=== PATIENT | female | born 1945 | race Caucasian/White ===

== ENCOUNTER 2017-02-11 09:34 | Inpatient (IN) | payer MEDICARE, BC ==
[2017-02-11] VITALS (14 sets, daily range): BP systolic 100–131; BP diastolic 55–91; PULSE 86–104; RESP 10–20; TEMP 98.7; Ht 152.4 cm; Wt 99.3 kg
[~2017-02-11] VITALS: Ht 152.4 cm; Wt 99.3 kg
[~2017-02-11 09:34] MED LIST: AZIT250T6 PO; BUDE6HFA INHALATION; CIPR500T4 PO; IBUP800T25 PO; LEVO50TA74 PO; LORA-444 PO; METO25TA7 PO; MONT10TA24 PO; OSLT75C PO; PRED5 PO
[2017-02-11] MEDS ORDERED: KETOROLAC 15 MG INJ IV STA (10:15)
[2017-02-11] MEDS ORDERED: SOD CHLORIDE 0.9% 500 ML IV STA (10:15)
--- NOTE | 2017-02-11 10:23 | ERA ---
ER Documentation Chief Complaint Date/Time DATE: 02/11/17 TIME: 10:18 Chief Complaint BROUGHT IN VIA EMS DUE TO ABDOMINAL PAIN HPI 71-year-old female with history of hypertension, hypothyroidism, polymyalgia rheumatica, anxiety, peptic ulcer disease, hiatal hernia, arthritis with a recent admission at [facility] in January for urinary tract infection presents to the ED via rescue ambulance complaining of abdominal pain, polyuria and dysuria. Since yesterday afternoon she has had markedly increasing polyuria and through the night he experienced increasing, generalized, sharp and crampy, nonradiating abdominal pain. Denies nausea, vomiting or diarrhea. Mild improvement this morning after a bowel movement. No hematemesis, hematochezia or melanotic stools. Denies chest pain or palpitations. No shortness of breath or cough. No relieving or exacerbating factors. No fevers or chills. ROS All systems reviewed and are negative except as per history of present illness. Medications Home Meds Reported Medications Prednisone* (Prednisone*) 20 Mg Tab, 40 MG PO DAILY, TAB 02/11/17 Budesonide-Formoterol Fumarate* (Symbicort*) 160-4.5 Hfa.aer.ad, 2 PUFF INHALATION BID, EACH 08/13/15 Lorazepam* (Ativan*) 2 Mg Tablet, 2 MG PO BID 08/13/15 Ibuprofen* (Ibuprofen*) 800 Mg Tablet, 800 MG PO Q8 Y for PAIN, TAB 03/05/15 Levothyroxine Sodium* (Levothyroxine Sodium*) 50 Mcg Tablet, 50 MCG PO AC BREAKFAST, TAB 03/05/15 Discontinued Reported Medications Ciprofloxacin Hcl* (Ciprofloxacin Hcl*) 500 Mg Tablet, 500 MG PO BID 08/13/15 Montelukast Sodium* (Montelukast Sodium*) 10 Mg Tablet, 10 MG PO DAILY 08/13/15 Metoprolol Succinate* (Toprol XL*) 25 Mg Tab.sr.24h, 25 MG PO BID 08/13/15 Prednisone* (Prednisone*) 5 Mg Tab, 15 MG PO TID, TAB 03/05/15 Discontinued Scripts Oseltamivir Phosphate* (Tamiflu*) 75 Mg Capsule, 75 MG PO BID for 5 Days, CAP Prov:SAMEERA SCHOFIELD MD 08/13/15 Azithromycin* (Azithromycin*) 250 Mg Tablet, 500 MG PO ONCE, #1 TAB Prov:SCHOFIELD,SAMEERA M MD 08/13/15 Azithromycin* (Azithromycin*) 250 Mg Tablet, 250 MG PO DAILY, #4 TAB Prov:SAMEERA SCHOFIELD MD 08/13/15 Allergies Allergies: Coded Allergies: shellfish derived (Verified Allergy, Severe, 02/11/17) cortisone (Unverified Allergy, Unknown, 02/11/17) hydromorphone (Unverified Allergy, Unknown, SLEEPY, 02/11/17) T/O: Anel CHAPIN NP prochlorperazine (Unverified Allergy, Unknown, 02/11/17) PMhx/Soc Reviewed in chart. As per HPI. History of Surgery: Yes (Ventral hernia, and cataracts) Anesthesia Reaction: No Hx Neurological Disorder: No Hx Respiratory Disorders: Yes (ASTHMA) Hx Cardiac Disorders: Yes (HTN, CARDIOMEGALY) Hx Psychiatric Problems: No Hx Miscellaneous Medical Probl: Yes (ULCERS, FIBROMYALGIA, DIVERTICULITIS, RHEUMATICA) Hx Alcohol Use: No Hx Substance Use: No Hx Tobacco Use: No Smoking Status: Never smoker FmHx Reviewed in chart. Not relevant to presenting complaint. Physical Exam Vitals Vital Signs Date Time Temp Pulse Resp B/P Pulse Ox O2 Delivery O2 Flow Rate FiO2 02/11/17 17:25 94 12 109/70 96 Nasal Cannula 3.0 02/11/17 17:21 98.2 02/11/17 17:20 100 14 118/70 96 Nasal Cannula 3.0 02/11/17 17:15 102 16 106/74 98 Nasal Cannula 3.0 02/11/17 17:10 98.2 104 16 131/65 98 Nasal Cannula 3.0 02/11/17 13:53 98.7 102 22 139/91 97 Room Air 02/11/17 11:28 84 16 140/75 99 Room Air 02/11/17 09:37 98.1 117 20 129/73 96 Physical Exam Const: Alert, chronically ill-appearing, anxious in mild distress. Moderate distress. Head: Atraumatic Eyes: Normal Conjunctiva ENT: Normal External Ears, Nose and Mouth. Neck: Full range of motion.No meningismus. Nontender. No JVD. Resp: Clear to auscultation bilaterally Cardio: Regular rate and rhythm, no murmurs Abd: Soft, Obese, moderate generalized tenderness but no rebound or guarding. Skin: Multiple ecchymosis on upper and lower extremities. Back: No midline or flank tenderness Ext: No cyanosis, or edema Neur: Awake and alert. Cranial nerves II through XII grossly intact. No focal deficit observed. Psych: Anxious but not depressed. Normal judgment. Result Diagram: 02/11/17 1020 02/11/17 1020 Results 24 hrs Laboratory Tests Test 02/11/17 10:20 02/11/17 15:10 White Blood Count 14.010^3/ul Red Blood Count 4.4410^6/ul Hemoglobin 13.0g/dl Hematocrit 40.3% Mean Corpuscular Volume 90.8fl Mean Corpuscular Hemoglobin 29.3pg Mean Corpuscular Hemoglobin Concent 32.3g/dl Red Cell Distribution Width 17.2% Platelet Count 59970^3/UL Mean Platelet Volume 9.4fl Neutrophils % % Segmented Neutrophils % (Manual) 67% Band Neutrophils % (Manual) 4% Lymphocytes % % Lymphocytes % (Manual) 17% Reactive Lymphocytes % (Manual) 1% Monocytes % % Monocytes % (Manual) 3% Eosinophils % % Basophils % % Metamyelocytes % (manual) 3% Myelocytes % (Manual) 5% Nucleated Red Blood Cells % 0.0/100WBC Neutrophils # (Manual) 9.510^3/ul Band Neutrophils # 0.510^3/ul Absolute Lymphocytes (Manual) 2.310^3/ul Lymphocytes # 10^3/ul Reactive Lymphocytes # 0.110^3/ul Monocytes # 10^3/ul Absolute Monocytes (Manual) 0.410^3/ul Eosinophils # 10^3/ul Basophils # 10^3/ul Metamyelocytes # 0.410^3/ul Myelocytes # 0.710^3/ul Nucleated Red Blood Cells # 10^3/ul Prothrombin Time 12.8Sec Prothrombin Time Ratio 1.0 INR International Normalized Ratio 0.96 Activated Partial Thromboplast Time 20.0Sec Urine Color YELLOW Urine Clarity CLOUDY Urine pH 6.0 Urine Specific [place] 1.019 Urine Ketones NEGATIVEmg/dL Urine Nitrite POSITIVEmg/dL Urine Bilirubin NEGATIVEmg/dL Urine Urobilinogen NEGATIVEmg/dL Urine Leukocyte Esterase 3+Efren/ul Urine Microscopic RBC 1/HPF Urine Microscopic WBC 91/HPF Urine Squamous Epithelial Cells FEW/HPF Urine Bacteria FEW/HPF Urine Mucus FEW/HPF Urine Hemoglobin NEGATIVEmg/dL Urine Glucose NEGATIVEmg/dL Urine Total Protein 1+mg/dl Sodium Level 140mmol/L Potassium Level 4.1mmol/L Chloride Level 105mmol/L Carbon Dioxide Level 26mmol/L Anion Gap 13 Blood Urea Nitrogen 19mg/dl Creatinine 0.84mg/dl Glucose Level 137mg/dl Calcium Level 9.6mg/dl Total Bilirubin 0.1mg/dl Direct Bilirubin 0.00mg/dl Indirect Bilirubin 0.1mg/dl Aspartate Amino Transf (AST/SGOT) 33IU/L Alanine Aminotransferase (ALT/SGPT) 91IU/L Alkaline Phosphatase 107IU/L Total Protein 6.2g/dl Albumin 3.5g/dl Globulin 2.70g/dl Albumin/Globulin Ratio 1.29 Lipase 288U/L Thyroid Stimulating Hormone (TSH) 0.672MIU/L Free Thyroxine 0.85ng/dl Hemoglobin A1c 5.9% Current Medications Medications (Trade) Dose Ordered Sig/Citlali Route PRN Reason Start Time Stop Time Status Last Admin Dose Admin Sodium Chloride (NS) 500 ml @ 500 mls/hr Q1H STAT IV 02/11/17 10:15 02/11/17 11:14 DC 02/11/17 10:30 Ketorolac Tromethamine (Toradol) 15 mg ONCE STAT IV 02/11/17 10:15 02/11/17 10:18 DC 02/11/17 10:29 Famotidine 20 mg 20 mg ONCE ONCE IV 02/11/17 10:30 02/11/17 10:31 DC 02/11/17 10:29 Piperacillin Sod/ Tazobactam Sod 100 ml @ 200 mls/hr ONCE ONCE IVPB 02/11/17 13:00 02/11/17 13:29 DC 02/11/17 13:02 Sodium Chloride 1,000 ml @ 125 mls/hr Q8H ONCE IV 02/11/17 13:19 02/11/17 21:18 Sodium Chloride (NS) 1,000 ml @ 100 mls/hr Q10H IV 02/11/17 14:00 02/11/17 18:54 Hydrocortisone (Solu-Cortef) 125 mg ONCE STAT IV 02/11/17 14:01 02/11/17 14:07 DC Hydrocortisone (Solu-Cortef) 100 mg STK-MED ONCE .ROUTE 02/11/17 14:05 02/11/17 14:06 DC Hydrocortisone (Solu-Cortef) 100 mg STK-MED ONCE .ROUTE 02/11/17 14:06 02/11/17 14:07 DC Hydrocortisone (Solu-Cortef) 100 mg ONCE STAT IV 02/11/17 14:15 02/11/17 14:17 DC 02/11/17 14:15 IV Flush (NS 3 ml) 3 ml PER PROTOCOL IV 02/11/17 14:30 Ondansetron HCl (Zofran Inj) 4 mg Q6H PRN IV NAUSEA AND/OR VOMITING 02/11/17 14:30 Morphine Sulfate (morphine) 2 mg Q4H PRN IV SEVERE PAIN LEVEL 7-10 02/11/17 14:30 Albuterol/ Ipratropium (Duoneb) 3 ml Q4H RESP THERAPY PRN HHN SHORTNESS OF BREATH 02/11/17 15:00 02/11/17 17:43 Cefazolin Sodium (Ancef) 2 gm STK-MED ONCE IVPB 02/11/17 15:51 02/11/17 16:14 DC 02/11/17 15:51 Fentanyl (Sublimaze) 25 mcg PACU ORDER PRN IV MILD PAIN LEVEL 1-3 02/11/17 16:30 02/12/17 02:00 Fentanyl (Sublimaze) 50 mcg PACU ODER PRN IV MODERATE PAIN LEVEL 4-6 02/11/17 16:30 02/12/17 02:00 Fentanyl (Sublimaze) 75 mcg PACU ORDER PRN IV SEVERE PAIN LEVEL 7-10 02/11/17 16:30 02/12/17 02:00 Oxycodone/ Acetaminophen (Percocet (5/ 325)) 1 tab PACU ORDER PRN PO PAIN LEVEL 1-5 02/11/17 16:30 02/12/17 02:00 Oxycodone/ Acetaminophen (Percocet (5/ 325)) 2 tab PACU ORDER PRN PO PAIN LEVEL 6-10 02/11/17 16:30 02/12/17 02:00 Ondansetron HCl (Zofran Inj) 4 mg PACU ORDER PRN IV NAUSEA AND/OR VOMITING 02/11/17 16:30 02/12/17 02:00 Trimethobenzamide HCl (Tigan) 200 mg PACU ORDER PRN IM NAUSEA AND/OR VOMITING 02/11/17 16:30 02/12/17 02:00 Labetalol HCl (Labetalol) 5 mg PACU ORDER PRN IV HIGH BLOOD PRESSURE 02/11/17 16:30 02/12/17 02:00 Hydralazine HCl (Apresoline) 5 mg PACU ORDER PRN IV HIGH BLOOD PRESSURE 02/11/17 16:30 02/12/17 02:00 Ephedrine Sulfate 5 mg PACU ORDER PRN IV MAP LESS THAN 60 02/11/17 16:30 02/12/17 02:00 Albuterol (Proventil 0.083% (Neb)) 2.5 mg PACU ORDER PRN HHN WHEEZING 02/11/17 16:30 02/12/17 02:00 Ipratropium [place] (Atrovent 0.02% (Neb)) 0.5 mg PACU ORDER PRN HHN WHEEZING 02/11/17 16:30 02/12/17 02:00 Meperidine HCl (Demerol) 25 mg PACU ORDER PRN IV POST-OP RIGORS 02/11/17 16:30 02/12/17 02:00 Diphenhydramine HCl (Benadryl) 25 mg PACU ORDER PRN IV PRURITUS 02/11/17 16:30 02/12/17 02:00 Midazolam HCl (Versed) 0.5 mg PACU ORDER PRN IV ANXIETY 02/11/17 16:30 02/12/17 02:00 Morphine Sulfate (morphine) 2 mg Q2H PRN IV PAIN LEVEL 1-5 02/11/17 16:30 Morphine Sulfate (morphine) 4 mg Q2H PRN IV PAIN LEVEL 6-10 02/11/17 16:30 Ketorolac Tromethamine (Toradol) 15 mg Q6H PRN IV PAIN LEVEL 6-10 02/11/17 16:30 02/14/17 16:29 Diphenhydramine HCl (Benadryl) 25 mg Q4H PRN IV PRURITUS 02/11/17 16:30 Nalbuphine HCl (Nubain) 10 mg Q4H PRN IV PRURITUS 02/11/17 16:30 Ondansetron HCl (Zofran Inj) 4 mg Q6H PRN IV NAUSEA AND/OR VOMITING 02/11/17 16:30 Trimethobenzamide HCl (Tigan) 200 mg Q6H PRN IM NAUSEA AND/OR VOMITING 02/11/17 16:30 02/12/17 02:00 Zolpidem Tartrate (Ambien) 5 mg HS MAY REPEAT X 1 PRN PO INSOMNIA 02/11/17 16:30 02/12/17 02:00 Naloxone HCl (Narcan) 0.2 mg Q2M PRN IV FOR RESP RATE 8 OR LESS 02/11/17 16:30 02/12/17 02:00 Miscellaneous Information (* Miscellaneous Pharmacy Order) DURAMORPH: 0.2 MG SPI... GIVEN NEURAXIAL XX 02/11/17 16:30 IMAGING: PROCEDURE: CT Abdomen and Pelvis without intravenous contrast. CLINICAL INDICATION: Abdominal pain . History of peptic ulcer disease and hiatal hernia repair. TECHNIQUE: CT scan of the abdomen and pelvis without intravenous contrast was performed on a multi-slice CT scanner. Coronal and sagittal reformatted images were obtained from the axial source images. Images were reviewed on a high- resolution PACS workstation. Total DLP = 1330.9 mGy-cm. CTDIvol = 22.7 mGy. One or more of the following dose reduction techniques were used: Automated exposure control. Adjustment of the mA and/or kV according to patient size. Use of iterative reconstruction technique. COMPARISON: None. FINDINGS: CT abdomen and pelvis: The lung bases are clear. The heart size is normal in size with calcific atherosclerosis of the coronary arteries.. The liver is normal in size and fatty in density without focal mass or intrahepatic biliary dilatation. The spleen is normal in size and homogeneous in density. The pancreas as visualized is normal. The gallbladder shows no evidence of stones or distension . The adrenal glands are normal. The kidneys are symmetric in size. There are multiple bilateral nonobstructing renal calculi measuring up to 3 mm. No evidence of obstructive uropathy or ureteral calculi. There are multiple phleboliths in the pelvis which limits evaluation for distal ureteral stones.. The stomach is partially collapsed, but is grossly unremarkable. The small bowels are unremarkable. The colon and rectum demonstrate colonic diverticulosis. At the proximal transverse colon near the hepatic flexure, there is focal jv colonic inflammation with a 2 cm extraluminal gas and fluid collection suspicious for perforated diverticulitis.. Small bubbles of pneumoperitoneum are also seen in the right upper quadrant. The appendix is normal. There is no evidence of appendicitis.. The pelvic organs are normal. The bladder is normal. There is no abdominal or pelvic adenopathy, free fluid, free air, mass or mesenteric inflammation. The aorta is normal in caliber with calcific atherosclerosis . The osseous structures showing degenerative enthesopathy of the spine. No osteolytic or osteoblastic lesions are identified. The soft tissues are within normal limits. Lack of IV and oral contrast limits sensitivity of exam. IMPRESSION: 1. Colonic diverticulosis with focal inflammation and extraluminal 2 cm gas and fluid collection adjacent to the proximal transverse colon near the hepatic flexure. Small bubbles of pneumoperitoneum also seen in the right upper quadrant. Findings are consistent with a perforated diverticulitis in the proximal transverse colon. 2. Nonobstructing nephrolithiasis. 3. Hepatic steatosis. RPTAT: HJPL .Lemuel Hernandez MD, MD Date Time Electronically viewed and signed by .Lemuel Hernandez MD, MD on 02/11/2017 11:39 .L/ EKG: Sinus rhythm. Normal RI/QRS. No STTW changes. No axis deviation or ectopy. EP: Interpretation: Normal EKG. Procedures/MDM DOCUMENTS REVIEWED: ED nurse, Prior ED. MEDICAL DECISION MAKIN-year-old female with history of hypertension, hypothyroidism, polymyalgia rheumatica, anxiety, peptic ulcer disease, hiatal hernia, arthritis with a recent admission at [facility] in January for urinary tract infection presents to the ED via rescue ambulance complaining of abdominal pain, polyuria and dysuria. Broad differential diagnosis considered. CT scan reveals perforated diverticulitis with free air. Zosyn given. Surgery consulted and emergent laparotomy scheduled. Counseled patient regarding diagnosis, diagnostic results and plan for admission. CALLS/CONSULTS: Time 12:50, Dr. Haji, Recommends Emergent laparotomy. CALLS/CONSULTS: Time 12:50, Dr. Palacios. PATIENT CARE TRANSITIONED: Time: 13:30, Dr. Palacios. Departure Diagnosis: Primary Impression: Acute generalized abdominal pain Additional Impressions: Diverticulitis of colon with perforation Qualified Code: K57.20 - Diverticulitis of large intestine with perforation without bleeding Polymyalgia rheumatica Condition: Serious CHITO BRITO MD Feb 11, 2017 10:23
[2017-02-11] MEDS ORDERED: FAMOTIDINE 20 MG INJ IV ONE (10:30)
[2017-02-11 10:36] LABS: ABNORMAL IP MESSAGE 1; HEMATOCRIT 40.3 % (37.0-47.0); MEAN CORPUSCULAR HEMOGLOBIN 29.3 pg (29.0-33.0); MEAN CORPUSCULAR HGB CONC 32.3 g/dl (32.0-37.0); MEAN CORPUSCULAR VOLUME 90.8 fl (82.0-101.0); MEAN PLATELET VOLUME 9.4 fl (7.4-10.4); PLATELET COUNT 224 10^3/UL (140-415); RED BLOOD COUNT 4.44 10^6/ul (4.20-5.40); RED CELL DISTRIBUTION WIDTH 17.2 % (11.5-14.5)
[2017-02-11 10:56] LABS: ALBUMIN 3.5 g/dl (3.3-4.9); ALBUMIN/GLOBULIN RATIO 1.29; BILIRUBIN,INDIRECT 0.1 mg/dl (0-1.1); BILIRUBIN,TOTAL 0.1 mg/dl (0.2-1.3); CALCIUM 9.6 mg/dl (8.4-10.2); CREATININE 0.84 mg/dl (0.44-1.00); POTASSIUM 4.1 mmol/L (3.5-5.1); TOTAL PROTEIN 6.2 g/dl (6.1-8.1)
[2017-02-11 11:02] LABS: ADD UMIC YES; UR ASCORBIC ACID NEGATIVE (NEGATIVE); UR BACTERIA FEW /HPF (NONE SEEN); UR BILIRUBIN (Dip) NEGATIVE (NEGATIVE); UR BLOOD (Dip) NEGATIVE (NEGATIVE); UR CLARITY CLOUDY (CLEAR); UR COLOR YELLOW (YELLOW); UR GLUCOSE (Dip) NEGATIVE (NEGATIVE); UR KETONES (Dip) NEGATIVE (NEGATIVE); UR LEUKOCYTE ESTERASE (Dip) 3+ Leu/ul (NEGATIVE); UR MUCUS FEW /HPF (NONE SEEN); UR NITRITE (Dip) POSITIVE (NEGATIVE); UR RBC 1 /HPF (0-5); UR SPECIFIC GRAVITY (Dip) 1.019 (1.003-1.030); UR SQUAMOUS EPITHELIAL CELL FEW /HPF (FEW); UR TOTAL PROTEIN (Dip) 1+ mg/dl (NEGATIVE); UR UROBILINOGEN (Dip) NEGATIVE (NEGATIVE)
[2017-02-11 11:21] LABS: METAMYELOCYTES %M 3 % (0-0); MONOCYTES % (M) 3 % (0-11); MYELOCYTES % (M) 5 % (0-0); REACTIVE LYMPHOCYTES% (M) 1 % (0-0)
--- NOTE | 2017-02-11 11:39 | RADRPT ---
PROCEDURE: CT Abdomen and Pelvis without intravenous contrast. CLINICAL INDICATION: Abdominal pain . History of peptic ulcer disease and hiatal hernia repair. TECHNIQUE: CT scan of the abdomen and pelvis without intravenous contrast was performed on a multi -slice CT scanner. Coronal and sagittal reformatted images were obtained from the axial source image s. Images were reviewed on a high-resolution PACS workstation. Total DLP = 1330.9 mGy-cm. CTDIvol = 22.7 mGy. One or more of the following dose reduction techniques were used: Automated exposure control. Adjustment of the mA and/or kV according to patient size. Use of iterative reconstruction technique. COMPARISON: None. FINDINGS: CT abdomen and pelvis: The lung bases are clear. The heart size is normal in size with calcific atherosclerosis of the cor onary arteries.. The liver is normal in size and fatty in density without focal mass or intrahepati c biliary dilatation. The spleen is normal in size and homogeneous in density. The pancreas as vi sualized is normal. The gallbladder shows no evidence of stones or distension . The adrenal gland s are normal. The kidneys are symmetric in size. There are multiple bilateral nonobstructing renal calculi measuring up to 3 mm. No evidence of obstructive uropathy or ureteral calculi. There are mul tiple phleboliths in the pelvis which limits evaluation for distal ureteral stones.. The stomach is partially collapsed, but is grossly unremarkable. The small bowels are unremarkable. The colon and rectum demonstrate colonic diverticulosis. At the proximal transverse colon near the h epatic flexure, there is focal jv colonic inflammation with a 2 cm extraluminal gas and fluid genny ection suspicious for perforated diverticulitis.. Small bubbles of pneumoperitoneum are also seen in the right upper quadrant. The appendix is normal. There is no evidence of appendicitis.. The pelvic organs are normal. The bladder is normal. There is no abdominal or pelvic adenopathy, free fluid, f ree air, mass or mesenteric inflammation. The aorta is normal in caliber with calcific atherosclerosis . The osseous structures showing degen erative enthesopathy of the spine. No osteolytic or osteoblastic lesions are identified. The soft t issues are within normal limits. Lack of IV and oral contrast limits sensitivity of exam. IMPRESSION: 1. Colonic diverticulosis with focal inflammation and extraluminal 2 cm gas and fluid collection ad jacent to the proximal transverse colon near the hepatic flexure. Small bubbles of pneumoperitoneum also seen in the right upper quadrant. Findings are consistent with a perforated diverticulitis in t he proximal transverse colon. 2. Nonobstructing nephrolithiasis. 3. Hepatic steatosis. RPTAT: HJPL .Lemuel Hernandez MD, MD Date Time Electronically viewed and signed by .Lemuel Hernandez MD, MD on 02/11/2017 11:39 .L/
[2017-02-11] MEDS ORDERED: PRED20TA PO (12:03)
[2017-02-11] MEDS ORDERED: PIPER-TAZO 3.375 GM IV (PMX) 100 ML IVPB ONE (13:00)
[2017-02-11] MEDS ORDERED: SOD CHLORIDE 0.9% 1,000 ML IV ONE ×2 (13:19→22:30)
[2017-02-11 13:49] LABS: INR 0.96; PROTIME 12.8 Sec (12.2-14.2)
[2017-02-11] MEDS ORDERED: HYDROCORTISONE 250 MG INJ IV STA (14:01)
[2017-02-11] MEDS ORDERED: HYDROCORTISONE 100 MG INJ ONE ×2 (14:05→14:06)
[2017-02-11] MEDS: SOD CHLORIDE 0.9% 1,000 ML IV SCH ×2 (14:05→18:54)
[2017-02-11] MEDS ORDERED: HYDROCORTISONE 100 MG INJ IV STA (14:15)
--- NOTE | 2017-02-11 14:23 | RADRPT ---
PROCEDURE: XR Chest. CLINICAL INDICATION: Pain TECHNIQUE: Single frontal chest x-ray. COMPARISON: X-ray, 08/13/2015 FINDINGS: There is nonspecific mild elevation of the right hemidiaphragm, unchanged from the prior x-ray. No a cute infiltrate, pleural effusion or pneumothorax is identified. Cardiomediastinal silhouette is wi thin normal limits. Aortic atherosclerotic calcification is noted. The osseous structures are unrem arkable. IMPRESSION: 1. Nonspecific mild elevation of the right hemidiaphragm, stable over time. 2. Aortic atherosclerosis. 3. No evidence of acute cardiopulmonary process. RPTAT: PP .Raul Nath MD, MD Date Time Electronically viewed and signed by .Raul Nath MD, on 02/11/2017 14:22 .R/
[2017-02-11] MEDS ORDERED: NACL 0.9% 3 ML SYG IV SCH (14:30)
[2017-02-11] MEDS ORDERED: ONDANSETRON 4 MG INJ IV PRN ×4 (14:30→17:30)
[2017-02-11] MEDS ORDERED: morphine 2 MG INJ IV PRN ×2 (14:30→16:30)
--- NOTE | 2017-02-11 14:42 | HP ---
Date/Time of Note Date/Time of Note DATE: 02/11/17 TIME: 14:41 Assessment/Plan VTE Prophylaxis VTE Prophylaxis Intervention: SCD's Assessment/Plan Chief Complaint/Hosp Course 1. Perforated sigmoid diverticulitis with pneumoperitoneum. The patient will be continued on empiric antibiotics. Patient will be kept n.p.o. The patient will be adequately hydrated. General surgery consult has been called. The patient will be taken to urgent exploratory laparotomy. IV steroids in high- dose will be given prevent any adrenal insufficiency since the patient gets prednisone at home on a regular basis. 2. Positive urinalysis. Possible underlying urinary tract infection. She was recently treated for urinary tract infection at an outside hospital. The patient will be maintained on empiric antibiotics. Urine cultures will be obtained. 3. Essential hypertension. The patient's home oral antihypertensives will be held at this time. 4. Hypothyroidism. The patient's Synthroid will be resumed. 5. Polymyalgia rheumatica. On long-term steroids. Will treat the patient with IV steroids to avoid any adrenal insufficiency. 6. History of peptic ulcer disease. Patient will be maintained on proton pump inhibitors, specifically since the patient is getting high-dose IV steroids to prevent any gastric ulcers. Plan: The patient will be admitted to inpatient setting. The patient will be kept n.p.o. The patient will be started on DVT prophylaxis and gastrointestinal prophylaxis. The patient will remain a full code. Activities will be bedrest. The rest of the patient's management will be based on the clinical course, inputs from consultants, and the results of diagnostic studies. Based on the patient's clinical presentation, she most probably requires at least 2 midnights' stay for further management and evaluation of her clinical presentation. Perioperative risk stratification: The patient is a 71-year-old female with multiple comorbidities including essential hypertension, hypothyroidism, polymyalgia rheumatica on chronic steroid therapy, who lives a more or less sedentary life. The patient verbalized a history of carotid artery disease. Given these comorbidities the patient is at moderate to severe risk for any untoward medical complications related to any surgical interventions. She has a perforated diverticulitis. She needs emergent surgery to prevent further complications including peritonitis and sepsis. Therefore, the benefits of the surgical intervention outweighs the risks from the procedure. The case and management of this patient was fully discussed with Dr. Palacios. Problems: HPI/ROS Admit Date/Time Admit Date/Time Hx of Present Illness Reason for admission: Abdominal pain. Consultants 1 Jermaine Haji MD, General Surgery. This is a 71-year-old female with past medical history essential hypertension, hypothyroidism, polymyalgia rheumatica on chronic steroid therapy , peptic ulcer disease, hiatal hernia, and arthritis. Patient was recently discharged from [facility] after treatment of urinary tract infection. The patient came to [facility] emergency room because of complaints of abdominal pain, poor appetite, generalized malaise, polyuria, and dysuria. Patient denied any nausea, vomiting, diarrhea, hematemesis, hematochezia, or melena. The patient was complaining of generalized body aches. Patient denied any dyspnea or cough. The patient denied any fevers or chills. In the emergency room, the patient was noticed to have leukocytosis. The patient underwent a CT scan of the abdomen and pelvis that showed colonic diverticulosis with focal inflammation and extraluminal 2 cm gas and fluid collection adjacent to the proximal transverse colon near the hepatic flexure. Findings are consistent with a perforated diverticulitis in the proximal transverse colon. The urinalysis showed positive nitrate positive leukocyte esterase with a urine microscopic WBC of 91. The patient was treated with IV Zosyn, IV fluids, and analgesics in the emergency room. The on-call surgeon was called by the emergency room physician. ROS Constitutional: fatigue, nausea Eyes: no complaints ENT: no complaints Respiratory: no complaints Gastrointestinal: decreased appetite, nausea, pain Genitourinary: other (Urinary frequency) Musculoskeletal: bone/joint pain Skin: no complaints Neurologic: no complaints Endocrine: polyuria Lymphatic: no complaints Psychological: anxiety Immunologic: no complaints PMH/Family/Social Past Medical History Medical History: hypertension, hypothyroid, other (peptic ulcer disease, polymyalgia rheumatica, chronic steroid use) Past Surgical History Past Surgical Hx: other (, cataract surgery) Social History The patient lives by herself in an apartment. The patient is . Has a son in [place]. Has a sister in [place]. Alcohol Use: none Smoking Status: Never smoker Drug Use: none Exam/Review of Systems Vital Signs Vitals Vital Signs Date Time Temp Pulse Resp B/P Pulse Ox O2 Delivery O2 Flow Rate FiO2 02/11/17 13:53 98.7 102 22 139/91 97 Room Air Exam Exam General: Obese 71 year-old female lying in bed in no apparent distress. HEENT: Normocephalic, atraumatic. Osman facies. Eyes: Anicteric sclerae, conjunctivae clear. ENT: Nasal septum midline, oral mucosa moist. Neck: [place] hump. No JVD noticed. Respiratory: Bilaterally diminished breath sounds. No use of accessory muscles of respiration. No adventitious breath sounds. Cardiovascular: S1, S2 heard. No murmurs or gallops. Abdomen: Soft and nondistended. Bowel sounds positive in all 4 quadrants. Diffuse tenderness. Genitourinary: Deferred. Extremities: No cyanosis, no clubbing. Peripheral pulses palpable. Deformities of bilateral metacarpal joints. Neurologic: Cranial nerves II through XII grossly intact. The patient is awake, alert, and oriented. Labs Result Diagram: 02/11/17 1020 02/11/17 1020 Medications Medications Current Medications Sodium Chloride 1,000 ml @ 125 mls/hr Q8H ONCE IV ; Start 02/11/17 at 13:19; Stop 02/11/17 at 21:18 Piperacillin Sod/ Tazobactam Sod 100 ml @ 200 mls/hr Q8 IVPB ; Start 02/11/17 at 22:00 Sodium Chloride (NS) 1,000 ml @ 100 mls/hr Q10H IV Last administered on t 14:05; Admin Dose 100 MLS/HR; Start 02/11/17 at 14:00 Hydrocortisone (Solu-Cortef) 125 mg DAILY IV ; Start 02/12/17 at 09:00 Ondansetron HCl (Zofran Inj) 4 mg Q6H PRN IV NAUSEA AND/OR VOMITING; Start 03/20 at 14:30 Morphine Sulfate (morphine) 2 mg Q4H PRN IV SEVERE PAIN LEVEL 7-10; Start 02/11 at 14:30; Status UNV Pantoprazole (Protonix Iv) 40 mg DAILY@06 IV ; Start 02/12/17 at 06:00 Procedures Procedures CXR IMPRESSION: 1. Nonspecific mild elevation of the right hemidiaphragm, stable over time. 2. Aortic atherosclerosis. 3. No evidence of acute cardiopulmonary process. CT Scan of the Abdomen and Pelvis IMPRESSION: 1. Colonic diverticulosis with focal inflammation and extraluminal 2 cm gas and fluid collection adjacent to the proximal transverse colon near the hepatic flexure. Small bubbles of pneumoperitoneum also seen in the right upper quadrant. Findings are consistent with a perforated diverticulitis in the proximal transverse colon. 2. Nonobstructing nephrolithiasis. 3. Hepatic steatosis. 12-Lead EKG Normal sinus rhythm. ALEX CHAPIN NP Feb 11, 2017 14:42 ALEX CHAPIN NP Feb 11, 2017 14:42
--- NOTE | 2017-02-11 14:43 | CONS ---
Date/Time of Note Date/Time of Note DATE: 02/11/17 TIME: 14:37 Assessment/Plan Assessment/Plan Additional Assessment/Plan Perforated sigmoid diverticulitis with pneumoperitoneum Patient is hemodynamically stable Plan: Urgent exploratory laparotomy with partial colectomy and temporary colostomy. I have discussed the procedure, outcomes, expectations alternatives and risks in detail with the patient who has an excellent grasp of the nature of her situation and agrees to the proposed plan of therapy as outlined. Consultation Date/Type/Reason Admit Date/Time Date of Consultation: Feb 11, 2017 Reason for Consultation Perforated diverticulitis with pneumoperitoneum Hx of Present Illness The patient is a 71-year-old female who has a history of hypertension, cardiomyopathy and fibromyalgia who is on steroids. She was recently hospitalized at [facility] from January 11 - January 19 for what was diagnosed as a urinary tract infection. Now presents here with a four-day history of increasing left-sided abdominal pain now radiating to the right. In the emergency room she was noted to have a tender left lower quadrant, an elevated white blood cell count, and a CT scan which showed a right pneumoperitoneum as well as refractory sigmoid diverticulitis. She was admitted and surgical consultation was requested in that regard. She has had no fevers or chills she has had polyurea Constitutional: no complaints Eyes: other (We have cataracts) Respiratory: no complaints Cardiovascular: other (String of hypertension and cardiomyopathy) Gastrointestinal: other (As in the HPI) Musculoskeletal: no complaints, other (Fibromyalgia) Skin: no complaints Neurologic: no complaints Endocrine: no complaints Lymphatic: no complaints Psychological: no complaints Past Medical History Medical History: congestive heart failure, diverticulitis, urinary tract infection Past Surgical History Past Surgical Hx: other (Umbilical hernia repair) Family History Significant Family History: no pertinent family hx Social History Alcohol Use: none Smoking Status: Never smoker Drug Use: none Exam/Review of Systems Vital Signs Vitals Vital Signs Date Time Temp Pulse Resp B/P Pulse Ox O2 Delivery O2 Flow Rate FiO2 02/11/17 13:53 98.7 102 22 139/91 97 Room Air Exam Constitutional: alert Psych: no complaints Head: normocephalic Eyes: nl conjunctiva ENMT: nl external ears & nose Respiratory: clear to auscultation Cardiovascular: regular rate and rhythm Gastrointestinal: tender (Lower quadrant with guarding) Musculoskeletal: nl extremities to inspection Extremities: normal pulses Neurological: CONCRETE FLOAT MAKER II-XII intact Results Result Diagram: 02/11/17 1020 02/11/17 1020 Results 24 hrs Laboratory Tests Test 02/11/17 10:20 White Blood Count 14.0 H Red Blood Count 4.44 Hemoglobin 13.0 Hematocrit 40.3 Mean Corpuscular Volume 90.8 Mean Corpuscular Hemoglobin 29.3 Mean Corpuscular Hemoglobin Concent 32.3 Red Cell Distribution Width 17.2 H Platelet Count 224 Mean Platelet Volume 9.4 # Neutrophils % Segmented Neutrophils % (Manual) 67 Band Neutrophils % (Manual) 4 Lymphocytes % Lymphocytes % (Manual) 17 Reactive Lymphocytes % (Manual) 1 H Monocytes % Monocytes % (Manual) 3 Eosinophils % Basophils % Metamyelocytes % (manual) 3 H Myelocytes % (Manual) 5 H Nucleated Red Blood Cells % 0.0 Neutrophils # (Manual) 9.5 H Band Neutrophils # 0.5 Absolute Lymphocytes (Manual) 2.3 Lymphocytes # Reactive Lymphocytes # 0.1 H Monocytes # Absolute Monocytes (Manual) 0.4 Eosinophils # Basophils # Metamyelocytes # 0.4 H Myelocytes # 0.7 H Nucleated Red Blood Cells # Prothrombin Time 12.8 Prothrombin Time Ratio 1.0 INR International Normalized Ratio 0.96 Activated Partial Thromboplast Time Pending Urine Color YELLOW Urine Clarity CLOUDY A Urine pH 6.0 Urine Specific Angela 1.019 Urine Ketones NEGATIVE Urine Nitrite POSITIVE A Urine Bilirubin NEGATIVE Urine Urobilinogen NEGATIVE Urine Leukocyte Esterase 3+ H Urine Microscopic RBC 1 Urine Microscopic WBC 91 H Urine Squamous Epithelial Cells FEW Urine Bacteria FEW A Urine Mucus FEW A Urine Hemoglobin NEGATIVE Urine Glucose NEGATIVE Urine Total Protein 1+ H Sodium Level 140 Potassium Level 4.1 Chloride Level 105 Carbon Dioxide Level 26 Anion Gap 13 Blood Urea Nitrogen 19 Creatinine 0.84 Glucose Level 137 Calcium Level 9.6 Total Bilirubin 0.1 L Direct Bilirubin 0.00 Indirect Bilirubin 0.1 Aspartate Amino Transf (AST/SGOT) 33 Alanine Aminotransferase (ALT/SGPT) 91 H Alkaline Phosphatase 107 Total Protein 6.2 Albumin 3.5 Globulin 2.70 Albumin/Globulin Ratio 1.29 Lipase 288 Medications Medications Current Medications Sodium Chloride 1,000 ml @ 125 mls/hr Q8H ONCE IV ; Start 02/11/17 at 13:19; Stop 02/11/17 at 21:18 Piperacillin Sod/ Tazobactam Sod 100 ml @ 200 mls/hr Q8 IVPB ; Start 02/11/17 at 22:00 Sodium Chloride (NS) 1,000 ml @ 100 mls/hr Q10H IV Last administered on t 14:05; Admin Dose 100 MLS/HR; Start 02/11/17 at 14:00 Hydrocortisone (Solu-Cortef) 125 mg DAILY IV ; Start 02/12/17 at 09:00 Ondansetron HCl (Zofran Inj) 4 mg Q6H PRN IV NAUSEA AND/OR VOMITING; Start 03/20 at 14:30 Morphine Sulfate (morphine) 2 mg Q4H PRN IV SEVERE PAIN LEVEL 7-10; Start 02/11 at 14:30; Status UNV Pantoprazole (Protonix Iv) 40 mg DAILY@06 IV ; Start 02/12/17 at 06:00 CARL STEPHENS MD Feb 11, 2017 14:43
[2017-02-11] MEDS ORDERED: SUGAMMADEX SODIUM 200 MG/2 ML VIAL IV ONE (15:00)
[2017-02-11] MEDS ORDERED: MIDAZOLAM 1 MG/ML 2 ML INJ ONE (15:00)
[2017-02-11] MEDS ORDERED: morphine SULFATE/PF (10 MG/10 ML) INJ ONE (15:00)
[2017-02-11] MEDS ORDERED: ROCURONIUM 50 MG INJ ONE (15:00)
[2017-02-11] MEDS ORDERED: ONDANSETRON 4 MG INJ ONE (15:00)
[2017-02-11] MEDS ORDERED: metroNIDAZOLE 500 MG/100 ML NS IVPB ONE (15:00)
[2017-02-11] MEDS ORDERED: DEXAMETHASONE 4 MG/ML 1 ML INJ ONE (15:00)
[2017-02-11] MEDS ORDERED: PROPOFOL 200 MG INJ ONE (15:00)
[2017-02-11] MEDS ORDERED: SUCCINYLCHOLINE CHLORIDE 100 MG/5 ML SYG IV ONE (15:00)
[2017-02-11] MEDS ORDERED: CEFAZOLIN 1 GM INJ ONE (15:00)
[2017-02-11] MEDS ORDERED: FENTAnyl 50 MCG/ML VIAL ONE (15:00)
[2017-02-11] MEDS ORDERED: ALBUTEROL/IPRATROPIUM (NEB) 3 ML AMP HHN PRN (15:00)
[2017-02-11] MEDS ORDERED: CEFAZOLIN 1 GM INJ IVPB ONE (15:51)
[2017-02-11] MEDS ORDERED: morphine 4 MG/ML VIAL IV PRN (16:30)
[2017-02-11] MEDS ORDERED: hydrALAzine 20 MG INJ IV PRN (16:30)
[2017-02-11] MEDS ORDERED: DIPHENHYDRAMINE 50 MG INJ IV PRN ×2 (16:30)
[2017-02-11] MEDS ORDERED: LABETALOL HCL 20MG INJ IV PRN (16:30)
[2017-02-11] MEDS ORDERED: ZOLPIDEM 5 MG TAB PO PRN (16:30)
[2017-02-11] MEDS ORDERED: IPRATROPIUM (NEB) 0.5 MG/2.5 ML AMP HHN PRN (16:30)
[2017-02-11] MEDS ORDERED: FENTAnyl 50 MCG/ML VIAL IV PRN ×3 (16:30)
[2017-02-11] MEDS ORDERED: OXYCODONE/ACETAMINOPHEN (5/325) TAB PO PRN ×2 (16:30)
[2017-02-11] MEDS ORDERED: TRIMETHOBENZAMIDE 100 MG/ML VIAL IM PRN ×2 (16:30)
[2017-02-11] MEDS ORDERED: NALOXONE (0.4 MG/ML) INJ IV PRN (16:30)
[2017-02-11] MEDS ORDERED: KETOROLAC 15 MG INJ IV PRN (16:30)
[2017-02-11] MEDS ORDERED: NALBUPHINE HCL (10 MG/1 ML) INJ IV PRN (16:30)
[2017-02-11] MEDS ORDERED: MIDAZOLAM 1 MG/ML 2 ML INJ IV PRN (16:30)
[2017-02-11] MEDS ORDERED: ALBUTEROL 0.083% (NEB) 2.5 MG/3 ML AMP HHN PRN (16:30)
[2017-02-11] MEDS ORDERED: EPHEDrine SULFATE 50 MG/5 ML SYG IV PRN (16:30)
[2017-02-11] MEDS ORDERED: MEPERIDINE 25 MG INJ IV PRN (16:30)
--- NOTE | 2017-02-11 17:15 | OPR ---
Date/Time of Note Date/Time of Note DATE: 02/11/17 TIME: 17:08 Operative Report Procedure Date: Feb 11, 2017 Preoperative Diagnosis Pneumoperitoneum Postoperative Diagnosis Perforated right transverse colon. Neoplastic versus inflammatory. Pathology pending Operation Performed 1. Exploratory laparotomy 2. Right hemicolectomy Surgeon: CARL STEPHENS MD Anesthesia Type: general Anesthesiologist: Andrew Crooks M.D. Estimated Blood Loss: 50 - 100 ml's Transfusion Required: no Specimens Right colon Grafts/Implants: none Tubes/Drains None Complications: no Pt Condition Post Procedure: stable Disposition: PACU Indications Peritonitis Operative\Procedure Findings Contained perforation of right transverse colon. Etiology to be determined by pathology Procedure Description After satisfactory general endotracheal anesthesia was achieved, a Mojica catheter was placed and the abdomen prepped and draped. The abdomen was entered through a lower vertical midline incision extending just above the umbilicus. Abdominal exploration showed that the patient had mild sigmoid diverticulitis. The descending colon was normal the cecum and ascending colon were normal. There was a masslike effect of the right transverse colon which when mobilized perforated extruding formed pus. The segment of colon was indurated, and the perforation was either neoplastic or inflammatory, and could not be determined intraoperatively. The remainder of the colon was normal as was the small bowel and colon. The transverse colon to the right of the middle colic vessels was divided with a 55 mm stapler. The terminal ileum was divided with a 55 mm stapler. The mesentery to the right colon was divided with impact LigaSure. The right colon was excised and submitted intact. Mesenteric defect was closed with running 3-0 Vicryl suture. Next the antimesenteric border of each staple line was excised. A 75 mm NUNO stapler was inserted into each limb of bowel, closed and fired achieving a side to side ileocolic anastomosis. The secondary defect was closed with a TA 60 stapler. The resulting anastomosis was widely patent, well vascularized and free of tension. Operating personnel then changed gloves. Hemostasis was total. The abdomen was then closed en susanna interrupted #2 Vicryl sutures. Sponge, needle and instrument counts were reported as correct 2 prior to skin closure. Skin was closed with skin kay. CARL STEPHENS MD Feb 11, 2017 17:15
[2017-02-11] MEDS ORDERED: ALBUTEROL 0.5% (NEB) 2.5 MG/0.5 ML AMP ONE (17:32)
[2017-02-11] MEDS: METOCLOPRAMIDE 10 MG INJ IV SCH (18:55)
[2017-02-11] MEDS ORDERED: HYDROCORTISONE 100 MG INJ IV SCH (21:00)
[2017-02-11] MEDS: METHYLPREDNISOLONE 125 MG INJ IV SCH (21:16)
[2017-02-11] MEDS ORDERED: NITR0.3T6 SL (21:54)
[2017-02-11] MEDS ORDERED: LEVE250T66 PO (21:54)
[2017-02-11] MEDS ORDERED: AMLO-145 PO (21:54)
[2017-02-11] MEDS ORDERED: VALS160T26 PO (21:54)
[2017-02-11] MEDS: PIPER-TAZO 3.375 GM IV (PMX) 100 ML IVPB SCH (21:55)
[2017-02-11] MEDS ORDERED: CEFAZOLIN 1 GM/50 ML (PMX) 50 ML IVPB SCH (22:00)
[2017-02-11] MEDS: metroNIDAZOLE 500 MG/NS (PMX) 100 ML IVPB SCH (22:22)
[2017-02-11] MEDS: LEVETIRACETAM 250 MG TAB PO SCH (23:22)
[2017-02-12] VITALS (9 sets, daily range): BP systolic 112–141; BP diastolic 62–71; PULSE 97–100; RESP 16–20
[2017-02-12] MEDS: SOD CHLORIDE 0.9% 1,000 ML IV SCH ×3 (03:37→22:56)
[2017-02-12] MEDS: METOCLOPRAMIDE 10 MG INJ IV SCH ×4 (05:37→17:10)
[2017-02-12] MEDS: PIPER-TAZO 3.375 GM IV (PMX) 100 ML IVPB SCH ×3 (05:39→21:45)
[2017-02-12] MEDS: METHYLPREDNISOLONE 125 MG INJ IV SCH ×3 (05:39→21:46)
[2017-02-12 05:56] LABS: ABNORMAL IP MESSAGE 1; HEMATOCRIT 36.2 % (37.0-47.0); HEMOGLOBIN 11.1 g/dl (12.0-16.0); MEAN CORPUSCULAR HEMOGLOBIN 28.2 pg (29.0-33.0); MEAN CORPUSCULAR HGB CONC 30.7 g/dl (32.0-37.0); MEAN CORPUSCULAR VOLUME 91.9 fl (82.0-101.0); MEAN PLATELET VOLUME 9.5 fl (7.4-10.4); PLATELET COUNT 188 10^3/UL (140-415); RED BLOOD COUNT 3.94 10^6/ul (4.20-5.40); RED CELL DISTRIBUTION WIDTH 17.4 % (11.5-14.5); WHITE BLOOD COUNT 20.6 10^3/ul (4.8-10.8)
[2017-02-12] MEDS ORDERED: PANTOPRAZOLE 40 MG INJ IV SCH (06:00)
[2017-02-12 06:06] LABS: POSITIVE DIFF @See below
[2017-02-12 06:30] LABS: CHOL/HDL RATIO 2.6 RATIO; MAGNESIUM 1.9 mg/dl (1.7-2.5); PHOSPHORUS 3.8 mg/dl (2.5-4.9)
[2017-02-12 06:31] LABS: ALBUMIN 2.7 g/dl (3.3-4.9); ALBUMIN/GLOBULIN RATIO 1.08; BILIRUBIN,INDIRECT 0.1 mg/dl (0-1.1); BILIRUBIN,TOTAL 0.1 mg/dl (0.2-1.3); CALCIUM 8.4 mg/dl (8.4-10.2); CREATININE 0.67 mg/dl (0.44-1.00); POTASSIUM 4.4 mmol/L (3.5-5.1); TOTAL PROTEIN 5.2 g/dl (6.1-8.1)
[2017-02-12] MEDS: metroNIDAZOLE 500 MG/NS (PMX) 100 ML IVPB SCH ×2 (06:33→14:07)
[2017-02-12] MEDS ORDERED: HYDROCORTISONE 250 MG INJ IV SCH (09:00)
[2017-02-12] MEDS: LEVOTHYROXINE 50 MCG TAB PO SCH (09:22)
[2017-02-12] MEDS ORDERED: IBUPROFEN 800 MG TAB PO PRN (10:00)
[2017-02-12 10:15] LABS: ANISOCYTOSIS 2+ (0-0); METAMYELOCYTES %M 3 % (0-0); MICROCYTOSIS 1+ (0-0); MONOCYTES % (M) 4 % (0-11); MYELOCYTES % (M) 1 % (0-0); PLATELET ESTIMATE NORMAL; POIKILOCYTOSIS 1+ (0-0); POLYCHROMASIA 3+ (0-0); PROMYELOCYTES #M 0 10^3/ul (0-0); PROMYELOCYTES % (M) 1 % (0-0)
[2017-02-12] MEDS: VALSARTAN 160 MG TAB PO SCH ×2 (10:23→21:13)
[2017-02-12] MEDS: LORAZEPAM 1 MG TAB PO PRN ×2 (10:24→21:46)
[2017-02-12] MEDS: AMLODIPINE 5 MG TAB PO SCH (10:24)
--- NOTE | 2017-02-12 11:29 | PN ---
Date/Time of Note Date/Time of Note DATE: 02/12/17 TIME: 11:28 Assessment/Plan Lines/Catheters IV Catheter Type (from [facility]): Peripheral IV Mojica in Place (from [facility]): Yes Assessment/Plan Chief Complaint/Hosp Course The patient is a 71-year-old female who has a history of hypertension, cardiomyopathy and fibromyalgia who is on steroids. She was recently hospitalized at [facility] from January 11 - January 19 for what was diagnosed as a urinary tract infection. Now presents here with a four-day history of increasing left-sided abdominal pain now radiating to the right. In the emergency room she was noted to have a tender left lower quadrant, an elevated white blood cell count, and a CT scan which showed a right pneumoperitoneum as well as refractory sigmoid diverticulitis. She was admitted and surgical consultation was requested in that regard. She has had no fevers or chills she has had polyurea Problems: Assessment/Plan Abdominal examination is benign Tolerating clear liquids Awaiting pathology Subjective 24 Hr Interval Summary Postoperative day #1 Awake, alert, afebrile Exam/Review of Systems Vital Signs Vitals Vital Signs Date Time Temp Pulse Resp B/P Pulse Ox O2 Delivery O2 Flow Rate FiO2 02/12/17 08:06 98.2 102 16 131/66 98 02/12/17 08:00 Nasal Cannula 3.0 Intake and Output 02/11/17 02/11/17 02/12/17 15:00 23:00 07:00 Intake Total 3350 ml 1460 ml Output Total 300 ml 500 ml Balance 3050 ml 960 ml Results Result Diagram: 02/12/17 0517 02/12/17 0517 CARL STEPHENS MD Feb 12, 2017 11:29
[2017-02-12] MEDS: predniSONE 20 MG TAB PO SCH (12:39)
--- NOTE | 2017-02-12 15:05 | PN ---
Date/Time of Note Date/Time of Note DATE: 02/12/17 TIME: 14:58 Assessment/Plan VTE Prophylaxis VTE Prophylaxis Intervention: SCD's Lines/Catheters IV C[facility]ter Type (from [facility]): Peripheral IV Urinary Cath still in place: Yes Assessment/Plan Chief Complaint/Hosp Course Assessment and plan 1. Perforated sigmoid diverticulitis with pneumoperitoneum. Continue antibiotics. Patient is also status post exploratory laparotomy and right hemicolectomy. Advance diet per surgeon. 2. Suspect UTI with antibiotics for now. 3. Essential hypertension. On antihypertensives and adjust needed 4. Hypothyroidism. Continue incentive 5. History of polymyalgia rheumatica. Continue IV steroids. 6. PUD. Continue PPI medication Disposition plan: Continue with analgesics. Advance diet per surgeon. Discharged in medically stable and cleared by consultants Discussed plan of care with Dr. Aaron Problems: Subjective 24 Hr Interval Summary Free Text/Dictation less reported pain. no s/s of distress on abdomen. tolerating diet well. Exam/Review of Systems Vital Signs Vitals Vital Signs Date Time Temp Pulse Resp B/P Pulse Ox O2 Delivery O2 Flow Rate FiO2 02/12/17 08:06 98.2 102 16 131/66 98 02/12/17 08:00 Nasal Cannula 3.0 Intake and Output 02/11/17 02/11/17 02/12/17 15:00 23:00 07:00 Intake Total 3350 ml 1460 ml Output Total 300 ml 500 ml Balance 3050 ml 960 ml Exam Constitutional: alert, oriented Head: normocephalic Respiratory: clear to auscultation, normal air movement Cardiovascular: regular rate and rhythm Gastrointestinal: soft, tender Neurological: PAPER MILL MANAGER II-XII intact, nl mental status, nl speech Results Result Diagram: 02/12/1717 02/12/17 0517 Results 24 hrs Laboratory Tests Test 02/11/17 15:10 02/12/17 05:17 Hemoglobin A1c 5.9 White Blood Count 20.6 #H Red Blood Count 3.94 L Hemoglobin 11.1 L Hematocrit 36.2 L Mean Corpuscular Volume 91.9 Mean Corpuscular Hemoglobin 28.2 L Mean Corpuscular Hemoglobin Concent 30.7 L Red Cell Distribution Width 17.4 H Platelet Count 188 Mean Platelet Volume 9.5 Neutrophils % Segmented Neutrophils % (Manual) 73 Band Neutrophils % (Manual) 15 H Lymphocytes % Lymphocytes % (Manual) 3 L Monocytes % Monocytes % (Manual) 4 Eosinophils % Basophils % Metamyelocytes % (manual) 3 H Myelocytes % (Manual) 1 H Promyelocytes % (Manual) 1 H Nucleated Red Blood Cells % 0.0 Neutrophils # (Manual) 15.7 H Band Neutrophils # 3.0 H Absolute Lymphocytes (Manual) 0.6 L Lymphocytes # Monocytes # Absolute Monocytes (Manual) 0.8 Eosinophils # Basophils # Metamyelocytes # 0.6 H Myelocytes # 0.2 H Promyelocytes # 0 Nucleated Red Blood Cells # Platelet Estimate NORMAL Polychromasia 3+ Poikilocytosis 1+ Anisocytosis 2+ Microcytosis 1+ Macrocytosis 1+ Sodium Level 138 Potassium Level 4.4 Chloride Level 109 Carbon Dioxide Level 23 Anion Gap 10 Blood Urea Nitrogen 12 Creatinine 0.67 Glucose Level 162 Calcium Level 8.4 Phosphorus Level 3.8 Magnesium Level 1.9 Total Bilirubin 0.1 L Direct Bilirubin 0.00 Indirect Bilirubin 0.1 Aspartate Amino Transf (AST/SGOT) 29 Alanine Aminotransferase (ALT/SGPT) 82 H Alkaline Phosphatase 82 Total Protein 5.2 #L Albumin 2.7 L Globulin 2.50 Albumin/Globulin Ratio 1.08 Triglycerides Level 86 Cholesterol Level 178 LDL Cholesterol, Calculated 94 HDL Cholesterol 67 Cholesterol/HDL Ratio 2.6 Medications Medications Current Medications Piperacillin Sod/ Tazobactam Sod (Zosyn 3.375gm/ 100 ml (Pmx)) 100 ml @ 200 mls /hr Q8 IVPB Last administered on 02/12/17t 13:31; Admin Dose 200 MLS/HR; Start 02/11/17 at 22:00 Morphine Sulfate (morphine) 2 mg Q4H PRN IV SEVERE PAIN LEVEL 7-10; Start 02/11 at 14:30 Ketorolac Tromethamine (Toradol) 15 mg Q6H PRN IV PAIN LEVEL 6-10; Start at 16:30; Stop 02/12/17 at 16:30 Diphenhydramine HCl (Benadryl) 25 mg Q4H PRN IV PRURITUS; Start 02/11/17 at 16: 30; Stop 02/12/17 at 16:30 Nalbuphine HCl (Nubain) 10 mg Q4H PRN IV PRURITUS; Start 02/11/17 at 16:30; Stop 02/12/17 at 16:30 Ondansetron HCl 4 mg 4 mg Q6H PRN IV NAUSEA; Start 02/11/17 at 17:30 Metronidazole (Flagyl 500 Mg (Pmx)) 100 ml @ 100 mls/hr Q8 IVPB Last administered on 02/12/17 14:07; Admin Dose 100 MLS/HR; Start 02/11/17 at 22:00 ; Stop 02/12/17 at 14:59 Metoclopramide HCl (Reglan) 10 mg Q6 IV Last administered on 02/12/17 12:39; Admin Dose 10 MG; Start 02/11/17 at 18:00 Methylprednisolone Sodium Succinate (Solu-Medrol) 100 mg Q8 IV Last administered on 02/12/17 13:31; Admin Dose 100 MG; Start 02/11/17 at 22:00; Stop 02/13/17 at 06:01 Levetiracetam 250 mg 250 mg QHS PO Last administered on 02/11/17 23:22; Admin Dose 250 MG; Start 02/11/17 at 22:24 Sodium Chloride (NS) 1,000 ml @ 70 mls/hr [id number] IV Last administered on 02/12 03:37; Admin Dose 70 MLS/HR; Start 02/12/17 at 02:30 Miscellaneous Information Patients own medicat... BID@10,16 XX ; Start 02/12/17 at 10:00 Amlodipine Besylate (Norvasc) 5 mg DAILY PO Last administered on 02/12/17 10: 24; Admin Dose 5 MG; Start 02/12/17 at 10:00 Ibuprofen (Motrin) 800 mg Q8H PRN PO PAIN; Start 02/12/17 at 10:00; Status Future Hold Lorazepam (Ativan) 2 mg TID PRN PO ANXIETY Last administered on 02/12/17 10:24 ; Admin Dose 2 MG; Start 02/12/17 at 10:00 Prednisone (Prednisone) 40 mg DAILY PO Last administered on 02/12/17 12:39; Admin Dose 40 MG; Start 02/12/17 at 12:00 Valsartan (Diovan) 160 mg BID PO Last administered on 02/12/17 10:23; Admin Dose 160 MG; Start 9/11/17 at 10:00 Salmeterol Xinafoate/ Fluticasone (Advair 250/50 Diskus) 1 inh BID INH ; Start 02/12/17 at 21:00 Pantoprazole (Protonix Tab) 40 mg DAILY@06 PO ; Start 02/13/17 at 06:00 LAMONT MULLER Feb 12, 2017 15:05
[2017-02-12] MEDS: SALMETEROL/FLUTICASONE 250/50 INHA INH SCH (21:12)
[2017-02-12] MEDS: LEVETIRACETAM 250 MG TAB PO SCH (21:12)
[2017-02-12] MEDS: KETOROLAC 15 MG INJ IV PRN (22:53)
[2017-02-13 01:21] VITALS: BP 130/64; RESP 20
[2017-02-13] MEDS: METHYLPREDNISOLONE 125 MG INJ IV SCH (05:49)
[2017-02-13] MEDS: PIPER-TAZO 3.375 GM IV (PMX) 100 ML IVPB SCH ×3 (05:49→22:11)
[2017-02-13] MEDS: PANTOPRAZOLE (EC) 40 MG TAB PO SCH (05:49)
[2017-02-13] MEDS: METOCLOPRAMIDE 10 MG INJ IV SCH ×4 (05:49→18:25)
[2017-02-13 07:50] VITALS: BP 136/64; RESP 20
[2017-02-13] MEDS: LEVOTHYROXINE 50 MCG TAB PO SCH (08:33)
[2017-02-13] MEDS: AMLODIPINE 5 MG TAB PO SCH (08:35)
[2017-02-13] MEDS: VALSARTAN 160 MG TAB PO SCH ×2 (08:35→20:47)
[2017-02-13] MEDS: LORAZEPAM 1 MG TAB PO PRN ×3 (08:36→22:11)
[2017-02-13] MEDS: predniSONE 20 MG TAB PO SCH (08:36)
[2017-02-13] MEDS: SALMETEROL/FLUTICASONE 250/50 INHA INH SCH ×2 (08:37→20:46)
[2017-02-13 10:53] LABS: ABNORMAL IP MESSAGE 1; BASOPHILS % 0.1 % (0.0-2.0); HEMATOCRIT 33.4 % (37.0-47.0); HEMOGLOBIN 10.4 g/dl (12.0-16.0); LYMPHOCYTES # 0.5 10^3/ul (0.8-2.9); LYMPHOCYTES % 3.4 % (15.0-51.0); MEAN CORPUSCULAR HEMOGLOBIN 28.7 pg (29.0-33.0); MEAN CORPUSCULAR HGB CONC 31.1 g/dl (32.0-37.0); MEAN CORPUSCULAR VOLUME 92.3 fl (82.0-101.0); MEAN PLATELET VOLUME 9.6 fl (7.4-10.4); MONOCYTE # 0.6 10^3/ul (0.3-0.9); MONOCYTES % 3.4 % (0.0-11.0); NEUTROPHILS % 89.9 % (39.0-77.0); NUCLEATED RED BLOOD CELLS% 0.1 /100WBC (0.0-0.0); PLATELET COUNT 146 10^3/UL (140-415); RED BLOOD COUNT 3.62 10^6/ul (4.20-5.40); RED CELL DISTRIBUTION WIDTH 17.6 % (11.5-14.5); WHITE BLOOD COUNT 16.1 10^3/ul (4.8-10.8)
[2017-02-13 10:57] LABS: POSITIVE DIFF @See below
[2017-02-13] MEDS: KETOROLAC 15 MG INJ IV PRN ×2 (11:09→18:25)
[2017-02-13 11:16] LABS: CALCIUM 8.6 mg/dl (8.4-10.2); CREATININE 0.76 mg/dl (0.44-1.00); POTASSIUM 3.9 mmol/L (3.5-5.1)
[2017-02-13 14:54] VITALS: BP 141/71; RESP 18
--- NOTE | 2017-02-13 15:54 | PN ---
Date/Time of Note Date/Time of Note DATE: 02/13/17 TIME: 15:52 Assessment/Plan VTE Prophylaxis VTE Prophylaxis Intervention: SCD's Lines/Catheters IV Catheter Type (from [facility]): Peripheral IV Urinary Cath still in place: Yes Assessment/Plan Chief Complaint/Hosp Course Assessment and plan 1. Perforated sigmoid diverticulitis with pneumoperitoneum. Continue antibiotics. Patient is also status post exploratory laparotomy and right hemicolectomy. Advance diet per surgeon. Follow-up on pathology. 2. Suspect UTI with antibiotics for now. 3. Essential hypertension. On antihypertensives and adjust needed 4. Hypothyroidism. Continue i Synthroid 5. History of polymyalgia rheumatica. Continue IV steroids. 6. PUD. Continue PPI medication Disposition plan: Continue with analgesics. Advance diet per surgeon. Encourage regular physical therapy. We will see for correction facility placement versus acute rehab. Discussed plan of care with Dr. Aaron Problems: Subjective 24 Hr Interval Summary Free Text/Dictation Patient still reports having some abdominal pain. No other specific complaints. Exam/Review of Systems Vital Signs Vitals Vital Signs Date Time Temp Pulse Resp B/P Pulse Ox O2 Delivery O2 Flow Rate FiO2 02/13/17 14:54 97.9 112 18 141/71 98 02/12/17 08:00 Nasal Cannula 3.0 Intake and Output 02/12/17 02/12/17 02/13/17 15:00 23:00 07:00 Intake Total 200 ml 2910 ml 400 ml Output Total 1800 ml 850 ml Balance 200 ml 1110 ml -450 ml Exam Constitutional: alert, oriented, obese Head: normocephalic Respiratory: clear to auscultation, normal air movement Cardiovascular: regular rate and rhythm Gastrointestinal: soft, tender Neurological: NURSING CLERK II-XII intact, nl mental status, nl speech Skin: Surgical site clean dry and intact Results Result Diagram: 02/13/17 1040 02/13/17 1040 Results 24 hrs Laboratory Tests Test 02/13/17 10:40 White Blood Count 16.1 #H Red Blood Count 3.62 L Hemoglobin 10.4 L Hematocrit 33.4 L Mean Corpuscular Volume 92.3 Mean Corpuscular Hemoglobin 28.7 L Mean Corpuscular Hemoglobin Concent 31.1 L Red Cell Distribution Width 17.6 H Platelet Count 146 # Mean Platelet Volume 9.6 Neutrophils % 89.9 H Lymphocytes % 3.4 L Monocytes % 3.4 Eosinophils % 0.0 Basophils % 0.1 Nucleated Red Blood Cells % 0.1 H Neutrophils # (Manual) 14.5 H Lymphocytes # 0.5 L Monocytes # 0.6 Eosinophils # 0.0 Basophils # 0.0 Nucleated Red Blood Cells # 0.0 Sodium Level 140 Potassium Level 3.9 Chloride Level 112 H Carbon Dioxide Level 26 Anion Gap 6 L Blood Urea Nitrogen 11 Creatinine 0.76 Glucose Level 156 Calcium Level 8.6 Medications Medications Current Medications Piperacillin Sod/ Tazobactam Sod (Zosyn 3.375gm/ 100 ml (Pmx)) 100 ml @ 200 mls /hr Q8 IVPB Last administered on 02/13/17 13:35; Admin Dose 200 MLS/HR; Start 02/11/17 at 22:00 Ondansetron HCl (Zofran Inj) 4 mg Q6H PRN IV NAUSEA; Start 02/11/17 at 17:30 Metoclopramide HCl (Reglan) 10 mg Q6 IV Last administered on 02/13/17 11:09; Admin Dose 10 MG; Start 02/11/17 at 18:00 Levetiracetam 250 mg 250 mg QHS PO Last administered on 02/12/17 21:12; Admin Dose 250 MG; Start 02/11/17 at 22:24 Sodium Chloride (NS) 1,000 ml @ 70 mls/hr [id number] IV Last administered on 02/12 22:56; Admin Dose 70 MLS/HR; Start 02/12/17 at 02:30 Miscellaneous Information Patients own medicat... BID@10,16 XX ; Start 02/12/17 at 10:00 Amlodipine Besylate (Norvasc) 5 mg DAILY PO Last administered on 02/13/17 08: 35; Admin Dose 5 MG; Start 02/12/17 at 10:00 Ibuprofen (Motrin) 800 mg Q8H PRN PO PAIN; Start 02/12/17 at 10:00; Status Future Hold Lorazepam (Ativan) 2 mg TID PRN PO ANXIETY Last administered on 02/13/17 15:11 ; Admin Dose 2 MG; Start 02/12/17 at 10:00 Prednisone (Prednisone) 40 mg DAILY PO Last administered on 9/12/17at 08:36; Admin Dose 40 MG; Start 02/12/17 at 12:00 Valsartan (Diovan) 160 mg BID PO Last administered on 02/13/17 08:35; Admin Dose 160 MG; Start 02/12/17 at 10:00 Salmeterol Xinafoate/ Fluticasone (Advair 250/50 Diskus) 1 inh BID INH Last administered on 02/13/17 08:37; Admin Dose 1 INH; Start 02/12/17 at 21:00 Pantoprazole (Protonix Tab) 40 mg DAILY@06 PO Last administered on 02/13/17 05 :49; Admin Dose 40 MG; Start 02/13/17 at 06:00 Ketorolac Tromethamine (Toradol) 15 mg Q6H PRN IV PAIN Last administered on 11:09; Admin Dose 15 MG; Start 02/12/17 at 21:30; Stop 02/15/17 at 21:29 LAMONT MULLER Feb 13, 2017 15:54
--- NOTE | 2017-02-13 16:15 | PN ---
Date/Time of Note Date/Time of Note DATE: 02/13/17 TIME: 16:13 Assessment/Plan Lines/Catheters IV Catheter Type (from [facility]): Peripheral IV Mojica in Place (from [facility]): Yes Assessment/Plan Chief Complaint/Hosp Course The patient is a 71-year-old female who has a history of hypertension, cardiomyopathy and fibromyalgia who is on steroids. She was recently hospitalized at [facility] from January 11 - January 19 for what was diagnosed as a urinary tract infection. Now presents here with a four-day history of increasing left-sided abdominal pain now radiating to the right. In the emergency room she was noted to have a tender left lower quadrant, an elevated white blood cell count, and a CT scan which showed a right pneumoperitoneum as well as refractory sigmoid diverticulitis. She was admitted and surgical consultation was requested in that regard. She has had no fevers or chills she has had polyurea Problems: Assessment/Plan Abdominal examination is benign Leukocytosis is improving Plan: Soft diet Discontinue Mojica in a.m. Subjective 24 Hr Interval Summary Postoperative day #2 Afebrile Had several bowel movements Exam/Review of Systems Vital Signs Vitals Vital Signs Date Time Temp Pulse Resp B/P Pulse Ox O2 Delivery O2 Flow Rate FiO2 02/13/17 14:54 97.9 112 18 141/71 98 02/12/17 08:00 Nasal Cannula 3.0 Intake and Output 02/12/17 02/12/17 02/13/17 15:00 23:00 07:00 Intake Total 200 ml 2910 ml 400 ml Output Total 1800 ml 850 ml Balance 200 ml 1110 ml -450 ml Results Result Diagram: 02/13/17 1040 02/13/17 1040 CARL STEPHENS MD Feb 13, 2017 16:15
[2017-02-13] MEDS: SOD CHLORIDE 0.9% 1,000 ML IV SCH (18:41)
[2017-02-13 19:51] VITALS: BP 135/75; RESP 20
[2017-02-13] MEDS: LEVETIRACETAM 250 MG TAB PO SCH (20:47)
[2017-02-14 02:00] VITALS: BP 130/68; RESP 20
[2017-02-14 06:09] LABS: BASOPHILS % 0.1 % (0.0-2.0); HEMATOCRIT 30.5 % (37.0-47.0); HEMOGLOBIN 9.6 g/dl (12.0-16.0); LYMPHOCYTES # 0.8 10^3/ul (0.8-2.9); LYMPHOCYTES % 6.2 % (15.0-51.0); MEAN CORPUSCULAR HGB CONC 31.5 g/dl (32.0-37.0); MEAN CORPUSCULAR VOLUME 92.1 fl (82.0-101.0); MEAN PLATELET VOLUME 9.7 fl (7.4-10.4); MONOCYTE # 0.6 10^3/ul (0.3-0.9); MONOCYTES % 4.4 % (0.0-11.0); NEUTROPHILS % 85.7 % (39.0-77.0); NUCLEATED RED BLOOD CELLS% 0.2 /100WBC (0.0-0.0); PLATELET COUNT 141 10^3/UL (140-415); RED BLOOD COUNT 3.31 10^6/ul (4.20-5.40); RED CELL DISTRIBUTION WIDTH 17.8 % (11.5-14.5); WHITE BLOOD COUNT 12.6 10^3/ul (4.8-10.8)
[2017-02-14] MEDS: METOCLOPRAMIDE 10 MG INJ IV SCH ×4 (06:44→17:19)
[2017-02-14] MEDS: PANTOPRAZOLE (EC) 40 MG TAB PO SCH (06:44)
[2017-02-14] MEDS: PIPER-TAZO 3.375 GM IV (PMX) 100 ML IVPB SCH ×3 (06:44→21:43)
[2017-02-14 06:51] LABS: CALCIUM 8.2 mg/dl (8.4-10.2); CREATININE 0.75 mg/dl (0.44-1.00); POTASSIUM 3.9 mmol/L (3.5-5.1)
[2017-02-14 08:00] VITALS: BP 106/60; RESP 18
[2017-02-14] MEDS: SALMETEROL/FLUTICASONE 250/50 INHA INH SCH (08:37)
[2017-02-14] MEDS: AMLODIPINE 5 MG TAB PO SCH (08:38)
[2017-02-14] MEDS: VALSARTAN 160 MG TAB PO SCH ×2 (08:38→20:49)
[2017-02-14] MEDS: predniSONE 20 MG TAB PO SCH (08:39)
[2017-02-14] MEDS: LEVOTHYROXINE 50 MCG TAB PO SCH (08:39)
[2017-02-14] MEDS: LORAZEPAM 1 MG TAB PO PRN ×2 (09:07→20:49)
[2017-02-14] MEDS: SOD CHLORIDE 0.9% 1,000 ML IV SCH (11:40)
[2017-02-14] MEDS: KETOROLAC 15 MG INJ IV PRN (11:40)
[2017-02-14] MEDS ORDERED: ONDANSETRON 4 MG INJ IV PRN (13:00)
[2017-02-14] MEDS ORDERED: morphine 2 MG INJ IV PRN (13:00)
[2017-02-14 13:35] VITALS: BP 145/65; RESP 18
--- NOTE | 2017-02-14 13:52 | PN ---
Date/Time of Note Date/Time of Note DATE: 02/14/17 TIME: 13:48 Assessment/Plan VTE Prophylaxis VTE Prophylaxis Intervention: SCD's Lines/Catheters IV Catheter Type (from [facility]): Peripheral IV Urinary Cath still in place: No (DISCONTINUED) Assessment/Plan Chief Complaint/Hosp Course Assessment and plan 1. Perforated sigmoid diverticulitis with pneumoperitoneum. Continue antibiotics. Patient is also status post exploratory laparotomy and right hemicolectomy. continue diet per surgeon 2. Suspect UTI . improved 3. Essential hypertension. On antihypertensives and adjust needed. stable 4. Hypothyroidism. Continue Synthroid 5. History of polymyalgia rheumatica. Continue IV steroids. 6. PUD. Continue PPI medication Disposition plan: awaiting ARU eval. will follow up Discussed plan of care with Dr. Aaron Problems: Subjective 24 Hr Interval Summary Free Text/Dictation reports some difficulty moving upper extremities Exam/Review of Systems Vital Signs Vitals Vital Signs Date Time Temp Pulse Resp B/P Pulse Ox O2 Delivery O2 Flow Rate FiO2 02/14/17 13:35 98.1 110 18 145/65 98 02/14/17 08:30 Nasal Cannula 2.0 Intake and Output 02/13/17 02/13/17 02/14/17 15:00 23:00 07:00 Intake Total 200 ml 2240 ml 1000 ml Output Total 450 ml 650 ml Balance 200 ml 1790 ml 350 ml Exam Constitutional: alert, oriented Psych: nl mood/affect Head: normocephalic Respiratory: clear to auscultation, normal air movement Cardiovascular: regular rate and rhythm Gastrointestinal: soft, tender (minimalll) Neurological: PROGRAM MANUFACTURING LEADER II-XII intact, nl mental status Skin: other (surgical site cdi ) Results Result Diagram: 02/14/17 0549 02/14/17 0549 Results 24 hrs Laboratory Tests Test 02/14/17 05:49 White Blood Count 12.6 #H Red Blood Count 3.31 L Hemoglobin 9.6 L Hematocrit 30.5 L Mean Corpuscular Volume 92.1 Mean Corpuscular Hemoglobin 29.0 Mean Corpuscular Hemoglobin Concent 31.5 L Red Cell Distribution Width 17.8 H Platelet Count 141 Mean Platelet Volume 9.7 Neutrophils % 85.7 H Lymphocytes % 6.2 L Monocytes % 4.4 Eosinophils % 0.0 Basophils % 0.1 Nucleated Red Blood Cells % 0.2 H Neutrophils # (Manual) 10.8 H Lymphocytes # 0.8 Monocytes # 0.6 Eosinophils # 0.0 Basophils # 0.0 Nucleated Red Blood Cells # 0.0 Sodium Level 140 Potassium Level 3.9 Chloride Level 114 H Carbon Dioxide Level 25 Anion Gap 5 L Blood Urea Nitrogen 15 Creatinine 0.75 Glucose Level 106 # Calcium Level 8.2 L Medications Medications Current Medications Piperacillin Sod/ Tazobactam Sod (Zosyn 3.375gm/ 100 ml (Pmx)) 100 ml @ 200 mls /hr Q8 IVPB Last administered on 02/14/17 13:39; Admin Dose 200 MLS/HR; Start 02/11/17 at 22:00 Ondansetron HCl (Zofran Inj) 4 mg Q6H PRN IV NAUSEA; Start 02/11/17 at 17:30 Metoclopramide HCl (Reglan) 10 mg Q6 IV Last administered on 02/14/17 13:39; Admin Dose 10 MG; Start 02/11/17 at 18:00 Levetiracetam 250 mg 250 mg QHS PO Last administered on 02/13/17 20:47; Admin Dose 250 MG; Start 02/11/17 at 22:24 Sodium Chloride (NS) 1,000 ml @ 70 mls/hr [id number] IV Last administered on 02/14 11:40; Admin Dose 70 MLS/HR; Start 02/12/17 at 02:30 Miscellaneous Information Patients own medicat... BID@10,16 XX ; Start 02/12/17 at 10:00 Amlodipine Besylate (Norvasc) 5 mg DAILY PO Last administered on 02/14/17 08: 38; Admin Dose 5 MG; Start 02/12/17 at 10:00 Ibuprofen (Motrin) 800 mg Q8H PRN PO PAIN; Start 02/12/17 at 10:00; Status Future Hold Lorazepam (Ativan) 2 mg TID PRN PO ANXIETY Last administered on 02/14/17 09:07 ; Admin Dose 2 MG; Start 02/12/17 at 10:00 Prednisone (Prednisone) 40 mg DAILY PO Last administered on 02/14/17 08:39; Admin Dose 40 MG; Start 02/12/17 at 12:00 Valsartan (Diovan) 160 mg BID PO Last administered on 02/14/17 08:38; Admin Dose 160 MG; Start 02/12/17 at 10:00 Salmeterol Xinafoate/ Fluticasone (Advair 250/50 Diskus) 1 inh BID INH Last administered on 02/14/17 08:37; Admin Dose 1 INH; Start 02/12/17 at 21:00 Pantoprazole (Protonix Tab) 40 mg DAILY@06 PO Last administered on 02/14/17 06 :44; Admin Dose 40 MG; Start 02/13/17 at 06:00 Ketorolac Tromethamine (Toradol) 15 mg Q6H PRN IV PAIN Last administered on 11:40; Admin Dose 15 MG; Start 02/12/17 at 21:30; Stop 02/15/17 at 21:29 Morphine Sulfate (morphine) 2 mg ONCE PRN IV SEVERE PAIN LEVEL 7-10; Start at 13:00; Stop 02/14/17 at 22:22 Ondansetron HCl (Zofran Inj) 4 mg Q6H PRN IV NAUSEA; Start 02/14/17 at 13:00 LAMONT MULLER Feb 14, 2017 13:52
--- NOTE | 2017-02-14 19:44 | PN ---
Date/Time of Note Date/Time of Note DATE: 02/14/17 TIME: 19:42 Assessment/Plan Lines/Catheters IV Catheter Type (from [facility]): Saline Lock Mojica in Place (from [facility]): No (DISCONTINUED) Assessment/Plan Chief Complaint/Hosp Course The patient is a 71-year-old female who has a history of hypertension, cardiomyopathy and fibromyalgia who is on steroids. She was recently hospitalized at [facility] from January 11 - January 19 for what was diagnosed as a urinary tract infection. Now presents here with a four-day history of increasing left-sided abdominal pain now radiating to the right. In the emergency room she was noted to have a tender left lower quadrant, an elevated white blood cell count, and a CT scan which showed a right pneumoperitoneum as well as refractory sigmoid diverticulitis. She was admitted and surgical consultation was requested in that regard. She has had no fevers or chills she has had polyurea Problems: Assessment/Plan Leukocytosis improving Can be discharged tomorrow. Patient is reluctant to be discharged. [facility] Subjective 24 Hr Interval Summary Postoperative day #3 Tolerating a general diet Bowel functioning Exam/Review of Systems Vital Signs Vitals Vital Signs Date Time Temp Pulse Resp B/P Pulse Ox O2 Delivery O2 Flow Rate FiO2 02/14/17 13:35 98.1 110 18 145/65 98 02/14/17 08:30 Nasal Cannula 2.0 Intake and Output 02/13/17 02/13/17 02/14/17 15:00 23:00 07:00 Intake Total 200 ml 2240 ml 1000 ml Output Total 450 ml 650 ml Balance 200 ml 1790 ml 350 ml Results Result Diagram: 02/14/17 0549 02/14/17 0549 CARL STEPHENS MD Feb 14, 2017 19:44
[2017-02-14 20:00] VITALS: BP 176/84; RESP 18
[2017-02-14] MEDS: LEVETIRACETAM 250 MG TAB PO SCH (20:49)
[2017-02-14 21:30] VITALS: BP 152/78
[2017-02-15] VITALS (7 sets, daily range): BP systolic 133–175; BP diastolic 70–84; PULSE 98–119; RESP 18–22
[2017-02-15] MEDS: SALMETEROL/FLUTICASONE 250/50 INHA INH SCH ×3 (00:13→20:05)
[2017-02-15] MEDS: KETOROLAC 15 MG INJ IV PRN ×2 (00:14→12:37)
[2017-02-15] MEDS: METOPROLOL 25 MG TAB PO SCH ×3 (02:34→20:08)
[2017-02-15] MEDS: LORAZEPAM 1 MG TAB PO PRN ×3 (02:34→20:14)
[2017-02-15] MEDS: PIPER-TAZO 3.375 GM IV (PMX) 100 ML IVPB SCH ×3 (05:33→22:08)
[2017-02-15] MEDS: PANTOPRAZOLE (EC) 40 MG TAB PO SCH (05:33)
[2017-02-15] MEDS: METOCLOPRAMIDE 10 MG INJ IV SCH ×5 (05:33→23:39)
[2017-02-15 05:47] LABS: ABNORMAL IP MESSAGE 1; HEMATOCRIT 30.2 % (37.0-47.0); HEMOGLOBIN 9.5 g/dl (12.0-16.0); MEAN CORPUSCULAR HEMOGLOBIN 28.7 pg (29.0-33.0); MEAN CORPUSCULAR HGB CONC 31.5 g/dl (32.0-37.0); MEAN CORPUSCULAR VOLUME 91.2 fl (82.0-101.0); MEAN PLATELET VOLUME 9.8 fl (7.4-10.4); NUCLEATED RED BLOOD CELLS% 0.3 /100WBC (0.0-0.0); PLATELET COUNT 131 10^3/UL (140-415); RED BLOOD COUNT 3.31 10^6/ul (4.20-5.40); RED CELL DISTRIBUTION WIDTH 17.7 % (11.5-14.5); WHITE BLOOD COUNT 9.3 10^3/ul (4.8-10.8)
[2017-02-15 06:12] LABS: POSITIVE DIFF @See below
[2017-02-15] MEDS: SOD CHLORIDE 0.9% 1,000 ML IV SCH ×2 (06:19→16:18)
[2017-02-15 06:36] LABS: CALCIUM 8.5 mg/dl (8.4-10.2); CREATININE 0.66 mg/dl (0.44-1.00); POTASSIUM 3.7 mmol/L (3.5-5.1)
--- NOTE | 2017-02-15 07:40 | PN ---
Date/Time of Note Date/Time of Note DATE: 02/15/17 TIME: 07:39 Assessment/Plan Lines/Catheters IV Catheter Type (from [facility]): Peripheral IV Mojica in Place (from [facility]): No Assessment/Plan Chief Complaint/Hosp Course The patient is a 71-year-old female who has a history of hypertension, cardiomyopathy and fibromyalgia who is on steroids. She was recently hospitalized at [facility] from January 11 - January 19 for what was diagnosed as a urinary tract infection. Now presents here with a four-day history of increasing left-sided abdominal pain now radiating to the right. In the emergency room she was noted to have a tender left lower quadrant, an elevated white blood cell count, and a CT scan which showed a right pneumoperitoneum as well as refractory sigmoid diverticulitis. She was admitted and surgical consultation was requested in that regard. She has had no fevers or chills she has had polyurea Problems: Assessment/Plan Excellent postoperative recovery Full p.o. tolerance and bowel function Incision is clean Pathology shows perforated diverticulitis with no evidence of malignancy Patient is cleared for discharge today. Will likely require SNF Subjective 24 Hr Interval Summary Postoperative day #4 Awake, alert, afebrile Exam/Review of Systems Vital Signs Vitals Vital Signs Date Time Temp Pulse Resp B/P Pulse Ox O2 Delivery O2 Flow Rate FiO2 02/15/17 07:27 98.1 93 19 152/74 95 02/14/17 20:00 Nasal Cannula 2.0 Intake and Output 02/14/17 02/14/17 02/15/17 15:00 23:00 07:00 Intake Total 500 ml 1650 ml 1580 ml Balance 500 ml 1650 ml 1580 ml Results Result Diagram: 02/15/17 0518 02/15/17 0518 CARL STEPHENS MD Feb 15, 2017 07:40
[2017-02-15 08:00] LABS: ERYTHROBLAST% (NRBC) (M) 1 % (0-0); MONOCYTES % (M) 1 % (0-11); PLATELET ESTIMATE NORMAL
[2017-02-15] MEDS: LEVOTHYROXINE 50 MCG TAB PO SCH (08:33)
[2017-02-15] MEDS: VALSARTAN 160 MG TAB PO SCH ×2 (08:34→20:05)
[2017-02-15] MEDS: AMLODIPINE 5 MG TAB PO SCH (08:35)
[2017-02-15] MEDS: predniSONE 20 MG TAB PO SCH (08:35)
--- NOTE | 2017-02-15 13:46 | PDOCDIS ---
Discharge Instructions DIAGNOSIS Discharge Diagnosis 1. Perforated sigmoid diverticulitis with pneumoperitoneum. 2. Suspect UTI 3. Essential hypertension. 4. Hypothyroidism. 5. History of polymyalgia rheumatica. 6. PUD. CONDITION Patient Condition: Stable HOME CARE INSTRUCTIONS: Diet Instructions: Low Fat /CholesterolSpecial Diet: soft OTHER ORDERS: Other Orders: Further care and management per senior living facility LAMONT MULLER Feb 15, 2017 13:46
--- NOTE | 2017-02-15 14:41 | RADRPT ---
PROCEDURE: XR Abdomen. CLINICAL INDICATION: Abdominal pain. Postop. TECHNIQUE: AP abdomen x-ray. COMPARISON: February 11, 2017 FINDINGS: There is new, bibasilar atelectasis and the lung infiltrates. No pleural effusion. Postsurgical changes are now present with skin kay noted. There appears to be abundant subcutaneous emphysema of the right upper and lower quadrants. No definite free air is identified. Additional imaging with CT of the abdomen and pelvis may be help ful for full evaluation. IMPRESSION: New bibasilar atelectasis and lung infiltrates; postsurgical changes. Possible subcutaneous emphysem a of the right abdomen. Free air within the upper abdomen not definitely seen. Additional imaging wi th CT of the abdomen and pelvis is suggested for full evaluation. RPTAT: QQ .Denise Mir MD, Date Time Electronically viewed and signed by .Denise Mir MD, on 02/15/2017 14:41 .F/
--- NOTE | 2017-02-15 17:32 | RADRPT ---
PROCEDURE: CT abdomen and pelvis without contrast. CLINICAL INDICATION: Pneumoperitoneum. Recent abdominal surgery. TECHNIQUE: CT of the abdomen and pelvis without contrast was performed on a multidetector high-reso lution CT scanner. Coronal and sagittal reformatted images were obtained from the axial source image s. Images were reviewed on a high-resolution PACS workstation. The total exam CTDI equals 22.26 mGy and the total exam DLP equals 1385.61 mGy-cm. One or more of the following dose reduction techniques were used: - Automated exposure control. - Adjustment of the mA and/or kV according to patient size. - Use of iterative reconstruction technique. COMPARISON: Plain film dated 02/15/[address] dated 02/11/2017. FINDINGS: Visualized lower thorax: There is dependent change at both lung bases, which are otherwise clear. T here is pneumomediastinum. The visualized heart is otherwise unremarkable. Hepatobiliary system and spleen: There is diffuse fatty infiltration of the liver, which is otherwi se grossly unremarkable. There is no intra or extrahepatic biliary ductal dilatation. The gallbladde r is grossly unremarkable. The spleen is grossly unremarkable. The pancreas is grossly unremarkable. Adrenal glands and genitourinary system: The adrenal glands are grossly unremarkable. There are pun ctate nonobstructing stones throughout both kidneys. There is no hydronephrosis. The urinary bladder is grossly unremarkable. The uterus and adnexa are grossly unremarkable. Gastrointestinal system: There is postoperative change related to partial colectomy with an anastom oses in the region of the proximal transverse colon. There is no bowel wall thickening or evidence o f obstruction. There is diverticulosis of the residual colon. There is no evidence of bowel obstruct ion. Peritoneum, vascular, lymphatics, and soft tissues: There is extensive pneumoperitoneum, most prono unced in the ventral mid and upper abdomen. There are small scattered areas of free fluid throughout the mesentery and layering within the pelvis. No focal drainable collection is identified. There is extensive ventral abdominal subcutaneous emphysema extending into the right portion of the pannus. There are skin kay in the midline mid and lower abdomen. There is no mesenteric or retroperitone al adenopathy. There are atherosclerotic changes of the aorta, which is nonaneurysmal. Musculoskeletal system: There is moderate multilevel degenerative enthesopathy and advanced facet a rthropathy in the lower lumbosacral spine. There is grade 1 anterolisthesis of L4 on L5. There are n o concerning osseous lesions. IMPRESSION: 1. Postoperative change related to partial colectomy with anastomoses in the region of the proximal transverse colon. Pneumoperitoneum and pneumomediastinum, likely dissecting from the abdomen. Scatt ered areas of free fluid throughout the mesentery and layering within the pelvis with no focal drain able collection. These findings are likely postoperative in nature given the patient's recent postop erative state. Extensive subcutaneous emphysema overlying the ventral abdomen, also likely postopera tive in nature. Follow-up as clinically warranted. 2. Hepatic steatosis. 3. Bilateral punctate nonobstructing nephrolithiasis. 4. Diverticulosis of the residual colon. 5. Vascular calcifications consistent with atherosclerosis. 6. Grade 1 anterolisthesis of L4 on L5. RPTAT: HLBP .Lamine Clifton MD, MD Date Time Electronically viewed and signed by .Lamine Clifton MD, on 02/15/2017 17:32 .P/
[2017-02-15] MEDS: LEVETIRACETAM 250 MG TAB PO SCH (20:07)
[2017-02-15] MEDS ORDERED: HALOPERIDOL 5 MG INJ IM ONE (22:00)
[2017-02-15] MEDS ORDERED: METOPROLOL 25 MG TAB PO STA (23:16)
[2017-02-15] MEDS ORDERED: SOD CHLORIDE 0.9% 250 ML IV ONE (23:30)
[2017-02-16 00:37] VITALS: BP 130/63; PULSE 104; RESP 20
[2017-02-16 00:45] VITALS: BP 133/65; PULSE 98; RESP 20
[2017-02-16] MEDS ORDERED: KETOROLAC 30 MG INJ IV ONE (01:23)
[2017-02-16 02:31] VITALS: BP 90/52; RESP 20
--- NOTE | 2017-02-16 09:57 | DS ---
Date/Time of Note Date/Time of Note DATE: 02/16/17 TIME: 09:56 Discharge Summary Admission/Discharge Info Admit Date/Time Feb 11, 2017 at 17:26 Discharge Date/Time Feb 16, 2017 at 02:45 Discharge Diagnosis 1. Perforated sigmoid diverticulitis with pneumoperitoneum s/p exploratory laparotomy and right hemicolectomy 2. UTI 3. Essential hypertension. 4. Hypothyroidism. 5. History of polymyalgia rheumatica. 6. PUD. Patient Condition: Good Consults Genreal surgery Dr.Andrew caldwell Procedures exploratory laparotomy and right hemicolectomy by General surgery Dr.Andrew caldwell Hx of Present Illness Reason for admission: Abdominal pain. Consultants 1 Jermaine Caldwell MD, General Surgery. This is a 71-year-old female with past medical history essential hypertension, hypothyroidism, polymyalgia rheumatica on chronic steroid therapy , peptic ulcer disease, hiatal hernia, and arthritis. Patient was recently discharged from [facility] after treatment of urinary tract infection. The patient came to [facility] emergency room because of complaints of abdominal pain, poor appetite, generalized malaise, polyuria, and dysuria. Patient denied any nausea, vomiting, diarrhea, hematemesis, hematochezia, or melena. The patient was complaining of generalized body aches. Patient denied any dyspnea or cough. The patient denied any fevers or chills. In the emergency room, the patient was noticed to have leukocytosis. The patient underwent a CT scan of the abdomen and pelvis that showed colonic diverticulosis with focal inflammation and extraluminal 2 cm gas and fluid collection adjacent to the proximal transverse colon near the hepatic flexure. Findings are consistent with a perforated diverticulitis in the proximal transverse colon. The urinalysis showed positive nitrate positive leukocyte esterase with a urine microscopic WBC of 91. The patient was treated with IV Zosyn, IV fluids, and analgesics in the emergency room. The on-call surgeon was called by the emergency room physician. Hospital Course Assessment and plan 1. Perforated sigmoid diverticulitis with pneumoperitoneum. Continue antibiotics. Patient is also status post exploratory laparotomy and right hemicolectomy. Advance diet per surgeon. 2. Suspect UTI with antibiotics for now. 3. Essential hypertension. On antihypertensives and adjust needed 4. Hypothyroidism. Continue incentive 5. History of polymyalgia rheumatica. Continue IV steroids. 6. PUD. Continue PPI medication Disposition plan: Continue with analgesics. Advance diet per surgeon. Discharged in medically stable and cleared by consultants Discussed plan of care with Dr. Aaron [facility] Reported Medications Nitroglycerin (Nitroglycerin) 0.3 Mg Tab.subl, 0.4 MG SL Y for CHEST PAIN take one tab under the tongue every 5 minutes for chest pain. if still in pain after 3 tablets/15 mins call 911 02/11/17 Valsartan (Valsartan) 160 Mg Tablet, 160 MG PO BID, #60 TAB 02/11/17 Amlodipine Besylate* (Amlodipine Besylate*) 5 Mg Tablet, 5 MG PO DAILY, #30 TAB 02/11/17 Levetiracetam* (Keppra*) 250 Mg Tab, 250 MG PO QHS, TAB 02/11/17 Prednisone* (Prednisone*) 20 Mg Tab, 40 MG PO DAILY, TAB 02/11/17 Budesonide-Formoterol Fumarate* (Symbicort*) 160-4.5 Hfa.aer.ad, 2 PUFF INHALATION BID, EACH 08/13/15 Lorazepam* (Ativan*) 2 Mg Tablet, 2 MG PO TID Y for ANXIETY 08/13/15 Ibuprofen* (Ibuprofen*) 800 Mg Tablet, 800 MG PO Q8 Y for PAIN, TAB 03/05/15 Levothyroxine Sodium* (Levothyroxine Sodium*) 50 Mcg Tablet, 50 MCG PO AC BREAKFAST, TAB 03/05/15 Discontinued Reported Medications Ciprofloxacin Hcl* (Ciprofloxacin Hcl*) 500 Mg Tablet, 500 MG PO BID 08/13/15 Montelukast Sodium* (Montelukast Sodium*) 10 Mg Tablet, 10 MG PO DAILY 08/13/15 Metoprolol Succinate* (Toprol XL*) 25 Mg Tab.sr.24h, 25 MG PO BID 08/13/15 Prednisone* (Prednisone*) 5 Mg Tab, 15 MG PO TID, TAB 03/05/15 Discontinued Scripts Oseltamivir Phosphate* (Tamiflu*) 75 Mg Capsule, 75 MG PO BID for 5 Days, CAP Prov:SAMEERA SCHOFIELD MD 08/13/15 Azithromycin* (Azithromycin*) 250 Mg Tablet, 500 MG PO ONCE, #1 TAB Prov:SAMEERA SCHOFIELD MD 08/13/15 Azithromycin* (Azithromycin*) 250 Mg Tablet, 250 MG PO DAILY, #4 TAB Prov:SAMEERA SCHOFIELD MD 08/13/15 Follow-up Plan Follow up with General surgery in 1-2 week after discahrge, follow up with her own PMD in1-2 week after discharge Primary Care Provider Christofer Stinson Time spent on discharge: > 30 minutes ARIK MCKEON MD Feb 16, 2017 09:57
== END 2017-02-16 02:45 | DRG 330 ==
LOC: E/R 09:34 → MS2 17:26
PROVIDERS: ADMIT Internal Medicine; ATTEND Internal Medicine
PROC: 0DTF0ZZ Resection of Right Large Intestine, Open Approach (ICD-10-PCS; principal; 2017-02-11 15:30)
DX: K57.20 Diverticulitis of large intestine with perforation and abscess without bleeding (principal); N39.0 Urinary tract infection, site not specified; Z68.41 Body mass index [BMI] 40.0-44.9, adult; I42.9 Cardiomyopathy, unspecified; E66.01 Morbid (severe) obesity due to excess calories; I10 Essential (primary) hypertension; E03.9 Hypothyroidism, unspecified; M35.3 Polymyalgia rheumatica; F41.9 Anxiety disorder, unspecified; K44.9 Diaphragmatic hernia without obstruction or gangrene; M79.7 Fibromyalgia; J45.909 Unspecified asthma, uncomplicated; B96.4 Proteus (mirabilis) (morganii) as the cause of diseases classified elsewhere; B96.1 Klebsiella pneumoniae [K. pneumoniae] as the cause of diseases classified elsewhere; Z79.52 Long term (current) use of systemic steroids
CPT/HCPCS: 36415; 71010; 74000; 74176; 80048; 80053; 80061; 81001; 83036; 83690; 83735; 84100; 84439; 84443; 85025; 85610; 85730; 86850; 86900; 86901; 87081; 87086; 88309; 93005; 94664; 96374; 96375; 97110; 97162; 97167; 97530; C9113; J0690; J1100; J1630; J1720; J1885; J2250; J2270; J2274; J2405; J2543; J2765; J2930; J3010; J7030; J7040; J7512; J7999

== ENCOUNTER 2017-02-20 13:41 | Inpatient (IN) | payer MEDICARE, BC ==
[~2017-02-20] VITALS: Ht 152.4 cm; Wt 106.7 kg
[~2017-02-20 13:41] MED LIST changes: +AMLO-145 PO; -AZIT250T6 PO; -CIPR500T4 PO; +LEVE250T66 PO; -METO25TA7 PO; -MONT10TA24 PO; +NITR0.3T6 SL; -OSLT75C PO; +PRED20TA PO; -PRED5 PO; +VALS160T26 PO
--- NOTE | 2017-02-20 13:52 | ERA ---
ER Documentation Chief Complaint Date/Time DATE: 02/20/17 TIME: 13:52 Chief Complaint Shortness of breath HPI The patient is a 71-year-old female, presenting to the ER because of acute shortness of breath for unclear duration. She is unable to provide much history but follow commands. She was discharged from the hospital 4 days ago after right hemicolectomy due to perforated sigmoid diverticulitis. History is obtained from the supervisor film processing in the medical record. Medical history: Hypothyroidism, hypertension, GERD, polymyalgia rheumatica, peptic ulcer disease Past surgical history: Mentioned above in HPI ROS All systems reviewed and are negative except as per history of present illness. Medications Home Meds Reported Medications Nitroglycerin (Nitroglycerin) 0.3 Mg Tab.subl, 0.4 MG SL Y for CHEST PAIN take one tab under the tongue every 5 minutes for chest pain. if still in pain after 3 tablets/15 mins call 911 02/11/17 Valsartan (Valsartan) 160 Mg Tablet, 160 MG PO BID, #60 TAB 02/11/17 Amlodipine Besylate* (Amlodipine Besylate*) 5 Mg Tablet, 5 MG PO DAILY, #30 TAB 02/11/17 Levetiracetam* (Keppra*) 250 Mg Tab, 250 MG PO QHS, TAB 02/11/17 Prednisone* (Prednisone*) 20 Mg Tab, 40 MG PO DAILY, TAB 02/11/17 Budesonide-Formoterol Fumarate* (Symbicort*) 160-4.5 Hfa.aer.ad, 2 PUFF INHALATION BID, EACH 08/13/15 Lorazepam* (Ativan*) 2 Mg Tablet, 2 MG PO TID Y for ANXIETY 08/13/15 Ibuprofen* (Ibuprofen*) 800 Mg Tablet, 800 MG PO Q8 Y for PAIN, TAB 03/05/15 Levothyroxine Sodium* (Levothyroxine Sodium*) 50 Mcg Tablet, 50 MCG PO AC BREAKFAST, TAB 03/05/15 Allergies Allergies: Coded Allergies: shellfish derived (Verified Allergy, Severe, 02/11/17) cortisone (Unverified Allergy, Unknown, 02/11/17) hydromorphone (Unverified Allergy, Unknown, SLEEPY, 02/11/17) T/O: Anel CHAPIN NP prochlorperazine (Unverified Allergy, Unknown, 02/11/17) PMhx/Soc History of Surgery: Yes (tonsillectomy, ceasearian section, 5 d and c, hernia repair, cataract surge) Anesthesia Reaction: No Hx Neurological Disorder: Yes (spinal problem) Hx Respiratory Disorders: No Hx Cardiac Disorders: Yes (htn, cardiomegaly) Hx Psychiatric Problems: Yes (anxiety) Hx Miscellaneous Medical Probl: Yes (HTN, "spinal problem", hypothyroid, anxiety, cataract sx) Hx Alcohol Use: No Hx Substance Use: No Hx Tobacco Use: No Physical Exam Vitals Vital Signs Date Time Temp Pulse Resp B/P Pulse Ox O2 Delivery O2 Flow Rate FiO2 02/20/17 17:12 104 96 50 02/20/17 16:42 98 17 81/42 98 BIPAP 02/20/17 16:18 99 17 84/40 97 BIPAP 02/20/17 15:18 109 100 50 02/20/17 15:08 111 17 104/74 100 BIPAP 02/20/17 14:57 Non Rebreather 02/20/17 14:37 98.4 02/20/17 14:30 120 17 77/50 100 BIPAP 02/20/17 14:01 99.1 122 12 93/58 89 02/20/17 14:00 114 96 50 02/20/17 13:55 2.0 Physical Exam Const: No acute distress. Head: Atraumatic. Eyes: Normal Conjunctiva. ENT: Normal External Ears, Nose and Mouth. Neck: Full range of motion. No meningismus. Resp: Clear to auscultation bilaterally. Cardio: Regular tachycardia Abd: Soft, non distended, normal bowel sounds, obese, midline scar with discharge, hypoactive bowel sound Skin: No petechiae or rashes. Back: No midline or flank tenderness. Ext: No cyanosis, or edema. Neur: Unable to perform due to her condition Psych: .Unable to perform due to her condition Result Diagram: 02/20/17 1400 02/20/17 1400 Results 24 hrs Laboratory Tests Test 02/20/17 14:00 02/20/17 14:30 White Blood Count 10.210^3/ul Red Blood Count 3.4910^6/ul Hemoglobin 10.1g/dl Hematocrit 31.3% Mean Corpuscular Volume 89.7fl Mean Corpuscular Hemoglobin 28.9pg Mean Corpuscular Hemoglobin Concent 32.3g/dl Red Cell Distribution Width 19.8% Platelet Count 61634^3/UL Mean Platelet Volume 10.8fl Neutrophils % % Segmented Neutrophils % (Manual) 88% Band Neutrophils % (Manual) 3% Lymphocytes % (Manual) 6% Monocytes % (Manual) 2% Eosinophils % % Eosinophils % (Manual) 1% Basophils % % Nucleated Red Blood Cells % 0.5/100WBC Neutrophils # 10^3/ul Neutrophils # (Manual) 9.010^3/ul Band Neutrophils # 0.310^3/ul Absolute Lymphocytes (Manual) 0.610^3/ul Lymphocytes # 0.610^3/ul Monocytes # 0.210^3/ul Absolute Monocytes (Manual) 0.210^3/ul Eosinophils # 0.110^3/ul Basophils # 10^3/ul Prothrombin Time 16.3Sec Prothrombin Time Ratio 1.3 INR International Normalized Ratio 1.30 Activated Partial Thromboplast Time 25.2Sec Blood Gas Specimen Source Blood arterial Arterial Blood Date Drawn 02/20/2017 3:05:50 PM Arterial Blood pH (Temp corrected) 7.303 Arterial Blood pCO2 (Temp correct) 32.2mmhg Arterial Blood pO2 (Temp corrected) 122.4mmHG Arterial Blood HCO3 15.6mmol/L Arterial Blood Base Excess -9.8mmol/L Arterial Blood Oxygen Saturation 98.0mmHG Jayce Test ACCEPTAB Arterial Blood Gas Puncture Site Right Radial Arterial Blood Carboxyhemoglobin 0.3% Arterial Blood Methemoglobin 0.3% Blood Gas A-a O2 Differential 197.9mmHg Oxyhemoglobin Percent 97.4% Total Hemoglobin 9.9g/dl Blood Gas Temperature 37.0C Blood Gas Respiration Rate 20.0 Blood Gas Actual Respiration Rate 26 Blood Gas Modality MASK-BIPAP FiO2 50.0% Blood Gas IPAP/EPAP Ratio 18/8 Blood Gas Notified Whom ELVIN Blood Gas Notified Time 02/20/2017 3:09:21 PM Sodium Level 127mmol/L Potassium Level 7.0mmol/L Chloride Level 100mmol/L Carbon Dioxide Level 19mmol/L Anion Gap 15 Blood Urea Nitrogen 58mg/dl Creatinine 3.30mg/dl Glucose Level 111mg/dl Lactic Acid Level 1.6mmol/L Calcium Level 9.0mg/dl Total Bilirubin 0.0mg/dl Direct Bilirubin 0.00mg/dl Indirect Bilirubin 0.0mg/dl Aspartate Amino Transf (AST/SGOT) 54IU/L Alanine Aminotransferase (ALT/SGPT) 69IU/L Alkaline Phosphatase 102IU/L Troponin I < 0.012ng/ml Total Protein 5.5g/dl Albumin 2.4g/dl Globulin 3.10g/dl Albumin/Globulin Ratio 0.77 Urine Color ELYSE Urine Clarity CLOUDY Urine pH 5.0 Urine Specific [place] 1.026 Urine Ketones NEGATIVEmg/dL Urine Nitrite NEGATIVEmg/dL Urine Bilirubin 1+mg/dL Urine Urobilinogen NEGATIVEmg/dL Urine Leukocyte Esterase 1+Efren/ul Urine Microscopic RBC 44/HPF Urine Microscopic WBC 35/HPF Urine Squamous Epithelial Cells FEW/HPF Urine Bacteria FEW/HPF Urine Hemoglobin 3+mg/dL Urine Glucose 1+mg/dL Urine Total Protein 1+mg/dl Current Medications Medications (Trade) Dose Ordered Sig/Citlali Route PRN Reason Start Time Stop Time Status Last Admin Dose Admin Sodium Chloride (NS) 3,100 ml @ 3,100 mls/hr BOLUS X1 ONCE IV 02/20/17 14:30 02/20/17 15:29 DC 02/20/17 15:10 Lidocaine (Xylocaine 1% (Mpf)) 5 ml ONCE ONCE SC 02/20/17 14:30 02/20/17 14:31 DC Albuterol (Proventil 0.5% (Neb)) 15 mg ONCE STAT INH 02/20/17 16:22 02/20/17 16:24 DC 02/20/17 16:36 Insulin Human Regular (Humulin R) 10 unit ONCE STAT IV 02/20/17 16:22 02/20/17 16:24 DC 02/20/17 16:49 Dextrose 100 ml 100 ml ONCE PRN IV POC BLOOD GLUCOSE <250 MG/DL 02/20/17 16:30 02/20/17 16:50 Piperacillin Sod/ Tazobactam Sod (Zosyn 2.25gm/ 50ml (Pmx)) 50 ml @ 100 mls/hr ONCE ONCE IVPB 02/20/17 16:30 02/20/17 16:59 DC 02/20/17 17:18 Sodium Polystyrene Sulfonate 30 gm 30 gm ONCE ONCE FL 02/20/17 17:00 02/20/17 17:01 DC Norepinephrine 250 ml @ 1.875 mls/ hr TITRATE IV 02/20/17 17:00 Vancomycin HCl (Vancocin) 250 ml @ 125 mls/hr ONCE IVPB 02/20/17 18:00 02/20/17 19:59 Hydrocortisone (Solu-Cortef) 125 mg ONCE STAT IV 02/20/17 17:40 02/20/17 17:45 DC Procedures/MDM [place] [address] Radiology Main Line: [phone] DIAGNOSTIC IMAGING REPORT Patient: BHARAT PACKER : 1945 Age: 71 Sex: F MR #: [id number] DOS: 02/20/17 1354 Ordering MD: SAMEERA SCHOFIELD MD Location: E/R Room/Bed: PROCEDURE: XR Chest. CLINICAL INDICATION: Chest pain TECHNIQUE: Single portable view of the chest was obtained COMPARISON: 08/13/15 FINDINGS: The heart is enlarged. There is elevation of the right diaphragm with right lower lobe atelectasis. There is no pleural effusion or pneumothorax. There is moderate gaseous distension of the stomach. RPTAT: AA IMPRESSION: Mild Cardiomegaly. Elevated right diaphragm with right lower lobe atelectasis, not significantly changed. Moderate gaseous distension of the stomach. .Rian Tay MD, Date Time Electronically viewed and signed by .Rian Tay MD, on 02/20/2017 15: 00 .S/ CC: SAMEERA SCHOFIELD MD [place] [id number] Radiology Main Line: [phone] DIAGNOSTIC IMAGING REPORT Patient: BHARAT PACKER : 1945 Age: 71 Sex: F MR #: [id number] DOS: 02/20/17 1420 Ordering MD: SAMEERA SCHOFIELD MD Location: E/R Room/Bed: PROCEDURE: CT Abdomen and Pelvis without contrast CLINICAL INDICATION: Sepsis TECHNIQUE: Transaxial images were obtained through the abdomen and pelvis on a multi-slice scanner without the intravenous contrast administration. No oral contrast had previously been given. Sagittal and coronal re-formations were subsequently reconstructed. One or more of the following dose reduction techniques were used: - Automated exposure control. - Adjustment of the mA and/or kV according to patient size. - Use of iterative reconstruction technique. Radiation dose: CTDIvol = 22.98 mGy; DLP = 1522.49 mGy-cm. COMPARISON: 02/15/2017 FINDINGS: Lung bases: There is increasing subsegmental atelectasis seen within the lung bases bilaterally. There is again pneumomediastinum. No pleural fluid accumulation or pneumothorax is identified. Liver: The liver remains normal in size and appears fatty infiltrated with no discrete focal lesion identified. Gallbladder: The wall is not thickened. No radiopaque stones are identified. Bile ducts: The intra and extrahepatic bile ducts are normal in caliber. Pancreas: Appears normal with no mass or inflammation evident. Spleen: Normal in size with no focal lesion. Adrenals: Normal with no mass identified. Kidneys, ureters and bladder: Several bilateral nonobstructing nephroliths are again evident and there is mild stranding of the perinephric fat but there is no hydronephrosis. The ureters are normal in caliber and no ureteroliths are identified. A Mojica catheter is seen within a poorly distended bladder or along with bubbles of intraluminal air. Reproductive organs: Unremarkable. Stomach and bowel: The stomach has become grossly distended with a air and fluid. There is increasing organization and distension of multiple segments of small bowel with fluid in air suspicious for partial fairly distal small bowel obstruction. The right colon again appears to have been resected with ileal colonic anastomoses in the region of the transverse colon. There is stool in the colon at the and anastomotic site within the colon becomes decompressed with scattered diverticuli seen to the descending and sigmoid colon without evidence of diverticulitis. Appendix: The appendix is not identified. Peritoneum: There is a moderate amount of free intraperitoneal fluid which is slightly increased from the previous study and measures 13 HU. Bubbles of intraperitoneal air are also again noted Aorta: There is atherosclerotic vascular calcification but no abdominal aortic aneurysm is evident. IVC: The vena cava is somewhat flattened which can be seen and hypotension or hypovolemia. Lymph nodes: No pathologically enlarged nodes are identified. Osseous structures: There is moderate degenerative enthesopathy seen to the spine. Soft tissues: There is decreased subcutaneous air since the previous study. Surgical kay are again seen to extend vertically at the midline of the anterior abdominal wall. IMPRESSION: 1. Since the previous CT of 02/15/2017, there is again evidence of right colonic resection with an ileal colic an anastomosis in the region of the transverse colon. There is been interval development of gross gaseous distension of the stomach with increasing organization in air and fluid distension of small bowel suspicious for a partial fairly distal small bowel obstruction. There is stool in the proximal residual: At the anastomotic site but more distally the colon is decompressed with persistent scattered diverticuli but without evidence of diverticulitis. 2. There is again a moderate amount of free intraperitoneal fluid that measures 13 HU and bubbles of free intraperitoneal air are again noted, not significantly increased from the previous. 3. Multiple bilateral nonobstructing nephroliths are again seen within the kidneys but there is no evidence of urinary outflow obstruction or ureterolithiasis. A Mojica catheter is now seen within any nondistended bladder. 4. Normal sized fatty infiltrated liver again noted. 5. Atherosclerotic vascular calcification is again evident. 6. Increasing subsegmental atelectasis is seen within the lower lobes bilaterally. There is again pneumomediastinum but there has been interval decrease in subcutaneous air. Findings of development of gastric distension with partial fairly distal small bowel obstruction with persistent moderate free intraperitoneal fluid and bubbles of free intraperitoneal air were telephoned by Jagdish Noel MD to Dr. Schofield on 02/20/2017 at 1628 hours. Physician Kwadwo Date Time Electronically viewed and signed by Physician Kwadwo on 02/20/2017 16:36 RH/ CC: SAMEERA SCHOFIELD MD EKG: Read by emergency physician Rate/Rhythm: Sinus Tachycardia 107 beats/min QRS, ST, T-waves: No ST elevation, no T inversion, inferior Qs Impression: Abnormal EKG MEDICAL MAKING DECISION: The patient is a 71-year-old female, presenting with acute partial small bowel obstruction, acute renal failure, acute severe sepsis , acute cystitis, acute hyperkalemia. She was put on BiPAP immediately with good response. She was treated for acute severe sepsis with most swelling 30 mL /kg IV, vancomycin IV, Zosyn IV. She was treated for acute hyperkalemia with amp D50 IV, 10 units of regular insulin IV, Albuterol 15 mg nebulizer, Kayexalate 30 gm FL. She was treated with NGT, Mojica. Consultation: I discussed the patient with her surgeon Dr. Haji at 4:30 PM, who was made aware of the lab, the treatment, the patient condition. He accepted the consult Admit MDM: Patient's infectious symptoms have not stabilized and the patient is at risk of rapid decompensation. The patient will be admitted for careful hydration, antibiotic therapy, and infectious source control. Severe Sepsis criteria: Infectious source: UTI End organ damage indicated by: Hypotension (SBP < 90 or >40 mmHG drop or MAP < 65) Acute Resp Failure (sat < 92% w/o oxygen) Sepsis Management: Time of recognition of severe sepsis/septic shock:1630 hr Within 3 hours of recognition: Blood cultures x 2 before broad-spectrum antibiotics: Yes 30 ml/kg NS bolus completed Initial lactate 1.6 Repeat lactate pending Critical Care: Critical care time 35 minutes excluding billable procedure Emergent fluid management while maintaining close respiratory support. Provision of immediate and broad-spectrum antibiotic therapy. Simultaneous assessment for possible sources in order to direct targeted therapy. Consideration for invasive and chemical support to prevent cardiopulmonary collapse. Septic Shock Assessment: Any lactic acid > 4.0 no Persistent hypotension (SBP < 90 or 40 mmHg drop, MAP < 65) despite 30 mL/kg IV fluid bolusno The differential diagnoses considered include but are not limited to the abdominal abscess, SBO, pneumonia, pyelonephritis, CHF, PE Departure Diagnosis: Primary Impression: Respiratory failure, acute Additional Impressions: Partial small bowel obstruction Acute renal failure Hyperkalemia UTI (urinary tract infection) Severe sepsis Anemia Condition: Critical Comments I discussed the findings with the patient. I discussed the patient with the hospitalist Dr Mullen at 5 pm who was made aware of the lab, the treatment, the patient condition. The patient is admitted to ICU SAMEERA SCHOFIELD MD Feb 20, 2017 13:52 SAMEERA SCHOFIELD MD Feb 20, 2017 13:52
[2017-02-20 14:27] LABS: ABNORMAL IP MESSAGE 1; HEMATOCRIT 31.3 % (37.0-47.0); HEMOGLOBIN 10.1 g/dl (12.0-16.0); MEAN CORPUSCULAR HEMOGLOBIN 28.9 pg (29.0-33.0); MEAN CORPUSCULAR HGB CONC 32.3 g/dl (32.0-37.0); MEAN CORPUSCULAR VOLUME 89.7 fl (82.0-101.0); MEAN PLATELET VOLUME 10.8 fl (7.4-10.4); NUCLEATED RED BLOOD CELLS% 0.5 /100WBC (0.0-0.0); PLATELET COUNT 194 10^3/UL (140-415); RED BLOOD COUNT 3.49 10^6/ul (4.20-5.40); RED CELL DISTRIBUTION WIDTH 19.8 % (11.5-14.5); WHITE BLOOD COUNT 10.2 10^3/ul (4.8-10.8)
[2017-02-20 14:28] LABS: POSITIVE DIFF @See below
[2017-02-20] MEDS ORDERED: LIDOCAINE 1% (MPF) 5 ML VIAL SC ONE (14:30)
[2017-02-20] MEDS ORDERED: SOD CHLORIDE 0.9% 3,100 ML IV ONE (14:30)
[2017-02-20 14:43] LABS: INR 1.3; PARTIAL THROMBOPLASTIN TIME 25.2 Sec (25.0-35.0); PROTIME 16.3 Sec (12.2-14.2); PT RATIO 1.3
[2017-02-20 14:59] LABS: ALANINE AMINOTRANSFERASE 69 IU/L (13-69); ALBUMIN 2.4 g/dl (3.3-4.9); ALBUMIN/GLOBULIN RATIO 0.77; ALKALINE PHOSPHATASE 102 IU/L (42-121); ANION GAP 15 (8-16); ASPARTATE AMINO TRANSFERASE 54 IU/L (15-46); BLOOD UREA NITROGEN 58 mg/dl (7-20); CARBON DIOXIDE 19 mmol/L (21-31); CHLORIDE 100 mmol/L (97-110); GLUCOSE 111 mg/dl (70-220); SODIUM 127 mmol/L (135-144); TOTAL PROTEIN 5.5 g/dl (6.1-8.1)
--- NOTE | 2017-02-20 15:01 | RADRPT ---
PROCEDURE: XR Chest. CLINICAL INDICATION: Chest pain TECHNIQUE: Single portable view of the chest was obtained COMPARISON: 08/13/15 FINDINGS: The heart is enlarged. There is elevation of the right diaphragm with right lower lobe atelectasis. There is no pleural effusion or pneumothorax. There is moderate gaseous distension of the stomach. RPTAT: AA IMPRESSION: Mild Cardiomegaly. Elevated right diaphragm with right lower lobe atelectasis, not significantly changed. Moderate gaseous distension of the stomach. .Rian Tay MD, MD Date Time Electronically viewed and signed by .Rian Tay MD, MD on 02/20/2017 15:00 .S/
[2017-02-20 15:09] LABS: AADO2 Arterial 197.9 mmHg (7.0-24.0); Allen Test ACCEPTAB; Arterial Base Excess -9.8 mmol/L (-3.0-3); Arterial COHb 0.3 % (0.0-3.0); Arterial Fraction of Oxyhgb 97.4 % (93.0-99.0); Arterial HCO3 15.6 mmol/L (22.0-26.0); Arterial MetHb 0.3 % (0.0-1.5); Arterial Total Hemglobin 9.9 g/dl (12.0-18.0); Blood Gas IEPAP 18/8; MODE MASK-BIPAP
[2017-02-20 15:20] LABS: ADD UMIC YES; UR ASCORBIC ACID NEGATIVE (NEGATIVE); UR BACTERIA FEW /HPF (NONE SEEN); UR BILIRUBIN (Dip) 1+ mg/dL (NEGATIVE); UR BLOOD (Dip) 3+ mg/dL (NEGATIVE); UR CLARITY CLOUDY (CLEAR); UR COLOR AMBER (YELLOW); UR GLUCOSE (Dip) 1+ mg/dL (NEGATIVE); UR KETONES (Dip) NEGATIVE (NEGATIVE); UR LEUKOCYTE ESTERASE (Dip) 1+ Leu/ul (NEGATIVE); UR NITRITE (Dip) NEGATIVE (NEGATIVE); UR NONSQUAMOUS EPITHELIAL CELL 2 /HPF (NONE SEEN); UR RBC 44 /HPF (0-5); UR SPECIFIC GRAVITY (Dip) 1.026 (1.003-1.030); UR SQUAMOUS EPITHELIAL CELL FEW /HPF (FEW); UR TOTAL PROTEIN (Dip) 1+ mg/dl (NEGATIVE); UR UROBILINOGEN (Dip) NEGATIVE (NEGATIVE); UR WBC CLUMPS RARE /HPF (NONE SEEN)
[2017-02-20 15:51] LABS: TROPONIN-I < 0.012 ng/ml (0.00-0.12)
[2017-02-20] MEDS ORDERED: INSULIN REGULAR, HUMAN 100 UNIT/1 ML 3ML VIAL IV STA (16:22)
[2017-02-20] MEDS ORDERED: ALBUTEROL 0.5% (NEB) 2.5 MG/0.5 ML AMP INH STA (16:22)
[2017-02-20] MEDS ORDERED: PIPER-TAZO 2.25 GM (PMX) 50 ML IVPB ONE (16:30)
[2017-02-20] MEDS ORDERED: DEXTROSE 50% 50 ML SYRINGE IV PRN (16:30)
--- NOTE | 2017-02-20 16:37 | RADRPT ---
PROCEDURE: CT Abdomen and Pelvis without contrast CLINICAL INDICATION: Sepsis TECHNIQUE: Transaxial images were obtained through the abdomen and pelvis on a multi-slice scanner without the intravenous contrast administration. No oral contrast had previously been given. Sagit christophe and coronal re-formations were subsequently reconstructed. One or more of the following dose reduction techniques were used: - Automated exposure control. - Adjustment of the mA and/or kV according to patient size. - Use of iterative reconstruction technique. Radiation dose: CTDIvol = 22.98 mGy; DLP = 1522.49 mGy-cm. COMPARISON: 02/15/2017 FINDINGS: Lung bases: There is increasing subsegmental atelectasis seen within the lung bases bilaterally. The re is again pneumomediastinum. No pleural fluid accumulation or pneumothorax is identified. Liver: The liver remains normal in size and appears fatty infiltrated with no discrete focal lesion identified. Gallbladder: The wall is not thickened. No radiopaque stones are identified. Bile ducts: The intra and extrahepatic bile ducts are normal in caliber. Pancreas: Appears normal with no mass or inflammation evident. Spleen: Normal in size with no focal lesion. Adrenals: Normal with no mass identified. Kidneys, ureters and bladder: Several bilateral nonobstructing nephroliths are again evident and the re is mild stranding of the perinephric fat but there is no hydronephrosis. The ureters are normal i n caliber and no ureteroliths are identified. A Mojica catheter is seen within a poorly distended ezra dder or along with bubbles of intraluminal air. Reproductive organs: Unremarkable. Stomach and bowel: The stomach has become grossly distended with a air and fluid. There is increasin g organization and distension of multiple segments of small bowel with fluid in air suspicious for p artial fairly distal small bowel obstruction. The right colon again appears to have been resected wi th ileal colonic anastomoses in the region of the transverse colon. There is stool in the colon at t he and anastomotic site within the colon becomes decompressed with scattered diverticuli seen to the descending and sigmoid colon without evidence of diverticulitis. Appendix: The appendix is not identified. Peritoneum: There is a moderate amount of free intraperitoneal fluid which is slightly increased fro m the previous study and measures 13 HU. Bubbles of intraperitoneal air are also again noted Aorta: There is atherosclerotic vascular calcification but no abdominal aortic aneurysm is evident. IVC: The vena cava is somewhat flattened which can be seen and hypotension or hypovolemia. Lymph nodes: No pathologically enlarged nodes are identified. Osseous structures: There is moderate degenerative enthesopathy seen to the spine. Soft tissues: There is decreased subcutaneous air since the previous study. Surgical kay are ag ain seen to extend vertically at the midline of the anterior abdominal wall. IMPRESSION: 1. Since the previous CT of 02/15/2017, there is again evidence of right colonic resection with an ileal colic an anastomosis in the region of the transverse colon. There is been interval development of gross gaseous distension of the stomach with increasing organization in air and fluid distension of small bowel suspicious for a partial fairly distal small bowel obstruction. There is stool in th e proximal residual: At the anastomotic site but more distally the colon is decompressed with persi stent scattered diverticuli but without evidence of diverticulitis. 2. There is again a moderate amount of free intraperitoneal fluid that measures 13 HU and bubbles o f free intraperitoneal air are again noted, not significantly increased from the previous. 3. Multiple bilateral nonobstructing nephroliths are again seen within the kidneys but there is no evidence of urinary outflow obstruction or ureterolithiasis. A Mojica catheter is now seen within any nondistended bladder. 4. Normal sized fatty infiltrated liver again noted. 5. Atherosclerotic vascular calcification is again evident. 6. Increasing subsegmental atelectasis is seen within the lower lobes bilaterally. There is again p neumomediastinum but there has been interval decrease in subcutaneous air. Findings of development of gastric distension with partial fairly distal small bowel obstruction wit h persistent moderate free intraperitoneal fluid and bubbles of free intraperitoneal air were teleph oned by Jagdish Noel MD to Dr. York on 02/20/2017 at 1628 hours. Physician Kwadwo Date Time Electronically viewed and signed by Physician Kwadwo on 02/20/2017 16:36 /
[2017-02-20 16:47] LABS: EOSINOPHILS # 0.1 10^3/ul (0.0-0.5); EOSINOPHILS % (M) 1 % (0.0-7.0); LYMPHOCYTES # 0.6 10^3/ul (0.8-2.9); MONOCYTE # 0.2 10^3/ul (0.3-0.9); MONOCYTES % (M) 2 % (0-11)
[2017-02-20] MEDS ORDERED: NA POLYST SULFON 15 GM/60 ML BTL PR ONE (17:00)
[2017-02-20] MEDS ORDERED: NORepinephrine 8MG/250 ML (PMX 250 ML IV SCH (17:00)
[2017-02-20] MEDS ORDERED: HYDROCORTISONE 250 MG INJ IV STA (17:40)
--- NOTE | 2017-02-20 17:52 | RADRPT ---
PROCEDURE: Ultrasound guidance for placement of needle in left upper extremity vein. CLINICAL INDICATION: Venous access. TECHNIQUE: Limited sonography of the left upper extremity was performed. Ultrasound images were recorded and s tored in the patient's medical record. COMPARISON: None. FINDINGS: The ultrasound images demonstrate a patent left upper extremity vein. The PICC line was inserted by the PICC line nurse. IMPRESSION: 1. Ultrasound guidance for a needle placement in a left upper extremity vein. 2. The left upper extremity vein is patent. RPTAT: QQ .Adelfo Yanez MD, MD Date Time Electronically viewed and signed by .Adelfo Yanez MD, MD on 02/20/2017 17:51 .R/
--- NOTE | 2017-02-20 17:53 | RADRPT ---
PROCEDURE: XR Chest. CLINICAL INDICATION: Check PICC line position. TECHNIQUE: Single frontal view. COMPARISON: 02/20/2017. 1452 hours. FINDINGS: There is a left arm PICC line with the tip in the lower right atrium. There are low lung volumes. T he lungs are otherwise clear. The heart is enlarged. The stomach is distended. There is no pleural effusion. There is no pneumothorax. IMPRESSION: 1. Left arm PICC line tip in lower right atrium. This should be retracted 2 cm. PICC line nurse or jv 2. Low lung volumes. 3. Cardiomegaly. 4. Gastric distension. RPTAT: QQ .Adelfo Yanez MD, MD Date Time Electronically viewed and signed by .Adelfo Yanez MD, on 02/20/2017 17:52 .R/
--- NOTE | 2017-02-20 17:53 | RADRPT ---
PROCEDURE: XR Chest. CLINICAL INDICATION: Check PICC line position. TECHNIQUE: Single frontal view. COMPARISON: Prior study done earlier the same day. FINDINGS: There is a left arm PICC line with the tip in the lower superior vena cava. There are low lung volu mes and gastric distension as seen previously. The heart is enlarged. There is no pleural effusion. There is no pneumothorax. IMPRESSION: 1. Left arm PICC line tip in satisfactory position. 2. No other change from the prior study done earlier the same day. RPTAT: QQ .Adelfo Yanze MD, MD Date Time Electronically viewed and signed by .Adelfo Yanez MD, on 02/20/2017 17:53 .R/
[2017-02-20] MEDS ORDERED: VANCOMYCIN 1 GM (PMX) 250 ML IVPB SCH (18:00)
[2017-02-20 18:23] LABS: D-DIMER 8268.88 ng/ml (<460)
--- NOTE | 2017-02-20 18:40 | RADRPT ---
PROCEDURE: XR Chest. CLINICAL INDICATION: Nasogastric tube placement. TECHNIQUE: Portable AP semi erect view of the chest was obtained. COMPARISON: 02/20/2017 at 17:45 FINDINGS: Distal tip of the nasogastric tube is in excellent position pointing inferiorly to the right in the region of the pylorus or duodenal bulb. The distal tip of the left PICC projects at the cavoatrial j unction in good position for usage. The cardiomediastinal silhouette remains enlarged. Mild left ba silar subsegmental atelectasis is again noted. Elevation the right hemidiaphragm is present. There is no evidence for pleural effusion, pneumothorax or pulmonary vascular congestion. The osseous str uctures are intact with no evidence for acute abnormality. RPTAT:HJJR IMPRESSION: 1. Successful interval placement of a nasogastric tube the distal tip projecting in the region of th e pylorus or duodenal bulb with associated decompression of the dilated gastric air bubble seen prev iously. 2. Distal tip of the left PICC is in good radiographic position. 3. Stable mild cardiac silhouette enlargement and left basilar subsegmental atelectasis. Physician Trent Date Time Electronically viewed and signed by Physician Trent on 02/20/2017 18:40 /
[2017-02-20 18:45] LABS: CALCIUM 7.8 mg/dl (8.4-10.2); POTASSIUM 5.4 mmol/L (3.5-5.1)
[2017-02-20 18:53] LABS: CREATININE 2.93 mg/dl (0.44-1.00)
[2017-02-20] MEDS ORDERED: VANCOMYCIN IV PER PHARMACY XX SCH (19:00)
[2017-02-20] MEDS ORDERED: SOD CHLORIDE 0.9% 100 ML ONE (19:08)
--- NOTE | 2017-02-20 19:10 | CONS ---
Date/Time of Note Date/Time of Note DATE: 02/20/17 TIME: 19:09 Assessment/Plan Assessment/Plan Additional Assessment/Plan 1.Acute kidney injury mutlifactorial due to Prerenal azotemia + ATN From sepsis + Nephrotoxicity from meds( NSAIDs, Valsartan) 2. Acute encephalopathy metabolic and possibly due to adrenal insufficienty 3. rule out adrenal crisis due to fpc use of steroids 4. H/o Polymyalgia rheumatica on Steroids 5. H/o recent right hemicolectomy for perforated diverticulitis 6. Hyperkalemia acute, Hyponatremia 7. acute hypoxic respiratory failure, Rule out PE 8. Post op ileus Plan: agree with starting Hydrocrotisoen 100mg IV Q 8 hr for adrenal insufficiency IV abx sepsis. renally dose antibiotics S/p treatment for hyperkalemia, Follow up K 5.4, Cr 2.93 BP stable, afebrile pt has been started on heparin gtt for her hypoxia, she need V/Q scan to rule out PE, she can not have CT chest angio due to elevated creatinine s/p IVF NS BOlus in ED, will conitnue her on NS at 80 cc/hr, levophed prn Bp support Pulmonary has been consulted and General surgery also consuted for post op ileus Currently seen in ED, expecting Cr to improve with IVF hydration will follow up on her in the floor Consultation Date/Type/Reason Admit Date/Time 02/20/2017 Date of Consultation: Feb 20, 2017 Type of Consultation: NEPHROLOGY Reason for Consultation acute kidney Injury, Hyperkalemia, Metabolic acidosis Referring Provider: YAKELIN MCKEON MD Hx of Present Illness 71 yo female with Polymyalgia rheumatic on chronic steroids, seizure d/o, hypertension, obesity, who was recently discharged from [facility] following right hemicolectomy due to perforated sigmoid diverticulitis.- she presented back to [facility] with hypotension, hypoxia, acute encephelopathy, hyponatremia, hyperkalemia and acute renal failure. Her K in ED was 7.0 she received multiple treatments for Hyperkalemia. and renal has been consulted for LATRICE, Hyperkalemia, Hyponatremia She is also noted to have ileus, Acute hypoxic respiratory failure. Subjective hx not possible: other (pt not able to provide detailes ROS but she follows command ) Past Medical History Medical History: other (Recently admitted for Perforated diverticulitis,PMR< HTN ) Past Surgical History Past Surgical Hx: other (right hemicolectomy for perforated diverticultiis ) Family History Significant Family History: no pertinent family hx Social History Alcohol Use: none Smoking Status: Never smoker Drug Use: none Exam/Review of Systems Vital Signs Vitals Vital Signs Date Time Temp Pulse Resp B/P Pulse Ox O2 Delivery O2 Flow Rate FiO2 02/20/17 18:40 110 12 131/62 100 Non Rebreather 02/20/17 17:50 12.0 02/20/17 17:12 50 02/20/17 14:37 98.4 Exam Constitutional: frail, non-verbal Psych: confusion Head: normocephalic Eyes: nl conjunctiva Neck: non-tender, supple Respiratory: clear to auscultation, diminished breath sounds, normal air movement Cardiovascular: other (tachycardia ), regular rate and rhythm Gastrointestinal: non-tender, soft Musculoskeletal: nl extremities to inspection Neurological: lethargic Skin: nl turgor Lymph: nl lymph nodes Results Result Diagram: 02/20/17 1400 02/20/17 1755 Results 24 hrs Laboratory Tests Test 02/20/17 14:00 02/20/17 14:30 02/20/17 17:55 White Blood Count 10.2 Red Blood Count 3.49 L Hemoglobin 10.1 L Hematocrit 31.3 L Mean Corpuscular Volume 89.7 Mean Corpuscular Hemoglobin 28.9 L Mean Corpuscular Hemoglobin Concent 32.3 Red Cell Distribution Width 19.8 H Platelet Count 194 # Mean Platelet Volume 10.8 H Neutrophils % Segmented Neutrophils % (Manual) 88 H Band Neutrophils % (Manual) 3 Lymphocytes % (Manual) 6 L Monocytes % (Manual) 2 Eosinophils % Eosinophils % (Manual) 1 Basophils % Nucleated Red Blood Cells % 0.5 H Neutrophils # Neutrophils # (Manual) 9.0 H Band Neutrophils # 0.3 Absolute Lymphocytes (Manual) 0.6 L Lymphocytes # 0.6 L Monocytes # 0.2 L Absolute Monocytes (Manual) 0.2 L Eosinophils # 0.1 Basophils # Prothrombin Time 16.3 #H Prothrombin Time Ratio 1.3 INR International Normalized Ratio 1.30 Activated Partial Thromboplast Time 25.2 D-Dimer 8268.88 H D-Dimer Comment Blood Gas Specimen Source Blood arterial Arterial Blood Date Drawn 02/20/2017 3:05:50 PM Arterial Blood pH (Temp corrected) 7.303 L Arterial Blood pCO2 (Temp correct) 32.2 L Arterial Blood pO2 (Temp corrected) 122.4 H Arterial Blood HCO3 15.6 L Arterial Blood Base Excess -9.8 L Arterial Blood Oxygen Saturation 98.0 Jayce Test ACCEPTAB Arterial Blood Gas Puncture Site Right Radial Arterial Blood Carboxyhemoglobin 0.3 Arterial Blood Methemoglobin 0.3 Blood Gas A-a O2 Differential 197.9 H Oxyhemoglobin Percent 97.4 Total Hemoglobin 9.9 L Blood Gas Temperature 37.0 Blood Gas Respiration Rate 20.0 Blood Gas Actual Respiration Rate 26 Blood Gas Modality MASK-BIPAP FiO2 50.0 Blood Gas IPAP/EPAP Ratio 18/8 Blood Gas Notified Whom JMD Blood Gas Notified Time 02/20/2017 3:09:21 PM Sodium Level 127 L 130 L Potassium Level 7.0 *H 5.4 H Chloride Level 100 105 Carbon Dioxide Level 19 L 18 L Anion Gap 15 12 Blood Urea Nitrogen 58 H 54 H Creatinine 3.30 H 2.93 H Glucose Level 111 224 #H Lactic Acid Level 1.6 1.6 Calcium Level 9.0 7.8 L Total Bilirubin 0.0 L Direct Bilirubin 0.00 Indirect Bilirubin 0.0 Aspartate Amino Transf (AST/SGOT) 54 H Alanine Aminotransferase (ALT/SGPT) 69 Alkaline Phosphatase 102 Troponin I < 0.012 B-Type Natriuretic Peptide 611 H Total Protein 5.5 L Albumin 2.4 L Globulin 3.10 Albumin/Globulin Ratio 0.77 Urine Color ELYSE Urine Clarity CLOUDY A Urine pH 5.0 Urine Specific [place] 1.026 Urine Ketones NEGATIVE Urine Nitrite NEGATIVE Urine Bilirubin 1+ H Urine Urobilinogen NEGATIVE Urine Leukocyte Esterase 1+ H Urine Microscopic RBC 44 H Urine Microscopic WBC 35 H Urine Squamous Epithelial Cells FEW Urine Bacteria FEW A Urine Hemoglobin 3+ H Urine Glucose 1+ H Urine Total Protein 1+ H Medications Medications Current Medications Dextrose 100 ml 100 ml ONCE PRN IV POC BLOOD GLUCOSE <250 MG/DL Last administered on 02/20/17t 16:50; Admin Dose 100 ML; Start 02/20/17 at 16:30 Norepinephrine 250 ml @ 1.875 mls/ hr TITRATE IV ; Start 02/20/17 at 17:00 Vancomycin HCl (Vancocin) 250 ml @ 125 mls/hr ONCE IVPB Last administered on t 18:44; Admin Dose 125 MLS/HR; Start 02/20/17 at 18:00; Stop 02/20/17 at 19:59 Hydrocortisone 100 mg 100 mg Q8 IV ; Start 02/20/17 at 22:00 Piperacillin Sod/ Tazobactam Sod (Zosyn 2.25gm/ 50ml (Pmx)) 50 ml @ 100 mls/hr Q8 IVPB ; Start 02/20/17 at 23:00 ARIK MCKEON MD Feb 20, 2017 19:10
--- NOTE | 2017-02-20 19:22 | HP ---
Date/Time of Note Date/Time of Note DATE: 02/20/17 TIME: 18:58 Assessment/Plan VTE Prophylaxis VTE Prophylaxis Intervention: heparin Lines/Catheters Urinary Cath still in place: Yes Reason Cath still needed: urinary retention Assessment/Plan Chief Complaint/Hosp Course 71 yo female with PMR on chronic steroids, unclear seizure d/o, hypertension, obesity, recently discharged from [facility] following open appendectomy without complications who now returns with hypotension, hypoxia, acute encephelopathy, hyponatremia, hyperkalemia and acute renal failure NEURO: Acute encephelopathy: - I suspect this is related to adrenal insufficiency, will monitor mental status with stress dose steroids added on - Alternatively may be 2/2 sepsis - NCHCT pending to evaluate for stroke, bleed, etc - Consider LP if no improvement RENAL: LATRICE: - Very likely from excess NSAIDs with valsartan causing LATRICE, will hold these - Sepsis possible etiology, prerenal possible - Urine studies pending Hyponatremia, Hyperkalemia: - Concerning for adrenal insufficiency, stress dose - Trend BMP - urine studies pending - Quezada consulted. K high, no urgent need for HD at this point PULM: Acute hypoxic respiratory failure: - Most concerning for PE given no XR findings to explain this and very high d- dimer (though to be expected following surgery). Will start heparin ggt cautiously for bleeding. Unable to do CT-A now given renal failure. V/Q scan tomorrow if no improvement in creatinine. Duplex of legs pending - O2 by NC - BIPAP is not a good idea given AMS and already hyperventilating regardless GI: SBO likely a post operative ileus - NG tube placed to suction, continue intermittent - Dr Haji will see patient tomorrow ID: Sepsis: - Unclear if infection present. Will treat with broad spectrum abx for now ENDO/RHEUM Polymyalgia rheumatica and chronic adrenal suppression from prednisone: - Stress hydrocortisone 125 q8h Patient to ICU now Problems: HPI/ROS Admit Date/Time Admit Date/Time Hx of Present Illness 71 yo female with h/o PMR on chronic prednisone 40 mg, COPD vs asthma, obestiy, who had recent surgery here for perforated appendicitis and then discharged to [facility] 4 days ago, now returns with obtundation/AMS, hypoxia. Patient underwent uncomplciated surgery. DIscharged w creatinine 0.6. Appears to have been prescribed ibuprofen TID and valsartan at discharge. No note of any fevers. She is profoundly altered and unable to provide a history. I knew her from her previous admission here where she had normal cognition. Here found to have renal failure, hyponatremia, hyperkalemia and CT findigns of SBO. ALso profoundly hypoxic I gave her 125 solumedrol IV out of concern for adrenal insufficiency given chronic steroids, and she has perked up somewhat NG tube placed, copious amount of gastric contents removed to suction Patient very sleepy but does not mention any complaints ROS Constitutional: improved, no complaints Eyes: no complaints ENT: no complaints Respiratory: no complaints Cardiovascular: no complaints Gastrointestinal: no complaints Genitourinary: no complaints Musculoskeletal: no complaints Skin: no complaints Neurologic: no complaints Endocrine: no complaints Lymphatic: no complaints Psychological: nl mood/affect, no complaints Immunologic: no complaints PMH/Family/Social Past Medical History PMR Hypertension Obestiy Recent open appendectomy Past Surgical History Past Surgical Hx: appendectomy, other Family History Significant Family History: COPD Social History Recently discharge to [facility] from here Smoking Status: Never smoker Exam/Review of Systems Vital Signs Vitals Vital Signs Date Time Temp Pulse Resp B/P Pulse Ox O2 Delivery O2 Flow Rate FiO2 02/20/17 18:40 110 12 131/62 100 Non Rebreather 02/20/17 17:50 12.0 02/20/17 17:12 50 02/20/17 14:37 98.4 Exam Exam Obtunded, minimally arousable to noxious stimuli PERRLA, + dolls eye, + gag reflex Breathing in labored with inspiratoyr retractions, saturating 80 on RA, 97 on venti mask Lungs relatively clear anteriorly Tachy, regular, no murmur Abdomen quite distended and fairly tense, no rebound or guarding Midline incision from previous surgery wihtout sign of infection, kay Mild pedal edema Some scattered eccymosis on legs Labs Result Diagram: 02/20/17 1400 02/20/17 1400 Medications Medications Current Medications Dextrose 100 ml 100 ml ONCE PRN IV POC BLOOD GLUCOSE <250 MG/DL Last administered on 02/20/17t 16:50; Admin Dose 100 ML; Start 02/20/17 at 16:30 Norepinephrine 250 ml @ 1.875 mls/ hr TITRATE IV ; Start 02/20/17 at 17:00 Vancomycin HCl (Vancocin) 250 ml @ 125 mls/hr ONCE IVPB Last administered on t 18:44; Admin Dose 125 MLS/HR; Start 02/20/17 at 18:00; Stop 02/20/17 at 19:59 YAKELIN MCKEON MD Feb 20, 2017 19:08
[2017-02-20] MEDS ORDERED: HEPARIN 1000 UNITS/ML 10 ML INJ IV ONE (19:30)
[2017-02-20 19:50] LABS: INR 1.43; PARTIAL THROMBOPLASTIN TIME 25.2 Sec (25.0-35.0); PROTIME 17.5 Sec (12.2-14.2); PT RATIO 1.4
[2017-02-20] MEDS ORDERED: NACL 0.9% 3 ML SYG IV SCH (20:00)
--- NOTE | 2017-02-20 20:05 | RADRPT ---
PROCEDURE: CT Brain without contrast. CLINICAL INDICATION: Altered mental status. TECHNIQUE: A CT of the brain was performed on multidetector high-resolution CT scanner utilizing a xial sections from the skull base through the vertex without contrast. The scan was reviewed in sof t tissue brain and high frequency resolution bone algorithm windows. Images were reviewed on a high -resolution PACS workstation. One or more the following does reduction techniques were utilized: Aut omated exposure control, adjustment of the mA/ or kV according to patient's size, or use of iterativ e reconstruction technique. The exam CTDI = 41.28 mGy and the DLP = 720.23 mGy-cm. COMPARISON: None available. FINDINGS: Several images are degraded by motion. The ventricles and sulci are mildly prominent indicative of volume loss. There is no intracranial h emorrhage, mass effect or midline shift. No abnormal intra-axial or extra-axial fluid collections a re seen. The tyson/white matter differentiation is preserved. There are mild scattered foci of hypoattenuation in the white matter, which are nonspecific in etiol ogy but likely reflect chronic small vessel ischemic changes. There are mild intracranial vascular calcifications consistent with atherosclerosis. The visualized paranasal sinuses are essentially matt ar. There is thinning of bilateral lens indicative of prior lens replacement. IMPRESSION: 1. Suboptimal motion air study. No acute intracranial hemorrhage, transcortical infarction or mass effect. 2. Mild intracranial atherosclerosis and chronic small vessel ischemic changes. 3. Mild generalized cerebral volume loss. RPTAT: HH .Fawad Mckeon MD, Date Time Electronically viewed and signed by .Fawad Mckeon MD, MD on 02/20/2017 20:04 .N/
[2017-02-20] MEDS ORDERED: HEPARIN 25000 UNITS/250 ML 250 ML IV SCH (20:17)
[2017-02-20] MEDS ORDERED: HEPARIN 1000 UNITS/ML 10 ML INJ IV PRN ×2 (20:17→22:00)
--- NOTE | 2017-02-20 20:25 | CONS ---
Date/Time of Note Date/Time of Note DATE: 02/20/17 TIME: 20:08 Assessment/Plan Assessment/Plan Problems: (1) Hypothyroidism Status: Chronic Comment: Given patient's obtunded state and history of hypothyroidism cannot rule out myxedema coma. With SBO patient may have not been absorbing thyroxine dose. Will check thyroid function tests. I will change her thyroid dose to IV to assure proper absorption. Will adjust dose based on TFT results. (2) Iatrogenic adrenal insufficiency Status: Acute Comment: Patient appears to have iatrogenic adrenal insufficiency. With her custodial history of steroid dose and currently with SBO if opatient was not absorbing steroids (or if they were not given) patient could easily be adrenal insufficient. Agree with high dose steroids. Would continue stress doses until patient more clinically stable and then eventually taper off. Additional Assessment/Plan Thank you for asking me to assist in this patient's care. Consultation Date/Type/Reason Admit Date/Time Type of Consultation: Endocrine Reason for Consultation AMS and Hypotension in patient with history of Hypothyroidism and chronic steroid use Referring Provider: YAKELIN MCKEON MD Hx of Present Illness Patient obtunded. History obtained by chart and medical personnel Subjective hx not possible: pt non-verbal, pt critical status Constitutional: requiring O2 Eyes: no complaints ENT: no complaints Respiratory: no complaints, other (apneic episodes), shortness of breath Cardiovascular: no complaints, other (tachycardia hypotension) Gastrointestinal: no complaints, other (distention) Genitourinary: no complaints Musculoskeletal: no complaints Skin: bruising, no complaints Neurologic: no complaints, other (obtunded) Lymphatic: no complaints Psychological: nl mood/affect, no complaints Immunologic: no complaints Past Medical History Medical History: diverticulitis, hypertension, hypothyroid, peptic ulcer disease, other (polymyalgia rheumatica, fibromyalgia) Past Surgical History Past Surgical Hx: appendectomy, bowel resection, other Family History Significant Family History: no pertinent family hx (known) Social History Alcohol Use: none Smoking Status: Never smoker Drug Use: none Exam/Review of Systems Vital Signs Vitals Vital Signs Date Time Temp Pulse Resp B/P Pulse Ox O2 Delivery O2 Flow Rate FiO2 02/20/17 19:22 98 8 108/64 97 Non Rebreather 10.0 02/20/17 17:12 50 02/20/17 14:37 98.4 Exam Constitutional: distress, non-verbal, obese Psych: other (obtunded) Head: normocephalic Eyes: EOMI, PERRL Neck: supple Respiratory: crackles/rales Cardiovascular: other (tachycardic) Gastrointestinal: distended, firm Musculoskeletal: nl extremities to inspection Extremities: normal pulses Neurological: lethargic Skin: ecchymosis (bilateral upper extremities) Results Labs reviewed Result Diagram: 02/20/17 1400 02/20/17 1755 Results 24 hrs Laboratory Tests Test 02/20/17 14:00 02/20/17 14:30 02/20/17 17:55 02/20/17 18:50 White Blood Count 10.2 Red Blood Count 3.49 L Hemoglobin 10.1 L Hematocrit 31.3 L Mean Corpuscular Volume 89.7 Mean Corpuscular Hemoglobin 28.9 L Mean Corpuscular Hemoglobin Concent 32.3 Red Cell Distribution Width 19.8 H Platelet Count 194 # Mean Platelet Volume 10.8 H Neutrophils % Segmented Neutrophils % (Manual) 88 H Band Neutrophils % (Manual) 3 Lymphocytes % (Manual) 6 L Monocytes % (Manual) 2 Eosinophils % Eosinophils % (Manual) 1 Basophils % Nucleated Red Blood Cells % 0.5 H Neutrophils # Neutrophils # (Manual) 9.0 H Band Neutrophils # 0.3 Absolute Lymphocytes (Manual) 0.6 L Lymphocytes # 0.6 L Monocytes # 0.2 L Absolute Monocytes (Manual) 0.2 L Eosinophils # 0.1 Basophils # Prothrombin Time 16.3 #H 17.5 H Prothrombin Time Ratio 1.3 1.4 INR International Normalized Ratio 1.30 1.43 Activated Partial Thromboplast Time 25.2 25.2 D-Dimer 8268.88 H D-Dimer Comment Blood Gas Specimen Source Blood arterial Arterial Blood Date Drawn 02/20/2017 3:05:50 PM Arterial Blood pH (Temp corrected) 7.303 L Arterial Blood pCO2 (Temp correct) 32.2 L Arterial Blood pO2 (Temp corrected) 122.4 H Arterial Blood HCO3 15.6 L Arterial Blood Base Excess -9.8 L Arterial Blood Oxygen Saturation 98.0 Jayce Test ACCEPTAB Arterial Blood Gas Puncture Site Right Radial Arterial Blood Carboxyhemoglobin 0.3 Arterial Blood Methemoglobin 0.3 Blood Gas A-a O2 Differential 197.9 H Oxyhemoglobin Percent 97.4 Total Hemoglobin 9.9 L Blood Gas Temperature 37.0 Blood Gas Respiration Rate 20.0 Blood Gas Actual Respiration Rate 26 Blood Gas Modality MASK-BIPAP FiO2 50.0 Blood Gas IPAP/EPAP Ratio 18/8 Blood Gas Notified Whom JMD Blood Gas Notified Time 02/20/2017 3:09:21 PM Sodium Level 127 L 130 L Potassium Level 7.0 *H 5.4 H Chloride Level 100 105 Carbon Dioxide Level 19 L 18 L Anion Gap 15 12 Blood Urea Nitrogen 58 H 54 H Creatinine 3.30 H 2.93 H Glucose Level 111 224 #H Lactic Acid Level 1.6 1.6 1.7 Calcium Level 9.0 7.8 L Total Bilirubin 0.0 L Direct Bilirubin 0.00 Indirect Bilirubin 0.0 Aspartate Amino Transf (AST/SGOT) 54 H Alanine Aminotransferase (ALT/SGPT) 69 Alkaline Phosphatase 102 Troponin I < 0.012 B-Type Natriuretic Peptide 611 H Total Protein 5.5 L Albumin 2.4 L Globulin 3.10 Albumin/Globulin Ratio 0.77 Urine Color ELYSE Urine Clarity CLOUDY A Urine pH 5.0 Urine Specific [place] 1.026 Urine Ketones NEGATIVE Urine Nitrite NEGATIVE Urine Bilirubin 1+ H Urine Urobilinogen NEGATIVE Urine Leukocyte Esterase 1+ H Urine Microscopic RBC 44 H Urine Microscopic WBC 35 H Urine Squamous Epithelial Cells FEW Urine Bacteria FEW A Urine Hemoglobin 3+ H Urine Glucose 1+ H Urine Total Protein 1+ H Medications Medications Current Medications Dextrose 100 ml 100 ml ONCE PRN IV POC BLOOD GLUCOSE <250 MG/DL Last administered on 02/20/17t 16:50; Admin Dose 100 ML; Start 02/20/17 at 16:30 Norepinephrine (Levophed) 250 ml @ 1.875 mls/ hr TITRATE IV ; Start 02/20/17 at 17:00 Hydrocortisone 100 mg 100 mg Q8 IV ; Start 02/20/17 at 22:00 Piperacillin Sod/ Tazobactam Sod (Zosyn 2.25gm/ 50ml (Pmx)) 50 ml @ 100 mls/hr Q8 IVPB ; Start 02/20/17 at 23:00 IV Flush (NS 10 ml) 10 ml PRN PRN IV IV PROTOCOL; Start 02/20/17 at 19:30 KAVON DANGELO MD Feb 20, 2017 20:24
--- NOTE | 2017-02-20 20:25 | RADRPT ---
PROCEDURE: US left lower extremity venous Doppler CLINICAL INDICATION: Swelling TECHNIQUE: Multiple sonographic images of the left lower extremity deep venous system was obtained utilizing grayscale, color-flow, compressive sonography and Doppler imaging with augmentation. COMPARISON: No pertinent prior examinations were submitted for comparison. FINDINGS: There is normal compressibility and flow within the left common femoral, superficial femoral, and po pliteal veins. The peroneal vein is not visualized. A popliteal Segura's cyst is noted, measuring 5 x 1 cm. IMPRESSION: No sonographic evidence for left deep venous thrombosis. RPTAT: HIKT .Jonny Samaniego MD, Date Time Electronically viewed and signed by .Jonny Samaniego MD, on 02/20/2017 20:25 .T/
[2017-02-20] MEDS ORDERED: SOD CHLORIDE 0.9% 1,000 ML IV ONE (20:30)
[2017-02-20 21:24] LABS: ABNORMAL IP MESSAGE 1; HEMATOCRIT 26.6 % (37.0-47.0); HEMOGLOBIN 8.2 g/dl (12.0-16.0); MEAN CORPUSCULAR HEMOGLOBIN 28.7 pg (29.0-33.0); MEAN CORPUSCULAR HGB CONC 30.8 g/dl (32.0-37.0); MEAN PLATELET VOLUME 10.4 fl (7.4-10.4); NUCLEATED RED BLOOD CELLS% 0.4 /100WBC (0.0-0.0); PLATELET COUNT 151 10^3/UL (140-415); RED BLOOD COUNT 2.86 10^6/ul (4.20-5.40); WHITE BLOOD COUNT 7.1 10^3/ul (4.8-10.8)
[2017-02-20 21:31] LABS: POSITIVE DIFF @See below
[2017-02-20 21:59] LABS: ERYTHROBLAST% (NRBC) (M) 1 % (0-0); LYMPHOCYTES # 0.8 10^3/ul (0.8-2.9); MONOCYTE # 0.4 10^3/ul (0.3-0.9); MONOCYTES % (M) 6 % (0-11)
[2017-02-20] MEDS: HYDROCORTISONE 100 MG INJ IV SCH ×2 (22:58→23:06)
[2017-02-20] MEDS: SOD CHLORIDE 0.9% 1,000 ML IV SCH (23:07)
[2017-02-20] MEDS: PIPER-TAZO 2.25 GM (PMX) 50 ML IVPB SCH (23:24)
[2017-02-21] VITALS (69 sets, daily range): BP systolic 71–157; BP diastolic 41–103; PULSE 89–121; RESP 9–25; TEMP 98.5
[2017-02-21] MEDS ORDERED: VANCOMYCIN 1 GM in NS 250 ML IVPB SCH
[2017-02-21 01:03] LABS: ABNORMAL IP MESSAGE 1; BASOPHIL # 0.1 10^3/ul (0.0-0.1); EOSINOPHILS % 0.3 % (0.0-7.0); HEMATOCRIT 29.6 % (37.0-47.0); HEMOGLOBIN 9.1 g/dl (12.0-16.0); LYMPHOCYTES # 0.5 10^3/ul (0.8-2.9); MEAN CORPUSCULAR HEMOGLOBIN 28.7 pg (29.0-33.0); MEAN CORPUSCULAR HGB CONC 30.7 g/dl (32.0-37.0); MEAN CORPUSCULAR VOLUME 93.4 fl (82.0-101.0); MEAN PLATELET VOLUME 10.8 fl (7.4-10.4); MONOCYTE # 0.1 10^3/ul (0.3-0.9); MONOCYTES % 1.2 % (0.0-11.0); NEUTROPHIL # 6.8 10^3/ul (1.6-7.5); NEUTROPHILS % 88.3 % (39.0-77.0); NUCLEATED RED BLOOD CELLS # 0.1 10^3/ul (0.0-0.0); NUCLEATED RED BLOOD CELLS% 0.8 /100WBC (0.0-0.0); PLATELET COUNT 157 10^3/UL (140-415); RED BLOOD COUNT 3.17 10^6/ul (4.20-5.40)
[2017-02-21 01:04] LABS: POSITIVE DIFF @See below
[2017-02-21 01:06] LABS: WHITE BLOOD COUNT 7.7 10^3/ul (4.8-10.8)
[2017-02-21 04:14] LABS: AADO2 Arterial 154.7 mmHg (7.0-24.0); Allen Test ACCEPTAB; Arterial Base Excess -12.4 mmol/L (-3.0-3); Arterial COHb 0.3 % (0.0-3.0); Arterial Fraction of Oxyhgb 95.3 % (93.0-99.0); Arterial HCO3 14.8 mmol/L (22.0-26.0); Arterial MetHb 0.3 % (0.0-1.5); Arterial Total Hemglobin 10.1 g/dl (12.0-18.0); Blood Gas IEPAP 16/5; MODE MASK - BIPAP
[2017-02-21 05:45] LABS: ABNORMAL IP MESSAGE 1; HEMATOCRIT 27.8 % (37.0-47.0); HEMOGLOBIN 8.7 g/dl (12.0-16.0); MEAN CORPUSCULAR HEMOGLOBIN 28.5 pg (29.0-33.0); MEAN CORPUSCULAR HGB CONC 31.3 g/dl (32.0-37.0); MEAN CORPUSCULAR VOLUME 91.1 fl (82.0-101.0); MEAN PLATELET VOLUME 10.9 fl (7.4-10.4); NUCLEATED RED BLOOD CELLS% 0.9 /100WBC (0.0-0.0); PLATELET COUNT 133 10^3/UL (140-415); RED BLOOD COUNT 3.05 10^6/ul (4.20-5.40); RED CELL DISTRIBUTION WIDTH 19.9 % (11.5-14.5); WHITE BLOOD COUNT 5.6 10^3/ul (4.8-10.8)
[2017-02-21 06:14] LABS: POSITIVE DIFF @See below
[2017-02-21 06:29] LABS: ALBUMIN 1.9 g/dl (3.3-4.9); ALBUMIN/GLOBULIN RATIO 0.73; POTASSIUM 5.3 mmol/L (3.5-5.1); TOTAL PROTEIN 4.5 g/dl (6.1-8.1)
[2017-02-21 06:37] LABS: CREATININE 2.84 mg/dl (0.44-1.00)
[2017-02-21] MEDS ORDERED: LEVOTHYROXINE 50 MCG TAB PO SCH (07:00)
[2017-02-21 07:26] LABS: ANISOCYTOSIS 1+ (0-0); BURR CELLS 2+ (0-0); ERYTHROBLAST% (NRBC) (M) 1 % (0-0); METAMYELOCYTES %M 3 % (0-0); MONOCYTES % (M) 2 % (0-11); MYELOCYTES % (M) 1 % (0-0); PLATELET ESTIMATE DECREASED; POIKILOCYTOSIS 3+ (0-0); PROMYELOCYTES #M 0 10^3/ul (0-0); PROMYELOCYTES % (M) 1 % (0-0); SPHEROCYTES 1+ (0-0)
[2017-02-21] MEDS: PIPER-TAZO 2.25 GM (PMX) 50 ML IVPB SCH ×3 (07:41→21:25)
[2017-02-21] MEDS: SOD CHLORIDE 0.9% 1,000 ML IV SCH (09:42)
[2017-02-21] MEDS: LEVOTHYROXINE 100 MCG VIAL IV SCH (09:51)
[2017-02-21] MEDS ORDERED: SOD CHLORIDE 0.9% 1,000 ML IV ONE (10:00)
[2017-02-21] MEDS ORDERED: ALBUMIN HUMAN 25% 100 ML IV ONE (11:30)
[2017-02-21] MEDS: SODIUM BICARBONATE (IV ADD) 150 MEQ in DEXTROSE 5% 1,000 ML IV SCH (13:29)
[2017-02-21] MEDS: HYDROCORTISONE 100 MG INJ IV SCH ×2 (13:30→21:39)
[2017-02-21] MEDS ORDERED: ALTEPLASE (CATHFLO) 2 MG INJ CATHETER PRN (14:00)
--- NOTE | 2017-02-21 14:01 | CONS ---
Date/Time of Note Date/Time of Note DATE: 02/21/17 TIME: 13:56 Assessment/Plan Assessment/Plan Chief Complaint/Hosp Course Patient obtunded. History obtained by chart and medical personnel Problems: (1) Hypothyroidism Status: Chronic Comment: IV thyroxine ordered. (2) Iatrogenic adrenal insufficiency Status: Acute Comment: Continue stress dose steroids at this time. Consultation Date/Type/Reason Admit Date/Time Feb 20, 2017 at 19:33 Initial Consult Date 02/20/17 Type of Consultation: Endocrine Referring Provider: YAKELIN MCKEON MD 24 HR Interval Summary Free Text/Dictation Complains of abdominal pain, and per caregiver no BM for several days. Exam/Review of Systems Vital Signs Vitals Vital Signs Date Time Temp Pulse Resp B/P Pulse Ox O2 Delivery O2 Flow Rate FiO2 02/21/17 12:12 2.0 28 02/21/17 12:00 94 02/21/17 11:45 12 101/52 99 Nasal Cannula 02/21/17 08:00 97.1 Intake and Output 02/20/17 02/20/17 02/21/17 15:00 23:00 07:00 Intake Total 3150 ml 588 ml Output Total 225 ml Balance 3150 ml 363 ml Exam Patient is much more alert today. Answering questions although not in full/ complete sentences. Constitutional: alert, obese Neck: supple Respiratory: crackles/rales (wet rales), diminished breath sounds Cardiovascular: regular rate and rhythm Gastrointestinal: distended, tender Extremities: normal pulses Skin: ecchymosis (bilateral arms) Results Labs and vitals reviewed Result Diagram: 02/21/17 0500 02/21/17 0500 Results 24 hrs Laboratory Tests Test 02/20/17 14:00 02/20/17 14:30 02/20/17 17:55 02/20/17 18:50 White Blood Count 10.2 Red Blood Count 3.49 L Hemoglobin 10.1 L Hematocrit 31.3 L Mean Corpuscular Volume 89.7 Mean Corpuscular Hemoglobin 28.9 L Mean Corpuscular Hemoglobin Concent 32.3 Red Cell Distribution Width 19.8 H Platelet Count 194 # Mean Platelet Volume 10.8 H Neutrophils % Segmented Neutrophils % (Manual) 88 H Band Neutrophils % (Manual) 3 Lymphocytes % (Manual) 6 L Monocytes % (Manual) 2 Eosinophils % Eosinophils % (Manual) 1 Basophils % Nucleated Red Blood Cells % 0.5 H Neutrophils # Neutrophils # (Manual) 9.0 H Band Neutrophils # 0.3 Absolute Lymphocytes (Manual) 0.6 L Lymphocytes # 0.6 L Monocytes # 0.2 L Absolute Monocytes (Manual) 0.2 L Eosinophils # 0.1 Basophils # Prothrombin Time 16.3 #H 17.5 H Prothrombin Time Ratio 1.3 1.4 INR International Normalized Ratio 1.30 1.43 Activated Partial Thromboplast Time 25.2 25.2 D-Dimer 8268.88 H D-Dimer Comment Blood Gas Specimen Source Blood arterial Arterial Blood Date Drawn 02/20/2017 3:05:50 PM Arterial Blood pH (Temp corrected) 7.303 L Arterial Blood pCO2 (Temp correct) 32.2 L Arterial Blood pO2 (Temp corrected) 122.4 H Arterial Blood HCO3 15.6 L Arterial Blood Base Excess -9.8 L Arterial Blood Oxygen Saturation 98.0 Jayce Test ACCEPTAB Arterial Blood Gas Puncture Site Right Radial Arterial Blood Carboxyhemoglobin 0.3 Arterial Blood Methemoglobin 0.3 Blood Gas A-a O2 Differential 197.9 H Oxyhemoglobin Percent 97.4 Total Hemoglobin 9.9 L Blood Gas Temperature 37.0 Blood Gas Respiration Rate 20.0 Blood Gas Actual Respiration Rate 26 Blood Gas Modality MASK-BIPAP FiO2 50.0 Blood Gas IPAP/EPAP Ratio 18/8 Blood Gas Notified Whom JMD Blood Gas Notified Time 02/20/2017 3:09:21 PM Sodium Level 127 L 130 L Potassium Level 7.0 *H 5.4 H Chloride Level 100 105 Carbon Dioxide Level 19 L 18 L Anion Gap 15 12 Blood Urea Nitrogen 58 H 54 H Creatinine 3.30 H 2.93 H Glucose Level 111 224 #H Lactic Acid Level 1.6 1.6 1.7 Calcium Level 9.0 7.8 L Total Bilirubin 0.0 L Direct Bilirubin 0.00 Indirect Bilirubin 0.0 Aspartate Amino Transf (AST/SGOT) 54 H Alanine Aminotransferase (ALT/SGPT) 69 Alkaline Phosphatase 102 Troponin I < 0.012 B-Type Natriuretic Peptide 611 H Total Protein 5.5 L Albumin 2.4 L Globulin 3.10 Albumin/Globulin Ratio 0.77 Urine Color ELYSE Urine Clarity CLOUDY A Urine pH 5.0 Urine Specific [place] 1.026 Urine Ketones NEGATIVE Urine Nitrite NEGATIVE Urine Bilirubin 1+ H Urine Urobilinogen NEGATIVE Urine Leukocyte Esterase 1+ H Urine Microscopic RBC 44 H Urine Microscopic WBC 35 H Urine Squamous Epithelial Cells FEW Urine Bacteria FEW A Urine Hemoglobin 3+ H Urine Osmolality 301 Urine Random Creatinine 272.46 Urine Random Sodium 23 L Urine Glucose 1+ H Urine Total Protein 1+ H Thyroid Stimulating Hormone (TSH) 0.932 Free Thyroxine 0.60 L Test 02/20/17 21:05 02/21/17 00:52 02/21/17 03:50 02/21/17 05:00 White Blood Count 7.1 # 7.7 5.6 # Red Blood Count 2.86 L 3.17 L 3.05 L Hemoglobin 8.2 L 9.1 L 8.7 L Hematocrit 26.6 L 29.6 L 27.8 L Mean Corpuscular Volume 93.0 93.4 91.1 Mean Corpuscular Hemoglobin 28.7 L 28.7 L 28.5 L Mean Corpuscular Hemoglobin Concent 30.8 L 30.7 L 31.3 L Red Cell Distribution Width 20.0 H 20.0 H 19.9 H Platelet Count 151 # 157 133 L Mean Platelet Volume 10.4 10.8 H 10.9 H Neutrophils % 88.3 H Segmented Neutrophils % (Manual) 76 65 Band Neutrophils % (Manual) 7 H 23 H Lymphocytes % 7.0 L Lymphocytes % (Manual) 11 L 5 L Monocytes % 1.2 Monocytes % (Manual) 6 2 Eosinophils % 0.3 Basophils % 1.0 Nucleated Red Blood Cells % 1 H 0.8 H 1 H Neutrophils # 6.8 Neutrophils # (Manual) 5.4 3.7 Band Neutrophils # 0.4 1.2 H Absolute Lymphocytes (Manual) 0.7 L 0.2 L Lymphocytes # 0.8 0.5 L Monocytes # 0.4 0.1 L Absolute Monocytes (Manual) 0.4 0.1 L Eosinophils # 0.0 Basophils # 0.1 Nucleated Red Blood Cells # 0.1 H Activated Partial Thromboplast Time 73.4 *H 83.9 *H Blood Gas Specimen Source Blood arterial Arterial Blood Date Drawn 02/21/2017 4:05:29 AM Arterial Blood pH (Temp corrected) 7.201 *L Arterial Blood pCO2 (Temp correct) 38.7 Arterial Blood pO2 (Temp corrected) 86.0 Arterial Blood HCO3 14.8 L Arterial Blood Base Excess -12.4 L Arterial Blood Oxygen Saturation 95.9 Jayce Test ACCEPTAB Arterial Blood Gas Puncture Site Right Radial Arterial Blood Carboxyhemoglobin 0.3 Arterial Blood Methemoglobin 0.3 Blood Gas A-a O2 Differential 154.7 H Oxyhemoglobin Percent 95.3 Total Hemoglobin 10.1 L Blood Gas Temperature 37.0 Blood Gas Respiration Rate 18.0 Blood Gas Actual Respiration Rate 24 Blood Gas Modality MASK - BIPAP FiO2 40.0 Blood Gas IPAP/EPAP Ratio 16/5 Blood Gas Notified Whom [place] Blood Gas Notified Time 02/21/2017 4:14:04 AM Metamyelocytes % (manual) 3 H Myelocytes % (Manual) 1 H Promyelocytes % (Manual) 1 H Metamyelocytes # 0.1 H Myelocytes # 0.0 Promyelocytes # 0 Platelet Estimate DECREASED Poikilocytosis 3+ Anisocytosis 1+ Macrocytosis 1+ Spherocytes 1+ Sodium Level 131 L Potassium Level 5.3 H Chloride Level 107 Carbon Dioxide Level 17 L Anion Gap 12 Blood Urea Nitrogen 56 H Creatinine 2.84 H Glucose Level 132 # Calcium Level 8.0 L Total Bilirubin 0.0 L Direct Bilirubin 0.00 Indirect Bilirubin 0.0 Aspartate Amino Transf (AST/SGOT) 41 Alanine Aminotransferase (ALT/SGPT) 62 Alkaline Phosphatase 90 Total Protein 4.5 #L Albumin 1.9 L Globulin 2.60 Albumin/Globulin Ratio 0.73 Medications Medications Current Medications Dextrose (D50w Syringe) 100 ml ONCE PRN IV POC BLOOD GLUCOSE <250 MG/DL Last administered on 02/20/17 16:50; Admin Dose 100 ML; Start 02/20/17 at 16:30 Hydrocortisone 100 mg 100 mg Q8 IV Last administered on 02/21/17 13:30; Admin Dose 100 MG; Start 02/20/17 at 22:00 Piperacillin Sod/ Tazobactam Sod (Zosyn 2.25gm/ 50ml (Pmx)) 50 ml @ 100 mls/hr Q8 IVPB Last administered on 02/21/17 13:35; Admin Dose 100 MLS/HR; Start at 23:00 IV Flush (NS 10 ml) 10 ml PRN PRN IV IV PROTOCOL; Start 02/20/17 at 19:30 Levothyroxine Sodium 50 mcg 50 mcg AM IV Last administered on 9/20/17at 09:51; Admin Dose 50 MCG; Start 02/21/17 at 09:00 Sodium Bicarbonate 150 meq/Dextrose 1,150 ml @ 80 mls/hr [id number] IV Last administered on 02/21/17t 13:29; Admin Dose 80 MLS/HR; Start 02/21/17 at 13:00 Vancomycin HCl/ Sodium Chloride (Vancocin/NS) 250 ml @ 83.333 mls/ hr Q48H IVPB ; Start 02/22/17 at 16:00 KAVON DANGELO MD Feb 21, 2017 14:01
--- NOTE | 2017-02-21 14:06 | RADRPT ---
Echocardiogram Report Patient Name: BHARAT PACKER Gender: Female Date: 1945 Study Date: 21-Feb-2017 Investigator Vice: Paris Bhatti [facility] Location: 117 Ref. Physician: YAKELIN MCKEON Quality: Good Procedures: Transthoracic echocardiogram with complete 2D, M-Mode, and doppler examination. Indications: Congestive Heart Failure. 2D/M Mode Doppler Measurement Value Normal Ranges Measurement Value Normal Ranges LVIDd 2D 3.9 3.5 - 5.6 cm AV Peak Lonnie 1.5 m/sec LVIDs 2D 2.3 2.1 - 4.1 cm AV Peak PG 9.5 mmHg LVPWd 2D 1.2 0.6 - 1.1 cm LVOT Peak Lonnie 0.8 m/sec IVSd 2D 1.2 0.6 - 1.1 cm LVOT Peak PG 2.6 mmHg AoR Diam 2D 2.5 2.0 - 3.7 cm MV E Peak Lonnie 0.8 m/sec EDV 2D 66.2 cm3 MV A Peak Lonnie 0.9 m/sec ESV 2D 11.4 cm3 MV E/A 0.9 LA Dimen 2D 4.1 2.3 - 4.0 cm MV Decel Time 198 msec MV Decel Davis 4 MV E/A 0.9 TR Peak Lonnie 2.1 m/sec TR Peak PG 18.1 mmHg RVSP 21.0 mmHg Findings Left Ventricle: Normal left ventricular systolic function. Normal left ventricular cavity size. Mild concentric left ventricular hypertrophy. Ejection fraction is visually estimated at 65 %. Tissue Doppler/Mitral Doppler indices are consistent with impaired relaxation (Stage I diastolic dysfunction). Right Ventricle: Normal right ventricular size. Normal right ventricular systolic function. Left Atrium: There is mild enlargement of left atrium. Right Atrium: The right atrium is normal in size. Mitral Valve: Normal appearance and function of the mitral valve with trace physiologic regurgitation. Aortic Valve: No significant aortic stenosis or insufficiency. Aortic cusps appear mildly calcified. Tricuspid Valve: Normal appearance of the tricuspid valve. Estimated peak PA systolic pressure 21 mmHg. There is trace tricuspid regurgitation. Pulmonic Valve: Normal pulmonic valve appearance. There is trace pulmonic regurgitation. Pericardium: Normal pericardium with no significant pericardial effusion. Aorta: Normal aortic root. IVC: Normal size and normal respiratory collapse consistent with normal right atrial pressure. Conclusions 1.The left ventricle is normal in size and systolic function. 2.Estimated left ventricular ejection fraction of 65%. 3.Mild concentric left ventricular hypertrophy. Grade 1 diastolic dysfunction. Electronically Signed By: Roberto Lazaro 21-Feb-2017 14:06:21 -0700 Patient Name: BHARAT PACKER Study Date: 21-Feb-2017 [id number]
--- NOTE | 2017-02-21 14:33 | PN ---
Date/Time of Note Date/Time of Note DATE: 02/21/17 TIME: 14:25 Assessment/Plan VTE Prophylaxis VTE Prophylaxis Intervention: LMWH Lines/Catheters IV Catheter Type (from Nrs): Saline Lock Urinary Cath still in place: Yes Reason Cath still needed: urinary retention Assessment/Plan Chief Complaint/Hosp Course 71 yo female with PMR on chronic steroids, unclear seizure d/o, hypertension, obesity, recently discharged from [facility] following open appendectomy without complications who now returns with hypotension, hypoxia, acute encephelopathy, hyponatremia, hyperkalemia and acute renal failure NEURO: Acute encephelopathy: - Somewhat improved since yesterday - I suspect this is related to adrenal insufficiency, will monitor mental status with stress dose steroids added on - Alternatively may be 2/2 sepsis - NCHCT did not shows evidence of acute pathology - Consider LP if no improvement ENDO/RHEUM Polymyalgia rheumatica and chronic adrenal suppression from prednisone, now with likely iatrogenic adrenal insufficiency - Stress hydrocortisone 125 q8h Hypothyroidism: - FT4 low, likely from poor absorption 2/2 ileus. Continue IV thyroxine - Appreciate consult from Dr Hassan RENAL: LATRICE: - Likely from excess NSAIDs and valsartan causing LATRICE, will hold these, as well as hypovolemia - IVF to euvolemia - Sepsis possible etiology, prerenal possible - Urine studies pending Hyponatremia, Hyperkalemia: - Likely from adrenal insufficiency, stress dose - Trend BMP - urine studies showing kidneys quite sodium avid - Que[place] consulted. K high, no urgent need for HD at this point PULM: Acute hypoxic respiratory failure: - Oxygenation has improved to now 95 on RA. I will stop heparin drip at this point as no longer as concerned for PE. V/Q scan can be consider if hypoxia persists. Reassuring she has had a negative duplex of her legs - O2 by NC - BIPAP is not a good idea given AMS and already hyperventilating regardless GI: SBO likely a post operative ileus - NG tube placed to suction with relief. Patient was quite uncomfortalbe with NG so will only replace if develops worsening disentsion or n/v - Abdomen benign - Dr Haji notified ID: Sepsis: - Unclear if infection present. Will conitnue to treat with empriric broad spectrum abx for now but if cultures negative in next 1-2 days will stop them Patient to ICU now Problems: Subjective 24 Hr Interval Summary Free Text/Dictation Patient given BIPAP overnight, though ABG showed a compenstaed metabolic acidosis, hypocapnea I took her off BIPAP this AM and she was saturating mid 90s on room air, breathing much better than yesterday Mental status is improving though still encephelopathtic Does not seem to have passed any stool or flatus UOP also low Exam/Review of Systems Vital Signs Vitals Vital Signs Date Time Temp Pulse Resp B/P Pulse Ox O2 Delivery O2 Flow Rate FiO2 02/21/17 12:12 2.0 28 02/21/17 12:00 94 02/21/17 11:45 12 101/52 99 Nasal Cannula 02/21/17 08:00 97.1 Intake and Output 02/20/17 02/20/17 02/21/17 15:00 23:00 07:00 Intake Total 3150 ml 588 ml Output Total 225 ml Balance 3150 ml 363 ml Exam Alert, oriented to "hospital", thinks it is 2012 Follows commands, spontaneous moveoments throughout Clearly gurgling her secretions NG tube pulled out Abdomen obese, less distended than yesterday, midline surgical incision wiht kay and very mild serous drainage, no external signs of infeciton Trace pedal edema Ecchymosis to extremities Results Result Diagram: 02/21/17 0500 02/21/17 0500 Results 24 hrs Laboratory Tests Test 02/20/17 14:30 02/20/17 17:55 02/20/17 18:50 02/20/17 21:05 Urine Color ELYSE Urine Clarity CLOUDY A Urine pH 5.0 Urine Specific [place] 1.026 Urine Ketones NEGATIVE Urine Nitrite NEGATIVE Urine Bilirubin 1+ H Urine Urobilinogen NEGATIVE Urine Leukocyte Esterase 1+ H Urine Microscopic RBC 44 H Urine Microscopic WBC 35 H Urine Squamous Epithelial Cells FEW Urine Bacteria FEW A Urine Hemoglobin 3+ H Urine Osmolality 301 Urine Random Creatinine 272.46 Urine Random Sodium 23 L Urine Glucose 1+ H Urine Total Protein 1+ H Prothrombin Time 17.5 H Prothrombin Time Ratio 1.4 INR International Normalized Ratio 1.43 Activated Partial Thromboplast Time 25.2 Sodium Level 130 L Potassium Level 5.4 H Chloride Level 105 Carbon Dioxide Level 18 L Anion Gap 12 Blood Urea Nitrogen 54 H Creatinine 2.93 H Glucose Level 224 #H Lactic Acid Level 1.6 1.7 Calcium Level 7.8 L Thyroid Stimulating Hormone (TSH) 0.932 Free Thyroxine 0.60 L White Blood Count 7.1 # Red Blood Count 2.86 L Hemoglobin 8.2 L Hematocrit 26.6 L Mean Corpuscular Volume 93.0 Mean Corpuscular Hemoglobin 28.7 L Mean Corpuscular Hemoglobin Concent 30.8 L Red Cell Distribution Width 20.0 H Platelet Count 151 # Mean Platelet Volume 10.4 Neutrophils % Segmented Neutrophils % (Manual) 76 Band Neutrophils % (Manual) 7 H Lymphocytes % Lymphocytes % (Manual) 11 L Monocytes % Monocytes % (Manual) 6 Eosinophils % Basophils % Nucleated Red Blood Cells % 1 H Neutrophils # Neutrophils # (Manual) 5.4 Band Neutrophils # 0.4 Absolute Lymphocytes (Manual) 0.7 L Lymphocytes # 0.8 Monocytes # 0.4 Absolute Monocytes (Manual) 0.4 Eosinophils # Basophils # Nucleated Red Blood Cells # Test 02/21/17 00:52 02/21/17 03:50 02/21/17 05:00 White Blood Count 7.7 5.6 # Red Blood Count 3.17 L 3.05 L Hemoglobin 9.1 L 8.7 L Hematocrit 29.6 L 27.8 L Mean Corpuscular Volume 93.4 91.1 Mean Corpuscular Hemoglobin 28.7 L 28.5 L Mean Corpuscular Hemoglobin Concent 30.7 L 31.3 L Red Cell Distribution Width 20.0 H 19.9 H Platelet Count 157 133 L Mean Platelet Volume 10.8 H 10.9 H Neutrophils % 88.3 H Lymphocytes % 7.0 L Monocytes % 1.2 Eosinophils % 0.3 Basophils % 1.0 Nucleated Red Blood Cells % 0.8 H 1 H Neutrophils # 6.8 Lymphocytes # 0.5 L Monocytes # 0.1 L Eosinophils # 0.0 Basophils # 0.1 Nucleated Red Blood Cells # 0.1 H Activated Partial Thromboplast Time 73.4 *H 83.9 *H Blood Gas Specimen Source Blood arterial Arterial Blood Date Drawn 02/21/2017 4:05:29 AM Arterial Blood pH (Temp corrected) 7.201 *L Arterial Blood pCO2 (Temp correct) 38.7 Arterial Blood pO2 (Temp corrected) 86.0 Arterial Blood HCO3 14.8 L Arterial Blood Base Excess -12.4 L Arterial Blood Oxygen Saturation 95.9 Jayce Test ACCEPTAB Arterial Blood Gas Puncture Site Right Radial Arterial Blood Carboxyhemoglobin 0.3 Arterial Blood Methemoglobin 0.3 Blood Gas A-a O2 Differential 154.7 H Oxyhemoglobin Percent 95.3 Total Hemoglobin 10.1 L Blood Gas Temperature 37.0 Blood Gas Respiration Rate 18.0 Blood Gas Actual Respiration Rate 24 Blood Gas Modality MASK - BIPAP FiO2 40.0 Blood Gas IPAP/EPAP Ratio 16/5 Blood Gas Notified Whom [place] Blood Gas Notified Time 02/21/2017 4:14:04 AM Segmented Neutrophils % (Manual) 65 Band Neutrophils % (Manual) 23 H Lymphocytes % (Manual) 5 L Monocytes % (Manual) 2 Metamyelocytes % (manual) 3 H Myelocytes % (Manual) 1 H Promyelocytes % (Manual) 1 H Neutrophils # (Manual) 3.7 Band Neutrophils # 1.2 H Absolute Lymphocytes (Manual) 0.2 L Absolute Monocytes (Manual) 0.1 L Metamyelocytes # 0.1 H Myelocytes # 0.0 Promyelocytes # 0 Platelet Estimate DECREASED Poikilocytosis 3+ Anisocytosis 1+ Macrocytosis 1+ Spherocytes 1+ Sodium Level 131 L Potassium Level 5.3 H Chloride Level 107 Carbon Dioxide Level 17 L Anion Gap 12 Blood Urea Nitrogen 56 H Creatinine 2.84 H Glucose Level 132 # Calcium Level 8.0 L Total Bilirubin 0.0 L Direct Bilirubin 0.00 Indirect Bilirubin 0.0 Aspartate Amino Transf (AST/SGOT) 41 Alanine Aminotransferase (ALT/SGPT) 62 Alkaline Phosphatase 90 Total Protein 4.5 #L Albumin 1.9 L Globulin 2.60 Albumin/Globulin Ratio 0.73 Medications Medications Current Medications Dextrose (D50w Syringe) 100 ml ONCE PRN IV POC BLOOD GLUCOSE <250 MG/DL Last administered on 02/20/17 16:50; Admin Dose 100 ML; Start 02/20/17 at 16:30 Hydrocortisone 100 mg 100 mg Q8 IV Last administered on 02/21/17 13:30; Admin Dose 100 MG; Start 02/20/17 at 22:00 Piperacillin Sod/ Tazobactam Sod (Zosyn 2.25gm/ 50ml (Pmx)) 50 ml @ 100 mls/hr Q8 IVPB Last administered on 02/21/17 13:35; Admin Dose 100 MLS/HR; Start at 23:00 IV Flush (NS 10 ml) 10 ml PRN PRN IV IV PROTOCOL; Start 02/20/17 at 19:30 Levothyroxine Sodium 50 mcg 50 mcg AM IV Last administered on 02/21/17 09:51; Admin Dose 50 MCG; Start 02/21/17 at 09:00 Sodium Bicarbonate 150 meq/Dextrose 1,150 ml @ 80 mls/hr [id number] IV Last administered on 02/21/17 13:29; Admin Dose 80 MLS/HR; Start 02/21/17 at 13:00 Vancomycin HCl/ Sodium Chloride (Vancocin/NS) 250 ml @ 83.333 mls/ hr Q48H IVPB ; Start 02/22/17 at 16:00 YAKELIN MCKEON MD Feb 21, 2017 14:33
--- NOTE | 2017-02-21 15:02 | CONS ---
Date/Time of Note Date/Time of Note DATE: 02/21/17 TIME: 14:45 Assessment/Plan Assessment/Plan Additional Assessment/Plan 1.Acute kidney injury mutlifactorial due to Prerenal azotemia + ATN From sepsis + Nephrotoxicity from meds( NSAIDs, Valsartan) 2. Acute encephalopathy metabolic and possibly due to adrenal insufficienty 3. rule out adrenal crisis due to care home use of steroids 4. H/o Polymyalgia rheumatica on Steroids 5. H/o recent right hemicolectomy for perforated diverticulitis 6. Hyperkalemia acute, Hyponatremia 7. acute hypoxic respiratory failure 8. Post op ileus Plan: conitnue Hydrocrotisoen 100mg IV Q 8 hr for adrenal insufficiency IV abx sepsis. renally dose antibiotics K 5.3, HCo3 17 - ABG showed PH 7.20, HCo3 14.8- will start D5W with Sodium bicarbonate 150 mEQ to run at 80 cc/hr Heparin gtt was stopped for now, pt has multiple skin bruises. Pulmonary has been following, pt need general surgery consult d/c IVF boluses BMP, ABG at 5 pm to follow up on PH and HCo3 will follow Consultation Date/Type/Reason Admit Date/Time Feb 20, 2017 at 19:33 Initial Consult Date 02/20/17 Type of Consultation: NEPHROLOGY Referring Provider: YAKELIN MCKEON MD 24 HR Interval Summary Free Text/Dictation pt admitted to ICU from ER, lethargic, multiple skin bruises, Heparin gtt stopped, pt is acidotic with low PH Exam/Review of Systems Vital Signs Vitals Vital Signs Date Time Temp Pulse Resp B/P Pulse Ox O2 Delivery O2 Flow Rate FiO2 02/21/17 12:12 2.0 28 02/21/17 12:00 94 02/21/17 11:45 12 101/52 99 Nasal Cannula 02/21/17 08:00 97.1 Intake and Output 02/20/17 02/20/17 02/21/17 15:00 23:00 07:00 Intake Total 3150 ml 588 ml Output Total 225 ml Balance 3150 ml 363 ml Exam Constitutional: frail, non-verbal, lethargic Respiratory: decreased BS on bother lower lungs, Bibailar crackles, minimal exp wheezing Cardiovascular: other (tachycardia ), regular rate and rhythm Gastrointestinal: non-tender, soft Musculoskeletal: nl extremities to inspection Neurological: lethargic Results Result Diagram: 02/21/17 0500 02/21/17 0500 Results 24 hrs Laboratory Tests Test 02/20/17 17:55 02/20/17 18:50 02/20/17 21:05 02/21/17 00:52 Prothrombin Time 17.5 H Prothrombin Time Ratio 1.4 INR International Normalized Ratio 1.43 Activated Partial Thromboplast Time 25.2 73.4 *H Sodium Level 130 L Potassium Level 5.4 H Chloride Level 105 Carbon Dioxide Level 18 L Anion Gap 12 Blood Urea Nitrogen 54 H Creatinine 2.93 H Glucose Level 224 #H Lactic Acid Level 1.6 1.7 Calcium Level 7.8 L Thyroid Stimulating Hormone (TSH) 0.932 Free Thyroxine 0.60 L White Blood Count 7.1 # 7.7 Red Blood Count 2.86 L 3.17 L Hemoglobin 8.2 L 9.1 L Hematocrit 26.6 L 29.6 L Mean Corpuscular Volume 93.0 93.4 Mean Corpuscular Hemoglobin 28.7 L 28.7 L Mean Corpuscular Hemoglobin Concent 30.8 L 30.7 L Red Cell Distribution Width 20.0 H 20.0 H Platelet Count 151 # 157 Mean Platelet Volume 10.4 10.8 H Neutrophils % 88.3 H Segmented Neutrophils % (Manual) 76 Band Neutrophils % (Manual) 7 H Lymphocytes % 7.0 L Lymphocytes % (Manual) 11 L Monocytes % 1.2 Monocytes % (Manual) 6 Eosinophils % 0.3 Basophils % 1.0 Nucleated Red Blood Cells % 1 H 0.8 H Neutrophils # 6.8 Neutrophils # (Manual) 5.4 Band Neutrophils # 0.4 Absolute Lymphocytes (Manual) 0.7 L Lymphocytes # 0.8 0.5 L Monocytes # 0.4 0.1 L Absolute Monocytes (Manual) 0.4 Eosinophils # 0.0 Basophils # 0.1 Nucleated Red Blood Cells # 0.1 H Test 02/21/17 03:50 02/21/17 05:00 Blood Gas Specimen Source Blood arterial Arterial Blood Date Drawn 02/21/2017 4:05:29 AM Arterial Blood pH (Temp corrected) 7.201 *L Arterial Blood pCO2 (Temp correct) 38.7 Arterial Blood pO2 (Temp corrected) 86.0 Arterial Blood HCO3 14.8 L Arterial Blood Base Excess -12.4 L Arterial Blood Oxygen Saturation 95.9 Jayce Test ACCEPTAB Arterial Blood Gas Puncture Site Right Radial Arterial Blood Carboxyhemoglobin 0.3 Arterial Blood Methemoglobin 0.3 Blood Gas A-a O2 Differential 154.7 H Oxyhemoglobin Percent 95.3 Total Hemoglobin 10.1 L Blood Gas Temperature 37.0 Blood Gas Respiration Rate 18.0 Blood Gas Actual Respiration Rate 24 Blood Gas Modality MASK - BIPAP FiO2 40.0 Blood Gas IPAP/EPAP Ratio 16/5 Blood Gas Notified Whom [place] Blood Gas Notified Time 02/21/2017 4:14:04 AM White Blood Count 5.6 # Red Blood Count 3.05 L Hemoglobin 8.7 L Hematocrit 27.8 L Mean Corpuscular Volume 91.1 Mean Corpuscular Hemoglobin 28.5 L Mean Corpuscular Hemoglobin Concent 31.3 L Red Cell Distribution Width 19.9 H Platelet Count 133 L Mean Platelet Volume 10.9 H Neutrophils % Segmented Neutrophils % (Manual) 65 Band Neutrophils % (Manual) 23 H Lymphocytes % Lymphocytes % (Manual) 5 L Monocytes % Monocytes % (Manual) 2 Eosinophils % Basophils % Metamyelocytes % (manual) 3 H Myelocytes % (Manual) 1 H Promyelocytes % (Manual) 1 H Nucleated Red Blood Cells % 1 H Neutrophils # Neutrophils # (Manual) 3.7 Band Neutrophils # 1.2 H Absolute Lymphocytes (Manual) 0.2 L Lymphocytes # Monocytes # Absolute Monocytes (Manual) 0.1 L Eosinophils # Basophils # Metamyelocytes # 0.1 H Myelocytes # 0.0 Promyelocytes # 0 Nucleated Red Blood Cells # Platelet Estimate DECREASED Poikilocytosis 3+ Anisocytosis 1+ Macrocytosis 1+ Spherocytes 1+ Activated Partial Thromboplast Time 83.9 *H Sodium Level 131 L Potassium Level 5.3 H Chloride Level 107 Carbon Dioxide Level 17 L Anion Gap 12 Blood Urea Nitrogen 56 H Creatinine 2.84 H Glucose Level 132 # Calcium Level 8.0 L Total Bilirubin 0.0 L Direct Bilirubin 0.00 Indirect Bilirubin 0.0 Aspartate Amino Transf (AST/SGOT) 41 Alanine Aminotransferase (ALT/SGPT) 62 Alkaline Phosphatase 90 Total Protein 4.5 #L Albumin 1.9 L Globulin 2.60 Albumin/Globulin Ratio 0.73 Medications Medications Current Medications Dextrose (D50w Syringe) 100 ml ONCE PRN IV POC BLOOD GLUCOSE <250 MG/DL Last administered on 02/20/17 16:50; Admin Dose 100 ML; Start 02/20/17 at 16:30 Hydrocortisone 100 mg 100 mg Q8 IV Last administered on 02/21/17 13:30; Admin Dose 100 MG; Start 02/20/17 at 22:00 Piperacillin Sod/ Tazobactam Sod (Zosyn 2.25gm/ 50ml (Pmx)) 50 ml @ 100 mls/hr Q8 IVPB Last administered on 02/21/17 13:35; Admin Dose 100 MLS/HR; Start at 23:00 IV Flush (NS 10 ml) 10 ml PRN PRN IV IV PROTOCOL; Start 02/20/17 at 19:30 Levothyroxine Sodium 50 mcg 50 mcg AM IV Last administered on 02/21/17 09:51; Admin Dose 50 MCG; Start 02/21/17 at 09:00 Sodium Bicarbonate 150 meq/Dextrose 1,150 ml @ 80 mls/hr [id number] IV Last administered on 02/21/17 13:29; Admin Dose 80 MLS/HR; Start 02/21/17 at 13:00 Vancomycin HCl/ Sodium Chloride (Vancocin/NS) 250 ml @ 83.333 mls/ hr Q48H IVPB ; Start 02/22/17 at 16:00 ARIK MCKEON MD Feb 21, 2017 14:55
[2017-02-21] MEDS ORDERED: HYDROCORTISONE 250 MG INJ IV STA (18:32)
--- NOTE | 2017-02-21 18:37 | CONS ---
Date/Time of Note Date/Time of Note DATE: 02/21/17 TIME: 18:34 Assessment/Plan Assessment/Plan Additional Assessment/Plan There is enteric content coming through the wound which started within the last hour or so Plan: Patient will need immediate operative intervention in the form of exploratory laparotomy Consultation Date/Type/Reason Admit Date/Time Feb 20, 2017 at 19:33 Initial Consult Date 02/20/17 Type of Consultation: General surgery Referring Provider: CARL STEPHENS MD 24 HR Interval Summary Free Text/Dictation The patient is a 71-year-old female who is 10 days status post right hemicolectomy for perforated diverticulitis of the right colon. She was admitted yesterday with findings compatible with all bowel obstruction, initially the patient had a nasogastric tube placed with 1000 cc output by this morning the patient had improved significantly and the NG was able to be removed. Has since become more awake and alert. Exam/Review of Systems Vital Signs Vitals Vital Signs Date Time Temp Pulse Resp B/P Pulse Ox O2 Delivery O2 Flow Rate FiO2 02/21/17 16:30 118 18 134/59 99 Nasal Cannula 02/21/17 16:00 1.0 02/21/17 16:00 97.8 02/21/17 12:12 28 Intake and Output 02/20/17 02/20/17 02/21/17 15:00 23:00 07:00 Intake Total 3150 ml 588 ml Output Total 225 ml Balance 3150 ml 363 ml Results Result Diagram: 02/21/17 0500 02/21/17 0500 Results 24 hrs Laboratory Tests Test 02/20/17 18:50 02/20/17 21:05 02/21/17 00:52 02/21/17 03:50 Lactic Acid Level 1.7 White Blood Count 7.1 # 7.7 Red Blood Count 2.86 L 3.17 L Hemoglobin 8.2 L 9.1 L Hematocrit 26.6 L 29.6 L Mean Corpuscular Volume 93.0 93.4 Mean Corpuscular Hemoglobin 28.7 L 28.7 L Mean Corpuscular Hemoglobin Concent 30.8 L 30.7 L Red Cell Distribution Width 20.0 H 20.0 H Platelet Count 151 # 157 Mean Platelet Volume 10.4 10.8 H Neutrophils % 88.3 H Segmented Neutrophils % (Manual) 76 Band Neutrophils % (Manual) 7 H Lymphocytes % 7.0 L Lymphocytes % (Manual) 11 L Monocytes % 1.2 Monocytes % (Manual) 6 Eosinophils % 0.3 Basophils % 1.0 Nucleated Red Blood Cells % 1 H 0.8 H Neutrophils # 6.8 Neutrophils # (Manual) 5.4 Band Neutrophils # 0.4 Absolute Lymphocytes (Manual) 0.7 L Lymphocytes # 0.8 0.5 L Monocytes # 0.4 0.1 L Absolute Monocytes (Manual) 0.4 Eosinophils # 0.0 Basophils # 0.1 Nucleated Red Blood Cells # 0.1 H Activated Partial Thromboplast Time 73.4 *H Blood Gas Specimen Source Blood arterial Arterial Blood Date Drawn 02/21/2017 4:05:29 AM Arterial Blood pH (Temp corrected) 7.201 *L Arterial Blood pCO2 (Temp correct) 38.7 Arterial Blood pO2 (Temp corrected) 86.0 Arterial Blood HCO3 14.8 L Arterial Blood Base Excess -12.4 L Arterial Blood Oxygen Saturation 95.9 Jayce Test ACCEPTAB Arterial Blood Gas Puncture Site Right Radial Arterial Blood Carboxyhemoglobin 0.3 Arterial Blood Methemoglobin 0.3 Blood Gas A-a O2 Differential 154.7 H Oxyhemoglobin Percent 95.3 Total Hemoglobin 10.1 L Blood Gas Temperature 37.0 Blood Gas Respiration Rate 18.0 Blood Gas Actual Respiration Rate 24 Blood Gas Modality MASK - BIPAP FiO2 40.0 Blood Gas IPAP/EPAP Ratio 16/5 Blood Gas Notified Whom [place] Blood Gas Notified Time 02/21/2017 4:14:04 AM Test 02/21/17 05:00 White Blood Count 5.6 # Red Blood Count 3.05 L Hemoglobin 8.7 L Hematocrit 27.8 L Mean Corpuscular Volume 91.1 Mean Corpuscular Hemoglobin 28.5 L Mean Corpuscular Hemoglobin Concent 31.3 L Red Cell Distribution Width 19.9 H Platelet Count 133 L Mean Platelet Volume 10.9 H Neutrophils % Segmented Neutrophils % (Manual) 65 Band Neutrophils % (Manual) 23 H Lymphocytes % Lymphocytes % (Manual) 5 L Monocytes % Monocytes % (Manual) 2 Eosinophils % Basophils % Metamyelocytes % (manual) 3 H Myelocytes % (Manual) 1 H Promyelocytes % (Manual) 1 H Nucleated Red Blood Cells % 1 H Neutrophils # Neutrophils # (Manual) 3.7 Band Neutrophils # 1.2 H Absolute Lymphocytes (Manual) 0.2 L Lymphocytes # Monocytes # Absolute Monocytes (Manual) 0.1 L Eosinophils # Basophils # Metamyelocytes # 0.1 H Myelocytes # 0.0 Promyelocytes # 0 Nucleated Red Blood Cells # Platelet Estimate DECREASED Poikilocytosis 3+ Anisocytosis 1+ Macrocytosis 1+ Spherocytes 1+ Activated Partial Thromboplast Time 83.9 *H Sodium Level 131 L Potassium Level 5.3 H Chloride Level 107 Carbon Dioxide Level 17 L Anion Gap 12 Blood Urea Nitrogen 56 H Creatinine 2.84 H Glucose Level 132 # Calcium Level 8.0 L Total Bilirubin 0.0 L Direct Bilirubin 0.00 Indirect Bilirubin 0.0 Aspartate Amino Transf (AST/SGOT) 41 Alanine Aminotransferase (ALT/SGPT) 62 Alkaline Phosphatase 90 Total Protein 4.5 #L Albumin 1.9 L Globulin 2.60 Albumin/Globulin Ratio 0.73 Medications Medications Current Medications Dextrose (D50w Syringe) 100 ml ONCE PRN IV POC BLOOD GLUCOSE <250 MG/DL Last administered on 02/20/17 16:50; Admin Dose 100 ML; Start 02/20/17 at 16:30 Hydrocortisone 100 mg 100 mg Q8 IV Last administered on 02/21/17 13:30; Admin Dose 100 MG; Start 02/20/17 at 22:00 Piperacillin Sod/ Tazobactam Sod (Zosyn 2.25gm/ 50ml (Pmx)) 50 ml @ 100 mls/hr Q8 IVPB Last administered on 02/21/17 13:35; Admin Dose 100 MLS/HR; Start at 23:00 IV Flush (NS 10 ml) 10 ml PRN PRN IV IV PROTOCOL; Start 02/20/17 at 19:30 Levothyroxine Sodium 50 mcg 50 mcg AM IV Last administered on 02/21/17 09:51; Admin Dose 50 MCG; Start 02/21/17 at 09:00 Sodium Bicarbonate 150 meq/Dextrose 1,150 ml @ 80 mls/hr [id number] IV Last administered on 02/21/17 13:29; Admin Dose 80 MLS/HR; Start 02/21/17 at 13:00 Vancomycin HCl/ Sodium Chloride (Vancocin/NS) 250 ml @ 83.333 mls/ hr Q48H IVPB ; Start 02/22/17 at 16:00 Enoxaparin Sodium (Lovenox) 40 mg DAILY SC ; Start 02/22/17 at 09:00 Acetaminophen/ Hydrocodone Bitart ([place] (5/325)) 1 tab Q4H PRN NGT pain; Start 02/21/17 at 17:00 CARL STEPHENS MD Feb 21, 2017 18:37
[2017-02-21 18:57] LABS: AADO2 Arterial 49.4 mmHg (7.0-24.0); Allen Test ACCEPTAB; Arterial Base Excess -10.1 mmol/L (-3.0-3); Arterial COHb 0.3 % (0.0-3.0); Arterial Fraction of Oxyhgb 90.6 % (93.0-99.0); Arterial HCO3 15.2 mmol/L (22.0-26.0); Arterial MetHb 0.5 % (0.0-1.5); Arterial Total Hemglobin 7.9 g/dl (12.0-18.0); MODE ROOM AIR
[2017-02-21 20:00] LABS: INR 1.48; PARTIAL THROMBOPLASTIN TIME 25.3 Sec (25.0-35.0); PT RATIO 1.4
[2017-02-21 20:07] LABS: POTASSIUM 4.9 mmol/L (3.5-5.1)
[2017-02-21 20:18] LABS: CREATININE 2.61 mg/dl (0.44-1.00)
[2017-02-21] MEDS ORDERED: HEPARIN 1000 UNITS/NS (A-LINE) 0 ML ONE (20:49)
--- NOTE | 2017-02-21 20:50 | RADRPT ---
PROCEDURE: XR Chest. CLINICAL INDICATION: Nasogastric tube placement. TECHNIQUE: Portable AP semi - supine view of the chest was obtained. COMPARISON: 02/20/2017 FINDINGS: Distal tip of the new nasogastric tube is below the diaphragm pointing inferiorly in the region of t he mid stomach. The cardiomediastinal silhouette is mildly enlarged. Left basilar subsegmental atel ectasis is unchanged. Right lung is clear. There is no evidence for pleural effusion, pneumothorax or pulmonary vascular congestion. The osseous structures are intact with no evidence for acute abno rmality. Multiple monitoring wires overlie the chest limiting fine evaluation. The distal tip of the left PICC projects at the cavoatrial junction in good position for usage. RPTAT:HJJR IMPRESSION: 1. Nasogastric tube tip is within the stomach in good position for usage. 2. Distal tip of the left PICC projects at the cavoatrial junction. 3. No evidence of new intrathoracic abnormality. Mild cardiac silhouette enlargement and left basil ar subsegmental atelectasis again noted. Physician Trent Date Time Electronically viewed and signed by Physician Trent on 02/21/2017 20:49 /
[2017-02-21] MEDS ORDERED: FENTAnyl 50 MCG/ML VIAL ONE (21:32)
[2017-02-21] MEDS ORDERED: SUCCINYLCHOLINE CHLORIDE 100 MG/5 ML SYG IV ONE (21:32)
[2017-02-21] MEDS ORDERED: ETOMIDATE 20 MG INJ ONE (21:32)
[2017-02-21] MEDS ORDERED: PROPOFOL 20 ML ONE (21:32)
[2017-02-21] MEDS ORDERED: ROPIVACAINE 0.5 % 30 ML VIAL ONE (21:34)
[2017-02-21] MEDS ORDERED: MIDAZOLAM 1 MG/ML 2 ML INJ ONE (21:41)
[2017-02-21] MEDS ORDERED: METOCLOPRAMIDE 10 MG INJ ONE (21:41)
[2017-02-21] MEDS ORDERED: PHENYLephrine (100 MCG/ML) 5ML SYG ONE (21:47)
[2017-02-21] MEDS ORDERED: ROCURONIUM 50 MG INJ ONE ×2 (21:58→22:00)
--- NOTE | 2017-02-21 23:19 | OPR ---
Date/Time of Note Date/Time of Note DATE: 02/21/17 TIME: 23:07 Operative Report Procedure Date: Feb 21, 2017 Preoperative Diagnosis Anastomotic leak at ileocolic anastomosis Postoperative Diagnosis Anastomotic leak ileocolic anastomosis Operation Performed 1. Exploratory laparotomy 2. Resection of ileocolic anastomosis 3. Resection of terminal ileum with creation of ileostomy Surgeon Carl Stephens MD Anesthesia Type: general Anesthesiologist: KLAUDIA PAGAN MD Estimated Blood Loss: 150 - 200 ml's Transfusion Required: no Specimens 1. Ileocolic anastomosis 2. Segment of terminal ileum Grafts/Implants: none Complications: no Pt Condition Post Procedure: critical Disposition: other (Intensive care unit) Indications Peritonitis Operative\Procedure Findings Anastomotic disruption of ileocolic anastomosis with diffuse peritonitis Procedure Description After general endotracheal anesthesia was achieved, the skin kay were removed, as well as the fascial sutures. There was enteric soilage in the right abdomen. The source was a disrupted ileocolic anastomosis. The colon distal to the anastomosis was divided with a 55 mm linear cutter. The small bowel proximal to the anastomosis was divided with a 55 mm linear cutter. The anastomosis was submitted as such. The abdomen was then copiously irrigated with saline until clear. A circular incision was made in the right lower quadrant for ileostomy. The technical challenge in this patient was to get a long enough segment of viable ileum reached the skin in this morbidly obese abdomen. The fascia was opened below the skin incision and the terminal ileum was brought out as an ileostomy, but in order to reach the skin with an intact blood supply, approximately 15 cm of terminal ileum had to be resected at the skin level. The ileostomy was matured primarily with circumferential 3-0 Vicryl sutures. The ileostomy was viable with slight skin puckering. The abdomen was then closed en susanna with interrupted #2 Vicryl sutures. Skin was closed with kay. Sponge, needle, and instrument counts were reported as correct 2. CARL STEPHENS MD Feb 21, 2017 23:19
[2017-02-21] MEDS ORDERED: ONDANSETRON 4 MG INJ IV PRN (23:30)
[2017-02-21] MEDS ORDERED: morphine 4 MG/ML VIAL IV PRN (23:30)
[2017-02-21] MEDS ORDERED: morphine 10 MG INJ IV PRN (23:30)
[2017-02-21] MEDS ORDERED: LABETALOL HCL 20MG INJ IV PRN (23:30)
[2017-02-21] MEDS ORDERED: morphine 2 MG INJ IV PRN (23:30)
[2017-02-21] MEDS ORDERED: hydrALAzine 20 MG INJ IV PRN (23:30)
[2017-02-22] VITALS (101 sets, daily range): BP systolic 78–139; BP diastolic 41–77; PULSE 81–175; RESP 13–34
[2017-02-22] MEDS ORDERED: CEFAZOLIN 1 GM/50 ML (PMX) 50 ML IVPB SCH
[2017-02-22] MEDS ORDERED: DILTIAZEM 25 MG INJ IV ONE (00:30)
[2017-02-22] MEDS ORDERED: DILTIAZEM 25 MG INJ ONE (00:30)
[2017-02-22 01:17] LABS: AADO2 Arterial 439.5 mmHg (7.0-24.0); Arterial Base Excess -10.2 mmol/L (-3.0-3); Arterial COHb 0.2 % (0.0-3.0); Arterial Fraction of Oxyhgb 98.4 % (93.0-99.0); Arterial HCO3 16.2 mmol/L (22.0-26.0); Arterial MetHb 0.5 % (0.0-1.5); MODE VENT - AC
[2017-02-22 02:04] LABS: ALBUMIN 1.8 g/dl (3.3-4.9); ALBUMIN/GLOBULIN RATIO 0.78; BILIRUBIN,DIRECT 0.2 mg/dl (0.00-0.20); BILIRUBIN,TOTAL 0.2 mg/dl (0.2-1.3); CALCIUM 7.9 mg/dl (8.4-10.2); POTASSIUM 4.5 mmol/L (3.5-5.1); TOTAL PROTEIN 4.1 g/dl (6.1-8.1)
--- NOTE | 2017-02-22 02:10 | RADRPT ---
PROCEDURE: XR Chest. CLINICAL INDICATION: Shortness of breath. TECHNIQUE: AP Portable chest. COMPARISON: 08/13/2015 FINDINGS: There is mild to moderate cardiomegaly. Some opacities are noted in the medial left lung base. Ther e is some blunting of the left costophrenic angle. These findings are increased compared to the prio r. The osseous structures are unremarkable. An endotracheal tube tip is in the proximal to mid trachea, 4.7 cm above the level of the gissel. A nasogastric tube tip is in the stomach. IMPRESSION: Increased opacities at the left lung base likely due to some atelectasis and / or pneumonia as well as increased small pleural effusion. RPTAT: HIKT .Jonny Samaniego MD, MD Date Time Electronically viewed and signed by .Jonny Samaniego MD, on 02/22/2017 02:10 .T/
[2017-02-22 02:13] LABS: CREATININE 2.29 mg/dl (0.44-1.00)
[2017-02-22] MEDS: SODIUM BICARBONATE (IV ADD) 150 MEQ in DEXTROSE 5% 1,000 ML IV SCH ×3 (05:00→12:30)
[2017-02-22] MEDS: HYDROCORTISONE 100 MG INJ IV SCH ×3 (05:37→21:49)
[2017-02-22] MEDS: metroNIDAZOLE 500 MG/NS (PMX) 100 ML IVPB SCH ×2 (05:38→14:02)
[2017-02-22] MEDS: PIPER-TAZO 2.25 GM (PMX) 50 ML IVPB SCH ×3 (05:38→21:49)
[2017-02-22 06:40] LABS: ABNORMAL IP MESSAGE 1; HEMATOCRIT 25.5 % (37.0-47.0); HEMOGLOBIN 8.6 g/dl (12.0-16.0); MEAN CORPUSCULAR HEMOGLOBIN 28.3 pg (29.0-33.0); MEAN CORPUSCULAR HGB CONC 33.7 g/dl (32.0-37.0); MEAN CORPUSCULAR VOLUME 83.9 fl (82.0-101.0); MEAN PLATELET VOLUME 11.5 fl (7.4-10.4); NUCLEATED RED BLOOD CELLS% 1.2 /100WBC (0.0-0.0); RED BLOOD COUNT 3.04 10^6/ul (4.20-5.40); WHITE BLOOD COUNT 3.3 10^3/ul (4.8-10.8)
[2017-02-22 06:53] LABS: POSITIVE DIFF @See below
[2017-02-22 07:15] LABS: ALBUMIN 1.7 g/dl (3.3-4.9); ALBUMIN/GLOBULIN RATIO 0.8; BILIRUBIN,DIRECT 0.6 mg/dl (0.00-0.20); BILIRUBIN,INDIRECT 0.1 mg/dl (0-1.1); BILIRUBIN,TOTAL 0.7 mg/dl (0.2-1.3); CALCIUM 7.6 mg/dl (8.4-10.2); POTASSIUM 4.3 mmol/L (3.5-5.1); TOTAL PROTEIN 3.8 g/dl (6.1-8.1)
[2017-02-22 07:35] LABS: CREATININE 2.17 mg/dl (0.44-1.00)
[2017-02-22 07:48] LABS: AADO2 Arterial 277.4 mmHg (7.0-24.0); Arterial Base Excess -12.2 mmol/L (-3.0-3); Arterial COHb 0.2 % (0.0-3.0); Arterial Fraction of Oxyhgb 98.1 % (93.0-99.0); Arterial HCO3 13.7 mmol/L (22.0-26.0); Arterial MetHb 0.4 % (0.0-1.5); Arterial Total Hemglobin 10.8 g/dl (12.0-18.0); MODE VENT - AC
[2017-02-22] MEDS ORDERED: NORepinephrine 8MG/250 ML (PMX 250 ML IV SCH (08:30)
[2017-02-22 08:33] LABS: PLATELET COUNT 62 10^3/UL (140-415)
[2017-02-22] MEDS: LEVOTHYROXINE 100 MCG VIAL IV SCH (08:36)
[2017-02-22] MEDS: ENOXAPARIN 40 MG/0.4 ML SYG SC SCH (08:40)
[2017-02-22 09:17] LABS: ANISOCYTOSIS 2+ (0-0); ERYTHROBLAST% (NRBC) (M) 5 % (0-0); GIANT THROMBO% (M) 1 % (0-0); METAMYELOCYTES %M 5 % (0-0); MICROCYTOSIS 1+ (0-0); MONOCYTES % (M) 5 % (0-11); PLASMAC%(M) 1 % (0); PLATELET ESTIMATE DECREASED; POIKILOCYTOSIS 3+ (0-0); POLYCHROMASIA 3+ (0-0)
--- NOTE | 2017-02-22 09:32 | PN ---
Date/Time of Note Date/Time of Note DATE: 02/22/17 TIME: 09:31 Assessment/Plan Lines/Catheters IV Catheter Type (from Nrs): PICC Line Mojica in Place (from Nrsg): Yes Assessment/Plan Assessment/Plan The abdominal examination is benign. The incision is clean The ileostomy is viable Plan: Continue medical management. Overall prognosis is guarded Subjective 24 Hr Interval Summary Postoperative day #1 Patient in critical but stable condition Exam/Review of Systems Vital Signs Vitals Vital Signs Date Time Temp Pulse Resp B/P Pulse Ox O2 Delivery O2 Flow Rate FiO2 02/22/17 07:45 105 15 84/51 Mechanical Ventilator 02/22/17 07:44 100 70 02/22/17 07:00 98.8 02/21/17 23:52 2.0 Intake and Output 02/21/17 02/21/17 02/22/17 15:00 23:00 07:00 Intake Total 332 ml 690 ml 2350 ml Output Total 220 ml 900 ml 765 ml Balance 112 ml -210 ml 1585 ml Results Result Diagram: 02/22/17 0602/22/17 0600 CARL STEPHENS MD Feb 22, 2017 09:32
[2017-02-22 12:00] LABS: AADO2 Arterial 178.3 mmHg (7.0-24.0); Arterial Base Excess -8.8 mmol/L (-3.0-3); Arterial COHb 0.1 % (0.0-3.0); Arterial Fraction of Oxyhgb 97.7 % (93.0-99.0); Arterial HCO3 16.1 mmol/L (22.0-26.0); Arterial MetHb 0.4 % (0.0-1.5); Arterial Total Hemglobin 9.7 g/dl (12.0-18.0); MODE VENT - AC
[2017-02-22] MEDS ORDERED: CASPOFUNGIN 70 MG in SOD CHLORIDE 0.9% 250 ML IVPB SCH (12:00)
[2017-02-22] MEDS ORDERED: PROPOFOL 100 ML ONE (12:56)
--- NOTE | 2017-02-22 13:00 | CONS ---
DATE OF ADMISSION: 02/20/2017 DATE OF CONSULTATION: 02/22/2017 PULMONARY CONSULTATION: REASON FOR CONSULTATION: Ventilator management. HISTORY OF PRESENT ILLNESS: This is a 71-year-old lady with polymyalgia rheumatica, chronic prednisone, came in for acute abdomen, hypotension and encephalopathy following recent surgery for perforated appendicitis. The patient was taken to OR yesterday and since that time, has continued mechanical ventilation overnight. PAST MEDICAL HISTORY: 1. Polymyalgia rheumatica on chronic steroids. 2. History of hypothyroidism. 3. Recent abdominal surgery. 4. SIRS. PLAN: 1. Continue mechanical ventilation, CPAP trial. 2. Continue broad-spectrum antibiotic coverage. 3. Reduce stress dose steroids. 4. Continue levothyroxine. 5. DVT and GI prophylaxis. Dictated By: Terry Richards MD /louie/reny /Document#: [id number]
[2017-02-22 13:57] LABS: CALCIUM 7.3 mg/dl (8.4-10.2); POTASSIUM 4.3 mmol/L (3.5-5.1)
--- NOTE | 2017-02-22 14:12 | PN ---
Date/Time of Note Date/Time of Note DATE: 02/22/17 TIME: 14:07 Assessment/Plan VTE Prophylaxis VTE Prophylaxis Intervention: LMWH Lines/Catheters IV Catheter Type (from Nrs): PICC Line Central line still needed: Yes Urinary Cath still in place: Yes Reason Cath still needed: urinary retention Assessment/Plan Chief Complaint/Hosp Course 71 yo female with PMR on chronic steroids, unclear seizure d/o, hypertension, obesity, recently discharged from [facility] following open appendectomy without complications who now returns with hypotension, hypoxia, acute encephelopathy, hyponatremia, hyperkalemia and acute renal failure. Found to have disrupted ileocolic anastomosis and intraabdominal infection. Now s/p resection and ileostomy NEURO: Acute encephelopathy: - 2/2 septic encephelopathy and adrenal insufficiency, monitor for improvement with treatment of both ENDO/RHEUM Polymyalgia rheumatica and chronic adrenal suppression from prednisone, now with likely iatrogenic adrenal insufficiency - Stress hydrocortisone 125 q8h Hypothyroidism: - FT4 low, likely from poor absorption 2/2 ileus. Continue IV thyroxine - Appreciate consult from Dr Hassan RENAL: LATRICE: - Likely from excess NSAIDs and valsartan causing LATRICE, will hold these, as well as hypovolemia and sepsis - IVF to euvolemia Hyponatremia, Hyperkalemia, metabolic acidosis - Likely from adrenal insufficiency, stress dose steroids - Trend BMP, creatinine - Bicarbonate drip per Dr Quezada PULM: Acute hypoxic respiratory failure: - Wean as able from mechanical ventilation GI: SBO, disrupted colonic anastamosis, now s/p resection and ileostomy ID: Sepsis 2/2 intraabdominal infection, staph bacteremia and yeast fungemiemia - Continue vanco/cefepime until sepciation - Caspofungin added for candidemia - Daily cultures Continue ICU care Problems: Subjective 24 Hr Interval Summary Free Text/Dictation Patient underwent emergent repeat surgery as wound started leaking enteric contents, now with ileostomy Remains intubated today On bicarb drip BC growing staph and yeast, started on caspofungin Exam/Review of Systems Vital Signs Vitals Vital Signs Date Time Temp Pulse Resp B/P Pulse Ox O2 Delivery O2 Flow Rate FiO2 02/22/17 13:09 86 16 100 50 02/22/17 12:16 81/44 Mechanical Ventilator 02/22/17 12:00 97.6 02/21/17 23:52 2.0 Intake and Output 02/21/17 02/21/17 02/22/17 15:00 23:00 07:00 Intake Total 332 ml 690 ml 2350 ml Output Total 220 ml 900 ml 765 ml Balance 112 ml -210 ml 1585 ml Exam Constitutional: alert, oriented, well developed Psych: nl mood/affect, no complaints Head: atraumatic, normocephalic Eyes: EOMI, PERRL, nl conjunctiva, nl lids, nl sclera ENMT: nl external ears & nose, nl lips & teeth, nl nasal mucosa & septum Neck: non-tender, supple Respiratory: clear to auscultation, normal air movement Cardiovascular: nl pulses, regular rate and rhythm Gastrointestinal: nl liver, spleen, non-tender, soft Musculoskeletal: nl extremities to inspection, nl gait and stance Extremities: normal pulses Neurological: [employer] LENS II-XII intact, nl mental status, nl speech, nl strength Skin: nl turgor, No rash or lesions Lymph: nl lymph nodes Results Result Diagram: 02/22/17 0600 02/22/17 0600 Results 24 hrs Laboratory Tests Test 02/21/17 17:00 02/21/17 19:35 02/21/17 19:40 02/22/17 01:00 Blood Gas Specimen Source Blood arterial Blood arterial Arterial Blood Date Drawn 02/21/2017 6:35:45 PM 02/22/2017 1:00:15 AM Arterial Blood pH (Temp corrected) 7.304 L 7.250 *L Arterial Blood pCO2 (Temp correct) 31.4 L 37.8 Arterial Blood pO2 (Temp corrected) 62.7 L 235.7 H Arterial Blood HCO3 15.2 L 16.2 L Arterial Blood Base Excess -10.1 L -10.2 L Arterial Blood Oxygen Saturation 91.3 L 99.1 H Jayce Test ACCEPTAB N/A Arterial Blood Gas Puncture Site Right Radial A-Line Arterial Blood Carboxyhemoglobin 0.3 0.2 Arterial Blood Methemoglobin 0.5 0.5 Blood Gas A-a O2 Differential 49.4 H 439.5 H Oxyhemoglobin Percent 90.6 L 98.4 Total Hemoglobin 7.9 L 9.0 L Blood Gas Temperature 37.0 37.0 Blood Gas Modality ROOM AIR VENT - AC FiO2 21.0 100.0 Blood Gas Notified Whom DT MA Blood Gas Notified Time 02/21/2017 6:56:42 PM 02/22/2017 1:17:07 AM Sodium Level 133 L Potassium Level 4.9 Chloride Level 108 Carbon Dioxide Level 17 L Anion Gap 13 Blood Urea Nitrogen 60 H Creatinine 2.61 H Glucose Level 89 # Calcium Level 8.0 L Prothrombin Time 18.0 H Prothrombin Time Ratio 1.4 INR International Normalized Ratio 1.48 Activated Partial Thromboplast Time 25.3 Blood Gas Respiration Rate 16.0 Blood Gas Actual Respiration Rate 18 Blood Gas Tidal Volume 500.0 Blood Gas Low PEEP Setting 5.0 Blood Gas Critical Value Read Back [facility] RN Test 02/22/17 01:30 02/22/17 05:25 02/22/17 06:00 02/22/17 07:00 Sodium Level 133 L 135 Potassium Level 4.5 4.3 Chloride Level 108 110 Carbon Dioxide Level 18 L 16 L Anion Gap 12 13 Blood Urea Nitrogen 56 H 53 H Creatinine 2.29 H 2.17 H Glucose Level 121 153 Calcium Level 7.9 L 7.6 L Magnesium Level 1.9 Total Bilirubin 0.2 0.7 Direct Bilirubin 0.20 # 0.60 #H Indirect Bilirubin 0.0 0.1 Aspartate Amino Transf (AST/SGOT) 37 31 Alanine Aminotransferase (ALT/SGPT) 49 49 Alkaline Phosphatase 66 55 Total Protein 4.1 L 3.8 L Albumin 1.8 L 1.7 L Globulin 2.30 2.10 Albumin/Globulin Ratio 0.78 0.80 Thyroid Stimulating Hormone (TSH) 0.284 L Lab Scanned Report BLOOD TRANSFUSION White Blood Count 3.3 #L Red Blood Count 3.04 L Hemoglobin 8.6 L Hematocrit 25.5 L Mean Corpuscular Volume 83.9 Mean Corpuscular Hemoglobin 28.3 L Mean Corpuscular Hemoglobin Concent 33.7 Red Cell Distribution Width 18.0 H Platelet Count 62 #L Mean Platelet Volume 11.5 H Neutrophils % Segmented Neutrophils % (Manual) 56 Band Neutrophils % (Manual) 28 H Lymphocytes % Lymphocytes % (Manual) 5 L Monocytes % Monocytes % (Manual) 5 Eosinophils % Basophils % Metamyelocytes % (manual) 5 H Plasma Cells % (manual) 1 Nucleated Red Blood Cells % 5 H Neutrophils # Neutrophils # (Manual) 1.9 Band Neutrophils # 0.9 H Absolute Lymphocytes (Manual) 0.1 L Lymphocytes # Monocytes # Absolute Monocytes (Manual) 0.1 L Eosinophils # Basophils # Metamyelocytes # 0.1 H Plasma Cells # (manual) 0.0 Nucleated Red Blood Cells # Platelet Estimate DECREASED Giant Platelets 1 H Polychromasia 3+ Poikilocytosis 3+ Anisocytosis 2+ Microcytosis 1+ Macrocytosis 1+ Blood Gas Specimen Source Blood arterial Arterial Blood Date Drawn 02/22/2017 7:24:10 AM Arterial Blood pH (Temp corrected) 7.259 *L Arterial Blood pCO2 (Temp correct) 31.4 L Arterial Blood pO2 (Temp corrected) 188.0 H Arterial Blood HCO3 13.7 L Arterial Blood Base Excess -12.2 L Arterial Blood Oxygen Saturation 98.7 H Jayce Test N/A Arterial Blood Gas Puncture Site A-Line Arterial Blood Carboxyhemoglobin 0.2 Arterial Blood Methemoglobin 0.4 Blood Gas A-a O2 Differential 277.4 H Oxyhemoglobin Percent 98.1 Total Hemoglobin 10.8 L Blood Gas Temperature 37.0 Blood Gas Respiration Rate 16.0 Blood Gas Actual Respiration Rate 20 Blood Gas Modality VENT - AC FiO2 70.0 Blood Gas Tidal Volume 500.0 Blood Gas Low PEEP Setting 5.0 Blood Gas Critical Value Read Back Ace CORBETT RN Blood Gas Notified Whom TM Blood Gas Notified Time 02/22/2017 7:46:53 AM Test 02/22/17 12:00 Blood Gas Specimen Source Blood arterial Arterial Blood Date Drawn 02/22/2017 11:55:47 AM Arterial Blood pH (Temp corrected) 7.329 L Arterial Blood pCO2 (Temp correct) 31.3 L Arterial Blood pO2 (Temp corrected) 143.0 H Arterial Blood HCO3 16.1 L Arterial Blood Base Excess -8.8 L Arterial Blood Oxygen Saturation 98.2 H Jayce Test N/A Arterial Blood Gas Puncture Site A-Line Arterial Blood Carboxyhemoglobin 0.1 Arterial Blood Methemoglobin 0.4 Blood Gas A-a O2 Differential 178.3 H Oxyhemoglobin Percent 97.7 Total Hemoglobin 9.7 L Blood Gas Temperature 37.0 Blood Gas Respiration Rate 16.0 Blood Gas Actual Respiration Rate 19 Blood Gas Modality VENT - AC FiO2 50.0 Blood Gas Tidal Volume 500.0 Blood Gas Low PEEP Setting 5.0 Blood Gas Notified Whom TM Blood Gas Notified Time 02/22/2017 12:00:31 PM Medications Medications Current Medications Dextrose (D50w Syringe) 100 ml ONCE PRN IV POC BLOOD GLUCOSE <250 MG/DL Last administered on 02/20/17 16:50; Admin Dose 100 ML; Start 02/20/17 at 16:30 Hydrocortisone 100 mg 100 mg Q8 IV Last administered on 02/22/17 13:33; Admin Dose 100 MG; Start 02/20/17 at 22:00 Piperacillin Sod/ Tazobactam Sod (Zosyn 2.25gm/ 50ml (Pmx)) 50 ml @ 100 mls/hr Q8 IVPB Last administered on 02/22/17 13:33; Admin Dose 100 MLS/HR; Start at 23:00 IV Flush (NS 10 ml) 10 ml PRN PRN IV IV PROTOCOL; Start 02/20/17 at 19:30 Levothyroxine Sodium 50 mcg 50 mcg AM IV Last administered on 02/22/17 08:36; Admin Dose 50 MCG; Start 02/21/17 at 09:00 Sodium Bicarbonate 150 meq/Dextrose 1,150 ml @ 80 mls/hr [id number] IV Last administered on 02/22/17 12:30; Admin Dose 80 MLS/HR; Start 02/21/17 at 13:00 Vancomycin HCl/ Sodium Chloride (Vancocin/NS) 250 ml @ 83.333 mls/ hr Q48H IVPB ; Start 02/22/17 at 16:00 Enoxaparin Sodium (Lovenox) 40 mg DAILY SC Last administered on 02/22/17 08:40 ; Admin Dose 40 MG; Start 02/22/17 at 09:00 Acetaminophen/ Hydrocodone Bitart ([place] (5/325)) 1 tab Q4H PRN NGT pain; Start 02/21/17 at 17:00 Ondansetron HCl 4 mg 4 mg Q6H PRN IV NAUSEA; Start 02/21/17 at 23:30 Metronidazole 100 ml @ 100 mls/hr Q8 IVPB Last administered on 02/22/17 14:02 ; Admin Dose 100 MLS/HR; Start 02/22/17 at 06:00 Norepinephrine 250 ml @ 1.875 mls/ hr TITRATE IV Last administered on 10:46; Admin Dose 7.5 MLS/HR; Start 02/22/17 at 08:30 Caspofungin 70 mg/ Sodium Chloride 250 ml @ 250 mls/hr ONCE IVPB Last administered on 02/22/17t 11:58; Admin Dose 250 MLS/HR; Start 02/22/17 at 12:00 ; Stop 02/22/17 at 23:00 Caspofungin 50 mg/ Sodium Chloride 250 ml @ 250 mls/hr Q24H IVPB ; Start at 11:00 Propofol (Diprivan) 100 ml @ 3.201 mls/ hr Q12H IV ; Start 02/22/17 at 14:30; Status YAKELIN ALLAN MD Feb 22, 2017 14:12
[2017-02-22 14:32] LABS: CREATININE 1.88 mg/dl (0.44-1.00)
[2017-02-22] MEDS: PROPOFOL 100 ML IV SCH ×2 (14:32→23:01)
--- NOTE | 2017-02-22 15:10 | CONS ---
Date/Time of Note Date/Time of Note DATE: 02/22/17 TIME: 15:09 Assessment/Plan Assessment/Plan Additional Assessment/Plan 1. Acute kidney injury mutlifactorial due to Prerenal azotemia + ATN From septic shock 2. Acute encephalopathy metabolic 3. SBO, disrupted colonic anastomosis, s/p Exp lap, resection and ileostomy on 4. H/o Polymyalgia rheumatica on Steroids 5. H/o recent right hemicolectomy for perforated diverticulitis 6. Hyperkalemia acute, Hyponatremia 7. acute hypoxic respiratory failure 8. adrenal crisis- On IV dexamethasone Plan: conitnue Hydrocrotisoen 100mg IV Q 8 hr for adrenal insufficiency IV abx sepsis. renally dose antibiotics s/p surgery, G surgery following continue HCO3 drip, monitor HCo3 and electrolytes Ventrilator as per Pulmonary Will follow up Prognosis guarded, need family meeting to discuss goals of care. Consultation Date/Type/Reason Admit Date/Time Feb 20, 2017 at 19:33 Initial Consult Date 02/20/17 Type of Consultation: NEPHROLOGY Referring Provider: CARL STEPHENS MD 24 HR Interval Summary Free Text/Dictation pt undewent emergent surgery [place]ay(Exploratroy laparotomy with ileostomy) and remains intubted overnight Exam/Review of Systems Vital Signs Vitals Vital Signs Date Time Temp Pulse Resp B/P Pulse Ox O2 Delivery O2 Flow Rate FiO2 02/22/17 14:45 90 16 89/41 100 Mechanical Ventilator 02/22/17 13:09 50 02/22/17 13:00 97.9 02/21/17 23:52 2.0 Intake and Output 02/21/17 02/21/17 02/22/17 15:00 23:00 07:00 Intake Total 332 ml 690 ml 2350 ml Output Total 220 ml 900 ml 765 ml Balance 112 ml -210 ml 1585 ml Exam Constitutional: non-verbal Psych: no complaints Eyes: other (Intubtaed, ET tube in place ) ENMT: nl external ears & nose Neck: non-tender, supple Respiratory: congested cough, crackles/rales, diminished breath sounds Cardiovascular: nl pulses, other (tachycardia ), regular rate and rhythm Gastrointestinal: other (TTP diffusely but benign), soft Musculoskeletal: muscle weakness, swelling Neurological: other (sedated on ventilator ) Results Result Diagram: 02/22/17 0600 02/22/17 1317 Results 24 hrs Laboratory Tests Test 02/21/17 17:00 02/21/17 19:35 02/21/17 19:40 02/22/17 01:00 Blood Gas Specimen Source Blood arterial Blood arterial Arterial Blood Date Drawn 02/21/2017 6:35:45 PM 02/22/2017 1:00:15 AM Arterial Blood pH (Temp corrected) 7.304 L 7.250 *L Arterial Blood pCO2 (Temp correct) 31.4 L 37.8 Arterial Blood pO2 (Temp corrected) 62.7 L 235.7 H Arterial Blood HCO3 15.2 L 16.2 L Arterial Blood Base Excess -10.1 L -10.2 L Arterial Blood Oxygen Saturation 91.3 L 99.1 H Jayce Test ACCEPTAB N/A Arterial Blood Gas Puncture Site Right Radial A-Line Arterial Blood Carboxyhemoglobin 0.3 0.2 Arterial Blood Methemoglobin 0.5 0.5 Blood Gas A-a O2 Differential 49.4 H 439.5 H Oxyhemoglobin Percent 90.6 L 98.4 Total Hemoglobin 7.9 L 9.0 L Blood Gas Temperature 37.0 37.0 Blood Gas Modality ROOM AIR VENT - AC FiO2 21.0 100.0 Blood Gas Notified Whom DT MA Blood Gas Notified Time 02/21/2017 6:56:42 PM 02/22/2017 1:17:07 AM Sodium Level 133 L Potassium Level 4.9 Chloride Level 108 Carbon Dioxide Level 17 L Anion Gap 13 Blood Urea Nitrogen 60 H Creatinine 2.61 H Glucose Level 89 # Calcium Level 8.0 L Prothrombin Time 18.0 H Prothrombin Time Ratio 1.4 INR International Normalized Ratio 1.48 Activated Partial Thromboplast Time 25.3 Blood Gas Respiration Rate 16.0 Blood Gas Actual Respiration Rate 18 Blood Gas Tidal Volume 500.0 Blood Gas Low PEEP Setting 5.0 Blood Gas Critical Value Read Back GUS RN Test 02/22/17 01:30 02/22/17 05:25 02/22/17 06:00 02/22/17 07:00 Sodium Level 133 L 135 Potassium Level 4.5 4.3 Chloride Level 108 110 Carbon Dioxide Level 18 L 16 L Anion Gap 12 13 Blood Urea Nitrogen 56 H 53 H Creatinine 2.29 H 2.17 H Glucose Level 121 153 Calcium Level 7.9 L 7.6 L Magnesium Level 1.9 Total Bilirubin 0.2 0.7 Direct Bilirubin 0.20 # 0.60 #H Indirect Bilirubin 0.0 0.1 Aspartate Amino Transf (AST/SGOT) 37 31 Alanine Aminotransferase (ALT/SGPT) 49 49 Alkaline Phosphatase 66 55 Total Protein 4.1 L 3.8 L Albumin 1.8 L 1.7 L Globulin 2.30 2.10 Albumin/Globulin Ratio 0.78 0.80 Thyroid Stimulating Hormone (TSH) 0.284 L Lab Scanned Report BLOOD TRANSFUSION White Blood Count 3.3 #L Red Blood Count 3.04 L Hemoglobin 8.6 L Hematocrit 25.5 L Mean Corpuscular Volume 83.9 Mean Corpuscular Hemoglobin 28.3 L Mean Corpuscular Hemoglobin Concent 33.7 Red Cell Distribution Width 18.0 H Platelet Count 62 #L Mean Platelet Volume 11.5 H Neutrophils % Segmented Neutrophils % (Manual) 56 Band Neutrophils % (Manual) 28 H Lymphocytes % Lymphocytes % (Manual) 5 L Monocytes % Monocytes % (Manual) 5 Eosinophils % Basophils % Metamyelocytes % (manual) 5 H Plasma Cells % (manual) 1 Nucleated Red Blood Cells % 5 H Neutrophils # Neutrophils # (Manual) 1.9 Band Neutrophils # 0.9 H Absolute Lymphocytes (Manual) 0.1 L Lymphocytes # Monocytes # Absolute Monocytes (Manual) 0.1 L Eosinophils # Basophils # Metamyelocytes # 0.1 H Plasma Cells # (manual) 0.0 Nucleated Red Blood Cells # Platelet Estimate DECREASED Giant Platelets 1 H Polychromasia 3+ Poikilocytosis 3+ Anisocytosis 2+ Microcytosis 1+ Macrocytosis 1+ Blood Gas Specimen Source Blood arterial Arterial Blood Date Drawn 02/22/2017 7:24:10 AM Arterial Blood pH (Temp corrected) 7.259 *L Arterial Blood pCO2 (Temp correct) 31.4 L Arterial Blood pO2 (Temp corrected) 188.0 H Arterial Blood HCO3 13.7 L Arterial Blood Base Excess -12.2 L Arterial Blood Oxygen Saturation 98.7 H Jayce Test N/A Arterial Blood Gas Puncture Site A-Line Arterial Blood Carboxyhemoglobin 0.2 Arterial Blood Methemoglobin 0.4 Blood Gas A-a O2 Differential 277.4 H Oxyhemoglobin Percent 98.1 Total Hemoglobin 10.8 L Blood Gas Temperature 37.0 Blood Gas Respiration Rate 16.0 Blood Gas Actual Respiration Rate 20 Blood Gas Modality VENT - AC FiO2 70.0 Blood Gas Tidal Volume 500.0 Blood Gas Low PEEP Setting 5.0 Blood Gas Critical Value Read Back Y ARIC RN Blood Gas Notified Whom TM Blood Gas Notified Time 02/22/2017 7:46:53 AM Test 02/22/17 12:00 02/22/17 13:17 Blood Gas Specimen Source Blood arterial Arterial Blood Date Drawn 02/22/2017 11:55:47 AM Arterial Blood pH (Temp corrected) 7.329 L Arterial Blood pCO2 (Temp correct) 31.3 L Arterial Blood pO2 (Temp corrected) 143.0 H Arterial Blood HCO3 16.1 L Arterial Blood Base Excess -8.8 L Arterial Blood Oxygen Saturation 98.2 H Jayce Test N/A Arterial Blood Gas Puncture Site A-Line Arterial Blood Carboxyhemoglobin 0.1 Arterial Blood Methemoglobin 0.4 Blood Gas A-a O2 Differential 178.3 H Oxyhemoglobin Percent 97.7 Total Hemoglobin 9.7 L Blood Gas Temperature 37.0 Blood Gas Respiration Rate 16.0 Blood Gas Actual Respiration Rate 19 Blood Gas Modality VENT - AC FiO2 50.0 Blood Gas Tidal Volume 500.0 Blood Gas Low PEEP Setting 5.0 Blood Gas Notified Whom TM Blood Gas Notified Time 02/22/2017 12:00:31 PM Sodium Level 136 Potassium Level 4.3 Chloride Level 110 Carbon Dioxide Level 17 L Anion Gap 13 Blood Urea Nitrogen 52 H Creatinine 1.88 H Glucose Level 165 Calcium Level 7.3 L Medications Medications Current Medications Dextrose (D50w Syringe) 100 ml ONCE PRN IV POC BLOOD GLUCOSE <250 MG/DL Last administered on 02/20/17 16:50; Admin Dose 100 ML; Start 02/20/17 at 16:30 Hydrocortisone 100 mg 100 mg Q8 IV Last administered on 02/22/17 13:33; Admin Dose 100 MG; Start 02/20/17 at 22:00 Piperacillin Sod/ Tazobactam Sod (Zosyn 2.25gm/ 50ml (Pmx)) 50 ml @ 100 mls/hr Q8 IVPB Last administered on 02/22/17 13:33; Admin Dose 100 MLS/HR; Start at 23:00 IV Flush (NS 10 ml) 10 ml PRN PRN IV IV PROTOCOL; Start 02/20/17 at 19:30 Levothyroxine Sodium 50 mcg 50 mcg AM IV Last administered on 02/22/17 08:36; Admin Dose 50 MCG; Start 02/21/17 at 09:00 Sodium Bicarbonate 150 meq/Dextrose 1,150 ml @ 80 mls/hr [id number] IV Last administered on 02/22/17 12:30; Admin Dose 80 MLS/HR; Start 02/21/17 at 13:00 Vancomycin HCl/ Sodium Chloride (Vancocin/NS) 250 ml @ 83.333 mls/ hr Q48H IVPB ; Start 02/22/17 at 16:00 Enoxaparin Sodium (Lovenox) 40 mg DAILY SC Last administered on 02/22/17 08:40 ; Admin Dose 40 MG; Start 02/22/17 at 09:00 Acetaminophen/ Hydrocodone Bitart ([place] (5/325)) 1 tab Q4H PRN NGT pain; Start 02/21/17 at 17:00 Ondansetron HCl 4 mg 4 mg Q6H PRN IV NAUSEA; Start 02/21/17 at 23:30 Norepinephrine 250 ml @ 1.875 mls/ hr TITRATE IV Last administered on 10:46; Admin Dose 7.5 MLS/HR; Start 02/22/17 at 08:30 Caspofungin 70 mg/ Sodium Chloride 250 ml @ 250 mls/hr ONCE IVPB Last administered on 02/22/17 11:58; Admin Dose 250 MLS/HR; Start 02/22/17 at 12:00 ; Stop 02/22/17 at 23:00 Caspofungin 50 mg/ Sodium Chloride 250 ml @ 250 mls/hr Q24H IVPB ; Start at 11:00 Propofol (Diprivan) 100 ml @ 3.201 mls/ hr Q12H IV Last administered on 14:32; Admin Dose 9.603 MLS/HR; Start 02/22/17 at 14:30 ARIK MCKEON MD Feb 22, 2017 15:10
[2017-02-22] MEDS ORDERED: VANCOMYCIN 1.25 GM in SOD CHLORIDE 0.9% 250 ML IVPB SCH (16:00)
--- NOTE | 2017-02-22 17:58 | CONS ---
DATE OF ADMISSION: 02/20/2017 DATE OF CONSULTATION: 02/22/2017 REASON FOR CONSULTATION: Antibiotic management. PAST MEDICAL HISTORY: Traci Cotto is a 71-year-old female who comes in with hypotension, hypoxia and is being seen for antibiotic management. Her past problems include: 1. History of polymyalgia rheumatica or PMR, on chronic prednisone therapy 40 mg. 2. Chronic obstructive pulmonary disease versus asthma. 3. Obesity. 4. Patient recently underwent surgery for a perforated appendix, was discharged to [facility] 4 days prior to admission and returned with obtundation, altered mental status and hypoxemia. She had no fevers. She was profoundly altered on admission. She had a creatinine is 0.6 when she was discharged, now is found to have renal failure. On admission, her BUN and creatinine is 58/3.3. Sodium 127, potassium 7, chloride 100, CO2 of 19. White count of 10.2, H and H of 10.1 and 31.3, platelet count 194,000. PAST SURGICAL HISTORY: Operations as outlined. Status post appendectomy. FAMILY HISTORY: Noncontributory. SOCIAL HISTORY: She does not smoke, drink, or abuse drugs. ALLERGIES: NONE TO PENICILLIN, SULFA, OR FOODS. MEDICATION: Per chart. REVIEW OF SYSTEMS: As per HPI. PHYSICAL EXAMINATION: GENERAL: Patient has been obtunded. On admission, she was obtunded. Presently, she is nonverbal and intubated. SKIN: Without generalized rash. HEENT: Within normal limits. NECK: Supple. Lymph nodes nonpalpable. CHEST: Decreased breath sounds at the bases. HEART: Without murmur or gallop. She is tachycardic. ABDOMEN: Soft. Nontender, without organo-splenomegaly or masses. EXTREMITIES: Without cyanosis, clubbing, or edema. RECTAL: Deferred. GENITAL: Deferred. NEUROLOGICAL: Patient has muscle weakness. She is sedated, so difficult to evaluate. LABORATORY: Currently, her white count is 3.3, H and H of 8.6, 25.5, platelet count 62,000. BUN/creatinine 52/1.88. She has acute kidney failure, multifactorial. Her blood cultures are growing Staph species, and they were growing yeast on the . On the , also gram-positive cocci in pairs and chains. She is on vancomycin and also on caspofungin, which is appropriate. She had a PICC line inserted on the . A CT scan of the abdomen and pelvis showed increased segmental atelectasis within the lung base bilaterally with pneumomediastinum. No pleural fluid accumulation or pneumothorax is identified. Liver remains normal in size. Gallbladder is not thickened. She has severe bilateral nonobstructing nephroliths, mild stranding of the perinephric fat, no hydronephrosis. Ureters are normal in caliber. No ureteroliths identified. Mojica catheter is placed. Fully distended bladder. Her stomach is distended with air and fluid. She may have partial fairly distal small bowel obstruction. Right colon again appears to have been resected, with ileocolonic anastomosis within the region of the transverse colon. There were scattered diverticula seen to the descending and sigmoid colon, without evidence of diverticulitis. Appendix is not identified. A chest x-ray shows increased opacities at the lung base, likely due to some atelectasis and/or pneumonia, as well as increased small right pleural effusion. She has an ET tube and an NG tube, as previously noted, and a Mojica catheter. IMPRESSION AND PLAN: Patient presents now with sepsis. Etiology could be from her lungs. Certainly, it could be from her recent surgery. She probably has disrupted ileocolic anastomosis and intraabdominal infection, now status post resection and ileostomy. So patient had an operative procedure on the , and the etiology of her problem was perforated viscus. She had an exploratory laparotomy, resection, ileocolic anastomosis, and terminal ilium creation of ileostomy. In conclusion, she has multiple sources of sepsis, but the most virulent one is the fact that she had a problem related to intraabdominal disruption of her anastomosis and now with an ileostomy in place. Surgery done by Dr. Jermaine Haji. We will continue her on caspofungin and vancomycin, and she is on Zosyn as well. So she is on vancomycin, Zosyn and caspofungin, to which I concur. I will dictate my findings to the hospitalists, to Dr. Palacios, to Dr. Marcos Quezada, Dr. Jermaine Haji, as well as to Dr. Richards. Dictated By: Fabio Méndez MD JD/louie/stephanie /Document#: [id number]
[2017-02-23] VITALS (91 sets, daily range): BP systolic 65–156; BP diastolic 36–72; PULSE 66–131; RESP 13–35
[2017-02-23] MEDS: SODIUM BICARBONATE (IV ADD) 150 MEQ in DEXTROSE 5% 1,000 ML IV SCH (02:24)
[2017-02-23 05:10] LABS: ABNORMAL IP MESSAGE 1; BASOPHILS % 0.6 % (0.0-2.0); HEMATOCRIT 22.6 % (37.0-47.0); HEMOGLOBIN 7.6 g/dl (12.0-16.0); LYMPHOCYTES # 0.4 10^3/ul (0.8-2.9); LYMPHOCYTES % 5.6 % (15.0-51.0); MEAN CORPUSCULAR HGB CONC 33.6 g/dl (32.0-37.0); MEAN CORPUSCULAR VOLUME 80.1 fl (82.0-101.0); MEAN PLATELET VOLUME 12.1 fl (7.4-10.4); MONOCYTE # 0.4 10^3/ul (0.3-0.9); NEUTROPHIL # 5.4 10^3/ul (1.6-7.5); NEUTROPHILS % 85.5 % (39.0-77.0); NUCLEATED RED BLOOD CELLS # 0.2 10^3/ul (0.0-0.0); NUCLEATED RED BLOOD CELLS% 2.4 /100WBC (0.0-0.0); PLATELET COUNT 48 10^3/UL (140-415); RED BLOOD COUNT 2.82 10^6/ul (4.20-5.40); RED CELL DISTRIBUTION WIDTH 18.6 % (11.5-14.5); WHITE BLOOD COUNT 6.3 10^3/ul (4.8-10.8)
[2017-02-23] MEDS: PIPER-TAZO 2.25 GM (PMX) 50 ML IVPB SCH (05:13)
[2017-02-23] MEDS: HYDROCORTISONE 100 MG INJ IV SCH ×3 (05:13→21:22)
[2017-02-23 05:20] LABS: ALBUMIN 1.8 g/dl (3.3-4.9); ALBUMIN/GLOBULIN RATIO 0.75; BILIRUBIN,DIRECT 0.7 mg/dl (0.00-0.20); BILIRUBIN,INDIRECT 0.1 mg/dl (0-1.1); BILIRUBIN,TOTAL 0.8 mg/dl (0.2-1.3); CALCIUM 7.4 mg/dl (8.4-10.2); CREATININE 1.57 mg/dl (0.44-1.00); POTASSIUM 3.6 mmol/L (3.5-5.1); TOTAL PROTEIN 4.2 g/dl (6.1-8.1)
[2017-02-23 05:25] LABS: POSITIVE DIFF @See below
[2017-02-23] MEDS: LEVOTHYROXINE 100 MCG VIAL IV SCH (08:06)
[2017-02-23] MEDS: ENOXAPARIN 40 MG/0.4 ML SYG SC SCH (08:07)
[2017-02-23 08:22] LABS: AADO2 Arterial 180.4 mmHg (7.0-24.0); Arterial Base Excess -4.4 mmol/L (-3.0-3); Arterial COHb 0.3 % (0.0-3.0); Arterial Fraction of Oxyhgb 97.7 % (93.0-99.0); Arterial HCO3 18.7 mmol/L (22.0-26.0); Arterial MetHb 0.4 % (0.0-1.5); Arterial Total Hemglobin 7.1 g/dl (12.0-18.0); MODE VENT - AC
[2017-02-23] MEDS: DEXTROSE 5%-0.45% NACL 1,000 ML IV SCH ×2 (08:42→23:23)
[2017-02-23] MEDS ORDERED: ALBUMIN HUMAN 25% 100 ML IV ONE (09:00)
--- NOTE | 2017-02-23 09:18 | RADRPT ---
PROCEDURE: XR Chest. CLINICAL INDICATION: Shortness of breath. TECHNIQUE: Single frontal view. COMPARISON: 02/22/2017. FINDINGS: The endotracheal tube and nasogastric tube are in satisfactory position. There is mild atelectasis a t the left lung base. The lungs are otherwise clear. There is elevation of the right hemidiaphragm. The heart size is normal. There is no pleural effusion. There is no pneumothorax. IMPRESSION: 1. Endotracheal tube and nasogastric tube in satisfactory position. 2. Mild atelectasis at the left lung base. 3. Elevation of the right hemidiaphragm. RPTAT: QQ .Adelfo Yanez MD, MD Date Time Electronically viewed and signed by .Adelfo Yanez MD, on 02/23/2017 09:18 .R/
[2017-02-23] MEDS: CASPOFUNGIN 50 MG in SOD CHLORIDE 0.9% 250 ML IVPB SCH (10:50)
[2017-02-23] MEDS: PROPOFOL 100 ML IV SCH ×3 (11:33→17:53)
--- NOTE | 2017-02-23 13:48 | PN ---
DATE: 02/23/2017 SUBJECTIVE DATA: The patient remains intubated on 5 mics of Levophed drip. She is in no distress. OBJECTIVE DATA: VITAL SIGNS: Spiking low-grade fevers with a T-max of 99.5, pulse 109, respirations 19, blood pressure 131/57, and saturation 97 on vent. LABORATORY AND DIAGNOSTIC DATA: WBC 6.3, H and H 7.6 and 22.6, platelets 48, neutrophils 85.5, BUN 46, and creatinine 1.57. INDWELLINGS: Indwelling patient has PICC line placed on February 20, endotracheal tube, NG tube, Mojica catheter, and colostomy. MICROBIOLOGY: Blood culture on admission grew yeast and coag- negative staph species. Repeat blood culture growing Enterococcus species. Urine culture negative. DIAGNOSTICS: Chest x-ray revealed mild atelectasis at the left lung base. ANTIMICROBIALS: The patient is on IV Vanco, Cancidas, and Zosyn. PHYSICAL EXAMINATION: GENERAL: This is a chronically ill-appearing, obese, elderly woman, who is intubated, sedated, and in no distress. HEENT: Head atraumatic, normocephalic. Sclerae anicteric. Buccal mucosa dry. NECK: Obese. CHEST: Rise symmetrical. Breath sounds diminished at the bases. HEART: S1, S2. ABDOMEN: Obese, distended, hypoactive bowel tones left-sided abdominal dressing intact. The patient has colostomy. EXTREMITIES: With bilateral edema. SKIN: No jaundice. No cyanosis. ASSESSMENT: 1. Severe sepsis with shock. 2. Polymicrobial bacteremia and fungemia. 3. History of open appendectomy complicated by anastomotic leak, status post exploratory laparotomy, resection of ileocolic anastomosis with ileostomy on 02/21/2017. 4. Acute respiratory failure, possible healthcare associated pneumonia. 5. Acute kidney injury. 6. Anemia and progressive thrombocytopenia secondary to sepsis and possibly antibiotics. PLAN: 1. The patient remains hemodynamically unstable. 2. 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 She is on Vancomycin, Cancidas and Zosyn with progressive thrombocytopenia. We are going to change Zosyn to meropenem. Keep her on vancomycin and Cancidas for now. Await for final cultures. Continue management as per primary team and consultants. Dictated By: Mk Kimball NP /louie/genia /Document#: [id number] MTDD
--- NOTE | 2017-02-23 14:30 | CONS ---
Date/Time of Note Date/Time of Note DATE: 02/23/17 TIME: 14:28 Assessment/Plan Assessment/Plan Additional Assessment/Plan 1. Acute kidney injury mutlifactorial due to Prerenal azotemia + ATN From septic shock 2. Acute encephalopathy metabolic 3. SBO, disrupted colonic anastomosis, s/p Exp lap, resection and ileostomy on 4. H/o Polymyalgia rheumatica on Steroids 5. H/o recent right hemicolectomy for perforated diverticulitis 6. Hyperkalemia acute, Hyponatremia 7. acute hypoxic respiratory failure 8. adrenal crisis- On IV dexamethasone Plan: conitnue Hydrocrotisoen 100mg IV Q 8 hr for adrenal insufficiency IV abx sepsis. renally dose antibiotics s/p surgery, G surgery following HCO3 improved to normal, d/c HCo3 drip. start D51/2NS at 75 cc/hr,weaning plan as per Pulmonary Will follow up Prognosis guarded, need family meeting to discuss goals of care. Consultation Date/Type/Reason Admit Date/Time Feb 20, 2017 at 19:33 Initial Consult Date 02/20/17 Type of Consultation: NEPHROLOGY Referring Provider: CARL STEPHENS MD 24 HR Interval Summary Free Text/Dictation s/p Exp lap, resection and ileostomy on 02/21/17, HCo3 stable, Ph normal Exam/Review of Systems Vital Signs Vitals Vital Signs Date Time Temp Pulse Resp B/P Pulse Ox O2 Delivery O2 Flow Rate FiO2 02/23/17 14:15 105 17 135/61 100 Mechanical Ventilator 02/23/17 13:00 40 02/23/17 12:00 99.2 02/21/17 23:52 2.0 Intake and Output 02/22/17 02/22/17 02/23/17 15:00 23:00 07:00 Intake Total 1060.777 ml 1489.548 ml 848.706 ml Output Total 255 ml 320 ml 465 ml Balance 805.777 ml 1169.548 ml 383.706 ml Exam Constitutional: non-verbal Eyes: other (Intubtaed, ET tube in place ) ENMT: nl external ears & nose Neck: non-tender, supple Respiratory: congested cough, crackles/rales, diminished breath sounds Cardiovascular: nl pulses, other (tachycardia ), regular rate and rhythm Gastrointestinal: other (TTP diffusely but benign), soft Musculoskeletal: muscle weakness, swelling Neurological: other (sedated on ventilator ) Results Result Diagram: 02/23/17 0400 02/23/17 0400 Results 24 hrs Laboratory Tests Test 02/23/17 04:00 02/23/17 05:34 02/23/17 07:00 White Blood Count 6.3 # Red Blood Count 2.82 L Hemoglobin 7.6 L Hematocrit 22.6 L Mean Corpuscular Volume 80.1 L Mean Corpuscular Hemoglobin 27.0 L Mean Corpuscular Hemoglobin Concent 33.6 Red Cell Distribution Width 18.6 H Platelet Count 48 #L Mean Platelet Volume 12.1 H Neutrophils % 85.5 H Lymphocytes % 5.6 L Monocytes % 7.0 Eosinophils % 0.0 Basophils % 0.6 Nucleated Red Blood Cells % 2.4 H Neutrophils # 5.4 Lymphocytes # 0.4 L Monocytes # 0.4 Eosinophils # 0.0 Basophils # 0.0 Nucleated Red Blood Cells # 0.2 H Sodium Level 138 Potassium Level 3.6 Chloride Level 109 Carbon Dioxide Level 22 Anion Gap 11 Blood Urea Nitrogen 46 H Creatinine 1.57 H Glucose Level 180 Calcium Level 7.4 L Total Bilirubin 0.8 Direct Bilirubin 0.70 H Indirect Bilirubin 0.1 Aspartate Amino Transf (AST/SGOT) 24 Alanine Aminotransferase (ALT/SGPT) 38 Alkaline Phosphatase 57 Total Protein 4.2 L Albumin 1.8 L Globulin 2.40 Albumin/Globulin Ratio 0.75 Lab Scanned Report BLOOD TRANSFUSION Blood Gas Specimen Source Blood arterial Arterial Blood Date Drawn 02/23/2017 7:30:51 AM Arterial Blood pH (Temp corrected) 7.472 H Arterial Blood pCO2 (Temp correct) 26.1 L Arterial Blood pO2 (Temp corrected) 146.7 H Arterial Blood HCO3 18.7 L Arterial Blood Base Excess -4.4 L Arterial Blood Oxygen Saturation 98.4 H Jayce Test N/A Arterial Blood Gas Puncture Site A-Line Arterial Blood Carboxyhemoglobin 0.3 Arterial Blood Methemoglobin 0.4 Blood Gas A-a O2 Differential 180.4 H Oxyhemoglobin Percent 97.7 Total Hemoglobin 7.1 L Blood Gas Temperature 37.0 Blood Gas Respiration Rate 16.0 Blood Gas Actual Respiration Rate 16 Blood Gas Modality VENT - AC FiO2 50.0 Blood Gas Tidal Volume 500.0 Blood Gas Low PEEP Setting 5.0 Blood Gas Notified Whom Blood Gas Notified Time 02/23/2017 8:22:00 AM Medications Medications Current Medications Dextrose (D50w Syringe) 100 ml ONCE PRN IV POC BLOOD GLUCOSE <250 MG/DL Last administered on 02/20/17 16:50; Admin Dose 100 ML; Start 02/20/17 at 16:30 Hydrocortisone (Solu-Cortef) 100 mg Q8 IV Last administered on 02/23/17 13:41 ; Admin Dose 100 MG; Start 02/20/17 at 22:00 IV Flush (NS 10 ml) 10 ml PRN PRN IV IV PROTOCOL; Start 02/20/17 at 19:30 Levothyroxine Sodium (Synthroid Iv) 50 mcg AM IV Last administered on 08:06; Admin Dose 50 MCG; Start 02/21/17 at 09:00 Enoxaparin Sodium (Lovenox) 40 mg DAILY SC Last administered on 02/23/17 08:07 ; Admin Dose 40 MG; Start 02/22/17 at 09:00 Acetaminophen/ Hydrocodone Bitart ([place] (5/325)) 1 tab Q4H PRN NGT pain; Start 02/21/17 at 17:00 Ondansetron HCl 4 mg 4 mg Q6H PRN IV NAUSEA; Start 02/21/17 at 23:30 Caspofungin 50 mg/ Sodium Chloride 250 ml @ 250 mls/hr Q24H IVPB Last administered on 02/23/17 10:50; Admin Dose 250 MLS/HR; Start 02/23/17 at 11:00 Propofol 100 ml @ 3.201 mls/ hr Q12H IV Last administered on 02/23/17 11:33; Admin Dose 9.603 MLS/HR; Start 02/22/17 at 14:30 Norepinephrine 16 mg/Dextrose 500 ml @ 0 mls/hr TITRATE IV Last administered on 02/23/17 03:24; Admin Dose 37.5 MLS/HR; Start 02/22/17 at 19:00 Dextrose/Sodium Chloride 1,000 ml @ 70 mls/hr [id number] IV Last administered on 02/23/17 08:42; Admin Dose 70 MLS/HR; Start 02/23/17 at 09:00 Meropenem/Sodium Chloride 50 ml @ 100 mls/hr Q12 IVPB ; Start 02/23/17 at 21:00 Vancomycin HCl (Vancocin) 250 ml @ 125 mls/hr Q24H IVPB ; Start 02/23/17 at 16: 00 Miscellaneous Information (*Rx Drug Level Order Reminder*) VANCOMYCIN TROUGH LEVEL... ONCE ONCE XX ; Start 02/24/17 at 15:00; Stop 02/24/17 at 15:01 ARIK MCKEON MD Feb 23, 2017 14:30
[2017-02-23] MEDS ORDERED: VANCOMYCIN 1 GM in NS 250 ML IVPB SCH (16:00)
--- NOTE | 2017-02-23 16:19 | CONS ---
Date/Time of Note Date/Time of Note DATE: 02/23/17 TIME: 16:16 Assessment/Plan Assessment/Plan Problems: (1) Iatrogenic adrenal insufficiency Status: Acute Comment: Remains on stress dose steroids inadequately covered for this. As the patient's sepsis and underlying issues improve this can be tapered down rapidly. (2) Hypothyroidism Status: Chronic Comment: On replacement dose. Qualifiers: Hypothyroidism type: acquired Qualified Code: E03.9 - Acquired hypothyroidism (3) Acute renal failure Status: Acute Comment: Resolving but not at baseline Consultation Date/Type/Reason Admit Date/Time Feb 20, 2017 at 19:33 Initial Consult Date 02/20/17 Type of Consultation: Endocrinology Reason for Consultation Hypothyroidism; iatrogenic adrenal insufficiency; shock and sepsis Referring Provider: CARL STEPHENS MD 24 HR Interval Summary Free Text/Dictation No changes Exam/Review of Systems Vital Signs Vitals Vital Signs Date Time Temp Pulse Resp B/P Pulse Ox O2 Delivery O2 Flow Rate FiO2 02/23/17 15:45 109 23 137/55 98 Mechanical Ventilator 02/23/17 13:00 40 02/23/17 12:00 99.2 02/21/17 23:52 2.0 Intake and Output 02/22/17 02/22/17 02/23/17 15:00 23:00 07:00 Intake Total 1060.777 ml 1489.548 ml 848.706 ml Output Total 255 ml 320 ml 465 ml Balance 805.777 ml 1169.548 ml 383.706 ml Results No changes in exam Result Diagram: 02/23/17 0400 02/23/17 0400 Results 24 hrs Laboratory Tests Test 02/23/17 04:00 02/23/17 05:34 02/23/17 07:00 White Blood Count 6.3 # Red Blood Count 2.82 L Hemoglobin 7.6 L Hematocrit 22.6 L Mean Corpuscular Volume 80.1 L Mean Corpuscular Hemoglobin 27.0 L Mean Corpuscular Hemoglobin Concent 33.6 Red Cell Distribution Width 18.6 H Platelet Count 48 #L Mean Platelet Volume 12.1 H Neutrophils % 85.5 H Lymphocytes % 5.6 L Monocytes % 7.0 Eosinophils % 0.0 Basophils % 0.6 Nucleated Red Blood Cells % 2.4 H Neutrophils # 5.4 Lymphocytes # 0.4 L Monocytes # 0.4 Eosinophils # 0.0 Basophils # 0.0 Nucleated Red Blood Cells # 0.2 H Sodium Level 138 Potassium Level 3.6 Chloride Level 109 Carbon Dioxide Level 22 Anion Gap 11 Blood Urea Nitrogen 46 H Creatinine 1.57 H Glucose Level 180 Calcium Level 7.4 L Total Bilirubin 0.8 Direct Bilirubin 0.70 H Indirect Bilirubin 0.1 Aspartate Amino Transf (AST/SGOT) 24 Alanine Aminotransferase (ALT/SGPT) 38 Alkaline Phosphatase 57 Total Protein 4.2 L Albumin 1.8 L Globulin 2.40 Albumin/Globulin Ratio 0.75 Lab Scanned Report BLOOD TRANSFUSION Blood Gas Specimen Source Blood arterial Arterial Blood Date Drawn 02/23/2017 7:30:51 AM Arterial Blood pH (Temp corrected) 7.472 H Arterial Blood pCO2 (Temp correct) 26.1 L Arterial Blood pO2 (Temp corrected) 146.7 H Arterial Blood HCO3 18.7 L Arterial Blood Base Excess -4.4 L Arterial Blood Oxygen Saturation 98.4 H Jayce Test N/A Arterial Blood Gas Puncture Site A-Line Arterial Blood Carboxyhemoglobin 0.3 Arterial Blood Methemoglobin 0.4 Blood Gas A-a O2 Differential 180.4 H Oxyhemoglobin Percent 97.7 Total Hemoglobin 7.1 L Blood Gas Temperature 37.0 Blood Gas Respiration Rate 16.0 Blood Gas Actual Respiration Rate 16 Blood Gas Modality VENT - AC FiO2 50.0 Blood Gas Tidal Volume 500.0 Blood Gas Low PEEP Setting 5.0 Blood Gas Notified Whom CW Blood Gas Notified Time 02/23/2017 8:22:00 AM Medications Medications Current Medications Dextrose (D50w Syringe) 100 ml ONCE PRN IV POC BLOOD GLUCOSE <250 MG/DL Last administered on 02/20/17 16:50; Admin Dose 100 ML; Start 02/20/17 at 16:30 Hydrocortisone (Solu-Cortef) 100 mg Q8 IV Last administered on 02/23/17 13:41 ; Admin Dose 100 MG; Start 02/20/17 at 22:00 IV Flush (NS 10 ml) 10 ml PRN PRN IV IV PROTOCOL; Start 02/20/17 at 19:30 Levothyroxine Sodium (Synthroid Iv) 50 mcg AM IV Last administered on 08:06; Admin Dose 50 MCG; Start 02/21/17 at 09:00 Enoxaparin Sodium (Lovenox) 40 mg DAILY SC Last administered on 02/23/17 08:07 ; Admin Dose 40 MG; Start 02/22/17 at 09:00 Acetaminophen/ Hydrocodone Bitart ([place] (5/325)) 1 tab Q4H PRN NGT pain; Start 02/21/17 at 17:00 Ondansetron HCl 4 mg 4 mg Q6H PRN IV NAUSEA; Start 02/21/17 at 23:30 Caspofungin 50 mg/ Sodium Chloride 250 ml @ 250 mls/hr Q24H IVPB Last administered on 02/23/17 10:50; Admin Dose 250 MLS/HR; Start 02/23/17 at 11:00 Propofol 100 ml @ 3.201 mls/ hr Q12H IV Last administered on 02/23/17 11:33; Admin Dose 9.603 MLS/HR; Start 02/22/17 at 14:30 Norepinephrine 16 mg/Dextrose 500 ml @ 0 mls/hr TITRATE IV Last administered on 02/23/17 03:24; Admin Dose 37.5 MLS/HR; Start 02/22/17 at 19:00 Dextrose/Sodium Chloride 1,000 ml @ 70 mls/hr [id number] IV Last administered on 02/23/17 08:42; Admin Dose 70 MLS/HR; Start 02/23/17 at 09:00 Meropenem/Sodium Chloride 50 ml @ 100 mls/hr Q12 IVPB ; Start 02/23/17 at 21:00 Vancomycin HCl (Vancocin) 250 ml @ 125 mls/hr Q24H IVPB Last administered on 16:07; Admin Dose 125 MLS/HR; Start 02/23/17 at 16:00 Miscellaneous Information (*Rx Drug Level Order Reminder*) VANCOMYCIN TROUGH LEVEL... ONCE ONCE XX ; Start 02/24/17 at 15:00; Stop 02/24/17 at 15:01 TAMIA RESTREPO MD Feb 23, 2017 16:19
--- NOTE | 2017-02-23 16:24 | PN ---
Date/Time of Note Date/Time of Note DATE: 02/23/17 TIME: 16:23 Assessment/Plan Lines/Catheters IV Catheter Type (from Nrs): A Line Mojica in Place (from Nrs): Yes Assessment/Plan Assessment/Plan The abdominal incision is clean The ileostomy is clearly viable Plan: Transfuse 1 unit packed cells, TPN Subjective 24 Hr Interval Summary Postoperative day #2 Patient remains intubated and in critical condition Exam/Review of Systems Vital Signs Vitals Vital Signs Date Time Temp Pulse Resp B/P Pulse Ox O2 Delivery O2 Flow Rate FiO2 02/23/17 15:45 109 23 137/55 98 Mechanical Ventilator 02/23/17 13:00 40 02/23/17 12:00 99.2 02/21/17 23:52 2.0 Intake and Output 02/22/17 02/22/17 02/23/17 15:00 23:00 07:00 Intake Total 1060.777 ml 1489.548 ml 848.706 ml Output Total 255 ml 320 ml 465 ml Balance 805.777 ml 1169.548 ml 383.706 ml Results Result Diagram: 02/23/170 02/23/17 0400 CARL STEPHENS MD Feb 23, 2017 16:24
--- NOTE | 2017-02-23 16:35 | PN ---
Date/Time of Note Date/Time of Note DATE: 02/23/17 TIME: 16:32 Assessment/Plan VTE Prophylaxis VTE Prophylaxis Intervention: LMWH Lines/Catheters IV Catheter Type (from Nrs): A Line Urinary Cath still in place: Yes Reason Cath still needed: urinary retention Assessment/Plan Chief Complaint/Hosp Course 71 yo female with PMR on chronic steroids, unclear seizure d/o, hypertension, obesity, recently discharged from [facility] following open appendectomy without complications who now returns with hypotension, hypoxia, acute encephelopathy, hyponatremia, hyperkalemia and acute renal failure. Found to have disrupted ileocolic anastomosis and intraabdominal infection. Now s/p resection and ileostomy NEURO: Acute encephelopathy: - 2/2 septic encephelopathy and adrenal insufficiency, monitor for improvement with treatment of both ENDO/RHEUM Polymyalgia rheumatica and chronic adrenal suppression from prednisone, now iatrogenic adrenal insufficiency - Stress hydrocortisone 100 q8h Hypothyroidism: - FT4 low, likely from poor absorption 2/2 ileus. Continue IV thyroxine - Appreciate consult from Dr Hassan RENAL: LATRICE: - Improving, monitor renal function Hyponatremia, Hyperkalemia, metabolic acidosis - Likely from adrenal insufficiency, cont stress dose steroids - Trend BMP, creatinine - Bicarbonate dc'ed per Dr Quezada PULM: Acute hypoxic respiratory failure: - Wean as able from mechanical ventilation GI: SBO, disrupted colonic anastamosis, now s/p resection and ileostomy - Management per Dr Haji - NG tube, bowel rest - TPN ID: Sepsis 2/2 intraabdominal infection, Enterococcus bacteremia and yeast fungemiemia - Continue abx per ID - Caspofungin added for candidemia - Daily cultures Continue ICU care CC time > 35 minutes Problems: Subjective 24 Hr Interval Summary Free Text/Dictation REmains intuabed, sedated on propofol, low dose levophed running Started on TPN per Dr Haji Bicarb drip dc'ed Renal function improving Exam/Review of Systems Vital Signs Vitals Vital Signs Date Time Temp Pulse Resp B/P Pulse Ox O2 Delivery O2 Flow Rate FiO2 02/23/17 15:45 109 23 137/55 98 Mechanical Ventilator 02/23/17 13:00 40 02/23/17 12:00 99.2 02/21/17 23:52 2.0 Intake and Output 02/22/17 02/22/17 02/23/17 15:00 23:00 07:00 Intake Total 1060.777 ml 1489.548 ml 848.706 ml Output Total 255 ml 320 ml 465 ml Balance 805.777 ml 1169.548 ml 383.706 ml Results Result Diagram: 02/23/170 02/23/17 0400 Results 24 hrs Laboratory Tests Test 02/23/17 04:00 02/23/17 05:34 02/23/17 07:00 White Blood Count 6.3 # Red Blood Count 2.82 L Hemoglobin 7.6 L Hematocrit 22.6 L Mean Corpuscular Volume 80.1 L Mean Corpuscular Hemoglobin 27.0 L Mean Corpuscular Hemoglobin Concent 33.6 Red Cell Distribution Width 18.6 H Platelet Count 48 #L Mean Platelet Volume 12.1 H Neutrophils % 85.5 H Lymphocytes % 5.6 L Monocytes % 7.0 Eosinophils % 0.0 Basophils % 0.6 Nucleated Red Blood Cells % 2.4 H Neutrophils # 5.4 Lymphocytes # 0.4 L Monocytes # 0.4 Eosinophils # 0.0 Basophils # 0.0 Nucleated Red Blood Cells # 0.2 H Sodium Level 138 Potassium Level 3.6 Chloride Level 109 Carbon Dioxide Level 22 Anion Gap 11 Blood Urea Nitrogen 46 H Creatinine 1.57 H Glucose Level 180 Calcium Level 7.4 L Total Bilirubin 0.8 Direct Bilirubin 0.70 H Indirect Bilirubin 0.1 Aspartate Amino Transf (AST/SGOT) 24 Alanine Aminotransferase (ALT/SGPT) 38 Alkaline Phosphatase 57 Total Protein 4.2 L Albumin 1.8 L Globulin 2.40 Albumin/Globulin Ratio 0.75 Lab Scanned Report BLOOD TRANSFUSION Blood Gas Specimen Source Blood arterial Arterial Blood Date Drawn 02/23/2017 7:30:51 AM Arterial Blood pH (Temp corrected) 7.472 H Arterial Blood pCO2 (Temp correct) 26.1 L Arterial Blood pO2 (Temp corrected) 146.7 H Arterial Blood HCO3 18.7 L Arterial Blood Base Excess -4.4 L Arterial Blood Oxygen Saturation 98.4 H Jayce Test N/A Arterial Blood Gas Puncture Site A-Line Arterial Blood Carboxyhemoglobin 0.3 Arterial Blood Methemoglobin 0.4 Blood Gas A-a O2 Differential 180.4 H Oxyhemoglobin Percent 97.7 Total Hemoglobin 7.1 L Blood Gas Temperature 37.0 Blood Gas Respiration Rate 16.0 Blood Gas Actual Respiration Rate 16 Blood Gas Modality VENT - AC FiO2 50.0 Blood Gas Tidal Volume 500.0 Blood Gas Low PEEP Setting 5.0 Blood Gas Notified Whom CW Blood Gas Notified Time 02/23/2017 8:22:00 AM Medications Medications Current Medications Dextrose (D50w Syringe) 100 ml ONCE PRN IV POC BLOOD GLUCOSE <250 MG/DL Last administered on 02/20/17 16:50; Admin Dose 100 ML; Start 02/20/17 at 16:30 Hydrocortisone (Solu-Cortef) 100 mg Q8 IV Last administered on 02/23/17 13:41 ; Admin Dose 100 MG; Start 02/20/17 at 22:00 IV Flush (NS 10 ml) 10 ml PRN PRN IV IV PROTOCOL; Start 02/20/17 at 19:30 Levothyroxine Sodium (Synthroid Iv) 50 mcg AM IV Last administered on 08:06; Admin Dose 50 MCG; Start 02/21/17 at 09:00 Enoxaparin Sodium (Lovenox) 40 mg DAILY SC Last administered on 02/23/17 08:07 ; Admin Dose 40 MG; Start 02/22/17 at 09:00 Acetaminophen/ Hydrocodone Bitart ([place] (5/325)) 1 tab Q4H PRN NGT pain; Start 02/21/17 at 17:00 Ondansetron HCl 4 mg 4 mg Q6H PRN IV NAUSEA; Start 02/21/17 at 23:30 Caspofungin 50 mg/ Sodium Chloride 250 ml @ 250 mls/hr Q24H IVPB Last administered on 02/23/17 10:50; Admin Dose 250 MLS/HR; Start 02/23/17 at 11:00 Propofol 100 ml @ 3.201 mls/ hr Q12H IV Last administered on 02/23/17 11:33; Admin Dose 9.603 MLS/HR; Start 02/22/17 at 14:30 Norepinephrine 16 mg/Dextrose 500 ml @ 0 mls/hr TITRATE IV Last administered on 02/23/17 03:24; Admin Dose 37.5 MLS/HR; Start 02/22/17 at 19:00 Dextrose/Sodium Chloride 1,000 ml @ 70 mls/hr [id number] IV Last administered on 02/23/17 08:42; Admin Dose 70 MLS/HR; Start 02/23/17 at 09:00 Meropenem/Sodium Chloride 50 ml @ 100 mls/hr Q12 IVPB ; Start 02/23/17 at 21:00 Vancomycin HCl (Vancocin) 250 ml @ 125 mls/hr Q24H IVPB Last administered on 16:07; Admin Dose 125 MLS/HR; Start 02/23/17 at 16:00 Miscellaneous Information VANCOMYCIN TROUGH LEVEL... ONCE ONCE XX ; Start 02/24 at 15:00; Stop 02/24/17 at 15:01 Total Parenteral Nutrition (Tpn) 1,000 ml @ 60 mls/hr [id number] IV ; Start at 16:30; Status YAKELIN ALLAN MD Feb 23, 2017 16:35
[2017-02-23] MEDS: TPN 1,000 ML IV SCH ×2 (17:41→21:43)
[2017-02-23 18:58] LABS: IRON 21 ug/dl (35-150)
[2017-02-23 19:12] LABS: TOTAL IRON BINDING CAPACITY 133 ug/dl (241-421)
[2017-02-23] MEDS: MEROPENEM 500MG/50 ML (PMX) 50 ML IVPB SCH (20:35)
[2017-02-23] MEDS: INSULIN ASPART [NOVOLOG] 3 ML PEN SC SCH (20:42)
[2017-02-24] VITALS (47 sets, daily range): BP systolic 114–141; BP diastolic 50–71; PULSE 79–119; RESP 17–29
[2017-02-24] MEDS: INSULIN ASPART [NOVOLOG] 3 ML PEN SC SCH ×2 (01:00→05:00)
[2017-02-24] MEDS: PROPOFOL 100 ML IV SCH ×2 (04:18→15:58)
[2017-02-24] MEDS: HYDROCORTISONE 100 MG INJ IV SCH ×3 (05:30→21:00)
[2017-02-24 05:36] LABS: ABNORMAL IP MESSAGE 1; BASOPHILS % 0.5 % (0.0-2.0); HEMATOCRIT 21.4 % (37.0-47.0); HEMOGLOBIN 7.4 g/dl (12.0-16.0); LYMPHOCYTES # 0.3 10^3/ul (0.8-2.9); LYMPHOCYTES % 7.2 % (15.0-51.0); MEAN CORPUSCULAR HEMOGLOBIN 28.2 pg (29.0-33.0); MEAN CORPUSCULAR HGB CONC 34.6 g/dl (32.0-37.0); MEAN CORPUSCULAR VOLUME 81.7 fl (82.0-101.0); MEAN PLATELET VOLUME 12.3 fl (7.4-10.4); MONOCYTE # 0.2 10^3/ul (0.3-0.9); MONOCYTES % 4.4 % (0.0-11.0); NEUTROPHIL # 3.4 10^3/ul (1.6-7.5); NEUTROPHILS % 86.4 % (39.0-77.0); PLATELET COUNT 39 10^3/UL (140-415); RED BLOOD COUNT 2.62 10^6/ul (4.20-5.40); RED CELL DISTRIBUTION WIDTH 17.5 % (11.5-14.5); WHITE BLOOD COUNT 3.9 10^3/ul (4.8-10.8)
[2017-02-24 05:40] LABS: POSITIVE DIFF @See below
[2017-02-24 06:13] LABS: CALCIUM 7.7 mg/dl (8.4-10.2); MAGNESIUM 1.9 mg/dl (1.7-2.5); PHOSPHORUS 3.6 mg/dl (2.5-4.9)
--- NOTE | 2017-02-24 07:33 | RADRPT ---
PROCEDURE: XR Chest. CLINICAL INDICATION: Shortness of breath. TECHNIQUE: Single frontal view. COMPARISON: 02/23/2017. FINDINGS: Endotracheal tube, nasogastric tube, and left arm PICC line remain in satisfactory position. Mild le ft basilar atelectasis is improved. The lungs are otherwise clear. There is elevation of the right h emidiaphragm. The heart size is normal. There is no pleural effusion. There is no pneumothorax. IMPRESSION: 1. Tubes and lines in satisfactory position. 2. Improved aeration of the left lung base. 3. No other change from 02/23/2017. RPTAT: QQ .Adelfo Yanez MD, MD Date Time Electronically viewed and signed by .Adelfo Yanez MD, MD on 02/24/2017 07:32 .R/
[2017-02-24 07:44] LABS: ALBUMIN 1.9 g/dl (3.3-4.9); ALBUMIN/GLOBULIN RATIO 0.79; BILIRUBIN,DIRECT 0.9 mg/dl (0.00-0.20); BILIRUBIN,INDIRECT 0.3 mg/dl (0-1.1); BILIRUBIN,TOTAL 1.2 mg/dl (0.2-1.3); CALCIUM 7.7 mg/dl (8.4-10.2); CREATININE 0.89 mg/dl (0.44-1.00); POTASSIUM 3.1 mmol/L (3.5-5.1); TOTAL PROTEIN 4.3 g/dl (6.1-8.1)
[2017-02-24] MEDS: LEVOTHYROXINE 100 MCG VIAL IV SCH (09:20)
[2017-02-24] MEDS: MEROPENEM 500MG/50 ML (PMX) 50 ML IVPB SCH ×2 (09:21→20:00)
[2017-02-24] MEDS: ENOXAPARIN 40 MG/0.4 ML SYG SC SCH (09:22)
[2017-02-24] MEDS ORDERED: DEXTROSE 50% 50 ML SYRINGE IV PRN (09:30)
[2017-02-24] MEDS ORDERED: LINEZOLID 600 MG/D5W (PMX) 300 ML IVPB SCH (09:30)
[2017-02-24 09:56] LABS: AADO2 Arterial 144.6 mmHg (7.0-24.0); Arterial Base Excess -0.3 mmol/L (-3.0-3); Arterial COHb 0.2 % (0.0-3.0); Arterial Fraction of Oxyhgb 97.2 % (93.0-99.0); Arterial HCO3 22.4 mmol/L (22.0-26.0); Arterial MetHb 0.2 % (0.0-1.5); Arterial Total Hemglobin 9.1 g/dl (12.0-18.0); MODE VENT - AC
[2017-02-24] MEDS: ACCU-CHEK XX SCH ×15 (11:00→23:30)
[2017-02-24] MEDS: [UNRECOGNIZED DRUG - MIXTURE] IVPB SCH ×3 (11:02→21:00)
[2017-02-24] MEDS: POTASSIUM CHLORIDE 250 ML IVPB SCH ×2 (11:03→14:09)
[2017-02-24] MEDS: INSULIN HUMAN REGULAR 100 UNIT in SOD CHLORIDE 0.9% 99 ML IV SCH (11:07)
[2017-02-24] MEDS: CASPOFUNGIN 50 MG in SOD CHLORIDE 0.9% 250 ML IVPB SCH (11:20)
--- NOTE | 2017-02-24 11:40 | CONS ---
Date/Time of Note Date/Time of Note DATE: 02/24/17 TIME: 11:37 Assessment/Plan Assessment/Plan Additional Assessment/Plan Ventilator setting; AC of 16, tidal volume 500, PEEP of 5, 40% FiO2. Patient currently on propofol at 15 mics per kilogram per minute, TPN. Her graph assessment recommendations; 1. Patient admitted with bowel obstruction status post laparotomy with ileostomy. 2. Ileus. 3. Generalized deconditioning. With significant fluid overload. 4. Anemia. 5. Thrombocytopenia. Continue current treatment. Transfuse 1 unit packed RBC. Patient currently not in a position to be weaned off from mechanical ventilation as of yet. Consultation Date/Type/Reason Admit Date/Time Feb 20, 2017 at 19:33 Initial Consult Date 02/20/17 Type of Consultation: Pulmonary Referring Provider: CARL STEPHENS MD 24 HR Interval Summary Free Text/Dictation Patient's condition remains critical. Still requiring full invasive mechanical ventilation. General exam; elderly woman, orally intubated, awake and alert. Currently in no distress. Exam/Review of Systems Vital Signs Vitals Vital Signs Date Time Temp Pulse Resp B/P Pulse Ox O2 Delivery O2 Flow Rate FiO2 02/24/17 09:35 118 21 98 40 02/24/17 06:00 114/62 Mechanical Ventilator 02/24/17 04:00 98.3 02/21/17 23:52 2.0 Intake and Output 02/23/17 02/23/17 02/24/17 15:00 23:00 07:00 Intake Total 968.238 ml 1056.824 ml 977.221 ml Output Total 305 ml 425 ml 515 ml Balance 663.238 ml 631.824 ml 462.221 ml Exam HEENT exam; supple neck, no JVD. No lymphadenopathy. Midline trachea. No thyromegaly. Patient has bilateral intraocular lens implants. Orally intubated. Chest exam; clear to auscultation. S1-S2 audible, no murmurs. Regular rhythm. Tachycardic. Abdomen exam; soft, midline dressing in place. Bowel sounds are absent. Extremity exam; 2+ generalized edema. She does have multiple ecchymosis involving all 4 extremities. 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 Results Result Diagram: 02/24/17 0400 02/24/17 0400 Results 24 hrs Laboratory Tests Test 02/23/17 17:50 02/23/17 20:38 02/24/17 01:24 02/24/17 04:00 Lactic Acid Level 1.3 1.4 Iron Level 21 L Total Iron Binding Capacity 133 L Percent Iron Saturation 16 L Ferritin 289.0 H Vitamin B12 Level > 1000 H Bedside Glucose 191 222 H White Blood Count 3.9 #L Red Blood Count 2.62 L Hemoglobin 7.4 L Hematocrit 21.4 L Mean Corpuscular Volume 81.7 L Mean Corpuscular Hemoglobin 28.2 L Mean Corpuscular Hemoglobin Concent 34.6 Red Cell Distribution Width 17.5 H Platelet Count 39 L Mean Platelet Volume 12.3 H Neutrophils % 86.4 H Lymphocytes % 7.2 L Monocytes % 4.4 Eosinophils % 0.0 Basophils % 0.5 Nucleated Red Blood Cells % 1.0 H Neutrophils # 3.4 Lymphocytes # 0.3 L Monocytes # 0.2 L Eosinophils # 0.0 Basophils # 0.0 Nucleated Red Blood Cells # 0.0 Sodium Level 139 Potassium Level 3.0 L Chloride Level 110 Carbon Dioxide Level 24 Anion Gap 8 Blood Urea Nitrogen 36 H Creatinine 1.00 Glucose Level 237 H Calcium Level 7.7 L Phosphorus Level 3.6 Magnesium Level 1.9 Total Bilirubin 1.2 Direct Bilirubin 0.90 #H Indirect Bilirubin 0.3 Aspartate Amino Transf (AST/SGOT) 21 Alanine Aminotransferase (ALT/SGPT) 28 Alkaline Phosphatase 50 Total Protein 4.3 L Albumin 1.9 L Globulin 2.40 Albumin/Globulin Ratio 0.79 Test 02/24/17 05:19 02/24/17 05:32 02/24/17 07:00 02/24/17 09:11 Lab Scanned Report BLOOD TRANSFUSION Bedside Glucose 270 H 202 Blood Gas Specimen Source Blood arterial Arterial Blood Date Drawn 02/24/2017 8:40:45 AM Arterial Blood pH (Temp corrected) 7.502 H Arterial Blood pCO2 (Temp correct) 29.2 L Arterial Blood pO2 (Temp corrected) 107.0 H Arterial Blood HCO3 22.4 Arterial Blood Base Excess -0.3 Arterial Blood Oxygen Saturation 97.6 Jayce Test N/A Arterial Blood Gas Puncture Site A-Line Arterial Blood Carboxyhemoglobin 0.2 Arterial Blood Methemoglobin 0.2 Blood Gas A-a O2 Differential 144.6 H Oxyhemoglobin Percent 97.2 Total Hemoglobin 9.1 L Blood Gas Temperature 37.0 Blood Gas Respiration Rate 16.0 Blood Gas Actual Respiration Rate 21 Blood Gas Modality VENT - AC FiO2 40.0 Blood Gas Tidal Volume 500.0 Blood Gas Low PEEP Setting 5.0 Blood Gas Notified Whom LS Blood Gas Notified Time 02/24/2017 9:55:46 AM Test 02/24/17 11:01 Bedside Glucose 290 H Medications Medications Current Medications Dextrose (D50w Syringe) 100 ml ONCE PRN IV POC BLOOD GLUCOSE <250 MG/DL Last administered on 02/20/17 16:50; Admin Dose 100 ML; Start 02/20/17 at 16:30 Hydrocortisone (Solu-Cortef) 100 mg Q8 IV Last administered on 02/24/17 05:30 ; Admin Dose 100 MG; Start 02/20/17 at 22:00 IV Flush (NS 10 ml) 10 ml PRN PRN IV IV PROTOCOL; Start 02/20/17 at 19:30 Levothyroxine Sodium (Synthroid Iv) 50 mcg AM IV Last administered on 09:20; Admin Dose 50 MCG; Start 02/21/17 at 09:00 Enoxaparin Sodium (Lovenox) 40 mg DAILY SC Last administered on 02/24/17 09:22 ; Admin Dose 40 MG; Start 02/22/17 at 09:00 Acetaminophen/ Hydrocodone Bitart ([place] (5/325)) 1 tab Q4H PRN NGT pain; Start 02/21/17 at 17:00 Ondansetron HCl 4 mg 4 mg Q6H PRN IV NAUSEA; Start 02/21/17 at 23:30 Caspofungin 50 mg/ Sodium Chloride 250 ml @ 250 mls/hr Q24H IVPB Last administered on 02/24/17 11:20; Admin Dose 250 MLS/HR; Start 02/23/17 at 11:00 Propofol 100 ml @ 3.201 mls/ hr Q12H IV Last administered on 02/24/17 04:18; Admin Dose 9.603 MLS/HR; Start 02/22/17 at 14:30 Norepinephrine 16 mg/Dextrose 500 ml @ 0 mls/hr TITRATE IV Last administered on 02/23/17 03:24; Admin Dose 37.5 MLS/HR; Start 02/22/17 at 19:00 Dextrose/Sodium Chloride 1,000 ml @ 70 mls/hr [id number] IV Last administered on 02/23/17 23:23; Admin Dose 70 MLS/HR; Start 02/23/17 at 09:00 Meropenem/Sodium Chloride 50 ml @ 100 mls/hr Q12 IVPB Last administered on 09:21; Admin Dose 100 MLS/HR; Start 02/23/17 at 21:00 Total Parenteral Nutrition 1,000 ml @ 60 mls/hr [id number] IV Last administered on 02/23/17 21:43; Admin Dose 60 MLS/HR; Start 02/23/17 at 16:30 Potassium Chloride (KCl 40 MEQ/250 ML NS) 250 ml @ 62.5 mls/hr Q4H IVPB Last administered on 02/24/17 11:03; Admin Dose 62.5 MLS/HR; Start 02/24/17 at 09:30 ; Stop 02/24/17 at 17:29 Diagnostic Test (Pha) (Accu-Chek) 1 ea Q1H XX Last administered on 02/24/17 11 :08; Admin Dose 1 EA; Start 02/24/17 at 09:30 Dextrose 25 ml 25 ml Q15M PRN IV Till BS 80 mg/dL or above x2; Start 02/24/17 at 09:30 Quinupristin/ Dalfopristin/ Dextrose (Synercid/D5W) 250 ml @ 250 mls/hr Q8 IVPB Last administered on 02/24/17 11:02; Admin Dose 250 MLS/HR; Start at 10:30 TESHA MATA Feb 24, 2017 11:40
--- NOTE | 2017-02-24 13:14 | PN ---
Date/Time of Note Date/Time of Note DATE: 02/24/17 TIME: 13:12 Assessment/Plan Lines/Catheters IV Catheter Type (from Nrs): A Line Mojica in Place (from Nrs): Yes Assessment/Plan Assessment/Plan Bandemia resolved Second unit of packed cells to be infused Incision is clean and dry Ileostomy is viable and functioning Plan: Continue medical management Subjective 24 Hr Interval Summary Postoperative day #3 Remains intubated but appears more awake and alert Exam/Review of Systems Vital Signs Vitals Vital Signs Date Time Temp Pulse Resp B/P Pulse Ox O2 Delivery O2 Flow Rate FiO2 02/24/17 12:00 40 02/24/17 11:45 115 22 95 02/24/17 11:30 124/62 02/24/17 11:00 Mechanical Ventilator 02/24/17 08:00 98.5 02/21/17 23:52 2.0 Intake and Output 02/23/17 02/23/17 02/24/17 15:00 23:00 07:00 Intake Total 968.238 ml 1056.824 ml 1116.821 ml Output Total 305 ml 425 ml 515 ml Balance 663.238 ml 631.824 ml 601.821 ml Results Result Diagram: 02/24/170 02/24/17399 CARL STEPHENS MD Feb 24, 2017 13:14
--- NOTE | 2017-02-24 13:37 | PN ---
Date/Time of Note Date/Time of Note DATE: 02/24/17 TIME: 13:34 Assessment/Plan VTE Prophylaxis VTE Prophylaxis Intervention: LMWH Lines/Catheters IV Catheter Type (from Nrs): A Line Central line still needed: Yes Urinary Cath still in place: Yes Reason Cath still needed: urinary retention Assessment/Plan Chief Complaint/Hosp Course 71 yo female with PMR on chronic steroids, unclear seizure d/o, hypertension, obesity, recently discharged from [facility] following open appendectomy without complications who now returns with hypotension, hypoxia, acute encephelopathy, hyponatremia, hyperkalemia and acute renal failure. Found to have disrupted ileocolic anastomosis and intraabdominal infection. Now s/p resection and ileostomy NEURO: Acute encephelopathy: - 2/2 septic encephelopathy and adrenal insufficiency, monitor for improvement with treatment of both ENDO/RHEUM Polymyalgia rheumatica and chronic adrenal suppression from prednisone, now iatrogenic adrenal insufficiency - Stress hydrocortisone 100 q8h, wean as tolerated per Endocrine Hypothyroidism: - FT4 low, likely from poor absorption 2/2 ileus. Continue IV LT4 RENAL: LATRICE: - Improving Hyponatremia and hyperkalemia resolved PULM: Acute hypoxic respiratory failure: - Wean as able from mechanical ventilation GI: SBO, disrupted colonic anastamosis, now s/p resection and ileostomy - Management per Dr Haji - NG tube, bowel rest - TPN ID: Sepsis 2/2 intraabdominal infection, VRE bacteremia and yeast fungemiemia - Continue abx per ID: synercid and merrem - Caspofungin added for candidemia - Daily cultures Continue ICU care CC time > 35 minutes Problems: Subjective 24 Hr Interval Summary Free Text/Dictation On TPN Awake, alert and responsive to commands though still propofol Exam/Review of Systems Vital Signs Vitals Vital Signs Date Time Temp Pulse Resp B/P Pulse Ox O2 Delivery O2 Flow Rate FiO2 02/24/17 12:00 40 02/24/17 11:45 115 22 95 02/24/17 11:30 124/62 02/24/17 11:00 Mechanical Ventilator 02/24/17 08:00 98.5 02/21/17 23:52 2.0 Intake and Output 02/23/17 02/23/17 02/24/17 15:00 23:00 07:00 Intake Total 968.238 ml 1056.824 ml 1116.821 ml Output Total 305 ml 425 ml 515 ml Balance 663.238 ml 631.824 ml 601.821 ml Exam Intubated, NG tube to suction Awake and responsive to commands RRR, Lungs clear anteriorly Arms wtih ecchymosis b/l Abdomen wtih incision c/d/i, ileosotmy functionoing w stool output Edema present Results Result Diagram: 02/24/17 0400 02/24/17 0400 Results 24 hrs Laboratory Tests Test 02/23/17 17:50 02/23/17 20:38 02/24/17 01:24 02/24/17 04:00 Lactic Acid Level 1.3 1.4 Iron Level 21 L Total Iron Binding Capacity 133 L Percent Iron Saturation 16 L Ferritin 289.0 H Vitamin B12 Level > 1000 H Bedside Glucose 191 222 H White Blood Count 3.9 #L Red Blood Count 2.62 L Hemoglobin 7.4 L Hematocrit 21.4 L Mean Corpuscular Volume 81.7 L Mean Corpuscular Hemoglobin 28.2 L Mean Corpuscular Hemoglobin Concent 34.6 Red Cell Distribution Width 17.5 H Platelet Count 39 L Mean Platelet Volume 12.3 H Neutrophils % 86.4 H Lymphocytes % 7.2 L Monocytes % 4.4 Eosinophils % 0.0 Basophils % 0.5 Nucleated Red Blood Cells % 1.0 H Neutrophils # 3.4 Lymphocytes # 0.3 L Monocytes # 0.2 L Eosinophils # 0.0 Basophils # 0.0 Nucleated Red Blood Cells # 0.0 Sodium Level 139 Potassium Level 3.0 L Chloride Level 110 Carbon Dioxide Level 24 Anion Gap 8 Blood Urea Nitrogen 36 H Creatinine 1.00 Glucose Level 237 H Calcium Level 7.7 L Phosphorus Level 3.6 Magnesium Level 1.9 Total Bilirubin 1.2 Direct Bilirubin 0.90 #H Indirect Bilirubin 0.3 Aspartate Amino Transf (AST/SGOT) 21 Alanine Aminotransferase (ALT/SGPT) 28 Alkaline Phosphatase 50 Total Protein 4.3 L Albumin 1.9 L Globulin 2.40 Albumin/Globulin Ratio 0.79 Test 02/24/17 05:19 02/24/17 05:32 02/24/17 07:00 02/24/17 09:11 Lab Scanned Report BLOOD TRANSFUSION Bedside Glucose 270 H 202 Blood Gas Specimen Source Blood arterial Arterial Blood Date Drawn 02/24/2017 8:40:45 AM Arterial Blood pH (Temp corrected) 7.502 H Arterial Blood pCO2 (Temp correct) 29.2 L Arterial Blood pO2 (Temp corrected) 107.0 H Arterial Blood HCO3 22.4 Arterial Blood Base Excess -0.3 Arterial Blood Oxygen Saturation 97.6 Jayce Test N/A Arterial Blood Gas Puncture Site A-Line Arterial Blood Carboxyhemoglobin 0.2 Arterial Blood Methemoglobin 0.2 Blood Gas A-a O2 Differential 144.6 H Oxyhemoglobin Percent 97.2 Total Hemoglobin 9.1 L Blood Gas Temperature 37.0 Blood Gas Respiration Rate 16.0 Blood Gas Actual Respiration Rate 21 Blood Gas Modality VENT - AC FiO2 40.0 Blood Gas Tidal Volume 500.0 Blood Gas Low PEEP Setting 5.0 Blood Gas Notified Whom LS Blood Gas Notified Time 02/24/2017 9:55:46 AM Test 02/24/17 11:01 02/24/17 12:15 Bedside Glucose 290 H 311 H Medications Medications Current Medications Dextrose (D50w Syringe) 100 ml ONCE PRN IV POC BLOOD GLUCOSE <250 MG/DL Last administered on 02/20/17 16:50; Admin Dose 100 ML; Start 02/20/17 at 16:30 Hydrocortisone (Solu-Cortef) 100 mg Q8 IV Last administered on 02/24/17 05:30 ; Admin Dose 100 MG; Start 02/20/17 at 22:00 IV Flush (NS 10 ml) 10 ml PRN PRN IV IV PROTOCOL; Start 02/20/17 at 19:30 Levothyroxine Sodium (Synthroid Iv) 50 mcg AM IV Last administered on 09:20; Admin Dose 50 MCG; Start 02/21/17 at 09:00 Enoxaparin Sodium (Lovenox) 40 mg DAILY SC Last administered on 02/24/17 09:22 ; Admin Dose 40 MG; Start 02/22/17 at 09:00 Acetaminophen/ Hydrocodone Bitart ([place] (5/325)) 1 tab Q4H PRN NGT pain; Start 02/21/17 at 17:00 Ondansetron HCl 4 mg 4 mg Q6H PRN IV NAUSEA; Start 02/21/17 at 23:30 Caspofungin 50 mg/ Sodium Chloride 250 ml @ 250 mls/hr Q24H IVPB Last administered on 02/24/17 11:20; Admin Dose 250 MLS/HR; Start 02/23/17 at 11:00 Propofol 100 ml @ 3.201 mls/ hr Q12H IV Last administered on 02/24/17 04:18; Admin Dose 9.603 MLS/HR; Start 02/22/17 at 14:30 Norepinephrine 16 mg/Dextrose 500 ml @ 0 mls/hr TITRATE IV Last administered on 02/23/17 03:24; Admin Dose 37.5 MLS/HR; Start 02/22/17 at 19:00 Meropenem/Sodium Chloride 50 ml @ 100 mls/hr Q12 IVPB Last administered on 09:21; Admin Dose 100 MLS/HR; Start 02/23/17 at 21:00 Total Parenteral Nutrition 1,000 ml @ 60 mls/hr [id number] IV Last administered on 02/23/17 21:43; Admin Dose 60 MLS/HR; Start 02/23/17 at 16:30 Potassium Chloride (KCl 40 MEQ/250 ML NS) 250 ml @ 62.5 mls/hr Q4H IVPB Last administered on 02/24/17 11:03; Admin Dose 62.5 MLS/HR; Start 02/24/17 at 09:30 ; Stop 02/24/17 at 17:29 Diagnostic Test (Pha) (Accu-Chek) 1 ea Q1H XX Last administered on 02/24/17 12 :51; Admin Dose 1 EA; Start 02/24/17 at 09:30 Dextrose 25 ml 25 ml Q15M PRN IV Till BS 80 mg/dL or above x2; Start 02/24/17 at 09:30 Quinupristin/ Dalfopristin/ Dextrose (Synercid/D5W) 250 ml @ 250 mls/hr Q8 IVPB Last administered on 02/24/17 11:02; Admin Dose 250 MLS/HR; Start at 10:30 YAKELIN MCKEON MD Feb 24, 2017 13:37
--- NOTE | 2017-02-24 16:49 | CONS ---
Date/Time of Note Date/Time of Note DATE: 02/24/17 TIME: 16:40 Assessment/Plan Assessment/Plan Chief Complaint/Hosp Course Patient obtunded. History obtained by chart and medical personnel Problems: (1) Hypothyroidism Status: Chronic Comment: Continue IV Thyroxine until patient able to eat. Qualifiers: Hypothyroidism type: acquired Qualified Code: E03.9 - Acquired hypothyroidism (2) Iatrogenic adrenal insufficiency Status: Acute Comment: Continue Stress dose steroids until patient extubated then will attempt to wean dose down. (3) Hyperglycemia Status: Acute Comment: Currently on insulin drip. Requirements will likely decrease as steroid dose decreases. Consultation Date/Type/Reason Admit Date/Time Feb 20, 2017 at 19:33 Initial Consult Date 02/20/17 Type of Consultation: Endocrine Referring Provider: CARL STEPHENS MD 24 HR Interval Summary Free Text/Dictation POD #3 Subjective hx not possible: pt non-verbal (intubated) Exam/Review of Systems Vital Signs Vitals Vital Signs Date Time Temp Pulse Resp B/P Pulse Ox O2 Delivery O2 Flow Rate FiO2 02/24/17 15:54 113 23 100 40 02/24/17 15:30 123/71 Mechanical Ventilator 02/24/17 12:00 97.9 02/21/17 23:52 2.0 Intake and Output 02/23/17 02/23/17 02/24/17 15:00 23:00 07:00 Intake Total 968.238 ml 1056.824 ml 1116.821 ml Output Total 305 ml 425 ml 515 ml Balance 663.238 ml 631.824 ml 601.821 ml Exam Intubated and on propofol drip. Spontaneously opens eyes then falls back asleep Neck: supple Respiratory: clear to auscultation Cardiovascular: other (Sinus tachycardia) Gastrointestinal: soft Extremities: edema Results POC glucose reviewed Result Diagram: 02/24/17 0400 02/24/17 0400 Results 24 hrs Laboratory Tests Test 02/23/17 17:50 02/23/17 20:38 02/24/17 01:24 02/24/17 04:00 Lactic Acid Level 1.3 1.4 Iron Level 21 L Total Iron Binding Capacity 133 L Percent Iron Saturation 16 L Ferritin 289.0 H Vitamin B12 Level > 1000 H Bedside Glucose 191 222 H White Blood Count 3.9 #L Red Blood Count 2.62 L Hemoglobin 7.4 L Hematocrit 21.4 L Mean Corpuscular Volume 81.7 L Mean Corpuscular Hemoglobin 28.2 L Mean Corpuscular Hemoglobin Concent 34.6 Red Cell Distribution Width 17.5 H Platelet Count 39 L Mean Platelet Volume 12.3 H Neutrophils % 86.4 H Lymphocytes % 7.2 L Monocytes % 4.4 Eosinophils % 0.0 Basophils % 0.5 Nucleated Red Blood Cells % 1.0 H Neutrophils # 3.4 Lymphocytes # 0.3 L Monocytes # 0.2 L Eosinophils # 0.0 Basophils # 0.0 Nucleated Red Blood Cells # 0.0 Sodium Level 139 Potassium Level 3.0 L Chloride Level 110 Carbon Dioxide Level 24 Anion Gap 8 Blood Urea Nitrogen 36 H Creatinine 1.00 Glucose Level 237 H Calcium Level 7.7 L Phosphorus Level 3.6 Magnesium Level 1.9 Total Bilirubin 1.2 Direct Bilirubin 0.90 #H Indirect Bilirubin 0.3 Aspartate Amino Transf (AST/SGOT) 21 Alanine Aminotransferase (ALT/SGPT) 28 Alkaline Phosphatase 50 Total Protein 4.3 L Albumin 1.9 L Globulin 2.40 Albumin/Globulin Ratio 0.79 Test 02/24/17 05:19 02/24/17 05:32 02/24/17 07:00 02/24/17 09:11 Lab Scanned Report BLOOD TRANSFUSION Bedside Glucose 270 H 202 Blood Gas Specimen Source Blood arterial Arterial Blood Date Drawn 02/24/2017 8:40:45 AM Arterial Blood pH (Temp corrected) 7.502 H Arterial Blood pCO2 (Temp correct) 29.2 L Arterial Blood pO2 (Temp corrected) 107.0 H Arterial Blood HCO3 22.4 Arterial Blood Base Excess -0.3 Arterial Blood Oxygen Saturation 97.6 Jayce Test N/A Arterial Blood Gas Puncture Site A-Line Arterial Blood Carboxyhemoglobin 0.2 Arterial Blood Methemoglobin 0.2 Blood Gas A-a O2 Differential 144.6 H Oxyhemoglobin Percent 97.2 Total Hemoglobin 9.1 L Blood Gas Temperature 37.0 Blood Gas Respiration Rate 16.0 Blood Gas Actual Respiration Rate 21 Blood Gas Modality VENT - AC FiO2 40.0 Blood Gas Tidal Volume 500.0 Blood Gas Low PEEP Setting 5.0 Blood Gas Notified Whom LS Blood Gas Notified Time 02/24/2017 9:55:46 AM Test 02/24/17 11:01 02/24/17 12:15 02/24/17 13:20 02/24/17 14:01 Bedside Glucose 290 H 311 H 257 H 219 Test 02/24/17 14:46 02/24/17 16:02 Bedside Glucose 189 199 Medications Medications Current Medications Dextrose (D50w Syringe) 100 ml ONCE PRN IV POC BLOOD GLUCOSE <250 MG/DL Last administered on 02/20/17 16:50; Admin Dose 100 ML; Start 02/20/17 at 16:30 Hydrocortisone (Solu-Cortef) 100 mg Q8 IV Last administered on 02/24/17 14:08 ; Admin Dose 100 MG; Start 02/20/17 at 22:00 IV Flush (NS 10 ml) 10 ml PRN PRN IV IV PROTOCOL; Start 02/20/17 at 19:30 Levothyroxine Sodium (Synthroid Iv) 50 mcg AM IV Last administered on 09:20; Admin Dose 50 MCG; Start 02/21/17 at 09:00 Enoxaparin Sodium (Lovenox) 40 mg DAILY SC Last administered on 02/24/17 09:22 ; Admin Dose 40 MG; Start 02/22/17 at 09:00 Acetaminophen/ Hydrocodone Bitart ([place] (5/325)) 1 tab Q4H PRN NGT pain; Start 02/21/17 at 17:00 Ondansetron HCl 4 mg 4 mg Q6H PRN IV NAUSEA; Start 02/21/17 at 23:30 Caspofungin 50 mg/ Sodium Chloride 250 ml @ 250 mls/hr Q24H IVPB Last administered on 02/24/17 11:20; Admin Dose 250 MLS/HR; Start 02/23/17 at 11:00 Propofol 100 ml @ 3.201 mls/ hr Q12H IV Last administered on 02/24/17 15:58; Admin Dose 9.603 MLS/HR; Start 02/22/17 at 14:30 Norepinephrine 16 mg/Dextrose 500 ml @ 0 mls/hr TITRATE IV Last administered on 02/23/17 03:24; Admin Dose 37.5 MLS/HR; Start 02/22/17 at 19:00 Meropenem/Sodium Chloride 50 ml @ 100 mls/hr Q12 IVPB Last administered on 09:21; Admin Dose 100 MLS/HR; Start 02/23/17 at 21:00 Total Parenteral Nutrition 1,000 ml @ 60 mls/hr [id number] IV Last administered on 02/23/17 21:43; Admin Dose 60 MLS/HR; Start 02/23/17 at 16:30 Potassium Chloride (KCl 40 MEQ/250 ML NS) 250 ml @ 62.5 mls/hr Q4H IVPB Last administered on 02/24/17 14:09; Admin Dose 62.5 MLS/HR; Start 02/24/17 at 09:30 ; Stop 02/24/17 at 17:29 Diagnostic Test (Pha) (Accu-Chek) 1 ea Q1H XX Last administered on 02/24/17 16 :00; Admin Dose 1 EA; Start 02/24/17 at 09:30 Dextrose 25 ml 25 ml Q15M PRN IV Till BS 80 mg/dL or above x2; Start 02/24/17 at 09:30 Quinupristin/ Dalfopristin/ Dextrose (Synercid/D5W) 250 ml @ 250 mls/hr Q8 IVPB Last administered on 02/24/17 15:59; Admin Dose 250 MLS/HR; Start at 10:30 KAVON DANGELO MD Feb 24, 2017 16:49
--- NOTE | 2017-02-24 18:09 | CONS ---
Date/Time of Note Date/Time of Note DATE: 02/24/17 TIME: 18:07 Assessment/Plan Assessment/Plan Additional Assessment/Plan 1. Acute kidney injury mutlifactorial due to Prerenal azotemia + ATN From septic shock 2. Acute encephalopathy metabolic 3. SBO, disrupted colonic anastomosis, s/p Exp lap, resection and ileostomy on 4. H/o Polymyalgia rheumatica on Steroids 5. H/o recent right hemicolectomy for perforated diverticulitis 6. Hyperkalemia acute, Hyponatremia 7. acute hypoxic respiratory failure 8. adrenal crisis- On IV dexamethasone Plan: conitnue Hydrocrotisoen 100mg IV Q 8 hr for adrenal insufficiency IV abx sepsis. renally dose antibiotics cancidas, Zyvox s/p surgery, G surgery following D/leeroy IV fluids, Bp stable, Cr normal today K low- already repalced with KCl 40mEQ iv x 1 Will follow up Prognosis guarded, need family meeting to discuss goals of care. Consultation Date/Type/Reason Admit Date/Time Feb 20, 2017 at 19:33 Initial Consult Date 02/20/17 Type of Consultation: NEPHROLOGY Referring Provider: CARL STEPHENS MD 24 HR Interval Summary Free Text/Dictation pt remains intubated, Cr and electrolytes stable, BP stable, afebrile Exam/Review of Systems Vital Signs Vitals Vital Signs Date Time Temp Pulse Resp B/P Pulse Ox O2 Delivery O2 Flow Rate FiO2 02/24/17 16:00 100 02/24/17 15:54 23 100 40 02/24/17 15:30 123/71 Mechanical Ventilator 02/24/17 12:00 97.9 02/21/17 23:52 2.0 Intake and Output 02/23/17 02/23/17 02/24/17 15:00 23:00 07:00 Intake Total 968.238 ml 1056.824 ml 1116.821 ml Output Total 305 ml 425 ml 515 ml Balance 663.238 ml 631.824 ml 601.821 ml Results Result Diagram: 02/24/17 0400 02/24/17 0400 Results 24 hrs Laboratory Tests Test 02/23/17 20:38 02/24/17 01:24 02/24/17 04:00 02/24/17 05:19 Bedside Glucose 191 222 H White Blood Count 3.9 #L Red Blood Count 2.62 L Hemoglobin 7.4 L Hematocrit 21.4 L Mean Corpuscular Volume 81.7 L Mean Corpuscular Hemoglobin 28.2 L Mean Corpuscular Hemoglobin Concent 34.6 Red Cell Distribution Width 17.5 H Platelet Count 39 L Mean Platelet Volume 12.3 H Neutrophils % 86.4 H Lymphocytes % 7.2 L Monocytes % 4.4 Eosinophils % 0.0 Basophils % 0.5 Nucleated Red Blood Cells % 1.0 H Neutrophils # 3.4 Lymphocytes # 0.3 L Monocytes # 0.2 L Eosinophils # 0.0 Basophils # 0.0 Nucleated Red Blood Cells # 0.0 Sodium Level 139 Potassium Level 3.0 L Chloride Level 110 Carbon Dioxide Level 24 Anion Gap 8 Blood Urea Nitrogen 36 H Creatinine 1.00 Glucose Level 237 H Lactic Acid Level 1.4 Calcium Level 7.7 L Phosphorus Level 3.6 Magnesium Level 1.9 Total Bilirubin 1.2 Direct Bilirubin 0.90 #H Indirect Bilirubin 0.3 Aspartate Amino Transf (AST/SGOT) 21 Alanine Aminotransferase (ALT/SGPT) 28 Alkaline Phosphatase 50 Total Protein 4.3 L Albumin 1.9 L Globulin 2.40 Albumin/Globulin Ratio 0.79 Lab Scanned Report BLOOD TRANSFUSION Test 02/24/17 05:32 02/24/17 07:00 02/24/17 09:11 02/24/17 11:01 Bedside Glucose 270 H 202 290 H Blood Gas Specimen Source Blood arterial Arterial Blood Date Drawn 02/24/2017 8:40:45 AM Arterial Blood pH (Temp corrected) 7.502 H Arterial Blood pCO2 (Temp correct) 29.2 L Arterial Blood pO2 (Temp corrected) 107.0 H Arterial Blood HCO3 22.4 Arterial Blood Base Excess -0.3 Arterial Blood Oxygen Saturation 97.6 Jayce Test N/A Arterial Blood Gas Puncture Site A-Line Arterial Blood Carboxyhemoglobin 0.2 Arterial Blood Methemoglobin 0.2 Blood Gas A-a O2 Differential 144.6 H Oxyhemoglobin Percent 97.2 Total Hemoglobin 9.1 L Blood Gas Temperature 37.0 Blood Gas Respiration Rate 16.0 Blood Gas Actual Respiration Rate 21 Blood Gas Modality VENT - AC FiO2 40.0 Blood Gas Tidal Volume 500.0 Blood Gas Low PEEP Setting 5.0 Blood Gas Notified Whom LS Blood Gas Notified Time 02/24/2017 9:55:46 AM Test 02/24/17 12:15 02/24/17 13:20 02/24/17 14:01 02/24/17 14:46 Bedside Glucose 311 H 257 H 219 189 Test 02/24/17 16:02 02/24/17 16:57 Bedside Glucose 199 174 Medications Medications Current Medications Dextrose (D50w Syringe) 100 ml ONCE PRN IV POC BLOOD GLUCOSE <250 MG/DL Last administered on 02/20/17 16:50; Admin Dose 100 ML; Start 02/20/17 at 16:30 Hydrocortisone (Solu-Cortef) 100 mg Q8 IV Last administered on 02/24/17 14:08 ; Admin Dose 100 MG; Start 02/20/17 at 22:00 IV Flush (NS 10 ml) 10 ml PRN PRN IV IV PROTOCOL; Start 02/20/17 at 19:30 Levothyroxine Sodium (Synthroid Iv) 50 mcg AM IV Last administered on 09:20; Admin Dose 50 MCG; Start 02/21/17 at 09:00 Enoxaparin Sodium (Lovenox) 40 mg DAILY SC Last administered on 02/24/17 09:22 ; Admin Dose 40 MG; Start 02/22/17 at 09:00 Acetaminophen/ Hydrocodone Bitart ([place] (5/325)) 1 tab Q4H PRN NGT pain; Start 02/21/17 at 17:00 Ondansetron HCl 4 mg 4 mg Q6H PRN IV NAUSEA; Start 02/21/17 at 23:30 Caspofungin 50 mg/ Sodium Chloride 250 ml @ 250 mls/hr Q24H IVPB Last administered on 02/24/17 11:20; Admin Dose 250 MLS/HR; Start 02/23/17 at 11:00 Propofol 100 ml @ 3.201 mls/ hr Q12H IV Last administered on 02/24/17 15:58; Admin Dose 9.603 MLS/HR; Start 02/22/17 at 14:30 Norepinephrine 16 mg/Dextrose 500 ml @ 0 mls/hr TITRATE IV Last administered on 02/23/17 03:24; Admin Dose 37.5 MLS/HR; Start 02/22/17 at 19:00 Meropenem/Sodium Chloride 50 ml @ 100 mls/hr Q12 IVPB Last administered on 09:21; Admin Dose 100 MLS/HR; Start 02/23/17 at 21:00 Total Parenteral Nutrition (Tpn) 1,000 ml @ 60 mls/hr [id number] IV Last administered on 02/23/17 21:43; Admin Dose 60 MLS/HR; Start 02/23/17 at 16:30 Diagnostic Test (Pha) (Accu-Chek) 1 ea Q1H XX Last administered on 02/24/17 16 :58; Admin Dose 1 EA; Start 02/24/17 at 09:30 Dextrose 25 ml 25 ml Q15M PRN IV Till BS 80 mg/dL or above x2; Start 02/24/17 at 09:30 Quinupristin/ Dalfopristin/ Dextrose (Synercid/D5W) 250 ml @ 250 mls/hr Q8 IVPB Last administered on 02/24/17 15:59; Admin Dose 250 MLS/HR; Start at 10:30 ARIK MCKEON MD Feb 24, 2017 18:09
[2017-02-25] VITALS (48 sets, daily range): BP systolic 114–140; BP diastolic 54–73; PULSE 75–120; RESP 19–29
[2017-02-25] MEDS: ACCU-CHEK XX SCH ×24 (00:37→23:30)
[2017-02-25] MEDS: PROPOFOL 100 ML IV SCH ×3 (01:56→21:27)
[2017-02-25] MEDS: TPN 1,000 ML IV SCH ×2 (01:56→18:06)
[2017-02-25 04:54] LABS: ABNORMAL IP MESSAGE 1; HEMATOCRIT 25.9 % (37.0-47.0); HEMOGLOBIN 8.9 g/dl (12.0-16.0); MEAN CORPUSCULAR HEMOGLOBIN 28.2 pg (29.0-33.0); MEAN CORPUSCULAR HGB CONC 34.4 g/dl (32.0-37.0); MEAN PLATELET VOLUME 12.2 fl (7.4-10.4); NUCLEATED RED BLOOD CELLS% 1.7 /100WBC (0.0-0.0); PLATELET COUNT 66 10^3/UL (140-415); RED BLOOD COUNT 3.16 10^6/ul (4.20-5.40); WHITE BLOOD COUNT 6.9 10^3/ul (4.8-10.8)
[2017-02-25 05:10] LABS: POSITIVE DIFF @See below
[2017-02-25 05:11] LABS: MAGNESIUM 1.7 mg/dl (1.7-2.5); PHOSPHORUS 2.5 mg/dl (2.5-4.9)
[2017-02-25 05:16] LABS: ALBUMIN 1.9 g/dl (3.3-4.9); ALBUMIN/GLOBULIN RATIO 0.67; BILIRUBIN,DIRECT 2.2 mg/dl (0.00-0.20); BILIRUBIN,INDIRECT 0.4 mg/dl (0-1.1); BILIRUBIN,TOTAL 2.6 mg/dl (0.2-1.3); CALCIUM 8.2 mg/dl (8.4-10.2); CREATININE 0.81 mg/dl (0.44-1.00); POTASSIUM 3.3 mmol/L (3.5-5.1); TOTAL PROTEIN 4.7 g/dl (6.1-8.1)
--- NOTE | 2017-02-25 06:00 | PN ---
DATE: 02/23/2017 SUBJECTIVE DATA: Patient is lying comfortably in bed. She is off pressors, intubated, sedated, opens eyes to stimulation and looks comfortable. LABORATORY AND DIAGNOSTIC DATA: WBC 3.9, H and H 7.4 and 21.4, platelets 39,000, neutrophils 86.4. BUN 36, creatinine 1.0. MICROBIOLOGY: Blood culture growing VRE and Laisha glabrata. Urine culture negative. DIAGNOSTICS: Chest x-ray this morning revealed improved aeration of the left lung base. INDWELLINGS: Endotracheal tube, NG tube, Mojica catheter, left upper extremity PICC line. ANTIMICROBIALS: Patient is on Synercid, Cancidas, meropenem. PHYSICAL EXAMINATION: VITAL SIGNS: Temperature 98.5, pulse 115, respirations 22, blood pressure 124/62, saturation 95 on 40 FiO2. GENERAL: Morbidly obese elderly white woman who is in no distress. HEENT: Head atraumatic, normocephalic. Sclerae anicteric. Buccal mucosa dry. NECK: Supple. Neck is obese. Trachea midline. CHEST: Rise symmetrical. Breath sounds diminished at the bases. HEART: S1, S2. ABDOMEN: Obese, distended. Bowel sounds hypoactive. EXTREMITIES: With bilateral edema. ASSESSMENT: 1. Severe sepsis with shock, improving. Patient is off pressors. 2. Polymicrobial bacteremia with fungemia secondary to #3. 3. History of open appendectomy complicated by peritonitis secondary to anastomotic leak, status post exploratory laparotomy with ileostomy on February 21, 2017. 4. Possible healthcare associated pneumonia. 5. Acute renal failure. 6. Anemia with progressive thrombocytopenia. PLAN: Patient remains stable off pressors covered with appropriate antimicrobials. Continue present care. Follow recommendations of consultants. Dictated By: Mk Kimball NP /louie/rayo /Document#: [id number]
[2017-02-25] MEDS: [UNRECOGNIZED DRUG - MIXTURE] IVPB SCH ×3 (06:03→21:44)
[2017-02-25] MEDS: HYDROCORTISONE 100 MG INJ IV SCH ×3 (06:03→21:43)
[2017-02-25 08:41] LABS: ANISOCYTOSIS 1+ (0-0); BURR CELLS 2+ (0-0); ERYTHROBLAST% (NRBC) (M) 16 % (0-0); GIANT THROMBO% (M) 13 % (0-0); HYPOCHROMASIA 1+ (0-0); METAMYELOCYTES %M 2 % (0-0); MONOCYTES % (M) 10 % (0-11); PLATELET ESTIMATE DECREASED; POIKILOCYTOSIS 2+ (0-0); PROMYELOCYTES #M 0 10^3/ul (0-0); PROMYELOCYTES % (M) 1 % (0-0)
--- NOTE | 2017-02-25 09:02 | PN ---
Date/Time of Note Date/Time of Note DATE: 02/25/17 TIME: 09:00 Assessment/Plan Lines/Catheters IV Catheter Type (from Nrs): Saline Lock Mojica in Place (from Nrs): Yes Assessment/Plan Assessment/Plan Azotemia resolving Ileostomy remains viable and functioning Plan: Continued aggressive medical management Subjective 24 Hr Interval Summary Postoperative day #4 Patient remains intubated Exam/Review of Systems Vital Signs Vitals Vital Signs Date Time Temp Pulse Resp B/P Pulse Ox O2 Delivery O2 Flow Rate FiO2 02/25/17 07:42 110 24 95 30 02/25/17 06:00 135/60 Mechanical Ventilator 02/25/17 04:00 98.2 02/21/17 23:52 2.0 Intake and Output 02/24/17 02/24/17 02/25/17 15:00 23:00 07:00 Intake Total 1731.3 ml 1182.312 ml 713.824 ml Output Total 660 ml 495 ml 530 ml Balance 1071.3 ml 687.312 ml 183.824 ml Results Result Diagram: 02/25/170 02/25/17 0400 CARL STEPHENS MD Feb 25, 2017 09:02
[2017-02-25] MEDS: LEVOTHYROXINE 100 MCG VIAL IV SCH (10:12)
[2017-02-25] MEDS: ENOXAPARIN 40 MG/0.4 ML SYG SC SCH (10:13)
[2017-02-25] MEDS: MEROPENEM 500MG/50 ML (PMX) 50 ML IVPB SCH ×2 (10:13→21:26)
[2017-02-25] MEDS: INSULIN HUMAN REGULAR 100 UNIT in SOD CHLORIDE 0.9% 99 ML IV SCH ×2 (10:14→22:17)
--- NOTE | 2017-02-25 11:29 | CONS ---
Date/Time of Note Date/Time of Note DATE: 02/25/17 TIME: 11:24 Assessment/Plan Assessment/Plan Additional Assessment/Plan Patient currently on insulin drip at 7 U/h, propofol 15 mics per kilogram per minute. Ventilator settings; noted. Assessment and recommendations; 1. Patient admitted with bowel obstruction status post laparotomy with ileostomy. As well as J-tube placement. 2. Diabetes, requiring insulin drip. 3. Anemia and thrombocytopenia. 4. History of hypo-thyroidism. 5. Generalized anasarca. 6. Persistent respiratory failure. Continue current treatment. Add albumin with Lasix. 25 g IV every 8 hours followed by Lasix 40 mg IV every 12 hours at least for 4 doses each. Obtain follow-up chest x-ray in 24 hours. 35 minutes of critical care time was spent evaluating the patient. Consultation Date/Type/Reason Admit Date/Time Feb 20, 2017 at 19:33 Initial Consult Date 02/20/17 Type of Consultation: Pulmonary/critical care Referring Provider: CARL STEPHENS MD 24 HR Interval Summary Free Text/Dictation Patient's condition remains critical. Despite being on sedation patient is awake and responsive appropriately. Has remained hemodynamically stable. General exam; elderly woman, orally intubated, awake, currently in no distress. Exam/Review of Systems Vital Signs Vitals Vital Signs Date Time Temp Pulse Resp B/P Pulse Ox O2 Delivery O2 Flow Rate FiO2 02/25/17 09:43 118 27 95 30 02/25/17 06:00 135/60 Mechanical Ventilator 02/25/17 04:00 98.2 02/21/17 23:52 2.0 Intake and Output 02/24/17 02/24/17 02/25/17 15:00 23:00 07:00 Intake Total 1731.3 ml 1182.312 ml 713.824 ml Output Total 660 ml 495 ml 530 ml Balance 1071.3 ml 687.312 ml 183.824 ml Exam HEENT exam; supple neck, positive JVD. No lymphadenopathy. Midline trachea. No thyromegaly. Orally intubated. Has bilateral intraocular lens implants. Patient has fair dentition. Chest exam; diminished but clear breath sounds. S1-S2 audible, no murmurs. Regular rhythm. Abdomen exam; distended, midline dressing in place. Bowel sounds are very sluggish. Extremity exam; 3+ generalized anasarca. PATIENT CARE TECHNICIAN exam; patient awake and follows simple commands. Results Result Diagram: 02/25/17 0400 02/25/17 0400 Results 24 hrs Laboratory Tests Test 02/24/17 12:15 02/24/17 13:20 02/24/17 14:01 02/24/17 14:46 Bedside Glucose 311 H 257 H 219 189 Test 02/24/17 16:02 02/24/17 16:57 02/24/17 18:19 02/24/17 18:52 Bedside Glucose 199 174 174 175 Test 02/24/17 19:55 02/24/17 21:15 02/24/17 22:17 02/24/17 23:05 Bedside Glucose 169 152 168 163 Test 02/24/17 23:55 02/25/17 01:07 02/25/17 02:06 02/25/17 03:57 Bedside Glucose 171 157 159 200 Test 02/25/17 04:00 02/25/17 05:09 02/25/17 05:32 02/25/17 06:00 White Blood Count 6.9 # Red Blood Count 3.16 #L Hemoglobin 8.9 #L Hematocrit 25.9 #L Mean Corpuscular Volume 82.0 Mean Corpuscular Hemoglobin 28.2 L Mean Corpuscular Hemoglobin Concent 34.4 Red Cell Distribution Width 18.0 H Platelet Count 66 #L Mean Platelet Volume 12.2 H Neutrophils % Segmented Neutrophils % (Manual) 65 Band Neutrophils % (Manual) 5 H Lymphocytes % Lymphocytes % (Manual) 17 Monocytes % Monocytes % (Manual) 10 Eosinophils % Basophils % Metamyelocytes % (manual) 2 H Promyelocytes % (Manual) 1 H Nucleated Red Blood Cells % 16 H Neutrophils # Neutrophils # (Manual) 4.5 Band Neutrophils # 0.3 Absolute Lymphocytes (Manual) 1.1 Lymphocytes # Monocytes # Absolute Monocytes (Manual) 0.6 Eosinophils # Basophils # Metamyelocytes # 0.1 H Promyelocytes # 0 Nucleated Red Blood Cells # Platelet Estimate DECREASED Giant Platelets 13 H Hypochromasia 1+ Poikilocytosis 2+ Anisocytosis 1+ Sodium Level 139 Potassium Level 3.3 L Chloride Level 110 Carbon Dioxide Level 25 Anion Gap 7 L Blood Urea Nitrogen 31 H Creatinine 0.81 Glucose Level 182 Calcium Level 8.2 L Phosphorus Level 2.5 Magnesium Level 1.7 Total Bilirubin 2.6 H Direct Bilirubin 2.20 #H Indirect Bilirubin 0.4 Aspartate Amino Transf (AST/SGOT) 40 Alanine Aminotransferase (ALT/SGPT) 38 Alkaline Phosphatase 63 Total Protein 4.7 L Albumin 1.9 L Globulin 2.80 Albumin/Globulin Ratio 0.67 Bedside Glucose 193 188 Lab Scanned Report BLOOD TRANSFUSION Test 02/25/17 06:57 02/25/17 08:02 02/25/17 09:12 02/25/17 10:12 Bedside Glucose 236 H 180 164 175 Medications Medications Current Medications Dextrose (D50w Syringe) 100 ml ONCE PRN IV POC BLOOD GLUCOSE <250 MG/DL Last administered on 02/20/17 16:50; Admin Dose 100 ML; Start 02/20/17 at 16:30 Hydrocortisone (Solu-Cortef) 100 mg Q8 IV Last administered on 02/25/17 06:03 ; Admin Dose 100 MG; Start 02/20/17 at 22:00 IV Flush (NS 10 ml) 10 ml PRN PRN IV IV PROTOCOL; Start 02/20/17 at 19:30 Levothyroxine Sodium (Synthroid Iv) 50 mcg AM IV Last administered on 10:12; Admin Dose 50 MCG; Start 02/21/17 at 09:00 Enoxaparin Sodium (Lovenox) 40 mg DAILY SC Last administered on 02/25/17 10:13 ; Admin Dose 40 MG; Start 02/22/17 at 09:00 Acetaminophen/ Hydrocodone Bitart ([place] (5/325)) 1 tab Q4H PRN NGT pain; Start 02/21/17 at 17:00 Ondansetron HCl 4 mg 4 mg Q6H PRN IV NAUSEA; Start 02/21/17 at 23:30 Caspofungin 50 mg/ Sodium Chloride 250 ml @ 250 mls/hr Q24H IVPB Last administered on 02/24/17 11:20; Admin Dose 250 MLS/HR; Start 02/23/17 at 11:00 Propofol 100 ml @ 3.201 mls/ hr Q12H IV Last administered on 02/25/17 01:56; Admin Dose 9.603 MLS/HR; Start 02/22/17 at 14:30 Norepinephrine 16 mg/Dextrose 500 ml @ 0 mls/hr TITRATE IV Last administered on 02/23/17 03:24; Admin Dose 37.5 MLS/HR; Start 02/22/17 at 19:00 Meropenem/Sodium Chloride 50 ml @ 100 mls/hr Q12 IVPB Last administered on 10:13; Admin Dose 100 MLS/HR; Start 02/23/17 at 21:00 Total Parenteral Nutrition (Tpn) 1,000 ml @ 60 mls/hr [id number] IV Last administered on 02/25/17 01:56; Admin Dose 60 MLS/HR; Start 02/23/17 at 16:30 Diagnostic Test (Pha) (Accu-Chek) 1 ea Q1H XX Last administered on 02/25/17 10 :39; Admin Dose 1 EA; Start 02/24/17 at 09:30 Dextrose 25 ml 25 ml Q15M PRN IV Till BS 80 mg/dL or above x2; Start 02/24/17 at 09:30 Quinupristin/ Dalfopristin/ Dextrose (Synercid/D5W) 250 ml @ 250 mls/hr Q8 IVPB Last administered on 02/25/17 06:03; Admin Dose 250 MLS/HR; Start at 10:30 TESHA MATA Feb 25, 2017 11:29
[2017-02-25] MEDS: CASPOFUNGIN 50 MG in SOD CHLORIDE 0.9% 250 ML IVPB SCH (11:58)
[2017-02-25] MEDS: ALBUMIN HUMAN 25% 100 ML IV SCH ×2 (11:59→18:31)
[2017-02-25] MEDS: FUROSEMIDE 40 MG INJ IV SCH ×2 (11:59→18:06)
--- NOTE | 2017-02-25 13:16 | CONS ---
Date/Time of Note Date/Time of Note DATE: 02/25/17 TIME: 13:12 Assessment/Plan Assessment/Plan Additional Assessment/Plan 1. Acute kidney injury mutlifactorial due to Prerenal azotemia + ATN From septic shock 2. Acute encephalopathy metabolic 3. SBO, disrupted colonic anastomosis, s/p Exp lap, resection and ileostomy on 4. H/o Polymyalgia rheumatica on Steroids 5. H/o recent right hemicolectomy for perforated diverticulitis 6. Hyperkalemia acute, Hyponatremia 7. acute hypoxic respiratory failure 8. adrenal crisis- On IV dexamethasone 9. Hypokalemia Plan: continue Hydrocortisone - decreased to 50 mg IV Q 8 hr for adrenal insufficiency - pt is on insulin gtt for hyperglycemia propofol gtt for sedatin, ventilator care as per pulmonary agree with diuresis with IV albumin and lasix 40mg IV BID IV abx sepsis. renally dose antibiotics cancidas, Zyvox s/p surgery, G surgery following K low, Cr normal today replace K as needed Prognosis guarded, need family meeting to discuss goals of care. Consultation Date/Type/Reason Admit Date/Time Feb 20, 2017 at 19:33 Initial Consult Date 02/20/17 Type of Consultation: NEPHROLOGY Referring Provider: CARL STEPHENS MD 24 HR Interval Summary Free Text/Dictation remains intubated, edematous, congested, on insulin gtt and propofol gtt Exam/Review of Systems Vital Signs Vitals Vital Signs Date Time Temp Pulse Resp B/P Pulse Ox O2 Delivery O2 Flow Rate FiO2 02/25/17 11:23 115 27 95 30 02/25/17 06:00 135/60 Mechanical Ventilator 02/25/17 04:00 98.2 02/21/17 23:52 2.0 Intake and Output 02/24/17 02/24/17 02/25/17 15:00 23:00 07:00 Intake Total 1731.3 ml 1182.312 ml 713.824 ml Output Total 660 ml 495 ml 530 ml Balance 1071.3 ml 687.312 ml 183.824 ml Results Result Diagram: 02/25/17 0400 02/25/17 0400 Results 24 hrs Laboratory Tests Test 02/24/17 13:20 02/24/17 14:01 02/24/17 14:46 02/24/17 16:02 Bedside Glucose 257 H 219 189 199 Test 02/24/17 16:57 02/24/17 18:19 02/24/17 18:52 02/24/17 19:55 Bedside Glucose 174 174 175 169 Test 02/24/17 21:15 02/24/17 22:17 02/24/17 23:05 02/24/17 23:55 Bedside Glucose 152 168 163 171 Test 02/25/17 01:07 02/25/17 02:06 02/25/17 03:57 02/25/17 04:00 Bedside Glucose 157 159 200 White Blood Count 6.9 # Red Blood Count 3.16 #L Hemoglobin 8.9 #L Hematocrit 25.9 #L Mean Corpuscular Volume 82.0 Mean Corpuscular Hemoglobin 28.2 L Mean Corpuscular Hemoglobin Concent 34.4 Red Cell Distribution Width 18.0 H Platelet Count 66 #L Mean Platelet Volume 12.2 H Neutrophils % Segmented Neutrophils % (Manual) 65 Band Neutrophils % (Manual) 5 H Lymphocytes % Lymphocytes % (Manual) 17 Monocytes % Monocytes % (Manual) 10 Eosinophils % Basophils % Metamyelocytes % (manual) 2 H Promyelocytes % (Manual) 1 H Nucleated Red Blood Cells % 16 H Neutrophils # Neutrophils # (Manual) 4.5 Band Neutrophils # 0.3 Absolute Lymphocytes (Manual) 1.1 Lymphocytes # Monocytes # Absolute Monocytes (Manual) 0.6 Eosinophils # Basophils # Metamyelocytes # 0.1 H Promyelocytes # 0 Nucleated Red Blood Cells # Platelet Estimate DECREASED Giant Platelets 13 H Hypochromasia 1+ Poikilocytosis 2+ Anisocytosis 1+ Sodium Level 139 Potassium Level 3.3 L Chloride Level 110 Carbon Dioxide Level 25 Anion Gap 7 L Blood Urea Nitrogen 31 H Creatinine 0.81 Glucose Level 182 Calcium Level 8.2 L Phosphorus Level 2.5 Magnesium Level 1.7 Total Bilirubin 2.6 H Direct Bilirubin 2.20 #H Indirect Bilirubin 0.4 Aspartate Amino Transf (AST/SGOT) 40 Alanine Aminotransferase (ALT/SGPT) 38 Alkaline Phosphatase 63 Total Protein 4.7 L Albumin 1.9 L Globulin 2.80 Albumin/Globulin Ratio 0.67 Test 02/25/17 05:09 02/25/17 05:32 02/25/17 06:00 02/25/17 06:57 Bedside Glucose 193 188 236 H Lab Scanned Report BLOOD TRANSFUSION Test 02/25/17 08:02 02/25/17 09:12 02/25/17 10:12 02/25/17 11:24 Bedside Glucose 180 164 175 163 Test 02/25/17 12:01 Bedside Glucose 165 Medications Medications Current Medications Dextrose (D50w Syringe) 100 ml ONCE PRN IV POC BLOOD GLUCOSE <250 MG/DL Last administered on 02/20/17 16:50; Admin Dose 100 ML; Start 02/20/17 at 16:30 Hydrocortisone (Solu-Cortef) 100 mg Q8 IV Last administered on 02/25/17 06:03 ; Admin Dose 100 MG; Start 02/20/17 at 22:00 IV Flush (NS 10 ml) 10 ml PRN PRN IV IV PROTOCOL; Start 02/20/17 at 19:30 Levothyroxine Sodium (Synthroid Iv) 50 mcg AM IV Last administered on 10:12; Admin Dose 50 MCG; Start 02/21/17 at 09:00 Enoxaparin Sodium (Lovenox) 40 mg DAILY SC Last administered on 02/25/17 10:13 ; Admin Dose 40 MG; Start 02/22/17 at 09:00 Acetaminophen/ Hydrocodone Bitart ([place] (5/325)) 1 tab Q4H PRN NGT pain; Start 02/21/17 at 17:00 Ondansetron HCl 4 mg 4 mg Q6H PRN IV NAUSEA; Start 02/21/17 at 23:30 Caspofungin 50 mg/ Sodium Chloride 250 ml @ 250 mls/hr Q24H IVPB Last administered on 02/25/17 11:58; Admin Dose 250 MLS/HR; Start 02/23/17 at 11:00 Propofol 100 ml @ 3.201 mls/ hr Q12H IV Last administered on 02/25/17 01:56; Admin Dose 9.603 MLS/HR; Start 02/22/17 at 14:30 Norepinephrine 16 mg/Dextrose 500 ml @ 0 mls/hr TITRATE IV Last administered on 02/23/17 03:24; Admin Dose 37.5 MLS/HR; Start 02/22/17 at 19:00 Meropenem/Sodium Chloride 50 ml @ 100 mls/hr Q12 IVPB Last administered on 10:13; Admin Dose 100 MLS/HR; Start 02/23/17 at 21:00 Total Parenteral Nutrition (Tpn) 1,000 ml @ 60 mls/hr [id number] IV Last administered on 02/25/17 01:56; Admin Dose 60 MLS/HR; Start 02/23/17 at 16:30 Diagnostic Test (Pha) (Accu-Chek) 1 ea Q1H XX Last administered on 02/25/17 12 :02; Admin Dose 1 EA; Start 02/24/17 at 09:30 Dextrose 25 ml 25 ml Q15M PRN IV Till BS 80 mg/dL or above x2; Start 02/24/17 at 09:30 Quinupristin/ Dalfopristin 750 mg/Dextrose 250 ml @ 250 mls/hr Q8 IVPB Last administered on 02/25/17 06:03; Admin Dose 250 MLS/HR; Start 02/24/17 at 10:30 Albumin Human (Albumin Human 25%) 100 ml @ 100 mls/hr Q8H IV Last administered on 02/25/17 11:59; Admin Dose 100 MLS/HR; Start 02/25/17 at 11:30 ; Stop 02/26/17 at 04:29 ARIK MCKEON MD Feb 25, 2017 13:16
--- NOTE | 2017-02-25 14:00 | PN ---
DATE: 02/25/2017 SUBJECTIVE DATA: No acute changes overnight. The patient is intubated, sedated and arousable and able to follow simple commands. She is in no distress. No fevers. Temperature 98.2, pulse 115, respirations 27, blood pressure 135/60, saturation 95 on 30 FiO2. LABORATORY AND DIAGNOSTIC DATA: WBC 6.9, hemoglobin and hematocrit 8.9 and 25.9, platelets 66,000, bands 5. BUN 31, creatinine 0.81. MICROBIOLOGY: Blood culture since admission growing VRE and Laisha glabrata. INDWELLINGS: Endotracheal tube, NG tube, Mojica catheter, PICC line placed on 02/20/2017. ANTIMICROBIALS: Patient was started on Synercid yesterday. She is also on Cancidas and meropenem. The patient is also getting Solu-Cortef day number 6. PHYSICAL EXAMINATION: GENERAL: This is a morbidly obese, well developed, elderly woman who is intubated, in no distress. HEENT: Head atraumatic, normocephalic. Sclerae anicteric. Buccal mucosa dry. NECK: Obese. CHEST: Rise symmetrical. Breath sounds diminished at the bases. HEART: S1, S2. ABDOMEN: Distended, bowel sounds hypoactive. Ileostomy with dark brown stool. Left sided dressing intact. EXTREMITIES: With bilateral edema. ASSESSMENT: 1. Severe sepsis status post shock. 2. Vancomycin resistant enterococcal bacteremia with fungemia. 3. Status post perforated anastomotic leak repair on 02/21/2017 requiring laparotomy and ileostomy. 4. History of open appendectomy. 5. Possible pneumonia. 6. Acute renal failure, improving. 7. Anemia with thrombocytopenia, stable. PLAN: The patient remains hemodynamically stable, on appropriate antimicrobials. She is being followed by multiple consultants. Dictated By: Mk Kimball NP /louie/sunil /Document#: [id number] STEVIE
--- NOTE | 2017-02-25 16:21 | PN ---
Date/Time of Note Date/Time of Note DATE: 02/25/17 TIME: 16:18 Assessment/Plan VTE Prophylaxis VTE Prophylaxis Intervention: LMWH Lines/Catheters IV Catheter Type (from Nrs): Peripheral IV Central line still needed: Yes Urinary Cath still in place: Yes Reason Cath still needed: urinary retention Assessment/Plan Chief Complaint/Hosp Course `71 yo female with PMR on chronic steroids, unclear seizure d/o, hypertension, obesity, recently discharged from [facility] following open appendectomy without complications who now returns with hypotension, hypoxia, acute encephelopathy, hyponatremia, hyperkalemia and acute renal failure. Found to have disrupted ileocolic anastomosis and intraabdominal infection. Now s/p resection and ileostomy GI: SBO, disrupted colonic anastamosis following surgery for ruptured appendicitis, now s/p resection and ileostomy - Management per Dr Haji - NG tube, bowel rest - TPN ID: Sepsis 2/2 intraabdominal infection, VRE bacteremia and yeast fungemia - Continue abx per ID: synercid and merrem - Caspofungin for candidemia - Daily cultures ENDOCRINE: Polymyalgia rheumatica and chronic adrenal suppression from prednisone, now iatrogenic adrenal insufficiency - Stress hydrocortisone 100 q8h, wean as tolerated per Endocrine Hypothyroidism: - FT4 low, likely from poor absorption 2/2 ileus. Continue IV LT4 DM: - Insulin gtt RENAL: LATRICE is resolved, now edematous - Lasix started today PULM: Acute hypoxic respiratory failure: - Wean as able from mechanical ventilation Continue ICU care CC time > 35 minutes Problems: Subjective 24 Hr Interval Summary Free Text/Dictation Improving Alert responsive Appears comfortable Exam/Review of Systems Vital Signs Vitals Vital Signs Date Time Temp Pulse Resp B/P Pulse Ox O2 Delivery O2 Flow Rate FiO2 02/25/17 15:52 110 29 98 30 02/25/17 13:30 122/68 Mechanical Ventilator 02/25/17 12:00 99.0 02/21/17 23:52 2.0 Intake and Output 02/24/17 02/24/17 02/25/17 15:00 23:00 07:00 Intake Total 1731.3 ml 1182.312 ml 713.824 ml Output Total 660 ml 495 ml 600 ml Balance 1071.3 ml 687.312 ml 113.824 ml Results Result Diagram: 02/25/17 0400 02/25/17 0400 Results 24 hrs Laboratory Tests Test 02/24/17 16:57 02/24/17 18:19 02/24/17 18:52 02/24/17 19:55 Bedside Glucose 174 174 175 169 Test 02/24/17 21:15 02/24/17 22:17 02/24/17 23:05 02/24/17 23:55 Bedside Glucose 152 168 163 171 Test 02/25/17 01:07 02/25/17 02:06 02/25/17 03:57 02/25/17 04:00 Bedside Glucose 157 159 200 White Blood Count 6.9 # Red Blood Count 3.16 #L Hemoglobin 8.9 #L Hematocrit 25.9 #L Mean Corpuscular Volume 82.0 Mean Corpuscular Hemoglobin 28.2 L Mean Corpuscular Hemoglobin Concent 34.4 Red Cell Distribution Width 18.0 H Platelet Count 66 #L Mean Platelet Volume 12.2 H Neutrophils % Segmented Neutrophils % (Manual) 65 Band Neutrophils % (Manual) 5 H Lymphocytes % Lymphocytes % (Manual) 17 Monocytes % Monocytes % (Manual) 10 Eosinophils % Basophils % Metamyelocytes % (manual) 2 H Promyelocytes % (Manual) 1 H Nucleated Red Blood Cells % 16 H Neutrophils # Neutrophils # (Manual) 4.5 Band Neutrophils # 0.3 Absolute Lymphocytes (Manual) 1.1 Lymphocytes # Monocytes # Absolute Monocytes (Manual) 0.6 Eosinophils # Basophils # Metamyelocytes # 0.1 H Promyelocytes # 0 Nucleated Red Blood Cells # Platelet Estimate DECREASED Giant Platelets 13 H Hypochromasia 1+ Poikilocytosis 2+ Anisocytosis 1+ Sodium Level 139 Potassium Level 3.3 L Chloride Level 110 Carbon Dioxide Level 25 Anion Gap 7 L Blood Urea Nitrogen 31 H Creatinine 0.81 Glucose Level 182 Calcium Level 8.2 L Phosphorus Level 2.5 Magnesium Level 1.7 Total Bilirubin 2.6 H Direct Bilirubin 2.20 #H Indirect Bilirubin 0.4 Aspartate Amino Transf (AST/SGOT) 40 Alanine Aminotransferase (ALT/SGPT) 38 Alkaline Phosphatase 63 Total Protein 4.7 L Albumin 1.9 L Globulin 2.80 Albumin/Globulin Ratio 0.67 Test 02/25/17 05:09 02/25/17 05:32 02/25/17 06:00 02/25/17 06:57 Bedside Glucose 193 188 236 H Lab Scanned Report BLOOD TRANSFUSION Test 02/25/17 08:02 02/25/17 09:12 02/25/17 10:12 02/25/17 11:24 Bedside Glucose 180 164 175 163 Test 02/25/17 12:01 02/25/17 14:28 02/25/17 16:05 Bedside Glucose 165 174 167 Medications Medications Current Medications Dextrose (D50w Syringe) 100 ml ONCE PRN IV POC BLOOD GLUCOSE <250 MG/DL Last administered on 02/20/17 16:50; Admin Dose 100 ML; Start 02/20/17 at 16:30 IV Flush (NS 10 ml) 10 ml PRN PRN IV IV PROTOCOL; Start 02/20/17 at 19:30 Levothyroxine Sodium (Synthroid Iv) 50 mcg AM IV Last administered on 10:12; Admin Dose 50 MCG; Start 02/21/17 at 09:00 Enoxaparin Sodium (Lovenox) 40 mg DAILY SC Last administered on 02/25/17 10:13 ; Admin Dose 40 MG; Start 02/22/17 at 09:00 Acetaminophen/ Hydrocodone Bitart ([place] (5/325)) 1 tab Q4H PRN NGT pain; Start 02/21/17 at 17:00 Ondansetron HCl 4 mg 4 mg Q6H PRN IV NAUSEA; Start 02/21/17 at 23:30 Caspofungin 50 mg/ Sodium Chloride 250 ml @ 250 mls/hr Q24H IVPB Last administered on 02/25/17 11:58; Admin Dose 250 MLS/HR; Start 02/23/17 at 11:00 Propofol 100 ml @ 3.201 mls/ hr Q12H IV Last administered on 02/25/17 14:48; Admin Dose 9.603 MLS/HR; Start 02/22/17 at 14:30 Norepinephrine 16 mg/Dextrose 500 ml @ 0 mls/hr TITRATE IV Last administered on 02/23/17 03:24; Admin Dose 37.5 MLS/HR; Start 02/22/17 at 19:00 Meropenem/Sodium Chloride 50 ml @ 100 mls/hr Q12 IVPB Last administered on 10:13; Admin Dose 100 MLS/HR; Start 02/23/17 at 21:00 Total Parenteral Nutrition (Tpn) 1,000 ml @ 60 mls/hr [id number] IV Last administered on 02/25/17 01:56; Admin Dose 60 MLS/HR; Start 02/23/17 at 16:30 Diagnostic Test (Pha) (Accu-Chek) 1 ea Q1H XX Last administered on 02/25/17 14 :47; Admin Dose 1 EA; Start 02/24/17 at 09:30 Dextrose 25 ml 25 ml Q15M PRN IV Till BS 80 mg/dL or above x2; Start 02/24/17 at 09:30 Quinupristin/ Dalfopristin 750 mg/Dextrose 250 ml @ 250 mls/hr Q8 IVPB Last administered on 02/25/17 14:58; Admin Dose 250 MLS/HR; Start 02/24/17 at 10:30 Albumin Human (Albumin Human 25%) 100 ml @ 100 mls/hr Q8H IV Last administered on 02/25/17 11:59; Admin Dose 100 MLS/HR; Start 02/25/17 at 11:30 ; Stop 02/26/17 at 04:29 Hydrocortisone (Solu-Cortef) 50 mg Q8 IV Last administered on 02/25/17 14:58; Admin Dose 50 MG; Start 02/25/17 at 14:00 YAKELIN MCKEON MD Feb 25, 2017 16:21
--- NOTE | 2017-02-25 23:39 | CONS ---
Date/Time of Note Date/Time of Note DATE: 02/25/17 Assessment/Plan Assessment/Plan Chief Complaint/Hosp Course Patient obtunded. History obtained by chart and medical personnel Problems: (1) Iatrogenic adrenal insufficiency Status: Acute Comment: Will start taper steroids once patient extubated (2) Hypothyroidism Status: Chronic Comment: Continue IV Levothyroxine Qualifiers: Hypothyroidism type: acquired Qualified Code: E03.9 - Acquired hypothyroidism (3) Hyperglycemia Status: Acute Comment: Blood glucose levels stable. Continue insulin drip. Consultation Date/Type/Reason Admit Date/Time Feb 20, 2017 at 19:33 Initial Consult Date 02/20/17 Type of Consultation: Endocrine Referring Provider: CARL STEPHENS MD 24 HR Interval Summary Free Text/Dictation remains intubated. Exam/Review of Systems Vital Signs Vitals Vital Signs Date Time Temp Pulse Resp B/P Pulse Ox O2 Delivery O2 Flow Rate FiO2 02/25/17 21:05 96 23 97 30 02/25/17 18:30 132/67 Mechanical Ventilator 02/25/17 16:00 98.8 02/21/17 23:52 2.0 Intake and Output 02/24/17 02/24/17 02/25/17 15:00 23:00 07:00 Intake Total 1731.3 ml 1182.312 ml 713.824 ml Output Total 660 ml 495 ml 600 ml Balance 1071.3 ml 687.312 ml 113.824 ml Exam intubated. Awake and follows simple commands Constitutional: obese Neck: supple Respiratory: other (coarse breath sounds) Cardiovascular: regular rate and rhythm Gastrointestinal: soft Results POC glucose and labs reviewed Result Diagram: 02/25/17 0400 02/25/17 0400 Results 24 hrs Laboratory Tests Test 02/24/17 23:55 02/25/17 01:07 02/25/17 02:06 02/25/17 03:57 Bedside Glucose 171 157 159 200 Test 02/25/17 04:00 02/25/17 05:09 02/25/17 05:32 02/25/17 06:00 White Blood Count 6.9 # Red Blood Count 3.16 #L Hemoglobin 8.9 #L Hematocrit 25.9 #L Mean Corpuscular Volume 82.0 Mean Corpuscular Hemoglobin 28.2 L Mean Corpuscular Hemoglobin Concent 34.4 Red Cell Distribution Width 18.0 H Platelet Count 66 #L Mean Platelet Volume 12.2 H Neutrophils % Segmented Neutrophils % (Manual) 65 Band Neutrophils % (Manual) 5 H Lymphocytes % Lymphocytes % (Manual) 17 Monocytes % Monocytes % (Manual) 10 Eosinophils % Basophils % Metamyelocytes % (manual) 2 H Promyelocytes % (Manual) 1 H Nucleated Red Blood Cells % 16 H Neutrophils # Neutrophils # (Manual) 4.5 Band Neutrophils # 0.3 Absolute Lymphocytes (Manual) 1.1 Lymphocytes # Monocytes # Absolute Monocytes (Manual) 0.6 Eosinophils # Basophils # Metamyelocytes # 0.1 H Promyelocytes # 0 Nucleated Red Blood Cells # Platelet Estimate DECREASED Giant Platelets 13 H Hypochromasia 1+ Poikilocytosis 2+ Anisocytosis 1+ Sodium Level 139 Potassium Level 3.3 L Chloride Level 110 Carbon Dioxide Level 25 Anion Gap 7 L Blood Urea Nitrogen 31 H Creatinine 0.81 Glucose Level 182 Calcium Level 8.2 L Phosphorus Level 2.5 Magnesium Level 1.7 Total Bilirubin 2.6 H Direct Bilirubin 2.20 #H Indirect Bilirubin 0.4 Aspartate Amino Transf (AST/SGOT) 40 Alanine Aminotransferase (ALT/SGPT) 38 Alkaline Phosphatase 63 Total Protein 4.7 L Albumin 1.9 L Globulin 2.80 Albumin/Globulin Ratio 0.67 Bedside Glucose 193 188 Lab Scanned Report BLOOD TRANSFUSION Test 02/25/17 06:57 02/25/17 08:02 02/25/17 09:12 02/25/17 10:12 Bedside Glucose 236 H 180 164 175 Test 02/25/17 11:24 02/25/17 12:01 02/25/17 14:28 02/25/17 16:05 Bedside Glucose 163 165 174 167 Test 02/25/17 18:08 02/25/17 20:13 02/25/17 22:12 Bedside Glucose 159 146 148 Medications Medications Current Medications Dextrose (D50w Syringe) 100 ml ONCE PRN IV POC BLOOD GLUCOSE <250 MG/DL Last administered on 02/20/17 16:50; Admin Dose 100 ML; Start 02/20/17 at 16:30 IV Flush (NS 10 ml) 10 ml PRN PRN IV IV PROTOCOL; Start 02/20/17 at 19:30 Levothyroxine Sodium (Synthroid Iv) 50 mcg AM IV Last administered on 10:12; Admin Dose 50 MCG; Start 02/21/17 at 09:00 Enoxaparin Sodium (Lovenox) 40 mg DAILY SC Last administered on 02/25/17 10:13 ; Admin Dose 40 MG; Start 02/22/17 at 09:00 Acetaminophen/ Hydrocodone Bitart ([place] (5/325)) 1 tab Q4H PRN NGT pain; Start 02/21/17 at 17:00 Ondansetron HCl 4 mg 4 mg Q6H PRN IV NAUSEA; Start 02/21/17 at 23:30 Caspofungin 50 mg/ Sodium Chloride 250 ml @ 250 mls/hr Q24H IVPB Last administered on 02/25/17 11:58; Admin Dose 250 MLS/HR; Start 02/23/17 at 11:00 Propofol 100 ml @ 3.201 mls/ hr Q12H IV Last administered on 02/25/17 21:27; Admin Dose 9.603 MLS/HR; Start 02/22/17 at 14:30 Norepinephrine 16 mg/Dextrose 500 ml @ 0 mls/hr TITRATE IV Last administered on 02/23/17 03:24; Admin Dose 37.5 MLS/HR; Start 02/22/17 at 19:00 Meropenem/Sodium Chloride 50 ml @ 100 mls/hr Q12 IVPB Last administered on 21:26; Admin Dose 100 MLS/HR; Start 02/23/17 at 21:00 Total Parenteral Nutrition (Tpn) 1,000 ml @ 60 mls/hr [id number] IV Last administered on 02/25/17 18:06; Admin Dose 60 MLS/HR; Start 02/23/17 at 16:30 Diagnostic Test (Pha) (Accu-Chek) 1 ea Q1H XX Last administered on 02/25/17 22 :13; Admin Dose 1 EA; Start 02/24/17 at 09:30 Dextrose 25 ml 25 ml Q15M PRN IV Till BS 80 mg/dL or above x2; Start 02/24/17 at 09:30 Quinupristin/ Dalfopristin 750 mg/Dextrose 250 ml @ 250 mls/hr Q8 IVPB Last administered on 02/25/17 21:44; Admin Dose 250 MLS/HR; Start 02/24/17 at 10:30 Albumin Human (Albumin Human 25%) 100 ml @ 100 mls/hr Q8H IV Last administered on 02/25/17 18:31; Admin Dose 100 MLS/HR; Start 02/25/17 at 11:30 ; Stop 02/26/17 at 04:29 Hydrocortisone (Solu-Cortef) 50 mg Q8 IV Last administered on 02/25/17 21:43; Admin Dose 50 MG; Start 02/25/17 at 14:00 KAVON DANGELO MD Feb 25, 2017 23:39
[2017-02-26] VITALS (30 sets, daily range): BP systolic 117–148; BP diastolic 53–66; PULSE 70–108; RESP 18–27
[2017-02-26] MEDS: ACCU-CHEK XX SCH ×24 (00:30→23:30)
[2017-02-26] MEDS: ALBUMIN HUMAN 25% 100 ML IV SCH (04:00)
[2017-02-26] MEDS: [UNRECOGNIZED DRUG - MIXTURE] IVPB SCH ×3 (06:00→22:10)
[2017-02-26] MEDS: HYDROCORTISONE 100 MG INJ IV SCH ×3 (06:19→22:10)
[2017-02-26 06:21] LABS: ABNORMAL IP MESSAGE 1; BASOPHIL # 0.1 10^3/ul (0.0-0.1); BASOPHILS % 0.7 % (0.0-2.0); EOSINOPHILS % 0.4 % (0.0-7.0); HEMATOCRIT 21.4 % (37.0-47.0); HEMOGLOBIN 7.4 g/dl (12.0-16.0); LYMPHOCYTES # 0.8 10^3/ul (0.8-2.9); LYMPHOCYTES % 9.9 % (15.0-51.0); MEAN CORPUSCULAR HEMOGLOBIN 28.7 pg (29.0-33.0); MEAN CORPUSCULAR HGB CONC 34.6 g/dl (32.0-37.0); MEAN CORPUSCULAR VOLUME 82.9 fl (82.0-101.0); MEAN PLATELET VOLUME 12.8 fl (7.4-10.4); MONOCYTE # 0.2 10^3/ul (0.3-0.9); MONOCYTES % 2.4 % (0.0-11.0); NEUTROPHIL # 5.8 10^3/ul (1.6-7.5); NEUTROPHILS % 76.2 % (39.0-77.0); NUCLEATED RED BLOOD CELLS # 0.2 10^3/ul (0.0-0.0); NUCLEATED RED BLOOD CELLS% 2.5 /100WBC (0.0-0.0); PLATELET COUNT 85 10^3/UL (140-415); RED BLOOD COUNT 2.58 10^6/ul (4.20-5.40); RED CELL DISTRIBUTION WIDTH 18.2 % (11.5-14.5); WHITE BLOOD COUNT 7.6 10^3/ul (4.8-10.8)
[2017-02-26 06:35] LABS: POSITIVE DIFF @See below
[2017-02-26 07:19] LABS: ALBUMIN 2.2 g/dl (3.3-4.9); ALBUMIN/GLOBULIN RATIO 0.81; BILIRUBIN,DIRECT 1.7 mg/dl (0.00-0.20); BILIRUBIN,INDIRECT 0.4 mg/dl (0-1.1); BILIRUBIN,TOTAL 2.1 mg/dl (0.2-1.3); CALCIUM 8.2 mg/dl (8.4-10.2); CREATININE 0.7 mg/dl (0.44-1.00); TOTAL PROTEIN 4.9 g/dl (6.1-8.1)
[2017-02-26 07:31] LABS: POTASSIUM 2.4 mmol/L (3.5-5.1)
[2017-02-26] MEDS: FUROSEMIDE 40 MG INJ IV SCH ×2 (07:45→18:10)
[2017-02-26 08:14] LABS: MAGNESIUM 1.7 mg/dl (1.7-2.5); PHOSPHORUS 2.7 mg/dl (2.5-4.9)
--- NOTE | 2017-02-26 08:38 | RADRPT ---
PROCEDURE: XR Chest. CLINICAL INDICATION: CHF TECHNIQUE: AP Portable chest. COMPARISON: 02/24/2017 FINDINGS: The ET tube is 1.5 cm above the gissel. The side port of the NG tube is in the distal esophagus. The cardiomediastinal silhouette is enlarged. The aortic arch is calcified. The lung volumes are low . The right hemidiaphragm is elevated. No pneumothorax is seen. The patient is rotated to the left. There is probable left basilar, retrocardiac atelectasis. The shoulders are high-riding. IMPRESSION: Lines and tubes described above. Marked elevation of the right hemidiaphragm and lower lung volumes. Left basilar atelectasis. Pneumo juan diego is not excluded. Cardiomegaly. Aortic atherosclerosis Physician Amanda Date Time Electronically viewed and signed by Zoran Hughes Physician on 02/26/2017 08:38 /
[2017-02-26] MEDS: POTASSIUM CHLORIDE 250 ML IVPB SCH ×2 (09:50→12:58)
[2017-02-26] MEDS: MEROPENEM 500MG/50 ML (PMX) 50 ML IVPB SCH ×2 (09:51→21:08)
[2017-02-26] MEDS: LEVOTHYROXINE 100 MCG VIAL IV SCH (09:51)
[2017-02-26] MEDS: ENOXAPARIN 40 MG/0.4 ML SYG SC SCH (09:51)
--- NOTE | 2017-02-26 10:58 | CONS ---
Date/Time of Note Date/Time of Note DATE: 02/26/17 TIME: 10:56 Consult Date/Type/Reason Admit Date/Time Feb 20, 2017 at 19:33 Initial Consult Date 02/20/17 Type of Consultation: pulm Ordering Provider: CARL STEPHENS MD Subjective Remains intubated sedated on mechanical ventilation. Appears comfortable this morning. Continues Lasix and albumin. Objective Vital Signs Date Time Temp Pulse Resp B/P Pulse Ox O2 Delivery O2 Flow Rate FiO2 02/26/17 09:37 85 18 96 30 02/26/17 05:00 136/66 Mechanical Ventilator 02/26/17 04:00 99.5 Intake and Output 02/25/17 02/25/17 02/26/17 15:00 23:00 07:00 Intake Total 1014.824 ml 1053.412 ml 662.8 ml Output Total 1580 ml 2555 ml 455 ml Balance -565.176 ml -1501.588 ml 207.8 ml Exam PHYSICAL EXAMINATION GENERAL: Elderly lady on mechanical ventilation appears comfortable at rest VITAL SIGNS: see below. HEENT: Pupils equal, round, and reactive to light. CARDIAC: S1, S2, 1/6 systolic ejection murmur CHEST: Diminished air entry bilaterally. ABDOMEN: Mildly distended. Bowel sounds present no guarding or rebound EXTREMITIES: No cyanosis, clubbing edema +1 NEUROLOGIC: Generalized weakness Results/Medications Result Diagram: 02/26/17 0530 02/26/17 0530 Results 24 hrs Laboratory Tests Test 02/25/17 11:24 02/25/17 12:01 02/25/17 14:28 02/25/17 16:05 Bedside Glucose 163 165 174 167 Test 02/25/17 18:08 02/25/17 20:13 02/25/17 22:12 02/26/17 00:03 Bedside Glucose 159 146 148 164 Test 02/26/17 02:27 02/26/17 04:05 02/26/17 05:30 02/26/17 06:15 Bedside Glucose 154 142 125 White Blood Count 7.6 Red Blood Count 2.58 L Hemoglobin 7.4 L Hematocrit 21.4 L Mean Corpuscular Volume 82.9 Mean Corpuscular Hemoglobin 28.7 L Mean Corpuscular Hemoglobin Concent 34.6 Red Cell Distribution Width 18.2 H Platelet Count 85 #L Mean Platelet Volume 12.8 H Neutrophils % 76.2 Lymphocytes % 9.9 L Monocytes % 2.4 Eosinophils % 0.4 Basophils % 0.7 Nucleated Red Blood Cells % 2.5 H Neutrophils # 5.8 Lymphocytes # 0.8 Monocytes # 0.2 L Eosinophils # 0.0 Basophils # 0.1 Nucleated Red Blood Cells # 0.2 H Sodium Level 138 Potassium Level 2.4 *L Chloride Level 107 Carbon Dioxide Level 27 Anion Gap 6 L Blood Urea Nitrogen 29 H Creatinine 0.70 Glucose Level 114 # Calcium Level 8.2 L Phosphorus Level 2.7 Magnesium Level 1.7 Total Bilirubin 2.1 H Direct Bilirubin 1.70 #H Indirect Bilirubin 0.4 Aspartate Amino Transf (AST/SGOT) 55 H Alanine Aminotransferase (ALT/SGPT) 46 Alkaline Phosphatase 66 Total Protein 4.9 L Albumin 2.2 L Globulin 2.70 Albumin/Globulin Ratio 0.81 Test 02/26/17 07:50 02/26/17 10:42 Bedside Glucose 117 158 Medications Current Medications Dextrose (D50w Syringe) 100 ml ONCE PRN IV POC BLOOD GLUCOSE <250 MG/DL Last administered on 02/20/17 16:50; Admin Dose 100 ML; Start 02/20/17 at 16:30 IV Flush (NS 10 ml) 10 ml PRN PRN IV IV PROTOCOL; Start 02/20/17 at 19:30 Levothyroxine Sodium (Synthroid Iv) 50 mcg AM IV Last administered on 09:51; Admin Dose 50 MCG; Start 02/21/17 at 09:00 Enoxaparin Sodium (Lovenox) 40 mg DAILY SC Last administered on 02/26/17 09:51 ; Admin Dose 40 MG; Start 02/22/17 at 09:00 Acetaminophen/ Hydrocodone Bitart ([place] (5/325)) 1 tab Q4H PRN NGT pain; Start 02/21/17 at 17:00 Ondansetron HCl 4 mg 4 mg Q6H PRN IV NAUSEA; Start 02/21/17 at 23:30 Caspofungin 50 mg/ Sodium Chloride 250 ml @ 250 mls/hr Q24H IVPB Last administered on 02/25/17 11:58; Admin Dose 250 MLS/HR; Start 02/23/17 at 11:00 Propofol 100 ml @ 3.201 mls/ hr Q12H IV Last administered on 02/25/17 21:27; Admin Dose 9.603 MLS/HR; Start 02/22/17 at 14:30 Norepinephrine 16 mg/Dextrose 500 ml @ 0 mls/hr TITRATE IV Last administered on 02/23/17 03:24; Admin Dose 37.5 MLS/HR; Start 02/22/17 at 19:00 Meropenem/Sodium Chloride 50 ml @ 100 mls/hr Q12 IVPB Last administered on 09:51; Admin Dose 100 MLS/HR; Start 02/23/17 at 21:00 Total Parenteral Nutrition (Tpn) 1,000 ml @ 60 mls/hr [id number] IV Last administered on 02/25/17 18:06; Admin Dose 60 MLS/HR; Start 02/23/17 at 16:30 Diagnostic Test (Pha) (Accu-Chek) 1 ea Q1H XX Last administered on 02/26/17 10 :47; Admin Dose 1 EA; Start 02/24/17 at 09:30 Dextrose 25 ml 25 ml Q15M PRN IV Till BS 80 mg/dL or above x2; Start 02/24/17 at 09:30 Quinupristin/ Dalfopristin/ Dextrose (Synercid/D5W) 250 ml @ 250 mls/hr Q8 IVPB Last administered on 02/25/17 21:44; Admin Dose 250 MLS/HR; Start at 10:30 Hydrocortisone 50 mg 50 mg Q8 IV Last administered on 02/26/17 06:19; Admin Dose 50 MG; Start 02/25/17 at 14:00 Potassium Chloride (KCl 40 MEQ/250 ML NS) 250 ml @ 62.5 mls/hr Q4H IVPB Last administered on 02/26/17 09:50; Admin Dose 62.5 MLS/HR; Start 02/26/17 at 08:00 ; Stop 02/26/17 at 15:59 Assessment/Plan Chief Complaint/Hosp Course Assessment 1. Status post septic shock. 2. Hypoxemic respiratory failure. 3. Thrombocytopenia possibly DIC. 4. Possible adrenal insufficiency. 5. GI bleed, now with anemia. 6. Hx PMR 7. Hypokalemia Plan 1. Replace electrolytes 2. Continue transfusion 1 unit packed red blood cells 3. Consider platelet transfusion 4. Continue mechanical ventilation, CPAP trial this morning 5. IV fluid resuscitation. 6. Stress dose steroids per endocrinology. Critical care time 40 minutes. Problems: KATHY SALOMON MD, [facility] Feb 26, 2017 10:58
[2017-02-26] MEDS: CASPOFUNGIN 50 MG in SOD CHLORIDE 0.9% 250 ML IVPB SCH (11:42)
[2017-02-26] MEDS: TPN 1,000 ML IV SCH (11:43)
--- NOTE | 2017-02-26 12:54 | PN ---
DATE: 02/26/2017 SUBJECTIVE DATA: No acute changes overnight. The patient is lying comfortably in bed. She opens eyes and follows simple commands. OBJECTIVE DATA: VITAL SIGNS: No fevers. T-max 99.5, pulse 85, respirations 18, blood pressure 136/66, saturation 90 on 30 FiO2. LABORATORY AND DIAGNOSTIC DATA: WBC 7.6, H and H 7.4 and 21.4, platelets 85, neutrophils 76.2, BUN 29, creatinine 0.70. MICROBIOLOGY: Repeat blood culture on February 23, still growing yeast. Initial culture grew Laisha glabrata and VRE. INDWELLING: Patient has endotracheal tube, NG tube, Mojica catheter, colostomy and PICC line. ANTIMICROBIALS: 1. Synercid. 2. Meropenem. 3. Cancidas. PHYSICAL EXAMINATION: GENERAL: This is a morbidly obese, elderly woman, who is intubated, sedated, and in no distress. HEENT: Head atraumatic, normocephalic. Sclerae anicteric. Buccal mucosa dry. NECK: Obese. CHEST: Rise symmetrical. Breath sounds diminished at the bases. HEART: S1, S2. ABDOMEN: Soft, bowel sounds hypoactive. EXTREMITIES: With bilateral edema. ASSESSMENT: 1. Sepsis status post shock. 2. Persistent fungemia and vancomycin resistant enterococcus bacteremia. 3. Status post perforated anastomotic leak repair on 02/21/2017 post open appendectomy. 4. Healthcare-associated pneumonia. 5. Respiratory failure. 6. Anemia. 7. Thrombocytopenia. PLAN: The patient remains hemodynamically stable. Covered with appropriate antimicrobials. Blood culture still growing yeast. She is on Cancidas. PICC line was placed on February 20. Continue present care. Vent management per Pulmonary. Follow Surgical recommendations. Dictated By: Mk Kimball NP /louie/edil /Document#: [id number]
--- NOTE | 2017-02-26 13:55 | CONS ---
Date/Time of Note Date/Time of Note DATE: 02/26/17 TIME: 13:53 Assessment/Plan Assessment/Plan Problems: (1) Iatrogenic adrenal insufficiency Status: Acute Comment: Taper steroids (2) Hypothyroidism Status: Chronic Comment: On treatment Qualifiers: Hypothyroidism type: acquired Qualified Code: E03.9 - Acquired hypothyroidism (3) Hyperglycemia Status: Acute Comment: Continue to [facility] Consultation Date/Type/Reason Admit Date/Time Feb 20, 2017 at 19:33 Initial Consult Date 02/20/17 Type of Consultation: Endocrinology Reason for Consultation Iatrogenic Adrenal Insufficiency; DM2; Referring Provider: CARL STEPHENS MD 24 HR Interval Summary Subjective hx not possible: pt non-verbal Exam/Review of Systems Vital Signs Vitals Vital Signs Date Time Temp Pulse Resp B/P Pulse Ox O2 Delivery O2 Flow Rate FiO2 02/26/17 13:29 98 22 91 30 02/26/17 13:00 131/57 Mechanical Ventilator 02/26/17 12:00 98.4 Intake and Output 02/25/17 02/25/17 02/26/17 15:00 23:00 07:00 Intake Total 1014.824 ml 1053.412 ml 662.8 ml Output Total 1580 ml 2555 ml 455 ml Balance -565.176 ml -1501.588 ml 207.8 ml Exam Constitutional: alert, non-verbal ENMT: intubated Neck: non-tender, supple Respiratory: clear to auscultation, normal air movement Results Result Diagram: 02/26/17 0530 02/26/17 0530 Results 24 hrs Laboratory Tests Test 02/25/17 14:28 02/25/17 16:05 02/25/17 18:08 02/25/17 20:13 Bedside Glucose 174 167 159 146 Test 02/25/17 22:12 02/26/17 00:03 02/26/17 02:27 02/26/17 04:05 Bedside Glucose 148 164 154 142 Test 02/26/17 05:30 02/26/17 06:15 02/26/17 07:50 02/26/17 10:42 White Blood Count 7.6 Red Blood Count 2.58 L Hemoglobin 7.4 L Hematocrit 21.4 L Mean Corpuscular Volume 82.9 Mean Corpuscular Hemoglobin 28.7 L Mean Corpuscular Hemoglobin Concent 34.6 Red Cell Distribution Width 18.2 H Platelet Count 85 #L Mean Platelet Volume 12.8 H Neutrophils % 76.2 Lymphocytes % 9.9 L Monocytes % 2.4 Eosinophils % 0.4 Basophils % 0.7 Nucleated Red Blood Cells % 2.5 H Neutrophils # 5.8 Lymphocytes # 0.8 Monocytes # 0.2 L Eosinophils # 0.0 Basophils # 0.1 Nucleated Red Blood Cells # 0.2 H Sodium Level 138 Potassium Level 2.4 *L Chloride Level 107 Carbon Dioxide Level 27 Anion Gap 6 L Blood Urea Nitrogen 29 H Creatinine 0.70 Glucose Level 114 # Calcium Level 8.2 L Phosphorus Level 2.7 Magnesium Level 1.7 Total Bilirubin 2.1 H Direct Bilirubin 1.70 #H Indirect Bilirubin 0.4 Aspartate Amino Transf (AST/SGOT) 55 H Alanine Aminotransferase (ALT/SGPT) 46 Alkaline Phosphatase 66 Total Protein 4.9 L Albumin 2.2 L Globulin 2.70 Albumin/Globulin Ratio 0.81 Bedside Glucose 125 117 158 Test 02/26/17 12:03 Bedside Glucose 161 Medications Medications Current Medications Dextrose (D50w Syringe) 100 ml ONCE PRN IV POC BLOOD GLUCOSE <250 MG/DL Last administered on 02/20/17 16:50; Admin Dose 100 ML; Start 02/20/17 at 16:30 IV Flush (NS 10 ml) 10 ml PRN PRN IV IV PROTOCOL; Start 02/20/17 at 19:30 Levothyroxine Sodium (Synthroid Iv) 50 mcg AM IV Last administered on 09:51; Admin Dose 50 MCG; Start 02/21/17 at 09:00 Enoxaparin Sodium (Lovenox) 40 mg DAILY SC Last administered on 02/26/17 09:51 ; Admin Dose 40 MG; Start 02/22/17 at 09:00 Acetaminophen/ Hydrocodone Bitart ([place] (5/325)) 1 tab Q4H PRN NGT pain; Start 02/21/17 at 17:00 Ondansetron HCl 4 mg 4 mg Q6H PRN IV NAUSEA; Start 02/21/17 at 23:30 Caspofungin 50 mg/ Sodium Chloride 250 ml @ 250 mls/hr Q24H IVPB Last administered on 02/26/17 11:42; Admin Dose 250 MLS/HR; Start 02/23/17 at 11:00 Propofol 100 ml @ 3.201 mls/ hr Q12H IV Last administered on 02/25/17 21:27; Admin Dose 9.603 MLS/HR; Start 02/22/17 at 14:30 Norepinephrine 16 mg/Dextrose 500 ml @ 0 mls/hr TITRATE IV Last administered on 02/23/17 03:24; Admin Dose 37.5 MLS/HR; Start 02/22/17 at 19:00 Meropenem/Sodium Chloride 50 ml @ 100 mls/hr Q12 IVPB Last administered on 09:51; Admin Dose 100 MLS/HR; Start 02/23/17 at 21:00 Total Parenteral Nutrition (Tpn) 1,000 ml @ 60 mls/hr [id number] IV Last administered on 02/26/17 11:43; Admin Dose 60 MLS/HR; Start 02/23/17 at 16:30 Diagnostic Test (Pha) (Accu-Chek) 1 ea Q1H XX Last administered on 02/26/17 12 :58; Admin Dose 1 EA; Start 02/24/17 at 09:30 Dextrose 25 ml 25 ml Q15M PRN IV Till BS 80 mg/dL or above x2; Start 02/24/17 at 09:30 Quinupristin/ Dalfopristin/ Dextrose (Synercid/D5W) 250 ml @ 250 mls/hr Q8 IVPB Last administered on 02/25/17 21:44; Admin Dose 250 MLS/HR; Start at 10:30 Hydrocortisone 50 mg 50 mg Q8 IV Last administered on 02/26/17 06:19; Admin Dose 50 MG; Start 02/25/17 at 14:00 Potassium Chloride (KCl 40 MEQ/250 ML NS) 250 ml @ 62.5 mls/hr Q4H IVPB Last administered on 02/26/17 12:58; Admin Dose 62.5 MLS/HR; Start 02/26/17 at 08:00 ; Stop 02/26/17 at 15:59 TAMIA RESTREPO MD Feb 26, 2017 13:55
--- NOTE | 2017-02-26 14:11 | PN ---
Date/Time of Note Date/Time of Note DATE: 02/26/17 TIME: 14:08 Assessment/Plan VTE Prophylaxis VTE Prophylaxis Intervention: LMWH Lines/Catheters IV Catheter Type (from Nrs): Peripheral IV Assessment/Plan Chief Complaint/Hosp Course 71 yo female with PMR on chronic steroids, unclear seizure d/o, hypertension, obesity, recently discharged from [facility] following open appendectomy without complications who now returns with hypotension, hypoxia, acute encephalopathy, hyponatremia, hyperkalemia and acute renal failure. Found to have disrupted ileocolic anastomosis and intraabdominal infection. Now s/p resection and ileostomy GI: SBO, disrupted colonic anastomosis following surgery for ruptured appendicitis, now s/p resection and ileostomy - Management per Dr Haji - NG tube, bowel rest - TPN ID: Sepsis 2/2 intraabdominal infection, VRE bacteremia and yeast fungemia - Continue abx per ID: synercid and merrem - Caspofungin for candidemia - Daily cultures ENDOCRINE: Polymyalgia rheumatica and chronic adrenal suppression from prednisone, now iatrogenic adrenal insufficiency - Stress hydrocortisone 100 q8h, wean as tolerated per Endocrine Hypothyroidism: - FT4 low, likely from poor absorption 2/2 ileus. Continue IV LT4 DM: - Insulin gtt RENAL: LATRICE is resolved, now edematous -Continue Lasix PULM: Acute hypoxic respiratory failure: - Wean as able from mechanical ventilation Prophylaxis: Lovenox Problems: Subjective 24 Hr Interval Summary Subjective hx not possible: pt non-verbal Exam/Review of Systems Vital Signs Vitals Vital Signs Date Time Temp Pulse Resp B/P Pulse Ox O2 Delivery O2 Flow Rate FiO2 02/26/17 13:29 98 22 91 30 02/26/17 13:00 131/57 Mechanical Ventilator 02/26/17 12:00 98.4 Intake and Output 02/25/17 02/25/17 02/26/17 15:00 23:00 07:00 Intake Total 1014.824 ml 1053.412 ml 662.8 ml Output Total 1580 ml 2555 ml 455 ml Balance -565.176 ml -1501.588 ml 207.8 ml Exam Constitutional: non-verbal ENMT: intubated Respiratory: clear to auscultation Cardiovascular: regular rate and rhythm Gastrointestinal: soft, No distended Musculoskeletal: nl extremities to inspection Results Result Diagram: 02/26/1752902/26/1730 Results 24 hrs Laboratory Tests Test 02/25/17 14:28 02/25/17 16:05 02/25/17 18:08 02/25/17 20:13 Bedside Glucose 174 167 159 146 Test 02/25/17 22:12 02/26/17 00:03 02/26/17 02:27 02/26/17 04:05 Bedside Glucose 148 164 154 142 Test 02/26/17 05:30 02/26/17 06:15 02/26/17 07:50 02/26/17 10:42 White Blood Count 7.6 Red Blood Count 2.58 L Hemoglobin 7.4 L Hematocrit 21.4 L Mean Corpuscular Volume 82.9 Mean Corpuscular Hemoglobin 28.7 L Mean Corpuscular Hemoglobin Concent 34.6 Red Cell Distribution Width 18.2 H Platelet Count 85 #L Mean Platelet Volume 12.8 H Neutrophils % 76.2 Lymphocytes % 9.9 L Monocytes % 2.4 Eosinophils % 0.4 Basophils % 0.7 Nucleated Red Blood Cells % 2.5 H Neutrophils # 5.8 Lymphocytes # 0.8 Monocytes # 0.2 L Eosinophils # 0.0 Basophils # 0.1 Nucleated Red Blood Cells # 0.2 H Sodium Level 138 Potassium Level 2.4 *L Chloride Level 107 Carbon Dioxide Level 27 Anion Gap 6 L Blood Urea Nitrogen 29 H Creatinine 0.70 Glucose Level 114 # Calcium Level 8.2 L Phosphorus Level 2.7 Magnesium Level 1.7 Total Bilirubin 2.1 H Direct Bilirubin 1.70 #H Indirect Bilirubin 0.4 Aspartate Amino Transf (AST/SGOT) 55 H Alanine Aminotransferase (ALT/SGPT) 46 Alkaline Phosphatase 66 Total Protein 4.9 L Albumin 2.2 L Globulin 2.70 Albumin/Globulin Ratio 0.81 Bedside Glucose 125 117 158 Test 02/26/17 12:03 Bedside Glucose 161 Medications Medications Current Medications Dextrose (D50w Syringe) 100 ml ONCE PRN IV POC BLOOD GLUCOSE <250 MG/DL Last administered on 02/20/17 16:50; Admin Dose 100 ML; Start 02/20/17 at 16:30 IV Flush (NS 10 ml) 10 ml PRN PRN IV IV PROTOCOL; Start 02/20/17 at 19:30 Levothyroxine Sodium (Synthroid Iv) 50 mcg AM IV Last administered on 09:51; Admin Dose 50 MCG; Start 02/21/17 at 09:00 Enoxaparin Sodium (Lovenox) 40 mg DAILY SC Last administered on 02/26/17 09:51 ; Admin Dose 40 MG; Start 02/22/17 at 09:00 Acetaminophen/ Hydrocodone Bitart ([place] (5/325)) 1 tab Q4H PRN NGT pain; Start 02/21/17 at 17:00 Ondansetron HCl 4 mg 4 mg Q6H PRN IV NAUSEA; Start 02/21/17 at 23:30 Caspofungin 50 mg/ Sodium Chloride 250 ml @ 250 mls/hr Q24H IVPB Last administered on 02/26/17 11:42; Admin Dose 250 MLS/HR; Start 02/23/17 at 11:00 Propofol 100 ml @ 3.201 mls/ hr Q12H IV Last administered on 02/25/17 21:27; Admin Dose 9.603 MLS/HR; Start 02/22/17 at 14:30 Norepinephrine 16 mg/Dextrose 500 ml @ 0 mls/hr TITRATE IV Last administered on 02/23/17 03:24; Admin Dose 37.5 MLS/HR; Start 02/22/17 at 19:00 Meropenem/Sodium Chloride 50 ml @ 100 mls/hr Q12 IVPB Last administered on 09:51; Admin Dose 100 MLS/HR; Start 02/23/17 at 21:00 Total Parenteral Nutrition (Tpn) 1,000 ml @ 60 mls/hr [id number] IV Last administered on 02/26/17 11:43; Admin Dose 60 MLS/HR; Start 02/23/17 at 16:30 Diagnostic Test (Pha) (Accu-Chek) 1 ea Q1H XX Last administered on 02/26/17 12 :58; Admin Dose 1 EA; Start 02/24/17 at 09:30 Dextrose 25 ml 25 ml Q15M PRN IV Till BS 80 mg/dL or above x2; Start 02/24/17 at 09:30 Quinupristin/ Dalfopristin 750 mg/Dextrose 250 ml @ 250 mls/hr Q8 IVPB Last administered on 02/25/17 21:44; Admin Dose 250 MLS/HR; Start 02/24/17 at 10:30 Potassium Chloride (KCl 40 MEQ/250 ML NS) 250 ml @ 62.5 mls/hr Q4H IVPB Last administered on 02/26/17t 12:58; Admin Dose 62.5 MLS/HR; Start 02/26/17 at 08:00 ; Stop 02/26/17 at 15:59 Hydrocortisone (Solu-Cortef) 20 mg Q8 IV ; Start 02/26/17 at 14:00 BENJAMIN GONSALEZ Feb 26, 2017 14:11
[2017-02-26 14:30] LABS: Allen Test ACCEPTAB; Arterial Base Excess 3.6 mmol/L (-3.0-3); Arterial COHb 0.1 % (0.0-3.0); Arterial Fraction of Oxyhgb 95.2 % (93.0-99.0); Arterial HCO3 26.3 mmol/L (22.0-26.0); Arterial MetHb 0.8 % (0.0-1.5); Arterial Total Hemglobin 7.8 g/dl (12.0-18.0); Blood Gas PS 10; MODE VENT - CPAP
[2017-02-26] MEDS: PROPOFOL 100 ML IV SCH (14:30)
[2017-02-26] MEDS: morphine 2 MG INJ IV PRN (16:58)
--- NOTE | 2017-02-26 18:03 | PN ---
Date/Time of Note Date/Time of Note DATE: 02/26/17 TIME: 18:02 Assessment/Plan Lines/Catheters IV Catheter Type (from Nrs): Peripheral IV Assessment/Plan Assessment/Plan The abdominal examination remains benign. The ileostomy remains viable and functioning Plan: Continue medical management. Will do swallow eval in a.m. Subjective 24 Hr Interval Summary Postoperative day #5 Patient is awake, alert and extubated Exam/Review of Systems Vital Signs Vitals Vital Signs Date Time Temp Pulse Resp B/P Pulse Ox O2 Delivery O2 Flow Rate FiO2 02/26/17 17:00 98 25 124/66 96 Mechanical Ventilator 02/26/17 16:00 99.2 02/26/17 15:57 3.0 02/26/17 13:29 30 Intake and Output 02/25/17 02/25/17 02/26/17 15:00 23:00 07:00 Intake Total 1014.824 ml 1053.412 ml 662.8 ml Output Total 1580 ml 2555 ml 455 ml Balance -565.176 ml -1501.588 ml 207.8 ml Results Result Diagram: 02/26/17 0530 02/26/17 0530 CARL STEPHENS MD Feb 26, 2017 18:03
--- NOTE | 2017-02-26 18:21 | CONS ---
Date/Time of Note Date/Time of Note DATE: 02/26/17 TIME: 18:18 Assessment/Plan Assessment/Plan Additional Assessment/Plan 1. Acute kidney injury mutlifactorial due to Prerenal azotemia + ATN From septic shock 2. Acute encephalopathy metabolic 3. SBO, disrupted colonic anastomosis, s/p Exp lap, resection and ileostomy on 4. H/o Polymyalgia rheumatica on Steroids 5. H/o recent right hemicolectomy for perforated diverticulitis 6. Hyperkalemia acute, Hyponatremia 7. acute hypoxic respiratory failure 8. adrenal crisis- On IV dexamethasone 9. Hypokalemia Plan: continue Hydrocortisone - decreased to 20 mg IV Q 8 hr for adrenal insufficiency - pt is on insulin gtt for hyperglycemia propofol gtt for sedatin, ventilator care as per pulmonary agree with diuresis with IV albumin and lasix 40mg IV BID IV abx sepsis. renally dose antibiotics cancidas, Zyvox s/p surgery, G surgery following Cr normal K 2.4- agressive K replacement Prognosis guarded, need family meeting to discuss goals of care. Consultation Date/Type/Reason Admit Date/Time Feb 20, 2017 at 19:33 Initial Consult Date 02/20/17 Type of Consultation: NEPHROLOGY Referring Provider: CARL STEPHENS MD 24 HR Interval Summary Free Text/Dictation Remains intubated, Lasix albumin for diureiss, BP stable Exam/Review of Systems Vital Signs Vitals Vital Signs Date Time Temp Pulse Resp B/P Pulse Ox O2 Delivery O2 Flow Rate FiO2 02/26/17 17:00 98 25 124/66 96 Mechanical Ventilator 02/26/17 16:00 99.2 02/26/17 15:57 3.0 02/26/17 13:29 30 Intake and Output 02/25/17 02/25/17 02/26/17 15:00 23:00 07:00 Intake Total 1014.824 ml 1053.412 ml 662.8 ml Output Total 1580 ml 2555 ml 455 ml Balance -565.176 ml -1501.588 ml 207.8 ml Exam Constitutional: non-verbal Eyes: nl conjunctiva ENMT: other (intubated on ventilator ) Neck: supple Respiratory: congested cough, crackles/rales, diminished breath sounds Cardiovascular: regular rate and rhythm Gastrointestinal: other (Ileostomy present, surgicla scar healthy ), soft Neurological: other (sedated intubated on ventilator ) Results Result Diagram: 02/26/17 0530 02/26/17 0530 Results 24 hrs Laboratory Tests Test 02/25/17 20:13 02/25/17 22:12 02/26/17 00:03 02/26/17 02:27 Bedside Glucose 146 148 164 154 Test 02/26/17 04:05 02/26/17 05:30 02/26/17 06:15 02/26/17 07:50 Bedside Glucose 142 125 117 White Blood Count 7.6 Red Blood Count 2.58 L Hemoglobin 7.4 L Hematocrit 21.4 L Mean Corpuscular Volume 82.9 Mean Corpuscular Hemoglobin 28.7 L Mean Corpuscular Hemoglobin Concent 34.6 Red Cell Distribution Width 18.2 H Platelet Count 85 #L Mean Platelet Volume 12.8 H Neutrophils % 76.2 Lymphocytes % 9.9 L Monocytes % 2.4 Eosinophils % 0.4 Basophils % 0.7 Nucleated Red Blood Cells % 2.5 H Neutrophils # 5.8 Lymphocytes # 0.8 Monocytes # 0.2 L Eosinophils # 0.0 Basophils # 0.1 Nucleated Red Blood Cells # 0.2 H Sodium Level 138 Potassium Level 2.4 *L Chloride Level 107 Carbon Dioxide Level 27 Anion Gap 6 L Blood Urea Nitrogen 29 H Creatinine 0.70 Glucose Level 114 # Calcium Level 8.2 L Phosphorus Level 2.7 Magnesium Level 1.7 Total Bilirubin 2.1 H Direct Bilirubin 1.70 #H Indirect Bilirubin 0.4 Aspartate Amino Transf (AST/SGOT) 55 H Alanine Aminotransferase (ALT/SGPT) 46 Alkaline Phosphatase 66 Total Protein 4.9 L Albumin 2.2 L Globulin 2.70 Albumin/Globulin Ratio 0.81 Test 02/26/17 10:42 02/26/17 12:03 02/26/17 14:07 02/26/17 14:13 Bedside Glucose 158 161 131 Blood Gas Specimen Source Blood arterial Arterial Blood Date Drawn 02/26/2017 2:20:38 PM Arterial Blood pH (Temp corrected) 7.536 H Arterial Blood pCO2 (Temp correct) 31.7 L Arterial Blood pO2 (Temp corrected) 83.7 Arterial Blood HCO3 26.3 H Arterial Blood Base Excess 3.6 H Arterial Blood Oxygen Saturation 96.1 Jayce Test ACCEPTAB Arterial Blood Gas Puncture Site Right Radial Arterial Blood Carboxyhemoglobin 0.1 Arterial Blood Methemoglobin 0.8 Blood Gas A-a O2 Differential 93.0 H Oxyhemoglobin Percent 95.2 Total Hemoglobin 7.8 L Blood Gas Temperature 37.0 Blood Gas Actual Respiration Rate 27 Blood Gas Modality VENT - CPAP FiO2 30.0 Blood Gas Low PEEP Setting 5.0 Blood Gas Pressure Support 10 Blood Gas Notified Whom JLD Blood Gas Notified Time 02/26/2017 2:30:12 PM Test 02/26/17 16:06 Bedside Glucose 129 Medications Medications Current Medications Dextrose (D50w Syringe) 100 ml ONCE PRN IV POC BLOOD GLUCOSE <250 MG/DL Last administered on 02/20/17 16:50; Admin Dose 100 ML; Start 02/20/17 at 16:30 IV Flush (NS 10 ml) 10 ml PRN PRN IV IV PROTOCOL; Start 02/20/17 at 19:30 Levothyroxine Sodium (Synthroid Iv) 50 mcg AM IV Last administered on 09:51; Admin Dose 50 MCG; Start 02/21/17 at 09:00 Enoxaparin Sodium (Lovenox) 40 mg DAILY SC Last administered on 02/26/17 09:51 ; Admin Dose 40 MG; Start 02/22/17 at 09:00 Acetaminophen/ Hydrocodone Bitart ([place] (5/325)) 1 tab Q4H PRN NGT pain; Start 02/21/17 at 17:00 Ondansetron HCl 4 mg 4 mg Q6H PRN IV NAUSEA; Start 02/21/17 at 23:30 Caspofungin 50 mg/ Sodium Chloride 250 ml @ 250 mls/hr Q24H IVPB Last administered on 02/26/17 11:42; Admin Dose 250 MLS/HR; Start 02/23/17 at 11:00 Propofol 100 ml @ 3.201 mls/ hr Q12H IV Last administered on 02/25/17 21:27; Admin Dose 9.603 MLS/HR; Start 02/22/17 at 14:30 Norepinephrine 16 mg/Dextrose 500 ml @ 0 mls/hr TITRATE IV Last administered on 02/23/17 03:24; Admin Dose 37.5 MLS/HR; Start 02/22/17 at 19:00 Meropenem/Sodium Chloride 50 ml @ 100 mls/hr Q12 IVPB Last administered on 09:51; Admin Dose 100 MLS/HR; Start 02/23/17 at 21:00 Total Parenteral Nutrition (Tpn) 1,000 ml @ 60 mls/hr [id number] IV Last administered on 02/26/17 11:43; Admin Dose 60 MLS/HR; Start 02/23/17 at 16:30 Diagnostic Test (Pha) (Accu-Chek) 1 ea Q1H XX Last administered on 02/26/17 18 :10; Admin Dose 1 EA; Start 02/24/17 at 09:30 Dextrose 25 ml 25 ml Q15M PRN IV Till BS 80 mg/dL or above x2; Start 02/24/17 at 09:30 Quinupristin/ Dalfopristin/ Dextrose (Synercid/D5W) 250 ml @ 250 mls/hr Q8 IVPB Last administered on 02/26/17 14:18; Admin Dose 250 MLS/HR; Start at 10:30 Hydrocortisone (Solu-Cortef) 20 mg Q8 IV Last administered on 02/26/17 14:18; Admin Dose 20 MG; Start 02/26/17 at 14:00 Morphine Sulfate (morphine) 2 mg Q3H PRN IV PAIN LEVEL 4-6 Last administered on 02/26/17 16:58; Admin Dose 2 MG; Start 02/26/17 at 17:00 ARIK MCKEON MD Feb 26, 2017 18:21
[2017-02-26] MEDS: INSULIN HUMAN REGULAR 100 UNIT in SOD CHLORIDE 0.9% 99 ML IV SCH (19:28)
[2017-02-26 19:47] LABS: CALCIUM 8.2 mg/dl (8.4-10.2); CREATININE 0.65 mg/dl (0.44-1.00)
[2017-02-26] MEDS ORDERED: POTASSIUM CHLORIDE 60 MEQ in SOD CHLORIDE 0.9% 500 ML IVPB ONE (22:00)
[2017-02-27] VITALS (28 sets, daily range): BP systolic 120–163; BP diastolic 50–73; PULSE 89–123; RESP 18–26
[2017-02-27] MEDS: ACCU-CHEK XX SCH ×24 (00:36→23:55)
[2017-02-27] MEDS: PROPOFOL 100 ML IV SCH ×2 (02:30→14:15)
[2017-02-27] MEDS: morphine 2 MG INJ IV PRN ×6 (02:44→23:55)
[2017-02-27] MEDS: TPN 1,000 ML IV SCH ×2 (05:23→21:12)
[2017-02-27 05:31] LABS: ABNORMAL IP MESSAGE 1; HEMATOCRIT 22.7 % (37.0-47.0); HEMOGLOBIN 7.2 g/dl (12.0-16.0); MEAN CORPUSCULAR HEMOGLOBIN 27.3 pg (29.0-33.0); MEAN CORPUSCULAR HGB CONC 31.7 g/dl (32.0-37.0); MEAN PLATELET VOLUME 12.4 fl (7.4-10.4); NUCLEATED RED BLOOD CELLS% 0.8 /100WBC (0.0-0.0); PLATELET COUNT 118 10^3/UL (140-415); RED BLOOD COUNT 2.64 10^6/ul (4.20-5.40); RED CELL DISTRIBUTION WIDTH 19.1 % (11.5-14.5); WHITE BLOOD COUNT 9.7 10^3/ul (4.8-10.8)
[2017-02-27] MEDS: HYDROCORTISONE 100 MG INJ IV SCH ×3 (05:32→21:12)
[2017-02-27] MEDS: [UNRECOGNIZED DRUG - MIXTURE] IVPB SCH ×3 (05:32→21:31)
[2017-02-27] MEDS: FUROSEMIDE 40 MG INJ IV SCH ×2 (05:32→17:06)
[2017-02-27 05:49] LABS: ALBUMIN 2.2 g/dl (3.3-4.9); ALBUMIN/GLOBULIN RATIO 0.81; BILIRUBIN,DIRECT 1.5 mg/dl (0.00-0.20); BILIRUBIN,INDIRECT 0.4 mg/dl (0-1.1); BILIRUBIN,TOTAL 1.9 mg/dl (0.2-1.3); CREATININE 0.66 mg/dl (0.44-1.00); POTASSIUM 3.6 mmol/L (3.5-5.1); TOTAL PROTEIN 4.9 g/dl (6.1-8.1)
[2017-02-27 05:53] LABS: MAGNESIUM 1.6 mg/dl (1.7-2.5); PHOSPHORUS 2.7 mg/dl (2.5-4.9)
[2017-02-27 06:02] LABS: POSITIVE DIFF @See below
[2017-02-27] MEDS: MEROPENEM 500MG/50 ML (PMX) 50 ML IVPB SCH ×2 (08:11→20:17)
[2017-02-27] MEDS: LEVOTHYROXINE 100 MCG VIAL IV SCH (08:11)
[2017-02-27] MEDS: ENOXAPARIN 40 MG/0.4 ML SYG SC SCH (08:14)
[2017-02-27 08:20] LABS: AADO2 Arterial 96.5 mmHg (7.0-24.0); Allen Test ACCEPTAB; Arterial Base Excess 4.1 mmol/L (-3.0-3); Arterial COHb 0.3 % (0.0-3.0); Arterial Fraction of Oxyhgb 93.9 % (93.0-99.0); Arterial MetHb 0.1 % (0.0-1.5); Arterial Total Hemglobin 8.8 g/dl (12.0-18.0); MODE NASAL CANNULA
--- NOTE | 2017-02-27 09:00 | RADRPT ---
PROCEDURE: XR Chest. CLINICAL INDICATION: Shortness of breath. TECHNIQUE: Single frontal view. COMPARISON: 02/26/2017. FINDINGS: The endotracheal tube has been removed. There is a nasogastric tube tip in the distal esophagus. Thi s should be advanced approximately 15 cm. There is a left arm PICC line with the tip in the lower cuevas perior vena cava. There are low lung volumes and mild atelectasis at the lung bases. The lungs are o therwise clear. The heart is mildly enlarged. There is calcification in the aorta consistent with atherosclerosis. There is no pleural effusion. There is no pneumothorax. IMPRESSION: 1. Endotracheal tube removed. 2. Nasogastric tube that is approximately 15 cm. 3. No other change from 02/26/2017. RPTAT: QQ .Adelfo Yanez MD, MD Date Time Electronically viewed and signed by .Adelfo Yanez MD, MD on 02/27/2017 09:00 .R/
--- NOTE | 2017-02-27 10:05 | CONS ---
Date/Time of Note Date/Time of Note DATE: 02/27/17 TIME: 10:04 Consult Date/Type/Reason Admit Date/Time Feb 20, 2017 at 19:33 Initial Consult Date 02/20/17 Type of Consultation: Pulmonary Ordering Provider: CARL STEPHENS MD Subjective Patient extubated yesterday. Awake alert comfortable this morning. Nasogastric tube in place. Significant neuromuscular weakness. Currently hemodynamically stable. Objective Vital Signs Date Time Temp Pulse Resp B/P Pulse Ox O2 Delivery O2 Flow Rate FiO2 02/27/17 09:00 97 26 121/52 98 Nasal Cannula 02/27/17 08:00 3.0 02/27/17 07:00 98.3 02/26/17 13:29 30 Intake and Output 02/26/17 02/26/17 02/27/17 15:00 23:00 07:00 Intake Total 1392.8 ml 1022 ml 869.3 ml Output Total 1360 ml 2500 ml 1100 ml Balance 32.8 ml -1478 ml -230.7 ml Exam PHYSICAL EXAMINATION GENERAL: Elderly lady on nasal cannula oxygen appears comfortable at rest VITAL SIGNS: see below. HEENT: Pupils equal, round, and reactive to light. CARDIAC: S1, S2, 1/6 systolic ejection murmur CHEST: Diminished air entry bilaterally. ABDOMEN: Mildly distended. Bowel sounds present no guarding or rebound EXTREMITIES: No cyanosis, clubbing edema +1, widespread purpura NEUROLOGIC: Generalized weakness Results/Medications Result Diagram: 02/27/17 0439 02/27/17 0439 Results 24 hrs Laboratory Tests Test 02/26/17 10:42 02/26/17 12:03 02/26/17 14:07 02/26/17 14:13 Bedside Glucose 158 161 131 Blood Gas Specimen Source Blood arterial Arterial Blood Date Drawn 02/26/2017 2:20:38 PM Arterial Blood pH (Temp corrected) 7.536 H Arterial Blood pCO2 (Temp correct) 31.7 L Arterial Blood pO2 (Temp corrected) 83.7 Arterial Blood HCO3 26.3 H Arterial Blood Base Excess 3.6 H Arterial Blood Oxygen Saturation 96.1 Jayce Test ACCEPTAB Arterial Blood Gas Puncture Site Right Radial Arterial Blood Carboxyhemoglobin 0.1 Arterial Blood Methemoglobin 0.8 Blood Gas A-a O2 Differential 93.0 H Oxyhemoglobin Percent 95.2 Total Hemoglobin 7.8 L Blood Gas Temperature 37.0 Blood Gas Actual Respiration Rate 27 Blood Gas Modality VENT - CPAP FiO2 30.0 Blood Gas Low PEEP Setting 5.0 Blood Gas Pressure Support 10 Blood Gas Notified Whom JLD Blood Gas Notified Time 02/26/2017 2:30:12 PM Test 02/26/17 16:06 02/26/17 18:11 02/26/17 19:24 02/26/17 20:21 Bedside Glucose 129 154 174 Sodium Level 139 Potassium Level 3.0 L Chloride Level 108 Carbon Dioxide Level 29 Anion Gap 5 L Blood Urea Nitrogen 28 H Creatinine 0.65 Glucose Level 153 Calcium Level 8.2 L Test 02/26/17 22:20 02/27/17 00:21 02/27/17 02:17 02/27/17 04:29 Bedside Glucose 159 169 174 142 Test 02/27/17 04:39 02/27/17 07:00 02/27/17 07:06 02/27/17 08:10 White Blood Count 9.7 # Red Blood Count 2.64 L Hemoglobin 7.2 L Hematocrit 22.7 L Mean Corpuscular Volume 86.0 Mean Corpuscular Hemoglobin 27.3 L Mean Corpuscular Hemoglobin Concent 31.7 L Red Cell Distribution Width 19.1 H Platelet Count 118 #L Mean Platelet Volume 12.4 H Neutrophils % Lymphocytes % Monocytes % Eosinophils % Basophils % Nucleated Red Blood Cells % 0.8 H Neutrophils # Lymphocytes # Monocytes # Eosinophils # Basophils # Nucleated Red Blood Cells # Sodium Level 141 Potassium Level 3.6 Chloride Level 110 Carbon Dioxide Level 29 Anion Gap 6 L Blood Urea Nitrogen 26 H Creatinine 0.66 Glucose Level 127 Calcium Level 8.0 L Phosphorus Level 2.7 Magnesium Level 1.6 L Total Bilirubin 1.9 H Direct Bilirubin 1.50 H Indirect Bilirubin 0.4 Aspartate Amino Transf (AST/SGOT) 59 H Alanine Aminotransferase (ALT/SGPT) 50 Alkaline Phosphatase 98 Total Protein 4.9 L Albumin 2.2 L Globulin 2.70 Albumin/Globulin Ratio 0.81 Blood Gas Specimen Source Blood arterial Arterial Blood Date Drawn 02/27/2017 7:50:26 AM Arterial Blood pH (Temp corrected) 7.468 H Arterial Blood pCO2 (Temp correct) 39.6 Arterial Blood pO2 (Temp corrected) 70.9 L Arterial Blood HCO3 28.0 H Arterial Blood Base Excess 4.1 H Arterial Blood Oxygen Saturation 94.3 L Jayce Test ACCEPTAB Arterial Blood Gas Puncture Site Right Radial Arterial Blood Carboxyhemoglobin 0.3 Arterial Blood Methemoglobin 0.1 Blood Gas A-a O2 Differential 96.5 H Oxyhemoglobin Percent 93.9 Total Hemoglobin 8.8 L Blood Gas Temperature 37.0 Blood Gas Modality NASAL CANNULA FiO2 30.0 Blood Gas Notified Whom JLD Blood Gas Notified Time 02/27/2017 8:20:05 AM Bedside Glucose 162 163 Test 02/27/17 09:01 Bedside Glucose 161 Medications Current Medications Dextrose (D50w Syringe) 100 ml ONCE PRN IV POC BLOOD GLUCOSE <250 MG/DL Last administered on 02/20/17 16:50; Admin Dose 100 ML; Start 02/20/17 at 16:30 IV Flush (NS 10 ml) 10 ml PRN PRN IV IV PROTOCOL; Start 02/20/17 at 19:30 Levothyroxine Sodium (Synthroid Iv) 50 mcg AM IV Last administered on 08:11; Admin Dose 50 MCG; Start 02/21/17 at 09:00 Enoxaparin Sodium (Lovenox) 40 mg DAILY SC Last administered on 02/27/17 08:14 ; Admin Dose 40 MG; Start 02/22/17 at 09:00 Acetaminophen/ Hydrocodone Bitart ([place] (5/325)) 1 tab Q4H PRN NGT pain; Start 02/21/17 at 17:00 Ondansetron HCl 4 mg 4 mg Q6H PRN IV NAUSEA Last administered on 02/26/17 20: 12; Admin Dose 4 MG; Start 02/21/17 at 23:30 Caspofungin 50 mg/ Sodium Chloride 250 ml @ 250 mls/hr Q24H IVPB Last administered on 02/26/17 11:42; Admin Dose 250 MLS/HR; Start 02/23/17 at 11:00 Propofol 100 ml @ 3.201 mls/ hr Q12H IV Last administered on 02/25/17 21:27; Admin Dose 9.603 MLS/HR; Start 02/22/17 at 14:30 Norepinephrine 16 mg/Dextrose 500 ml @ 0 mls/hr TITRATE IV Last administered on 02/23/17 03:24; Admin Dose 37.5 MLS/HR; Start 02/22/17 at 19:00 Meropenem/Sodium Chloride 50 ml @ 100 mls/hr Q12 IVPB Last administered on 08:11; Admin Dose 100 MLS/HR; Start 02/23/17 at 21:00 Total Parenteral Nutrition (Tpn) 1,000 ml @ 60 mls/hr [id number] IV Last administered on 02/27/17 05:23; Admin Dose 60 MLS/HR; Start 02/23/17 at 16:30 Diagnostic Test (Pha) (Accu-Chek) 1 ea Q1H XX Last administered on 02/27/17 09 :10; Admin Dose 1 EA; Start 02/24/17 at 09:30 Dextrose 25 ml 25 ml Q15M PRN IV Till BS 80 mg/dL or above x2; Start 02/24/17 at 09:30 Quinupristin/ Dalfopristin/ Dextrose (Synercid/D5W) 250 ml @ 250 mls/hr Q8 IVPB Last administered on 02/27/17 05:32; Admin Dose 250 MLS/HR; Start at 10:30 Hydrocortisone (Solu-Cortef) 20 mg Q8 IV Last administered on 02/27/17 05:32; Admin Dose 20 MG; Start 02/26/17 at 14:00 Morphine Sulfate (morphine) 2 mg Q3H PRN IV PAIN LEVEL 4-6 Last administered on 02/27/17 09:06; Admin Dose 2 MG; Start 02/26/17 at 17:00 Assessment/Plan Chief Complaint/Hosp Course Assessment 1. Status post septic shock. 2. Hypoxemic respiratory failure. 3. Thrombocytopenia possibly DIC. 4. Possible adrenal insufficiency. 5. GI bleed, now with anemia. 6. Hx PMR Plan 1. Replace electrolytes 2. Monitor H&H. Consider PRBC transfusion. 3. Speech therapy evaluation 4. Incentive spirometry and aspiration precautions 5. IV fluid resuscitation, consider DC TPN 6. Stress dose steroids per endocrinology. 7. PT eval Critical care time 40 minutes. Problems: KATHY SALOMON MD, [facility] Feb 27, 2017 10:05
[2017-02-27] MEDS: INSULIN HUMAN REGULAR 100 UNIT in SOD CHLORIDE 0.9% 99 ML IV SCH (10:21)
[2017-02-27 10:39] LABS: AADO2 Arterial 469.3 mmHg (7.0-24.0); Allen Test ACCEPTAB; Arterial Base Excess -13.1 mmol/L (-3.0-3); Arterial COHb 0.2 % (0.0-3.0); Arterial Fraction of Oxyhgb 98.5 % (93.0-99.0); Arterial HCO3 15.1 mmol/L (22.0-26.0); Arterial MetHb 0.3 % (0.0-1.5); Arterial Total Hemglobin 11.4 g/dl (12.0-18.0); MODE MASK - NRB
--- NOTE | 2017-02-27 10:41 | PN ---
Date/Time of Note Date/Time of Note DATE: 02/27/17 TIME: 10:39 Assessment/Plan Lines/Catheters IV Catheter Type (from Nrs): Peripheral IV Mojica in Place (from Nrsg): Yes Assessment/Plan Assessment/Plan Abdominal incision with slight serous drainage Ileostomy viable Plan: Awaiting swallow evaluation Remove alternate skin kay PT evaluation Subjective 24 Hr Interval Summary Postoperative day #6 Awake and alert Exam/Review of Systems Vital Signs Vitals Vital Signs Date Time Temp Pulse Resp B/P Pulse Ox O2 Delivery O2 Flow Rate FiO2 02/27/17 10:00 91 19 127/53 98 Nasal Cannula 02/27/17 08:00 3.0 02/27/17 07:00 98.3 02/26/17 13:29 30 Intake and Output 02/26/17 02/26/17 02/27/17 15:00 23:00 07:00 Intake Total 1392.8 ml 1022 ml 869.3 ml Output Total 1360 ml 2500 ml 1100 ml Balance 32.8 ml -1478 ml -230.7 ml Results Result Diagram: 02/27/17 0439 02/27/17 0439 CARL STEPHENS MD Feb 27, 2017 10:41
[2017-02-27] MEDS: CASPOFUNGIN 50 MG in SOD CHLORIDE 0.9% 250 ML IVPB SCH (10:58)
[2017-02-27] MEDS ORDERED: MAGNESIUM SULFATE 3 GM in SOD CHLORIDE 0.9% 100 ML IVPB ONE (12:00)
--- NOTE | 2017-02-27 12:54 | PN ---
DATE: 02/27/2017 SUBJECTIVE DATA: No acute events overnight. The patient was extubated. She is alert, awake, follows commands, feels better, looks comfortable and afebrile. OBJECTIVE DATA: VITAL SIGNS: T-max yesterday 100.3, T current 98.3, pulse 94, respirations 20, blood pressure 136/51, and saturation 98 on nasal cannula. LABORATORY AND DIAGNOSTIC DATA: WBC 9.7, H and H 7.2 and 22.7, platelets 118, BUN 26, and creatinine 0.66. MICROBIOLOGY: Blood culture persistently growing Laisha glabrata and VRE. INDWELLINGS: He patient has Mojica catheter, PICC line, and NG tube. ANTIMICROBIALS: Synercid, meropenem, and Cancidas. PHYSICAL EXAMINATION: GENERAL: This is a morbidly obese, elderly woman, who is awake, in no distress. HEENT: Head atraumatic, normocephalic. Sclerae anicteric. Buccal mucosa dry. NECK: Supple. CHEST: Chest rise symmetrical. Breath sounds diminished at the bases. HEART: S1, S2. ABDOMEN: Soft, bowel sounds present. EXTREMITIES: Without cyanosis, bilateral edema. ASSESSMENT: 1. Severe sepsis status post shock. 2. Status post perforated anastomotic leak repair on 02/21/2017. 3. Vancomycin resistant enterococci (VRE) bacteremia with persistent fungemia likely secondary to above. 4. History of open appendectomy. 5. Healthcare-associated pneumonia. 6. Anemia and thrombocytopenia. 7. Morbid obesity. PLAN: 1. Patient is overall improving, stable post extubation. 2. On appropriate antimicrobials. 3. Continue present care. 4. Anti-aspiration measures. 5. Follow Surgical and Pulmonary recommendations. 6. Repeat blood cultures. Dictated By: Mk Kimball NP /louie/genia /Document#: [id number]
--- NOTE | 2017-02-27 14:00 | CONS ---
Date/Time of Note Date/Time of Note DATE: 02/27/17 TIME: 13:55 Assessment/Plan Assessment/Plan Chief Complaint/Hosp Course Patient obtunded. History obtained by chart and medical personnel Problems: (1) Hyperglycemia Status: Acute Comment: On insulin drip. BG levels upper limit of target on current dose algorithm (2) Hypothyroidism Status: Chronic Comment: Euthyroid. Transition to oral once patient able to take po Qualifiers: Hypothyroidism type: acquired Qualified Code: E03.9 - Acquired hypothyroidism (3) Iatrogenic adrenal insufficiency Status: Acute Comment: Steroid taper started. Will continue at current dose and decrease tomorrow. to daily Consultation Date/Type/Reason Admit Date/Time Feb 20, 2017 at 19:33 Initial Consult Date 02/20/17 Type of Consultation: Endocrine Reason for Consultation Steroid management and thyroid management Referring Provider: CARL STEPHENS MD 24 HR Interval Summary Free Text/Dictation Complain of lower extremity pain while tensiometer cuff inflates Exam/Review of Systems Vital Signs Vitals Vital Signs Date Time Temp Pulse Resp B/P Pulse Ox O2 Delivery O2 Flow Rate FiO2 02/27/17 13:00 97 21 138/54 97 02/27/17 12:30 Nasal Cannula 02/27/17 08:00 3.0 02/27/17 07:00 98.3 02/26/17 13:29 30 Intake and Output 02/26/17 02/26/17 02/27/17 15:00 23:00 07:00 Intake Total 1392.8 ml 1022 ml 869.3 ml Output Total 1360 ml 2500 ml 1100 ml Balance 32.8 ml -1478 ml -230.7 ml Exam Extubated and interactive Constitutional: alert, obese, oriented, other (speaking in full sentences) ENMT: other (NGT in place) Neck: supple Respiratory: other (coarse breath sounds) Cardiovascular: regular rate and rhythm Gastrointestinal: soft Extremities: edema Lymph: other (ecchymotic plaques) Results POC reviewed Result Diagram: 02/27/17 0439 02/27/17 0439 Results 24 hrs Laboratory Tests Test 02/26/17 14:07 02/26/17 14:13 02/26/17 16:06 02/26/17 18:11 Blood Gas Specimen Source Blood arterial Arterial Blood Date Drawn 02/26/2017 2:20:38 PM Arterial Blood pH (Temp corrected) 7.536 H Arterial Blood pCO2 (Temp correct) 31.7 L Arterial Blood pO2 (Temp corrected) 83.7 Arterial Blood HCO3 26.3 H Arterial Blood Base Excess 3.6 H Arterial Blood Oxygen Saturation 96.1 Jayce Test ACCEPTAB Arterial Blood Gas Puncture Site Right Radial Arterial Blood Carboxyhemoglobin 0.1 Arterial Blood Methemoglobin 0.8 Blood Gas A-a O2 Differential 93.0 H Oxyhemoglobin Percent 95.2 Total Hemoglobin 7.8 L Blood Gas Temperature 37.0 Blood Gas Actual Respiration Rate 27 Blood Gas Modality VENT - CPAP FiO2 30.0 Blood Gas Low PEEP Setting 5.0 Blood Gas Pressure Support 10 Blood Gas Notified Whom JLD Blood Gas Notified Time 02/26/2017 2:30:12 PM Bedside Glucose 131 129 154 Test 02/26/17 19:24 02/26/17 20:21 02/26/17 22:20 02/27/17 00:21 Sodium Level 139 Potassium Level 3.0 L Chloride Level 108 Carbon Dioxide Level 29 Anion Gap 5 L Blood Urea Nitrogen 28 H Creatinine 0.65 Glucose Level 153 Calcium Level 8.2 L Bedside Glucose 174 159 169 Test 02/27/17 02:17 02/27/17 04:29 02/27/17 04:39 02/27/17 07:00 Bedside Glucose 174 142 White Blood Count 9.7 # Red Blood Count 2.64 L Hemoglobin 7.2 L Hematocrit 22.7 L Mean Corpuscular Volume 86.0 Mean Corpuscular Hemoglobin 27.3 L Mean Corpuscular Hemoglobin Concent 31.7 L Red Cell Distribution Width 19.1 H Platelet Count 118 #L Mean Platelet Volume 12.4 H Neutrophils % Lymphocytes % Monocytes % Eosinophils % Basophils % Nucleated Red Blood Cells % 0.8 H Neutrophils # Lymphocytes # Monocytes # Eosinophils # Basophils # Nucleated Red Blood Cells # Sodium Level 141 Potassium Level 3.6 Chloride Level 110 Carbon Dioxide Level 29 Anion Gap 6 L Blood Urea Nitrogen 26 H Creatinine 0.66 Glucose Level 127 Calcium Level 8.0 L Phosphorus Level 2.7 Magnesium Level 1.6 L Total Bilirubin 1.9 H Direct Bilirubin 1.50 H Indirect Bilirubin 0.4 Aspartate Amino Transf (AST/SGOT) 59 H Alanine Aminotransferase (ALT/SGPT) 50 Alkaline Phosphatase 98 Total Protein 4.9 L Albumin 2.2 L Globulin 2.70 Albumin/Globulin Ratio 0.81 Blood Gas Specimen Source Blood arterial Arterial Blood Date Drawn 02/27/2017 7:50:26 AM Arterial Blood pH (Temp corrected) 7.468 H Arterial Blood pCO2 (Temp correct) 39.6 Arterial Blood pO2 (Temp corrected) 70.9 L Arterial Blood HCO3 28.0 H Arterial Blood Base Excess 4.1 H Arterial Blood Oxygen Saturation 94.3 L Jayce Test ACCEPTAB Arterial Blood Gas Puncture Site Right Radial Arterial Blood Carboxyhemoglobin 0.3 Arterial Blood Methemoglobin 0.1 Blood Gas A-a O2 Differential 96.5 H Oxyhemoglobin Percent 93.9 Total Hemoglobin 8.8 L Blood Gas Temperature 37.0 Blood Gas Modality NASAL CANNULA FiO2 30.0 Blood Gas Notified Whom JLD Blood Gas Notified Time 02/27/2017 8:20:05 AM Test 02/27/17 07:06 02/27/17 08:10 02/27/17 09:01 02/27/17 10:22 Bedside Glucose 162 163 161 160 Test 02/27/17 11:00 02/27/17 12:27 02/27/17 12:51 Bedside Glucose 167 152 147 Medications Medications Current Medications Dextrose (D50w Syringe) 100 ml ONCE PRN IV POC BLOOD GLUCOSE <250 MG/DL Last administered on 02/20/17 16:50; Admin Dose 100 ML; Start 02/20/17 at 16:30 IV Flush (NS 10 ml) 10 ml PRN PRN IV IV PROTOCOL; Start 02/20/17 at 19:30 Levothyroxine Sodium (Synthroid Iv) 50 mcg AM IV Last administered on 08:11; Admin Dose 50 MCG; Start 02/21/17 at 09:00 Enoxaparin Sodium (Lovenox) 40 mg DAILY SC Last administered on 02/27/17 08:14 ; Admin Dose 40 MG; Start 02/22/17 at 09:00 Acetaminophen/ Hydrocodone Bitart ([place] (5/325)) 1 tab Q4H PRN NGT pain; Start 02/21/17 at 17:00 Ondansetron HCl 4 mg 4 mg Q6H PRN IV NAUSEA Last administered on 02/26/17 20: 12; Admin Dose 4 MG; Start 02/21/17 at 23:30 Caspofungin 50 mg/ Sodium Chloride 250 ml @ 250 mls/hr Q24H IVPB Last administered on 02/27/17 10:58; Admin Dose 250 MLS/HR; Start 02/23/17 at 11:00 Propofol 100 ml @ 3.201 mls/ hr Q12H IV Last administered on 02/25/17 21:27; Admin Dose 9.603 MLS/HR; Start 02/22/17 at 14:30 Norepinephrine 16 mg/Dextrose 500 ml @ 0 mls/hr TITRATE IV Last administered on 02/23/17 03:24; Admin Dose 37.5 MLS/HR; Start 02/22/17 at 19:00 Meropenem/Sodium Chloride 50 ml @ 100 mls/hr Q12 IVPB Last administered on 08:11; Admin Dose 100 MLS/HR; Start 02/23/17 at 21:00 Total Parenteral Nutrition (Tpn) 1,000 ml @ 60 mls/hr [id number] IV Last administered on 02/27/17 05:23; Admin Dose 60 MLS/HR; Start 02/23/17 at 16:30 Diagnostic Test (Pha) (Accu-Chek) 1 ea Q1H XX Last administered on 02/27/17 12 :58; Admin Dose 1 EA; Start 02/24/17 at 09:30 Dextrose 25 ml 25 ml Q15M PRN IV Till BS 80 mg/dL or above x2; Start 02/24/17 at 09:30 Quinupristin/ Dalfopristin/ Dextrose (Synercid/D5W) 250 ml @ 250 mls/hr Q8 IVPB Last administered on 02/27/17 05:32; Admin Dose 250 MLS/HR; Start at 10:30 Hydrocortisone (Solu-Cortef) 20 mg Q8 IV Last administered on 02/27/17 13:26; Admin Dose 20 MG; Start 02/26/17 at 14:00 Morphine Sulfate 2 mg 2 mg Q3H PRN IV PAIN LEVEL 4-6 Last administered on 12:57; Admin Dose 2 MG; Start 02/26/17 at 17:00 Magnesium Sulfate/ Sodium Chloride (Magnesium Sulfate/NS) 106 ml @ 35.333 mls/ hr ONCE ONCE IVPB Last administered on 02/27/17 12:05; Admin Dose 35.333 MLS/ HR; Start 02/27/17 at 12:00; Stop 02/27/17 at 14:59 KAVON DANGELO MD Feb 27, 2017 14:00
--- NOTE | 2017-02-27 14:45 | PN ---
Date/Time of Note Date/Time of Note DATE: 02/27/17 TIME: 14:43 Assessment/Plan VTE Prophylaxis VTE Prophylaxis Intervention: LMWH Lines/Catheters IV Catheter Type (from Nrs): Peripheral IV Assessment/Plan Chief Complaint/Hosp Course 71 yo female with PMR on chronic steroids, unclear seizure d/o, hypertension, obesity, recently discharged from [facility] following open appendectomy without complications who now returns with hypotension, hypoxia, acute encephalopathy, hyponatremia, hyperkalemia and acute renal failure. Found to have disrupted ileocolic anastomosis and intraabdominal infection. Now s/p resection and ileostomy GI: SBO, disrupted colonic anastomosis following surgery for ruptured appendicitis, now s/p resection and ileostomy - Management per Dr Haji - NG tube, bowel rest - TPN ID: Sepsis 2/2 intraabdominal infection, VRE bacteremia and yeast fungemia - Continue abx per ID: synercid and merrem - Caspofungin for candidemia - Daily cultures ENDOCRINE: Polymyalgia rheumatica and chronic adrenal suppression from prednisone, now iatrogenic adrenal insufficiency - Stress hydrocortisone 100 q8h, wean as tolerated per Endocrine Hypothyroidism: - FT4 low, likely from poor absorption 2/2 ileus. Continue IV LT4 DM: - Insulin gtt RENAL: LATRICE is resolved, now edematous -Continue Lasix PULM: Acute hypoxic respiratory failure: -Now extubated Prophylaxis: Lovenox Problems: Subjective 24 Hr Interval Summary Musculoskeletal: bone/joint pain Exam/Review of Systems Vital Signs Vitals Vital Signs Date Time Temp Pulse Resp B/P Pulse Ox O2 Delivery O2 Flow Rate FiO2 02/27/17 13:00 97 21 138/54 97 02/27/17 12:30 Nasal Cannula 02/27/17 08:00 3.0 02/27/17 07:00 98.3 02/26/17 13:29 30 Intake and Output 02/26/17 02/26/17 02/27/17 15:00 23:00 07:00 Intake Total 1392.8 ml 1022 ml 869.3 ml Output Total 1360 ml 2500 ml 1100 ml Balance 32.8 ml -1478 ml -230.7 ml Exam Constitutional: alert Respiratory: clear to auscultation Cardiovascular: regular rate and rhythm Gastrointestinal: soft, No distended Extremities: edema Results Result Diagram: 02/27/17 0439 02/27/17 0439 Results 24 hrs Laboratory Tests Test 02/26/17 16:06 02/26/17 18:11 02/26/17 19:24 02/26/17 20:21 Bedside Glucose 129 154 174 Sodium Level 139 Potassium Level 3.0 L Chloride Level 108 Carbon Dioxide Level 29 Anion Gap 5 L Blood Urea Nitrogen 28 H Creatinine 0.65 Glucose Level 153 Calcium Level 8.2 L Test 02/26/17 22:20 02/27/17 00:21 02/27/17 02:17 02/27/17 04:29 Bedside Glucose 159 169 174 142 Test 02/27/17 04:39 02/27/17 07:00 02/27/17 07:06 02/27/17 08:10 White Blood Count 9.7 # Red Blood Count 2.64 L Hemoglobin 7.2 L Hematocrit 22.7 L Mean Corpuscular Volume 86.0 Mean Corpuscular Hemoglobin 27.3 L Mean Corpuscular Hemoglobin Concent 31.7 L Red Cell Distribution Width 19.1 H Platelet Count 118 #L Mean Platelet Volume 12.4 H Neutrophils % Lymphocytes % Monocytes % Eosinophils % Basophils % Nucleated Red Blood Cells % 0.8 H Neutrophils # Lymphocytes # Monocytes # Eosinophils # Basophils # Nucleated Red Blood Cells # Sodium Level 141 Potassium Level 3.6 Chloride Level 110 Carbon Dioxide Level 29 Anion Gap 6 L Blood Urea Nitrogen 26 H Creatinine 0.66 Glucose Level 127 Calcium Level 8.0 L Phosphorus Level 2.7 Magnesium Level 1.6 L Total Bilirubin 1.9 H Direct Bilirubin 1.50 H Indirect Bilirubin 0.4 Aspartate Amino Transf (AST/SGOT) 59 H Alanine Aminotransferase (ALT/SGPT) 50 Alkaline Phosphatase 98 Total Protein 4.9 L Albumin 2.2 L Globulin 2.70 Albumin/Globulin Ratio 0.81 Blood Gas Specimen Source Blood arterial Arterial Blood Date Drawn 02/27/2017 7:50:26 AM Arterial Blood pH (Temp corrected) 7.468 H Arterial Blood pCO2 (Temp correct) 39.6 Arterial Blood pO2 (Temp corrected) 70.9 L Arterial Blood HCO3 28.0 H Arterial Blood Base Excess 4.1 H Arterial Blood Oxygen Saturation 94.3 L Jayce Test ACCEPTAB Arterial Blood Gas Puncture Site Right Radial Arterial Blood Carboxyhemoglobin 0.3 Arterial Blood Methemoglobin 0.1 Blood Gas A-a O2 Differential 96.5 H Oxyhemoglobin Percent 93.9 Total Hemoglobin 8.8 L Blood Gas Temperature 37.0 Blood Gas Modality NASAL CANNULA FiO2 30.0 Blood Gas Notified Whom JLD Blood Gas Notified Time 02/27/2017 8:20:05 AM Bedside Glucose 162 163 Test 02/27/17 09:01 02/27/17 10:22 02/27/17 11:00 02/27/17 12:27 Bedside Glucose 161 160 167 152 Test 02/27/17 12:51 02/27/17 14:14 Bedside Glucose 147 140 Medications Medications Current Medications Dextrose (D50w Syringe) 100 ml ONCE PRN IV POC BLOOD GLUCOSE <250 MG/DL Last administered on 02/20/17 16:50; Admin Dose 100 ML; Start 02/20/17 at 16:30 IV Flush (NS 10 ml) 10 ml PRN PRN IV IV PROTOCOL; Start 02/20/17 at 19:30 Levothyroxine Sodium (Synthroid Iv) 50 mcg AM IV Last administered on 08:11; Admin Dose 50 MCG; Start 02/21/17 at 09:00 Enoxaparin Sodium (Lovenox) 40 mg DAILY SC Last administered on 02/27/17 08:14 ; Admin Dose 40 MG; Start 02/22/17 at 09:00 Acetaminophen/ Hydrocodone Bitart ([place] (5/325)) 1 tab Q4H PRN NGT pain; Start 02/21/17 at 17:00 Ondansetron HCl 4 mg 4 mg Q6H PRN IV NAUSEA Last administered on 02/26/17 20: 12; Admin Dose 4 MG; Start 02/21/17 at 23:30 Caspofungin 50 mg/ Sodium Chloride 250 ml @ 250 mls/hr Q24H IVPB Last administered on 02/27/17 10:58; Admin Dose 250 MLS/HR; Start 02/23/17 at 11:00 Propofol 100 ml @ 3.201 mls/ hr Q12H IV Last administered on 02/25/17 21:27; Admin Dose 9.603 MLS/HR; Start 02/22/17 at 14:30 Norepinephrine 16 mg/Dextrose 500 ml @ 0 mls/hr TITRATE IV Last administered on 02/23/17 03:24; Admin Dose 37.5 MLS/HR; Start 02/22/17 at 19:00 Meropenem/Sodium Chloride 50 ml @ 100 mls/hr Q12 IVPB Last administered on 08:11; Admin Dose 100 MLS/HR; Start 02/23/17 at 21:00 Total Parenteral Nutrition (Tpn) 1,000 ml @ 60 mls/hr [id number] IV Last administered on 02/27/17 05:23; Admin Dose 60 MLS/HR; Start 02/23/17 at 16:30 Diagnostic Test (Pha) (Accu-Chek) 1 ea Q1H XX Last administered on 02/27/17 14 :34; Admin Dose 1 EA; Start 02/24/17 at 09:30 Dextrose 25 ml 25 ml Q15M PRN IV Till BS 80 mg/dL or above x2; Start 02/24/17 at 09:30 Quinupristin/ Dalfopristin/ Dextrose (Synercid/D5W) 250 ml @ 250 mls/hr Q8 IVPB Last administered on 02/27/17 14:13; Admin Dose 250 MLS/HR; Start at 10:30 Hydrocortisone (Solu-Cortef) 20 mg Q8 IV Last administered on 02/27/17 13:26; Admin Dose 20 MG; Start 02/26/17 at 14:00 Morphine Sulfate 2 mg 2 mg Q3H PRN IV PAIN LEVEL 4-6 Last administered on 12:57; Admin Dose 2 MG; Start 02/26/17 at 17:00 Magnesium Sulfate/ Sodium Chloride (Magnesium Sulfate/NS) 106 ml @ 35.333 mls/ hr ONCE ONCE IVPB Last administered on 02/27/17 12:05; Admin Dose 35.333 MLS/ HR; Start 02/27/17 at 12:00; Stop 02/27/17 at 14:59 BENJAMIN GONSALEZ Feb 27, 2017 14:45
[2017-02-27] MEDS ORDERED: LORAZEPAM 2 MG INJ ONE (15:49)
[2017-02-27] MEDS: LORAZEPAM 2 MG INJ IV PRN ×2 (15:54→23:56)
--- NOTE | 2017-02-27 17:10 | CONS ---
Date/Time of Note Date/Time of Note DATE: 02/27/17 TIME: 17:07 Assessment/Plan Assessment/Plan Additional Assessment/Plan 1. Acute kidney injury mutlifactorial due to Prerenal azotemia + ATN From septic shock 2. Acute encephalopathy metabolic 3. SBO, disrupted colonic anastomosis, s/p Exp lap, resection and ileostomy on 4. H/o Polymyalgia rheumatica on Steroids 5. H/o recent right hemicolectomy for perforated diverticulitis 6. Hyperkalemia acute, Hyponatremia 7. acute hypoxic respiratory failure 8. adrenal crisis- On IV dexamethasone 9. Hypokalemia Plan: continue Hydrocortisone - decreased to 20 mg IV Q 8 hr for adrenal insufficiency propofol gtt for sedatin, ventilator care as per pulmonary on IV lasix 40mg BID, cr normal, K normal IV abx sepsis. renally dose antibiotics , IV cancidas,IV synercid s/p surgery, G surgery following will follow up Consultation Date/Type/Reason Admit Date/Time Feb 20, 2017 at 19:33 Initial Consult Date 02/20/17 Type of Consultation: NEPHROLOGY Referring Provider: CARL STEPHENS MD Exam/Review of Systems Vital Signs Vitals Vital Signs Date Time Temp Pulse Resp B/P Pulse Ox O2 Delivery O2 Flow Rate FiO2 02/27/17 16:00 106 21 156/73 97 Nasal Cannula 02/27/17 14:00 98.3 02/27/17 08:00 3.0 02/26/17 13:29 30 Intake and Output 02/26/17 02/26/17 02/27/17 15:00 23:00 07:00 Intake Total 1392.8 ml 1022 ml 869.3 ml Output Total 1360 ml 2500 ml 1100 ml Balance 32.8 ml -1478 ml -230.7 ml Results Result Diagram: 02/27/17 0439 02/27/17 0439 Results 24 hrs Laboratory Tests Test 02/26/17 18:11 02/26/17 19:24 02/26/17 20:21 02/26/17 22:20 Bedside Glucose 154 174 159 Sodium Level 139 Potassium Level 3.0 L Chloride Level 108 Carbon Dioxide Level 29 Anion Gap 5 L Blood Urea Nitrogen 28 H Creatinine 0.65 Glucose Level 153 Calcium Level 8.2 L Test 02/27/17 00:21 02/27/17 02:17 02/27/17 04:29 02/27/17 04:39 Bedside Glucose 169 174 142 White Blood Count 9.7 # Red Blood Count 2.64 L Hemoglobin 7.2 L Hematocrit 22.7 L Mean Corpuscular Volume 86.0 Mean Corpuscular Hemoglobin 27.3 L Mean Corpuscular Hemoglobin Concent 31.7 L Red Cell Distribution Width 19.1 H Platelet Count 118 #L Mean Platelet Volume 12.4 H Neutrophils % Lymphocytes % Monocytes % Eosinophils % Basophils % Nucleated Red Blood Cells % 0.8 H Neutrophils # Lymphocytes # Monocytes # Eosinophils # Basophils # Nucleated Red Blood Cells # Sodium Level 141 Potassium Level 3.6 Chloride Level 110 Carbon Dioxide Level 29 Anion Gap 6 L Blood Urea Nitrogen 26 H Creatinine 0.66 Glucose Level 127 Calcium Level 8.0 L Phosphorus Level 2.7 Magnesium Level 1.6 L Total Bilirubin 1.9 H Direct Bilirubin 1.50 H Indirect Bilirubin 0.4 Aspartate Amino Transf (AST/SGOT) 59 H Alanine Aminotransferase (ALT/SGPT) 50 Alkaline Phosphatase 98 Total Protein 4.9 L Albumin 2.2 L Globulin 2.70 Albumin/Globulin Ratio 0.81 Test 02/27/17 07:00 02/27/17 07:06 02/27/17 08:10 02/27/17 09:01 Blood Gas Specimen Source Blood arterial Arterial Blood Date Drawn 02/27/2017 7:50:26 AM Arterial Blood pH (Temp corrected) 7.468 H Arterial Blood pCO2 (Temp correct) 39.6 Arterial Blood pO2 (Temp corrected) 70.9 L Arterial Blood HCO3 28.0 H Arterial Blood Base Excess 4.1 H Arterial Blood Oxygen Saturation 94.3 L Jayce Test ACCEPTAB Arterial Blood Gas Puncture Site Right Radial Arterial Blood Carboxyhemoglobin 0.3 Arterial Blood Methemoglobin 0.1 Blood Gas A-a O2 Differential 96.5 H Oxyhemoglobin Percent 93.9 Total Hemoglobin 8.8 L Blood Gas Temperature 37.0 Blood Gas Modality NASAL CANNULA FiO2 30.0 Blood Gas Notified Whom JLD Blood Gas Notified Time 02/27/2017 8:20:05 AM Bedside Glucose 162 163 161 Test 02/27/17 10:22 02/27/17 11:00 02/27/17 12:27 02/27/17 12:51 Bedside Glucose 160 167 152 147 Test 02/27/17 14:14 02/27/17 15:12 02/27/17 15:55 Bedside Glucose 140 134 148 Medications Medications Current Medications Dextrose (D50w Syringe) 100 ml ONCE PRN IV POC BLOOD GLUCOSE <250 MG/DL Last administered on 02/20/17 16:50; Admin Dose 100 ML; Start 02/20/17 at 16:30 IV Flush (NS 10 ml) 10 ml PRN PRN IV IV PROTOCOL; Start 02/20/17 at 19:30 Levothyroxine Sodium (Synthroid Iv) 50 mcg AM IV Last administered on 08:11; Admin Dose 50 MCG; Start 02/21/17 at 09:00 Enoxaparin Sodium (Lovenox) 40 mg DAILY SC Last administered on 02/27/17 08:14 ; Admin Dose 40 MG; Start 02/22/17 at 09:00 Acetaminophen/ Hydrocodone Bitart ([employer] (5/325)) 1 tab Q4H PRN NGT pain; Start 02/21/17 at 17:00 Ondansetron HCl 4 mg 4 mg Q6H PRN IV NAUSEA Last administered on 02/26/17 20: 12; Admin Dose 4 MG; Start 02/21/17 at 23:30 Caspofungin 50 mg/ Sodium Chloride 250 ml @ 250 mls/hr Q24H IVPB Last administered on 02/27/17 10:58; Admin Dose 250 MLS/HR; Start 02/23/17 at 11:00 Propofol 100 ml @ 3.201 mls/ hr Q12H IV Last administered on 02/25/17 21:27; Admin Dose 9.603 MLS/HR; Start 02/22/17 at 14:30 Norepinephrine 16 mg/Dextrose 500 ml @ 0 mls/hr TITRATE IV Last administered on 02/23/17 03:24; Admin Dose 37.5 MLS/HR; Start 02/22/17 at 19:00 Meropenem/Sodium Chloride 50 ml @ 100 mls/hr Q12 IVPB Last administered on 08:11; Admin Dose 100 MLS/HR; Start 02/23/17 at 21:00 Total Parenteral Nutrition (Tpn) 1,000 ml @ 60 mls/hr [id number] IV Last administered on 02/27/17 05:23; Admin Dose 60 MLS/HR; Start 02/23/17 at 16:30 Diagnostic Test (Pha) (Accu-Chek) 1 ea Q1H XX Last administered on 02/27/17 16 :17; Admin Dose 1 EA; Start 02/24/17 at 09:30 Dextrose 25 ml 25 ml Q15M PRN IV Till BS 80 mg/dL or above x2; Start 02/24/17 at 09:30 Quinupristin/ Dalfopristin/ Dextrose (Synercid/D5W) 250 ml @ 250 mls/hr Q8 IVPB Last administered on 02/27/17 14:13; Admin Dose 250 MLS/HR; Start at 10:30 Hydrocortisone (Solu-Cortef) 20 mg Q8 IV Last administered on 02/27/17 13:26; Admin Dose 20 MG; Start 02/26/17 at 14:00 Morphine Sulfate (morphine) 2 mg Q3H PRN IV PAIN LEVEL 4-6 Last administered on 02/27/17 15:58; Admin Dose 2 MG; Start 02/26/17 at 17:00 Lorazepam (Ativan) 0.5 mg Q6H PRN IV AGITATION Last administered on 02/27/17 15:54; Admin Dose 0.5 MG; Start 02/27/17 at 16:00 ARIK MCKEON MD Feb 27, 2017 17:10
[2017-02-27] MEDS ORDERED: LABETALOL HCL 20MG INJ IV PRN (20:00)
[2017-02-28] VITALS (19 sets, daily range): BP systolic 90–155; BP diastolic 42–65; PULSE 56–123; RESP 18–26
[2017-02-28] MEDS: ACCU-CHEK XX SCH ×24 (00:30→23:00)
[2017-02-28] MEDS: PROPOFOL 100 ML IV SCH ×2 (02:30→14:30)
[2017-02-28] MEDS: INSULIN HUMAN REGULAR 100 UNIT in SOD CHLORIDE 0.9% 99 ML IV SCH (04:06)
[2017-02-28] MEDS: FUROSEMIDE 40 MG INJ IV SCH ×2 (06:39→17:46)
[2017-02-28] MEDS: HYDROCORTISONE 100 MG INJ IV SCH ×3 (06:39→21:17)
[2017-02-28] MEDS: [UNRECOGNIZED DRUG - MIXTURE] IVPB SCH ×3 (06:42→23:01)
[2017-02-28 06:55] LABS: ABNORMAL IP MESSAGE 1; HEMATOCRIT 31.2 % (37.0-47.0); MEAN CORPUSCULAR HEMOGLOBIN 27.7 pg (29.0-33.0); MEAN CORPUSCULAR HGB CONC 32.1 g/dl (32.0-37.0); MEAN CORPUSCULAR VOLUME 86.4 fl (82.0-101.0); MEAN PLATELET VOLUME 12.8 fl (7.4-10.4); NUCLEATED RED BLOOD CELLS% 1.8 /100WBC (0.0-0.0); RED BLOOD COUNT 3.61 10^6/ul (4.20-5.40); RED CELL DISTRIBUTION WIDTH 19.6 % (11.5-14.5); WHITE BLOOD COUNT 7.6 10^3/ul (4.8-10.8)
[2017-02-28 07:07] LABS: PLATELET COUNT 56 10^3/UL (140-415); POSITIVE DIFF @See below
[2017-02-28 07:09] LABS: CALCIUM 8.4 mg/dl (8.4-10.2); CREATININE 0.52 mg/dl (0.44-1.00); MAGNESIUM 2.2 mg/dl (1.7-2.5); PHOSPHORUS 2.8 mg/dl (2.5-4.9); POTASSIUM 4.1 mmol/L (3.5-5.1)
[2017-02-28 07:36] LABS: PREALBUMIN 10.6 mg/dl (17.6-36.0)
[2017-02-28] MEDS: ENOXAPARIN 40 MG/0.4 ML SYG SC SCH (08:37)
[2017-02-28] MEDS: LEVOTHYROXINE 100 MCG VIAL IV SCH (08:37)
[2017-02-28 08:38] LABS: ANISOCYTOSIS 1+ (0-0); ERYTHROBLAST% (NRBC) (M) 2 % (0-0); METAMYELOCYTES %M 5 % (0-0); MONOCYTES % (M) 2 % (0-11); PLATELET ESTIMATE DECREASED; PROMYELOCYTES #M 0 10^3/ul (0-0); PROMYELOCYTES % (M) 1 % (0-0); SPHEROCYTES 1+ (0-0)
[2017-02-28] MEDS: MEROPENEM 500MG/50 ML (PMX) 50 ML IVPB SCH ×2 (08:38→21:17)
--- NOTE | 2017-02-28 10:09 | CONS ---
Date/Time of Note Date/Time of Note DATE: 02/28/17 TIME: 10:08 Consult Date/Type/Reason Admit Date/Time Feb 20, 2017 at 19:33 Initial Consult Date 02/20/17 Type of Consultation: Pulmonary Ordering Provider: CARL STEPHENS MD Subjective Patient comfortable this morning, mild confusion. Complaining of generalized arthralgia. Objective Vital Signs Date Time Temp Pulse Resp B/P Pulse Ox O2 Delivery O2 Flow Rate FiO2 02/28/17 09:00 100 18 130/58 100 Nasal Cannula 02/28/17 07:43 3.0 02/28/17 07:00 98.8 02/26/17 13:29 30 Intake and Output 02/27/17 02/27/17 02/28/17 15:00 23:00 07:00 Intake Total 900.666 ml 1153.666 ml 500.0 ml Output Total 1250 ml 1345 ml 1175 ml Balance -349.334 ml -191.334 ml -675.0 ml Exam PHYSICAL EXAMINATION GENERAL: Elderly lady on nasal cannula oxygen appears comfortable at rest VITAL SIGNS: see below. HEENT: Pupils equal, round, and reactive to light. CARDIAC: S1, S2, 1/6 systolic ejection murmur CHEST: Diminished air entry bilaterally. ABDOMEN: Mildly distended. Bowel sounds present no guarding or rebound EXTREMITIES: No cyanosis, clubbing edema +1, widespread purpura NEUROLOGIC: Generalized weakness Results/Medications Result Diagram: 02/28/17 0613 02/28/17 0613 Results 24 hrs Laboratory Tests Test 02/27/17 10:22 02/27/17 11:00 02/27/17 12:27 02/27/17 12:51 Bedside Glucose 160 167 152 147 Test 02/27/17 14:14 02/27/17 15:12 02/27/17 15:55 02/27/17 17:07 Bedside Glucose 140 134 148 159 Test 02/27/17 18:53 02/27/17 21:10 02/27/17 23:26 02/28/17 00:59 Bedside Glucose 176 133 151 145 Test 02/28/17 04:01 02/28/17 05:48 02/28/17 06:13 02/28/17 07:03 Bedside Glucose 149 105 131 White Blood Count 7.6 # Red Blood Count 3.61 #L Hemoglobin 10.0 #L Hematocrit 31.2 #L Mean Corpuscular Volume 86.4 Mean Corpuscular Hemoglobin 27.7 L Mean Corpuscular Hemoglobin Concent 32.1 Red Cell Distribution Width 19.6 H Platelet Count 56 #L Mean Platelet Volume 12.8 H Neutrophils % Segmented Neutrophils % (Manual) 69 Band Neutrophils % (Manual) 18 H Lymphocytes % Lymphocytes % (Manual) 5 L Monocytes % Monocytes % (Manual) 2 Eosinophils % Basophils % Metamyelocytes % (manual) 5 H Promyelocytes % (Manual) 1 H Nucleated Red Blood Cells % 2 H Neutrophils # Neutrophils # (Manual) 5.3 Band Neutrophils # 1.3 H Absolute Lymphocytes (Manual) 0.3 L Lymphocytes # Monocytes # Absolute Monocytes (Manual) 0.1 L Eosinophils # Basophils # Metamyelocytes # 0.3 H Promyelocytes # 0 Nucleated Red Blood Cells # Platelet Estimate DECREASED Anisocytosis 1+ Spherocytes 1+ Sodium Level 143 Potassium Level 4.1 Chloride Level 107 Carbon Dioxide Level 31 Anion Gap 9 Blood Urea Nitrogen 25 H Creatinine 0.52 Glucose Level 108 Calcium Level 8.4 Phosphorus Level 2.8 Magnesium Level 2.2 Prealbumin 10.6 L Test 02/28/17 08:50 Bedside Glucose 148 Medications Current Medications Dextrose (D50w Syringe) 100 ml ONCE PRN IV POC BLOOD GLUCOSE <250 MG/DL Last administered on 02/20/17 16:50; Admin Dose 100 ML; Start 02/20/17 at 16:30 IV Flush (NS 10 ml) 10 ml PRN PRN IV IV PROTOCOL; Start 02/20/17 at 19:30 Levothyroxine Sodium (Synthroid Iv) 50 mcg AM IV Last administered on 08:37; Admin Dose 50 MCG; Start 02/21/17 at 09:00 Enoxaparin Sodium (Lovenox) 40 mg DAILY SC Last administered on 02/28/17 08:37 ; Admin Dose 40 MG; Start 02/22/17 at 09:00 Acetaminophen/ Hydrocodone Bitart ([place] (5/325)) 1 tab Q4H PRN NGT pain; Start 02/21/17 at 17:00 Ondansetron HCl 4 mg 4 mg Q6H PRN IV NAUSEA Last administered on 02/26/17 20: 12; Admin Dose 4 MG; Start 02/21/17 at 23:30 Caspofungin 50 mg/ Sodium Chloride 250 ml @ 250 mls/hr Q24H IVPB Last administered on 02/27/17 10:58; Admin Dose 250 MLS/HR; Start 02/23/17 at 11:00 Propofol 100 ml @ 3.201 mls/ hr Q12H IV Last administered on 02/25/17 21:27; Admin Dose 9.603 MLS/HR; Start 02/22/17 at 14:30 Norepinephrine 16 mg/Dextrose 500 ml @ 0 mls/hr TITRATE IV Last administered on 02/23/17 03:24; Admin Dose 37.5 MLS/HR; Start 02/22/17 at 19:00 Meropenem/Sodium Chloride 50 ml @ 100 mls/hr Q12 IVPB Last administered on 08:38; Admin Dose 100 MLS/HR; Start 02/23/17 at 21:00 Total Parenteral Nutrition (Tpn) 1,000 ml @ 60 mls/hr [id number] IV Last administered on 02/27/17 21:12; Admin Dose 60 MLS/HR; Start 02/23/17 at 16:30 Diagnostic Test (Pha) (Accu-Chek) 1 ea Q1H XX Last administered on 02/28/17 10 :06; Admin Dose 1 EA; Start 02/24/17 at 09:30 Dextrose 25 ml 25 ml Q15M PRN IV Till BS 80 mg/dL or above x2; Start 02/24/17 at 09:30 Quinupristin/ Dalfopristin/ Dextrose (Synercid/D5W) 250 ml @ 250 mls/hr Q8 IVPB Last administered on 02/28/17 06:42; Admin Dose 250 MLS/HR; Start at 10:30 Hydrocortisone (Solu-Cortef) 20 mg Q8 IV Last administered on 02/28/17 06:39; Admin Dose 20 MG; Start 02/26/17 at 14:00 Morphine Sulfate (morphine) 2 mg Q3H PRN IV PAIN LEVEL 4-6 Last administered on 02/27/17 23:55; Admin Dose 2 MG; Start 02/26/17 at 17:00 Lorazepam (Ativan) 0.5 mg Q6H PRN IV AGITATION Last administered on 02/27/17t 23:56; Admin Dose 0.5 MG; Start 02/27/17 at 16:00 Labetalol HCl (Labetalol) 10 mg Q2H PRN IV for SBP > 160, hold for HR <65; Start 02/27/17 at 20:00 Assessment/Plan Chief Complaint/Hosp Course Assessment 1. Status post septic shock. 2. Hypoxemic respiratory failure. Alveolar hypoventilation. Possible underlying obstructive sleep apnea. 3. Thrombocytopenia possibly DIC. 4. Possible adrenal insufficiency. 5. GI bleed, now with anemia. 6. Hx PMR Plan 1. Replace electrolytes 2. Monitor H&H. 3. Speech therapy evaluation, aspiration precautions. 4. Incentive spirometry bronchodilators as needed. 5. Continues TPN for now. Consider start nasogastric tube feeding. 6. Stress dose steroids per endocrinology. 7. PT eval Critical care time 40 minutes. Problems: KATHY SALOMON MD, [facility] Feb 28, 2017 10:09
[2017-02-28] MEDS: CASPOFUNGIN 50 MG in SOD CHLORIDE 0.9% 250 ML IVPB SCH (10:46)
--- NOTE | 2017-02-28 12:28 | PN ---
Date/Time of Note Date/Time of Note DATE: 02/28/17 TIME: 12:27 Assessment/Plan VTE Prophylaxis VTE Prophylaxis Intervention: LMWH Assessment/Plan Chief Complaint/Hosp Course 71 yo female with PMR on chronic steroids, unclear seizure d/o, hypertension, obesity, recently discharged from [facility] following open appendectomy without complications who now returns with hypotension, hypoxia, acute encephalopathy, hyponatremia, hyperkalemia and acute renal failure. Found to have disrupted ileocolic anastomosis and intraabdominal infection. Now s/p resection and ileostomy GI: SBO, disrupted colonic anastomosis following surgery for ruptured appendicitis, now s/p resection and ileostomy - Management per Dr Haji - NG tube, bowel rest - TPN ID: Sepsis 2/2 intraabdominal infection, VRE bacteremia and yeast fungemia - Continue abx per ID: synercid and merrem - Caspofungin for candidemia - Daily cultures ENDOCRINE: Polymyalgia rheumatica and chronic adrenal suppression from prednisone, now iatrogenic adrenal insufficiency - Stress hydrocortisone 100 q8h, wean as tolerated per Endocrine Hypothyroidism: - FT4 low, likely from poor absorption 2/2 ileus. Continue IV LT4 DM: - Insulin gtt RENAL: LATRICE is resolved, now edematous -Continue Lasix PULM: Acute hypoxic respiratory failure: -Now extubated Prophylaxis: Lovenox Problems: Subjective 24 Hr Interval Summary Constitutional: no complaints Exam/Review of Systems Vital Signs Vitals Vital Signs Date Time Temp Pulse Resp B/P Pulse Ox O2 Delivery O2 Flow Rate FiO2 02/28/17 09:00 100 18 130/58 100 Nasal Cannula 02/28/17 07:43 3.0 02/28/17 07:00 98.8 02/26/17 13:29 30 Intake and Output 02/27/17 02/27/17 02/28/17 15:00 23:00 07:00 Intake Total 900.666 ml 1153.666 ml 500.0 ml Output Total 1250 ml 1345 ml 1175 ml Balance -349.334 ml -191.334 ml -675.0 ml Exam Respiratory: clear to auscultation Cardiovascular: regular rate and rhythm Gastrointestinal: soft, No distended Extremities: edema Results Result Diagram: 02/28/17 0613 02/28/17 0613 Results 24 hrs Laboratory Tests Test 02/27/17 12:51 02/27/17 14:14 02/27/17 15:12 02/27/17 15:55 Bedside Glucose 147 140 134 148 Test 02/27/17 17:07 02/27/17 18:53 02/27/17 21:10 02/27/17 23:26 Bedside Glucose 159 176 133 151 Test 02/28/17 00:59 02/28/17 04:01 02/28/17 05:48 02/28/17 06:13 Bedside Glucose 145 149 105 White Blood Count 7.6 # Red Blood Count 3.61 #L Hemoglobin 10.0 #L Hematocrit 31.2 #L Mean Corpuscular Volume 86.4 Mean Corpuscular Hemoglobin 27.7 L Mean Corpuscular Hemoglobin Concent 32.1 Red Cell Distribution Width 19.6 H Platelet Count 56 #L Mean Platelet Volume 12.8 H Neutrophils % Segmented Neutrophils % (Manual) 69 Band Neutrophils % (Manual) 18 H Lymphocytes % Lymphocytes % (Manual) 5 L Monocytes % Monocytes % (Manual) 2 Eosinophils % Basophils % Metamyelocytes % (manual) 5 H Promyelocytes % (Manual) 1 H Nucleated Red Blood Cells % 2 H Neutrophils # Neutrophils # (Manual) 5.3 Band Neutrophils # 1.3 H Absolute Lymphocytes (Manual) 0.3 L Lymphocytes # Monocytes # Absolute Monocytes (Manual) 0.1 L Eosinophils # Basophils # Metamyelocytes # 0.3 H Promyelocytes # 0 Nucleated Red Blood Cells # Platelet Estimate DECREASED Anisocytosis 1+ Spherocytes 1+ Sodium Level 143 Potassium Level 4.1 Chloride Level 107 Carbon Dioxide Level 31 Anion Gap 9 Blood Urea Nitrogen 25 H Creatinine 0.52 Glucose Level 108 Calcium Level 8.4 Phosphorus Level 2.8 Magnesium Level 2.2 Prealbumin 10.6 L Test 02/28/17 07:03 02/28/17 08:50 02/28/17 10:42 Bedside Glucose 131 148 150 Medications Medications Current Medications Dextrose (D50w Syringe) 100 ml ONCE PRN IV POC BLOOD GLUCOSE <250 MG/DL Last administered on 02/20/17 16:50; Admin Dose 100 ML; Start 02/20/17 at 16:30 IV Flush (NS 10 ml) 10 ml PRN PRN IV IV PROTOCOL; Start 02/20/17 at 19:30 Levothyroxine Sodium (Synthroid Iv) 50 mcg AM IV Last administered on 08:37; Admin Dose 50 MCG; Start 02/21/17 at 09:00 Enoxaparin Sodium (Lovenox) 40 mg DAILY SC Last administered on 02/28/17 08:37 ; Admin Dose 40 MG; Start 02/22/17 at 09:00 Acetaminophen/ Hydrocodone Bitart ([place] (5/325)) 1 tab Q4H PRN NGT pain; Start 02/21/17 at 17:00 Ondansetron HCl 4 mg 4 mg Q6H PRN IV NAUSEA Last administered on 02/26/17 20: 12; Admin Dose 4 MG; Start 02/21/17 at 23:30 Caspofungin 50 mg/ Sodium Chloride 250 ml @ 250 mls/hr Q24H IVPB Last administered on 02/28/17 10:46; Admin Dose 250 MLS/HR; Start 02/23/17 at 11:00 Propofol 100 ml @ 3.201 mls/ hr Q12H IV Last administered on 02/25/17 21:27; Admin Dose 9.603 MLS/HR; Start 02/22/17 at 14:30 Norepinephrine 16 mg/Dextrose 500 ml @ 0 mls/hr TITRATE IV Last administered on 02/23/17 03:24; Admin Dose 37.5 MLS/HR; Start 02/22/17 at 19:00 Meropenem/Sodium Chloride 50 ml @ 100 mls/hr Q12 IVPB Last administered on 08:38; Admin Dose 100 MLS/HR; Start 02/23/17 at 21:00 Total Parenteral Nutrition (Tpn) 1,000 ml @ 60 mls/hr [id number] IV Last administered on 02/27/17 21:12; Admin Dose 60 MLS/HR; Start 02/23/17 at 16:30 Diagnostic Test (Pha) (Accu-Chek) 1 ea Q1H XX Last administered on 02/28/17 11 :01; Admin Dose 1 EA; Start 02/24/17 at 09:30 Dextrose 25 ml 25 ml Q15M PRN IV Till BS 80 mg/dL or above x2; Start 02/24/17 at 09:30 Quinupristin/ Dalfopristin/ Dextrose (Synercid/D5W) 250 ml @ 250 mls/hr Q8 IVPB Last administered on 02/28/17 06:42; Admin Dose 250 MLS/HR; Start at 10:30 Hydrocortisone (Solu-Cortef) 20 mg Q8 IV Last administered on 02/28/17 06:39; Admin Dose 20 MG; Start 02/26/17 at 14:00 Morphine Sulfate (morphine) 2 mg Q3H PRN IV PAIN LEVEL 4-6 Last administered on 02/27/17 23:55; Admin Dose 2 MG; Start 02/26/17 at 17:00 Lorazepam (Ativan) 0.5 mg Q6H PRN IV AGITATION Last administered on 02/27/17 23:56; Admin Dose 0.5 MG; Start 02/27/17 at 16:00 Labetalol HCl (Labetalol) 10 mg Q2H PRN IV for SBP > 160, hold for HR <65; Start 02/27/17 at 20:00 BENJAMIN GONSALEZ Feb 28, 2017 12:28
[2017-02-28] MEDS: TPN 1,000 ML IV SCH ×2 (13:10→17:03)
--- NOTE | 2017-02-28 14:27 | PN ---
DATE: 02/28/2017 SUBJECTIVE DATA: No acute events. Patient is sleeping, looks comfortable. Per report, more confused today. OBJECTIVE DATA: VITAL SIGNS: Temperature 98.8, pulse 106, respirations 19, blood pressure 131/62, saturation 100 on 3 L nasal cannula. LABORATORY AND DIAGNOSTIC DATA: WBC 7.6, H and H 10 and 31.2, platelets 56, neutrophils 69, bands 18, BUN 25, creatinine 0.52. Microbiology, repeat blood cultures from yesterday pending. INDWELLINGS: NG tube, Mo[place]ica, PICC line placed on February 20. ANTIMICROBIALS: 1. Meropenem. 2. Cancidas. 3. Synercid. PHYSICAL EXAMINATION: GENERAL: This is a chronically ill-appearing, morbidly obese, elderly woman, who is in no distress. HEENT: Head atraumatic, normocephalic. Sclerae anicteric. Buccal mucosa dry. NECK: Neck is obese. CHEST: Rise symmetrical. Breath sounds diminished at the bases. HEART: S1, S2. ABDOMEN: Soft, bowel sounds present. EXTREMITIES: Without cyanosis. ASSESSMENT: 1. Resolving sepsis, status post shock. 2. Persistent fungemia with blood culture on February 23 growing Laisha glabrata. 3. Vancomycin resistant enterococcus bacteremia. 4. Status post perforated anastomotic leak repair on 02/21/2017. 5. Status post open appendectomy. 6. Resolving pneumonia. 7. Morbid obesity. PLAN: The patient remains stable. Continue present care. Antibiotics. Monitor surgical incision. Await for repeat blood cultures. Follow recommendations of consultants. Continue anti- aspiration measures. Dictated By: Mk Kimball NP /louie/edil /Document#: [id number]
--- NOTE | 2017-02-28 17:29 | CONS ---
Date/Time of Note Date/Time of Note DATE: 02/28/17 TIME: 17:26 Assessment/Plan Assessment/Plan Problems: (1) Iatrogenic adrenal insufficiency Status: Acute Comment: We reduce the dosage of her steroids which she is tolerating the reduction. This is commensurate with her improvement in clinical status. Sinew as current. When she is taking orally we can transition over to an oral preparation protocol for her. In the meantime decisions about using her GI tract will be deferred off to the general surgeon Dr. Carl Stephens. (2) Hyperglycemia Status: Acute Comment: Adequate control presently. Please note need to keep a careful eye on this as the reduction steroids can make her insulin dosing a little strong. (3) Hypothyroidism Status: Chronic Comment: She is maintained on IV replacement therapy. 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 She is appropriate. She reports that she is thirsty and would love to start taking orally. Constitutional: no complaints (Denies fevers chills or sweats) Detailed Summary Respiratory: no complaints Cardiovascular: no complaints Gastrointestinal: no complaints Exam/Review of Systems Vital Signs Vitals Vital Signs Date Time Temp Pulse Resp B/P Pulse Ox O2 Delivery O2 Flow Rate FiO2 02/28/17 16:00 120 02/28/17 16:00 21 113/62 96 Nasal Cannula 02/28/17 12:00 98.3 02/28/17 07:43 3.0 02/26/17 13:29 30 Intake and Output 02/27/17 02/27/17 02/28/17 15:00 23:00 07:00 Intake Total 900.666 ml 1153.666 ml 500.0 ml Output Total 1250 ml 1345 ml 1175 ml Balance -349.334 ml -191.334 ml -675.0 ml Exam Constitutional: alert, oriented Neck: non-tender, supple Respiratory: clear to auscultation, normal air movement Cardiovascular: nl pulses, regular rate and rhythm Gastrointestinal: bowel sounds (Bowel sounds are present), soft Results Result Diagram: 02/28/17 0613 02/28/17 0613 Results 24 hrs Laboratory Tests Test 02/27/17 18:53 02/27/17 21:10 02/27/17 23:26 02/28/17 00:59 Bedside Glucose 176 133 151 145 Test 02/28/17 04:01 02/28/17 05:48 02/28/17 06:13 02/28/17 07:03 Bedside Glucose 149 105 131 White Blood Count 7.6 # Red Blood Count 3.61 #L Hemoglobin 10.0 #L Hematocrit 31.2 #L Mean Corpuscular Volume 86.4 Mean Corpuscular Hemoglobin 27.7 L Mean Corpuscular Hemoglobin Concent 32.1 Red Cell Distribution Width 19.6 H Platelet Count 56 #L Mean Platelet Volume 12.8 H Neutrophils % Segmented Neutrophils % (Manual) 69 Band Neutrophils % (Manual) 18 H Lymphocytes % Lymphocytes % (Manual) 5 L Monocytes % Monocytes % (Manual) 2 Eosinophils % Basophils % Metamyelocytes % (manual) 5 H Promyelocytes % (Manual) 1 H Nucleated Red Blood Cells % 2 H Neutrophils # Neutrophils # (Manual) 5.3 Band Neutrophils # 1.3 H Absolute Lymphocytes (Manual) 0.3 L Lymphocytes # Monocytes # Absolute Monocytes (Manual) 0.1 L Eosinophils # Basophils # Metamyelocytes # 0.3 H Promyelocytes # 0 Nucleated Red Blood Cells # Platelet Estimate DECREASED Anisocytosis 1+ Spherocytes 1+ Sodium Level 143 Potassium Level 4.1 Chloride Level 107 Carbon Dioxide Level 31 Anion Gap 9 Blood Urea Nitrogen 25 H Creatinine 0.52 Glucose Level 108 Calcium Level 8.4 Phosphorus Level 2.8 Magnesium Level 2.2 Prealbumin 10.6 L Test 02/28/17 08:50 02/28/17 10:42 02/28/17 13:06 02/28/17 15:40 Bedside Glucose 148 150 130 158 Test 02/28/17 16:53 Bedside Glucose 147 Medications Medications Current Medications Dextrose (D50w Syringe) 100 ml ONCE PRN IV POC BLOOD GLUCOSE <250 MG/DL Last administered on 02/20/17t 16:50; Admin Dose 100 ML; Start 02/20/17 at 16:30 IV Flush (NS 10 ml) 10 ml PRN PRN IV IV PROTOCOL; Start 02/20/17 at 19:30 Levothyroxine Sodium (Synthroid Iv) 50 mcg AM IV Last administered on 08:37; Admin Dose 50 MCG; Start 02/21/17 at 09:00 Enoxaparin Sodium (Lovenox) 40 mg DAILY SC Last administered on 02/28/17 08:37 ; Admin Dose 40 MG; Start 02/22/17 at 09:00 Acetaminophen/ Hydrocodone Bitart ([place] (5/325)) 1 tab Q4H PRN NGT pain; Start 02/21/17 at 17:00 Ondansetron HCl 4 mg 4 mg Q6H PRN IV NAUSEA Last administered on 02/26/17 20: 12; Admin Dose 4 MG; Start 02/21/17 at 23:30 Caspofungin 50 mg/ Sodium Chloride 250 ml @ 250 mls/hr Q24H IVPB Last administered on 02/28/17 10:46; Admin Dose 250 MLS/HR; Start 02/23/17 at 11:00 Propofol 100 ml @ 3.201 mls/ hr Q12H IV Last administered on 02/25/17 21:27; Admin Dose 9.603 MLS/HR; Start 02/22/17 at 14:30 Norepinephrine 16 mg/Dextrose 500 ml @ 0 mls/hr TITRATE IV Last administered on 02/23/17 03:24; Admin Dose 37.5 MLS/HR; Start 02/22/17 at 19:00 Meropenem/Sodium Chloride 50 ml @ 100 mls/hr Q12 IVPB Last administered on 08:38; Admin Dose 100 MLS/HR; Start 02/23/17 at 21:00 Total Parenteral Nutrition (Tpn) 1,000 ml @ 60 mls/hr [id number] IV Last administered on 02/28/17 17:03; Admin Dose 60 MLS/HR; Start 02/23/17 at 16:30 Diagnostic Test (Pha) (Accu-Chek) 1 ea Q1H XX Last administered on 02/28/17 17 :12; Admin Dose 1 EA; Start 02/24/17 at 09:30 Dextrose 25 ml 25 ml Q15M PRN IV Till BS 80 mg/dL or above x2; Start 02/24/17 at 09:30 Quinupristin/ Dalfopristin/ Dextrose (Synercid/D5W) 250 ml @ 250 mls/hr Q8 IVPB Last administered on 02/28/17 14:03; Admin Dose 250 MLS/HR; Start at 10:30 Hydrocortisone (Solu-Cortef) 20 mg Q8 IV Last administered on 02/28/17 13:04; Admin Dose 20 MG; Start 02/26/17 at 14:00 Morphine Sulfate (morphine) 2 mg Q3H PRN IV PAIN LEVEL 4-6 Last administered on 02/27/17 23:55; Admin Dose 2 MG; Start 02/26/17 at 17:00 Lorazepam (Ativan) 0.5 mg Q6H PRN IV AGITATION Last administered on 02/27/17 23:56; Admin Dose 0.5 MG; Start 02/27/17 at 16:00 Labetalol HCl (Labetalol) 10 mg Q2H PRN IV for SBP > 160, hold for HR <65; Start 02/27/17 at 20:00 TAMIA RESTREPO MD Feb 28, 2017 17:29
[2017-02-28] MEDS: LORAZEPAM 2 MG INJ IV PRN (17:46)
--- NOTE | 2017-02-28 19:09 | CONS ---
Date/Time of Note Date/Time of Note DATE: 02/28/17 TIME: 19:05 Assessment/Plan Assessment/Plan Additional Assessment/Plan 1. Acute kidney injury mutlifactorial due to Prerenal azotemia + ATN From septic shock 2. Acute encephalopathy metabolic 3. SBO, disrupted colonic anastomosis, s/p Exp lap, resection and ileostomy on 4. H/o Polymyalgia rheumatica on Steroids 5. H/o recent right hemicolectomy for perforated diverticulitis 6. Hyperkalemia acute, Hyponatremia 7. acute hypoxic respiratory failure requiring ventilator care s/p Extubation 8. adrenal crisis- On IV dexamethasone 9. Hypokalemia Plan: continue Hydrocortisone - decreased to 20 mg IV Q 8 hr for adrenal insufficiency - tolerating so far, s/p extubation now, verbally communicative. on IV lasix 40mg BID, cr normal, K normal , monitor electrolytes and Replace as needed. plan is to decrease lasix to 20mg IV BID tomorrow AM IV abx sepsis. renally dose antibiotics , IV cancidas,IV synercid s/p surgery, G surgery following , currently on TPN, will follow up Consultation Date/Type/Reason Admit Date/Time Feb 20, 2017 at 19:33 Initial Consult Date 02/20/17 Type of Consultation: NEPHROLOGY Referring Provider: CARL STEPHENS MD 24 HR Interval Summary Free Text/Dictation s/p Extubation, verbally communicative, BP stable, afebrile Electrolytes and Cr normal today, prealbumin 10.6 Exam/Review of Systems Vital Signs Vitals Vital Signs Date Time Temp Pulse Resp B/P Pulse Ox O2 Delivery O2 Flow Rate FiO2 02/28/17 19:00 122 26 103/58 98 Nasal Cannula 02/28/17 17:45 3.0 02/28/17 12:00 98.3 02/26/17 13:29 30 Intake and Output 02/27/17 02/27/17 02/28/17 15:00 23:00 07:00 Intake Total 900.666 ml 1153.666 ml 500.0 ml Output Total 1250 ml 1345 ml 1175 ml Balance -349.334 ml -191.334 ml -675.0 ml Exam Constitutional: alert Psych: no complaints ENMT: nl external ears & nose Neck: supple Respiratory: crackles/rales, diminished breath sounds Cardiovascular: nl pulses, regular rate and rhythm Gastrointestinal: non-tender, soft Musculoskeletal: nl extremities to inspection Neurological: [employer]OR II-XII intact, nl mental status Results Result Diagram: 02/28/17 0613 02/28/17 0613 Results 24 hrs Laboratory Tests Test 02/27/17 21:10 02/27/17 23:26 02/28/17 00:59 02/28/17 04:01 Bedside Glucose 133 151 145 149 Test 02/28/17 05:48 02/28/17 06:13 02/28/17 07:03 02/28/17 08:50 Bedside Glucose 105 131 148 White Blood Count 7.6 # Red Blood Count 3.61 #L Hemoglobin 10.0 #L Hematocrit 31.2 #L Mean Corpuscular Volume 86.4 Mean Corpuscular Hemoglobin 27.7 L Mean Corpuscular Hemoglobin Concent 32.1 Red Cell Distribution Width 19.6 H Platelet Count 56 #L Mean Platelet Volume 12.8 H Neutrophils % Segmented Neutrophils % (Manual) 69 Band Neutrophils % (Manual) 18 H Lymphocytes % Lymphocytes % (Manual) 5 L Monocytes % Monocytes % (Manual) 2 Eosinophils % Basophils % Metamyelocytes % (manual) 5 H Promyelocytes % (Manual) 1 H Nucleated Red Blood Cells % 2 H Neutrophils # Neutrophils # (Manual) 5.3 Band Neutrophils # 1.3 H Absolute Lymphocytes (Manual) 0.3 L Lymphocytes # Monocytes # Absolute Monocytes (Manual) 0.1 L Eosinophils # Basophils # Metamyelocytes # 0.3 H Promyelocytes # 0 Nucleated Red Blood Cells # Platelet Estimate DECREASED Anisocytosis 1+ Spherocytes 1+ Sodium Level 143 Potassium Level 4.1 Chloride Level 107 Carbon Dioxide Level 31 Anion Gap 9 Blood Urea Nitrogen 25 H Creatinine 0.52 Glucose Level 108 Calcium Level 8.4 Phosphorus Level 2.8 Magnesium Level 2.2 Prealbumin 10.6 L Test 02/28/17 10:42 02/28/17 13:06 02/28/17 15:40 02/28/17 16:53 Bedside Glucose 150 130 158 147 Medications Medications Current Medications Dextrose (D50w Syringe) 100 ml ONCE PRN IV POC BLOOD GLUCOSE <250 MG/DL Last administered on 02/20/17t 16:50; Admin Dose 100 ML; Start 02/20/17 at 16:30 IV Flush (NS 10 ml) 10 ml PRN PRN IV IV PROTOCOL; Start 02/20/17 at 19:30 Levothyroxine Sodium (Synthroid Iv) 50 mcg AM IV Last administered on 08:37; Admin Dose 50 MCG; Start 02/21/17 at 09:00 Enoxaparin Sodium (Lovenox) 40 mg DAILY SC Last administered on 02/28/17 08:37 ; Admin Dose 40 MG; Start 02/22/17 at 09:00 Acetaminophen/ Hydrocodone Bitart ([place] (5/325)) 1 tab Q4H PRN NGT pain; Start 02/21/17 at 17:00 Ondansetron HCl 4 mg 4 mg Q6H PRN IV NAUSEA Last administered on 02/26/17 20: 12; Admin Dose 4 MG; Start 02/21/17 at 23:30 Caspofungin 50 mg/ Sodium Chloride 250 ml @ 250 mls/hr Q24H IVPB Last administered on 02/28/17 10:46; Admin Dose 250 MLS/HR; Start 02/23/17 at 11:00 Propofol 100 ml @ 3.201 mls/ hr Q12H IV Last administered on 02/25/17 21:27; Admin Dose 9.603 MLS/HR; Start 02/22/17 at 14:30 Norepinephrine 16 mg/Dextrose 500 ml @ 0 mls/hr TITRATE IV Last administered on 02/23/17 03:24; Admin Dose 37.5 MLS/HR; Start 02/22/17 at 19:00 Meropenem/Sodium Chloride 50 ml @ 100 mls/hr Q12 IVPB Last administered on 08:38; Admin Dose 100 MLS/HR; Start 02/23/17 at 21:00 Total Parenteral Nutrition (Tpn) 1,000 ml @ 60 mls/hr [id number] IV Last administered on 02/28/17 17:03; Admin Dose 60 MLS/HR; Start 02/23/17 at 16:30 Diagnostic Test (Pha) (Accu-Chek) 1 ea Q1H XX Last administered on 02/28/17 19 :02; Admin Dose 1 EA; Start 02/24/17 at 09:30 Dextrose 25 ml 25 ml Q15M PRN IV Till BS 80 mg/dL or above x2; Start 02/24/17 at 09:30 Quinupristin/ Dalfopristin/ Dextrose (Synercid/D5W) 250 ml @ 250 mls/hr Q8 IVPB Last administered on 02/28/17 14:03; Admin Dose 250 MLS/HR; Start at 10:30 Hydrocortisone (Solu-Cortef) 20 mg Q8 IV Last administered on 02/28/17 13:04; Admin Dose 20 MG; Start 02/26/17 at 14:00 Morphine Sulfate (morphine) 2 mg Q3H PRN IV PAIN LEVEL 4-6 Last administered on 02/27/17 23:55; Admin Dose 2 MG; Start 02/26/17 at 17:00 Lorazepam (Ativan) 0.5 mg Q6H PRN IV AGITATION Last administered on 02/28/17 17:46; Admin Dose 0.5 MG; Start 02/27/17 at 16:00 Labetalol HCl (Labetalol) 10 mg Q2H PRN IV for SBP > 160, hold for HR <65; Start 02/27/17 at 20:00 ARIK MCKEON MD Feb 28, 2017 19:09
[2017-03-01] VITALS (24 sets, daily range): BP systolic 92–137; BP diastolic 49–78; PULSE 100–119; RESP 18–25
[2017-03-01] MEDS: INSULIN HUMAN REGULAR 100 UNIT in SOD CHLORIDE 0.9% 99 ML IV SCH ×3 (00:28→18:36)
[2017-03-01] MEDS: ACCU-CHEK XX SCH ×24 (00:30→23:30)
[2017-03-01] MEDS: morphine 2 MG INJ IV PRN ×2 (01:42→14:18)
[2017-03-01] MEDS: PROPOFOL 100 ML IV SCH ×2 (02:30→13:45)
[2017-03-01 05:28] LABS: ABNORMAL IP MESSAGE 1; HEMATOCRIT 23.9 % (37.0-47.0); HEMOGLOBIN 7.6 g/dl (12.0-16.0); MEAN CORPUSCULAR HEMOGLOBIN 27.8 pg (29.0-33.0); MEAN CORPUSCULAR HGB CONC 31.8 g/dl (32.0-37.0); MEAN CORPUSCULAR VOLUME 87.5 fl (82.0-101.0); MEAN PLATELET VOLUME 12.3 fl (7.4-10.4); NUCLEATED RED BLOOD CELLS% 0.9 /100WBC (0.0-0.0); PLATELET COUNT 145 10^3/UL (140-415); RED BLOOD COUNT 2.73 10^6/ul (4.20-5.40); RED CELL DISTRIBUTION WIDTH 19.9 % (11.5-14.5); WHITE BLOOD COUNT 6.9 10^3/ul (4.8-10.8)
[2017-03-01 05:50] LABS: CALCIUM 8.4 mg/dl (8.4-10.2); CREATININE 0.61 mg/dl (0.44-1.00); MAGNESIUM 2.1 mg/dl (1.7-2.5); PHOSPHORUS 2.7 mg/dl (2.5-4.9); POTASSIUM 4.4 mmol/L (3.5-5.1)
[2017-03-01 06:07] LABS: POSITIVE DIFF @See below
[2017-03-01] MEDS: HYDROCORTISONE 100 MG INJ IV SCH ×3 (06:15→22:47)
[2017-03-01] MEDS: FUROSEMIDE 40 MG INJ IV SCH ×2 (06:15→17:24)
[2017-03-01] MEDS: [UNRECOGNIZED DRUG - MIXTURE] IVPB SCH ×3 (06:30→22:47)
[2017-03-01] MEDS: TPN 1,000 ML IV SCH ×2 (06:40→22:47)
--- NOTE | 2017-03-01 07:43 | PN ---
Date/Time of Note Date/Time of Note DATE: 03/01/17 TIME: 07:41 Assessment/Plan Lines/Catheters IV Catheter Type (from Nrs): PICC Line Mojica in Place (from Nrs): Yes Assessment/Plan Assessment/Plan NG output markedly diminished Ileostomy is viable and functioning well Plan: NG tube feeds Subjective 24 Hr Interval Summary Postoperative day #8 Patient is awake and alert Failed swallow eval Exam/Review of Systems Vital Signs Vitals Vital Signs Date Time Temp Pulse Resp B/P Pulse Ox O2 Delivery O2 Flow Rate FiO2 03/01/17 07:00 109 21 116/62 100 03/01/17 05:00 Nasal Cannula 3.0 03/01/17 04:00 98.3 02/26/17 13:29 30 Intake and Output 02/28/17 02/28/17 03/01/17 15:00 23:00 07:00 Intake Total 939 ml 495 ml 705.0 ml Output Total 1000 ml 525 ml 1425 ml Balance -61 ml -30 ml -720.0 ml Results Result Diagram: 03/01/17 0438 03/01/17 0438 CARL STEPHENS MD Mar 01, 2017 07:43
--- NOTE | 2017-03-01 08:24 | CONS ---
Date/Time of Note Date/Time of Note DATE: 03/01/17 TIME: 08:20 Assessment/Plan Assessment/Plan Problems: (1) Iatrogenic adrenal insufficiency Status: Acute Comment: Patient is stable on lower dose of steroids. Not ready to transition to enteral route yet (2) Hyperglycemia Status: Acute Comment: Adequate control with drip. If tolerates NG tube feedings and comes off tpn then change drip to SQ (3) Acute renal failure Status: Resolved Comment: Improved nicely Qualifiers: Acute renal failure type: with acute tubular necrosis Qualified Code: N17.0 - Acute renal failure with tubular necrosis Consultation Date/Type/Reason Admit Date/Time Feb 20, 2017 at 19:33 Initial Consult Date 02/20/17 Type of Consultation: Endocrinology Reason for Consultation DM2 Referring Provider: CARL STEPHENS MD 24 HR Interval Summary Free Text/Dictation Extubated, wants to eat irritated by NG Exam/Review of Systems Vital Signs Vitals Vital Signs Date Time Temp Pulse Resp B/P Pulse Ox O2 Delivery O2 Flow Rate FiO2 03/01/17 07:00 109 21 116/62 100 03/01/17 05:00 Nasal Cannula 3.0 03/01/17 04:00 98.3 02/26/17 13:29 30 Intake and Output 02/28/17 02/28/17 03/01/17 15:00 23:00 07:00 Intake Total 939 ml 495 ml 705.0 ml Output Total 1000 ml 525 ml 1425 ml Balance -61 ml -30 ml -720.0 ml Exam Constitutional: alert Neck: non-tender, supple Respiratory: clear to auscultation, normal air movement Cardiovascular: nl pulses, regular rate and rhythm Extremities: normal pulses Results Result Diagram: 03/01/17 0438 03/01/17 0438 Results 24 hrs Laboratory Tests Test 02/28/17 08:50 02/28/17 10:42 02/28/17 13:06 02/28/17 15:40 Bedside Glucose 148 150 130 158 Test 02/28/17 16:53 02/28/17 18:53 02/28/17 21:15 02/28/17 22:59 Bedside Glucose 147 149 137 125 Test 03/01/17 01:39 03/01/17 03:35 03/01/17 04:38 03/01/17 05:03 Bedside Glucose 156 131 107 White Blood Count 6.9 Red Blood Count 2.73 #L Hemoglobin 7.6 #L Hematocrit 23.9 #L Mean Corpuscular Volume 87.5 Mean Corpuscular Hemoglobin 27.8 L Mean Corpuscular Hemoglobin Concent 31.8 L Red Cell Distribution Width 19.9 H Platelet Count 145 # Mean Platelet Volume 12.3 H Neutrophils % Lymphocytes % Monocytes % Eosinophils % Basophils % Nucleated Red Blood Cells % 0.9 H Neutrophils # Lymphocytes # Monocytes # Eosinophils # Basophils # Nucleated Red Blood Cells # Sodium Level 141 Potassium Level 4.4 Chloride Level 104 Carbon Dioxide Level 34 H Anion Gap 7 L Blood Urea Nitrogen 27 H Creatinine 0.61 Glucose Level 110 Calcium Level 8.4 Phosphorus Level 2.7 Magnesium Level 2.1 B-Type Natriuretic Peptide 646 H Test 03/01/17 06:53 Bedside Glucose 119 Medications Medications Current Medications Dextrose (D50w Syringe) 100 ml ONCE PRN IV POC BLOOD GLUCOSE <250 MG/DL Last administered on 02/20/17 16:50; Admin Dose 100 ML; Start 02/20/17 at 16:30 IV Flush (NS 10 ml) 10 ml PRN PRN IV IV PROTOCOL; Start 02/20/17 at 19:30 Levothyroxine Sodium (Synthroid Iv) 50 mcg AM IV Last administered on 08:37; Admin Dose 50 MCG; Start 02/21/17 at 09:00 Enoxaparin Sodium (Lovenox) 40 mg DAILY SC Last administered on 02/28/17 08:37 ; Admin Dose 40 MG; Start 02/22/17 at 09:00 Acetaminophen/ Hydrocodone Bitart ([place] (5/325)) 1 tab Q4H PRN NGT pain; Start 02/21/17 at 17:00 Ondansetron HCl 4 mg 4 mg Q6H PRN IV NAUSEA Last administered on 02/26/17 20: 12; Admin Dose 4 MG; Start 02/21/17 at 23:30 Caspofungin 50 mg/ Sodium Chloride 250 ml @ 250 mls/hr Q24H IVPB Last administered on 02/28/17 10:46; Admin Dose 250 MLS/HR; Start 02/23/17 at 11:00 Propofol 100 ml @ 3.201 mls/ hr Q12H IV Last administered on 02/25/17 21:27; Admin Dose 9.603 MLS/HR; Start 02/22/17 at 14:30 Norepinephrine 16 mg/Dextrose 500 ml @ 0 mls/hr TITRATE IV Last administered on 02/23/17 03:24; Admin Dose 37.5 MLS/HR; Start 02/22/17 at 19:00 Meropenem/Sodium Chloride 50 ml @ 100 mls/hr Q12 IVPB Last administered on 21:17; Admin Dose 100 MLS/HR; Start 02/23/17 at 21:00 Total Parenteral Nutrition (Tpn) 1,000 ml @ 60 mls/hr [id number] IV Last administered on 03/01/17 06:40; Admin Dose 60 MLS/HR; Start 02/23/17 at 16:30 Diagnostic Test (Pha) (Accu-Chek) 1 ea Q1H XX Last administered on 03/01/17 07 :08; Admin Dose 1 EA; Start 02/24/17 at 09:30 Dextrose 25 ml 25 ml Q15M PRN IV Till BS 80 mg/dL or above x2; Start 02/24/17 at 09:30 Quinupristin/ Dalfopristin/ Dextrose (Synercid/D5W) 250 ml @ 250 mls/hr Q8 IVPB Last administered on 03/01/17 06:30; Admin Dose 250 MLS/HR; Start at 10:30 Hydrocortisone (Solu-Cortef) 20 mg Q8 IV Last administered on 03/01/17 06:15; Admin Dose 20 MG; Start 02/26/17 at 14:00 Morphine Sulfate (morphine) 2 mg Q3H PRN IV PAIN LEVEL 4-6 Last administered on 03/01/17 01:42; Admin Dose 2 MG; Start 02/26/17 at 17:00 Lorazepam (Ativan) 0.5 mg Q6H PRN IV AGITATION Last administered on 02/28/17 17:46; Admin Dose 0.5 MG; Start 02/27/17 at 16:00 Labetalol HCl (Labetalol) 10 mg Q2H PRN IV for SBP > 160, hold for HR <65; Start 02/27/17 at 20:00 TAMIA RESTREPO MD Mar 01, 2017 08:24
--- NOTE | 2017-03-01 08:50 | RADRPT ---
PROCEDURE: XR Chest. CLINICAL INDICATION: Shortness of breath. TECHNIQUE: Single frontal view. COMPARISON: 02/27/2017. FINDINGS: The nasogastric tube tip is in the mid to distal esophagus. The nasogastric tube should be advanced approximately 15 cm. The right lung is clear. There is mild left basilar atelectasis. A left arm PIC C line is present with the tip in the lower superior vena cava jv The heart is enlarged. There is calcification in the aorta consistent with atherosclerosis. There is a small left pleural effusion. There is no right pleural effusion. There is no pneumothorax. IMPRESSION: 1. The nasogastric tube should be advanced approximately 15 cm. 2. Left basilar atelectasis. 3. No other change from 02/27/2017. RPTAT: QQ .Adelfo Yanez MD, Date Time Electronically viewed and signed by .Adelfo Yanez MD, on 03/01/2017 08:50 .R/
[2017-03-01 09:14] LABS: ANISOCYTOSIS 1+ (0-0); EOSINOPHILS % (M) 2 % (0-7); ERYTHROBLAST% (NRBC) (M) 1 % (0-0); METAMYELOCYTES %M 1 % (0-0); MICROCYTOSIS 1+ (0-0); MONOCYTES % (M) 1 % (0-11); MYELOCYTES % (M) 1 % (0-0); PLATELET ESTIMATE DECREASED; POLYCHROMASIA 3+ (0-0); PROMYELOCYTES #M 0 10^3/ul (0-0); PROMYELOCYTES % (M) 1 % (0-0); REACTIVE LYMPHOCYTES% (M) 4 % (0-0)
[2017-03-01] MEDS: LEVOTHYROXINE 100 MCG VIAL IV SCH (09:52)
[2017-03-01] MEDS: MEROPENEM 500MG/50 ML (PMX) 50 ML IVPB SCH ×2 (09:52→20:57)
[2017-03-01] MEDS: ENOXAPARIN 40 MG/0.4 ML SYG SC SCH (09:58)
--- NOTE | 2017-03-01 10:14 | CONS ---
Date/Time of Note Date/Time of Note DATE: 03/01/17 TIME: 10:12 Consult Date/Type/Reason Admit Date/Time Feb 20, 2017 at 19:33 Initial Consult Date 02/20/17 Type of Consultation: Pulm Ordering Provider: CARL STEPHENS MD Subjective Comfortable, continues insulin drip Objective Vital Signs Date Time Temp Pulse Resp B/P Pulse Ox O2 Delivery O2 Flow Rate FiO2 03/01/17 08:00 98.1 106 21 126/58 97 Nasal Cannula 3.0 02/26/17 13:29 30 Intake and Output 02/28/17 02/28/17 03/01/17 15:00 23:00 07:00 Intake Total 939 ml 495 ml 705.0 ml Output Total 1000 ml 525 ml 1425 ml Balance -61 ml -30 ml -720.0 ml Exam PHYSICAL EXAMINATION GENERAL: Elderly lady on nasal cannula oxygen appears comfortable at rest VITAL SIGNS: see below. HEENT: Pupils equal, round, and reactive to light. CARDIAC: S1, S2, 1/6 systolic ejection murmur CHEST: Diminished air entry bilaterally. ABDOMEN: Mildly distended. Bowel sounds present no guarding or rebound EXTREMITIES: No cyanosis, clubbing edema +1, widespread purpura NEUROLOGIC: Generalized weakness Results/Medications Result Diagram: 03/01/17 0438 03/01/17 0438 Results 24 hrs Laboratory Tests Test 02/28/17 10:42 02/28/17 13:06 02/28/17 15:40 02/28/17 16:53 Bedside Glucose 150 130 158 147 Test 02/28/17 18:53 02/28/17 21:15 02/28/17 22:59 03/01/17 01:39 Bedside Glucose 149 137 125 156 Test 03/01/17 03:35 03/01/17 04:38 03/01/17 05:03 03/01/17 06:53 Bedside Glucose 131 107 119 White Blood Count 6.9 Red Blood Count 2.73 #L Hemoglobin 7.6 #L Hematocrit 23.9 #L Mean Corpuscular Volume 87.5 Mean Corpuscular Hemoglobin 27.8 L Mean Corpuscular Hemoglobin Concent 31.8 L Red Cell Distribution Width 19.9 H Platelet Count 145 # Mean Platelet Volume 12.3 H Neutrophils % Segmented Neutrophils % (Manual) 58 Band Neutrophils % (Manual) 16 H Lymphocytes % Lymphocytes % (Manual) 16 Reactive Lymphocytes % (Manual) 4 H Monocytes % Monocytes % (Manual) 1 Eosinophils % Eosinophils % (Manual) 2 Basophils % Metamyelocytes % (manual) 1 H Myelocytes % (Manual) 1 H Promyelocytes % (Manual) 1 H Nucleated Red Blood Cells % 1 H Neutrophils # Neutrophils # (Manual) 4.1 Band Neutrophils # 1.1 H Absolute Lymphocytes (Manual) 1.1 Lymphocytes # Reactive Lymphocytes # 0.2 H Monocytes # Absolute Monocytes (Manual) 0.0 L Eosinophils # Basophils # Metamyelocytes # 0.0 Myelocytes # 0.0 Promyelocytes # 0 Nucleated Red Blood Cells # Platelet Estimate DECREASED Platelet Morphology Comment @See below Polychromasia 3+ Anisocytosis 1+ Microcytosis 1+ Sodium Level 141 Potassium Level 4.4 Chloride Level 104 Carbon Dioxide Level 34 H Anion Gap 7 L Blood Urea Nitrogen 27 H Creatinine 0.61 Glucose Level 110 Calcium Level 8.4 Phosphorus Level 2.7 Magnesium Level 2.1 B-Type Natriuretic Peptide 646 H Test 03/01/17 08:25 03/01/17 09:55 Bedside Glucose 156 160 Medications Current Medications IV Flush (NS 10 ml) 10 ml PRN PRN IV IV PROTOCOL; Start 02/20/17 at 19:30 Levothyroxine Sodium (Synthroid Iv) 50 mcg AM IV Last administered on 09:52; Admin Dose 50 MCG; Start 02/21/17 at 09:00 Enoxaparin Sodium (Lovenox) 40 mg DAILY SC Last administered on 03/01/17 09:58 ; Admin Dose 40 MG; Start 02/22/17 at 09:00 Acetaminophen/ Hydrocodone Bitart ([place] (5/325)) 1 tab Q4H PRN NGT pain; Start 02/21/17 at 17:00 Ondansetron HCl 4 mg 4 mg Q6H PRN IV NAUSEA Last administered on 02/26/17 20: 12; Admin Dose 4 MG; Start 02/21/17 at 23:30 Caspofungin 50 mg/ Sodium Chloride 250 ml @ 250 mls/hr Q24H IVPB Last administered on 02/28/17 10:46; Admin Dose 250 MLS/HR; Start 02/23/17 at 11:00 Propofol 100 ml @ 3.201 mls/ hr Q12H IV Last administered on 02/25/17 21:27; Admin Dose 9.603 MLS/HR; Start 02/22/17 at 14:30 Norepinephrine 16 mg/Dextrose 500 ml @ 0 mls/hr TITRATE IV Last administered on 02/23/17 03:24; Admin Dose 37.5 MLS/HR; Start 02/22/17 at 19:00 Meropenem/Sodium Chloride 50 ml @ 100 mls/hr Q12 IVPB Last administered on 09:52; Admin Dose 100 MLS/HR; Start 02/23/17 at 21:00 Total Parenteral Nutrition (Tpn) 1,000 ml @ 60 mls/hr [id number] IV Last administered on 03/01/17 06:40; Admin Dose 60 MLS/HR; Start 02/23/17 at 16:30 Diagnostic Test (Pha) (Accu-Chek) 1 ea Q1H XX Last administered on 03/01/17 09 :59; Admin Dose 1 EA; Start 02/24/17 at 09:30 Dextrose 25 ml 25 ml Q15M PRN IV Till BS 80 mg/dL or above x2; Start 02/24/17 at 09:30 Quinupristin/ Dalfopristin/ Dextrose (Synercid/D5W) 250 ml @ 250 mls/hr Q8 IVPB Last administered on 03/01/17 06:30; Admin Dose 250 MLS/HR; Start at 10:30 Morphine Sulfate (morphine) 2 mg Q3H PRN IV PAIN LEVEL 4-6 Last administered on 03/01/17 01:42; Admin Dose 2 MG; Start 02/26/17 at 17:00 Lorazepam (Ativan) 0.5 mg Q6H PRN IV AGITATION Last administered on 02/28/17 17:46; Admin Dose 0.5 MG; Start 02/27/17 at 16:00 Labetalol HCl (Labetalol) 10 mg Q2H PRN IV for SBP > 160, hold for HR <65; Start 02/27/17 at 20:00 Hydrocortisone (Solu-Cortef) 50 mg Q8 IV ; Start 03/01/17 at 14:00 Assessment/Plan Chief Complaint/Hosp Course Assessment 1. Status post septic shock. 2. Hypoxemic respiratory failure. Alveolar hypoventilation. Possible underlying obstructive sleep apnea. 3. Thrombocytopenia possibly DIC. 4. Possible adrenal insufficiency. 5. GI bleed, now with anemia. 6. Hx PMR Plan 1. Replace electrolytes 2. Monitor H&H. 3. Speech therapy evaluation, aspiration precautions. Advance diet as tolerated. 4. Incentive spirometry bronchodilators as needed. 5. Continues TPN for now. Consider start nasogastric tube feeding. 6. Stress dose steroids per endocrinology. 7. PT eval Critical care time 40 minutes. Transfer to [facility] / [facility] once off insulin. Problems: KATHY SALOMON MD, [facility] Mar 01, 2017 10:14
[2017-03-01] MEDS: LORAZEPAM 2 MG INJ IV PRN (10:34)
--- NOTE | 2017-03-01 11:32 | PN ---
Date/Time of Note Date/Time of Note DATE: 03/01/17 TIME: 11:21 Assessment/Plan VTE Prophylaxis VTE Prophylaxis Intervention: LMWH Assessment/Plan Chief Complaint/Hosp Course 1. History of Perforated right transverse colon status post right hemicolectomy with readmission for Anastomotic leak ileocolic anastomosis status post resection of ileocolic anastomosis and resection of terminal ileum with creation of ileostomy ID following, continue antibiotics and antifungals Blood cultures show VRE bacteremia and yeast fungemia 2. Diabetes DC insulin drip and start subcu insulin 3. Polymyalgia rheumatica and chronic adrenal suppression from prednisone, now iatrogenic adrenal insufficiency -Continue wean stress hydrocortisone per Endocrine 4. Obesity with debility Likely DC to [facility] 5. Acute kidney injury-resolved 6. History of seizure disorder-stable 7. Hypothyroidism: - FT4 low, likely from poor absorption 2/2 ileus, continue IV LT4 8. Acute respiratory failure-resolved Prophylaxis: Lovenox Problems: Subjective 24 Hr Interval Summary Constitutional: no complaints Exam/Review of Systems Vital Signs Vitals Vital Signs Date Time Temp Pulse Resp B/P Pulse Ox O2 Delivery O2 Flow Rate FiO2 03/01/17 08:00 110 03/01/17 08:00 98.1 21 126/58 97 Nasal Cannula 3.0 02/26/17 13:29 30 Intake and Output 02/28/17 02/28/17 03/01/17 15:00 23:00 07:00 Intake Total 939 ml 495 ml 705.0 ml Output Total 1000 ml 525 ml 1425 ml Balance -61 ml -30 ml -720.0 ml Exam Constitutional: alert Respiratory: clear to auscultation Cardiovascular: regular rate and rhythm Gastrointestinal: soft, No distended Extremities: edema Results Result Diagram: 03/01/17 0438 03/01/17 0438 Results 24 hrs Laboratory Tests Test 02/28/17 13:06 02/28/17 15:40 02/28/17 16:53 02/28/17 18:53 Bedside Glucose 130 158 147 149 Test 02/28/17 21:15 02/28/17 22:59 03/01/17 01:39 03/01/17 03:35 Bedside Glucose 137 125 156 131 Test 03/01/17 04:38 03/01/17 05:03 03/01/17 06:53 03/01/17 08:25 White Blood Count 6.9 Red Blood Count 2.73 #L Hemoglobin 7.6 #L Hematocrit 23.9 #L Mean Corpuscular Volume 87.5 Mean Corpuscular Hemoglobin 27.8 L Mean Corpuscular Hemoglobin Concent 31.8 L Red Cell Distribution Width 19.9 H Platelet Count 145 # Mean Platelet Volume 12.3 H Neutrophils % Segmented Neutrophils % (Manual) 58 Band Neutrophils % (Manual) 16 H Lymphocytes % Lymphocytes % (Manual) 16 Reactive Lymphocytes % (Manual) 4 H Monocytes % Monocytes % (Manual) 1 Eosinophils % Eosinophils % (Manual) 2 Basophils % Metamyelocytes % (manual) 1 H Myelocytes % (Manual) 1 H Promyelocytes % (Manual) 1 H Nucleated Red Blood Cells % 1 H Neutrophils # Neutrophils # (Manual) 4.1 Band Neutrophils # 1.1 H Absolute Lymphocytes (Manual) 1.1 Lymphocytes # Reactive Lymphocytes # 0.2 H Monocytes # Absolute Monocytes (Manual) 0.0 L Eosinophils # Basophils # Metamyelocytes # 0.0 Myelocytes # 0.0 Promyelocytes # 0 Nucleated Red Blood Cells # Platelet Estimate DECREASED Platelet Morphology Comment @See below Polychromasia 3+ Anisocytosis 1+ Microcytosis 1+ Sodium Level 141 Potassium Level 4.4 Chloride Level 104 Carbon Dioxide Level 34 H Anion Gap 7 L Blood Urea Nitrogen 27 H Creatinine 0.61 Glucose Level 110 Calcium Level 8.4 Phosphorus Level 2.7 Magnesium Level 2.1 B-Type Natriuretic Peptide 646 H Bedside Glucose 107 119 156 Test 03/01/17 09:55 Bedside Glucose 160 Medications Medications Current Medications IV Flush (NS 10 ml) 10 ml PRN PRN IV IV PROTOCOL; Start 02/20/17 at 19:30 Levothyroxine Sodium (Synthroid Iv) 50 mcg AM IV Last administered on 09:52; Admin Dose 50 MCG; Start 02/21/17 at 09:00 Enoxaparin Sodium (Lovenox) 40 mg DAILY SC Last administered on 03/01/17 09:58 ; Admin Dose 40 MG; Start 02/22/17 at 09:00 Acetaminophen/ Hydrocodone Bitart ([place] (5/325)) 1 tab Q4H PRN NGT pain; Start 02/21/17 at 17:00 Ondansetron HCl 4 mg 4 mg Q6H PRN IV NAUSEA Last administered on 02/26/17 20: 12; Admin Dose 4 MG; Start 02/21/17 at 23:30 Caspofungin 50 mg/ Sodium Chloride 250 ml @ 250 mls/hr Q24H IVPB Last administered on 02/28/17 10:46; Admin Dose 250 MLS/HR; Start 02/23/17 at 11:00 Propofol 100 ml @ 3.201 mls/ hr Q12H IV Last administered on 02/25/17 21:27; Admin Dose 9.603 MLS/HR; Start 02/22/17 at 14:30 Norepinephrine 16 mg/Dextrose 500 ml @ 0 mls/hr TITRATE IV Last administered on 02/23/17 03:24; Admin Dose 37.5 MLS/HR; Start 02/22/17 at 19:00 Meropenem/Sodium Chloride 50 ml @ 100 mls/hr Q12 IVPB Last administered on 09:52; Admin Dose 100 MLS/HR; Start 02/23/17 at 21:00 Total Parenteral Nutrition (Tpn) 1,000 ml @ 60 mls/hr [id number] IV Last administered on 03/01/17 06:40; Admin Dose 60 MLS/HR; Start 02/23/17 at 16:30 Diagnostic Test (Pha) (Accu-Chek) 1 ea Q1H XX Last administered on 03/01/17 09 :59; Admin Dose 1 EA; Start 02/24/17 at 09:30 Dextrose 25 ml 25 ml Q15M PRN IV Till BS 80 mg/dL or above x2; Start 02/24/17 at 09:30 Quinupristin/ Dalfopristin/ Dextrose (Synercid/D5W) 250 ml @ 250 mls/hr Q8 IVPB Last administered on 03/01/17 06:30; Admin Dose 250 MLS/HR; Start at 10:30 Morphine Sulfate (morphine) 2 mg Q3H PRN IV PAIN LEVEL 4-6 Last administered on 03/01/17 01:42; Admin Dose 2 MG; Start 02/26/17 at 17:00 Lorazepam (Ativan) 0.5 mg Q6H PRN IV AGITATION Last administered on 03/01/17 10:34; Admin Dose 0.5 MG; Start 02/27/17 at 16:00 Labetalol HCl (Labetalol) 10 mg Q2H PRN IV for SBP > 160, hold for HR <65; Start 02/27/17 at 20:00 Hydrocortisone (Solu-Cortef) 50 mg Q8 IV ; Start 03/01/17 at 14:00 BENJAMIN GONSALEZ Mar 01, 2017 11:32
[2017-03-01] MEDS: CASPOFUNGIN 50 MG in SOD CHLORIDE 0.9% 250 ML IVPB SCH (11:59)
--- NOTE | 2017-03-01 13:12 | PN ---
DATE: 03/01/2017 SUBJECTIVE DATA: No events overnight. The patient is awake, looks comfortable. Denies pain. OBJECTIVE DATA: VITAL SIGNS: She is afebrile. Temperature 98.1, pulse 106, respirations 20, blood pressure 126/58, saturation 97 on 3 L nasal cannula. LABORATORY DATA: WBC 6.9, H and H 7.6 and 23.9, platelets 145. BUN 27, creatinine 0.61. MICROBIOLOGY: Repeat blood culture on February 27 growing gram-positive coccus 1:2 sets. DIAGNOSTICS: Chest x-ray this morning revealed left basilar atelectasis. INDWELLING: NG-tube, PICC line, Mojica catheter. ANTIMICROBIALS: Cancidas, Synercid, meropenem. PHYSICAL EXAMINATION: GENERAL: This is a morbidly obese, well-developed, elderly woman, who is in no distress. HEENT: Head atraumatic, normocephalic. Sclerae anicteric. Buccal mucosa dry. NECK: Obese. LUNGS: Chest rise symmetrical. Breath sounds diminished at the bases. HEART: S1, S2. ABDOMEN: Soft, bowel sounds present. Dressing intact. Per RN's report, there is serous drainage from the wound, no dehiscence. EXTREMITIES: With bilateral edema. ASSESSMENT: 1. Persistent bacteremia. The initial culture grew vancomycin- resistant enterococcus . 2. Laisha glabrata fungemia. 3. Resolving pneumonia. 4. Status post acute respiratory failure. 5. Status post perforated anastomotic leak repair on 02/21/2017. 6. Status post open appendectomy. 7. Morbid obesity. 8. [id number] anemia, Status post gastrointestinal bleed. PLAN: The patient remains hemodynamically stable on appropriate antibiotics. Surgery on case. We will await for final blood cultures repeated on February 27. Dictated By: Mk Kimball NP /louie/chayo /Document#: [id number]
--- NOTE | 2017-03-01 20:49 | CONS ---
Date/Time of Note Date/Time of Note DATE: 03/01/17 TIME: 20:46 Assessment/Plan Assessment/Plan Additional Assessment/Plan 1. Acute kidney injury mutlifactorial due to Prerenal azotemia + ATN From septic shock 2. Acute encephalopathy metabolic 3. SBO, disrupted colonic anastomosis, s/p Exp lap, resection and ileostomy on 4. H/o Polymyalgia rheumatica on Steroids 5. H/o recent right hemicolectomy for perforated diverticulitis 6. Hyperkalemia acute, Hyponatremia 7. acute hypoxic respiratory failure requiring ventilator care s/p Extubation 8. adrenal crisis- On IV dexamethasone 9. Hypokalemia Plan: continue Hydrocortisone 20 mg IV Q 8 hr for adrenal insufficiency- tolerating so far decrease Lasix to 20mg iV BID, Cr normal, HCo3 34- monitor electrolytes and replace as needed. IV abx sepsis. renally dose antibiotics , IV cancidas,IV synercid s/p surgery, G surgery following , currently on TPN at 60 cc/hr, no IV Fluids will follow up Consultation Date/Type/Reason Admit Date/Time Feb 20, 2017 at 19:33 Initial Consult Date 02/20/17 Type of Consultation: NEPHROLOGY Referring Provider: CARL STEPHENS MD 24 HR Interval Summary Free Text/Dictation stable post extubation, still in ICU Exam/Review of Systems Vital Signs Vitals Vital Signs Date Time Temp Pulse Resp B/P Pulse Ox O2 Delivery O2 Flow Rate FiO2 03/01/17 20:00 97.9 113 22 110/56 100 Nasal Cannula 2.0 02/26/17 13:29 30 Intake and Output 02/28/17 02/28/17 03/01/17 15:00 23:00 07:00 Intake Total 939 ml 495 ml 705.0 ml Output Total 1000 ml 525 ml 1425 ml Balance -61 ml -30 ml -720.0 ml Exam Constitutional: alert Respiratory: crackles/rales, diminished breath sounds Cardiovascular: nl pulses, regular rate and rhythm Gastrointestinal: non-tender, soft Musculoskeletal: nl extremities to inspection Neurological: RN CASE MGR II-XII intact, nl mental status Results Result Diagram: 03/01/17 0438 03/01/17 0438 Results 24 hrs Laboratory Tests Test 02/28/17 21:15 02/28/17 22:59 03/01/17 01:39 03/01/17 03:35 Bedside Glucose 137 125 156 131 Test 03/01/17 04:38 03/01/17 05:03 03/01/17 06:53 03/01/17 08:25 White Blood Count 6.9 Red Blood Count 2.73 #L Hemoglobin 7.6 #L Hematocrit 23.9 #L Mean Corpuscular Volume 87.5 Mean Corpuscular Hemoglobin 27.8 L Mean Corpuscular Hemoglobin Concent 31.8 L Red Cell Distribution Width 19.9 H Platelet Count 145 # Mean Platelet Volume 12.3 H Neutrophils % Segmented Neutrophils % (Manual) 58 Band Neutrophils % (Manual) 16 H Lymphocytes % Lymphocytes % (Manual) 16 Reactive Lymphocytes % (Manual) 4 H Monocytes % Monocytes % (Manual) 1 Eosinophils % Eosinophils % (Manual) 2 Basophils % Metamyelocytes % (manual) 1 H Myelocytes % (Manual) 1 H Promyelocytes % (Manual) 1 H Nucleated Red Blood Cells % 1 H Neutrophils # Neutrophils # (Manual) 4.1 Band Neutrophils # 1.1 H Absolute Lymphocytes (Manual) 1.1 Lymphocytes # Reactive Lymphocytes # 0.2 H Monocytes # Absolute Monocytes (Manual) 0.0 L Eosinophils # Basophils # Metamyelocytes # 0.0 Myelocytes # 0.0 Promyelocytes # 0 Nucleated Red Blood Cells # Platelet Estimate DECREASED Platelet Morphology Comment @See below Polychromasia 3+ Anisocytosis 1+ Microcytosis 1+ Sodium Level 141 Potassium Level 4.4 Chloride Level 104 Carbon Dioxide Level 34 H Anion Gap 7 L Blood Urea Nitrogen 27 H Creatinine 0.61 Glucose Level 110 Calcium Level 8.4 Phosphorus Level 2.7 Magnesium Level 2.1 B-Type Natriuretic Peptide 646 H Bedside Glucose 107 119 156 Test 03/01/17 09:55 03/01/17 11:22 03/01/17 13:43 03/01/17 15:44 Bedside Glucose 160 150 114 137 Test 03/01/17 17:23 03/01/17 18:32 03/01/17 20:17 Bedside Glucose 136 151 123 Medications Medications Current Medications IV Flush (NS 10 ml) 10 ml PRN PRN IV IV PROTOCOL; Start 02/20/17 at 19:30 Levothyroxine Sodium (Synthroid Iv) 50 mcg AM IV Last administered on t 09:52; Admin Dose 50 MCG; Start 02/21/17 at 09:00 Enoxaparin Sodium (Lovenox) 40 mg DAILY SC Last administered on 03/01/17 09:58 ; Admin Dose 40 MG; Start 02/22/17 at 09:00 Acetaminophen/ Hydrocodone Bitart ([place] (5/325)) 1 tab Q4H PRN NGT pain; Start 02/21/17 at 17:00 Ondansetron HCl 4 mg 4 mg Q6H PRN IV NAUSEA Last administered on 02/26/17 20: 12; Admin Dose 4 MG; Start 02/21/17 at 23:30 Caspofungin 50 mg/ Sodium Chloride 250 ml @ 250 mls/hr Q24H IVPB Last administered on 03/01/17 11:59; Admin Dose 250 MLS/HR; Start 02/23/17 at 11:00 Propofol 100 ml @ 3.201 mls/ hr Q12H IV Last administered on 02/25/17 21:27; Admin Dose 9.603 MLS/HR; Start 02/22/17 at 14:30 Norepinephrine 16 mg/Dextrose 500 ml @ 0 mls/hr TITRATE IV Last administered on 02/23/17 03:24; Admin Dose 37.5 MLS/HR; Start 02/22/17 at 19:00 Meropenem/Sodium Chloride 50 ml @ 100 mls/hr Q12 IVPB Last administered on 09:52; Admin Dose 100 MLS/HR; Start 02/23/17 at 21:00 Total Parenteral Nutrition (Tpn) 1,000 ml @ 60 mls/hr [id number] IV Last administered on 03/01/17 06:40; Admin Dose 60 MLS/HR; Start 02/23/17 at 16:30 Diagnostic Test (Pha) (Accu-Chek) 1 ea Q1H XX Last administered on 03/01/17 18 :31; Admin Dose 1 EA; Start 02/24/17 at 09:30 Dextrose 25 ml 25 ml Q15M PRN IV Till BS 80 mg/dL or above x2; Start 02/24/17 at 09:30 Quinupristin/ Dalfopristin/ Dextrose (Synercid/D5W) 250 ml @ 250 mls/hr Q8 IVPB Last administered on 03/01/17 13:44; Admin Dose 250 MLS/HR; Start at 10:30 Morphine Sulfate (morphine) 2 mg Q3H PRN IV PAIN LEVEL 4-6 Last administered on 03/01/17 14:18; Admin Dose 2 MG; Start 02/26/17 at 17:00 Lorazepam (Ativan) 0.5 mg Q6H PRN IV AGITATION Last administered on 03/01/17 10:34; Admin Dose 0.5 MG; Start 02/27/17 at 16:00 Labetalol HCl (Labetalol) 10 mg Q2H PRN IV for SBP > 160, hold for HR <65; Start 02/27/17 at 20:00 Hydrocortisone (Solu-Cortef) 50 mg Q8 IV Last administered on 03/01/17 13:44; Admin Dose 50 MG; Start 03/01/17 at 14:00 ARIK MCKEON MD Mar 01, 2017 20:49
--- NOTE | 2017-03-01 21:35 | RADRPT ---
PROCEDURE: XR Chest. CLINICAL INDICATION: Check nasogastric tube position. TECHNIQUE: Single frontal view. COMPARISON: Prior study done earlier the same day. FINDINGS: The nasogastric tube tip is in the gastroesophageal junction region. The side hole is in the mid to distal esophagus. This should be advanced an additional 5 cm. There is left basilar atelectasis. The lungs are otherwise clear. The heart is enlarged. There is calcification in the aorta consistent with atherosclerosis. A left a rm PICC line remains in satisfactory position. There is no right pleural effusion. There is a small left pleural effusion. There is no pneumothorax. IMPRESSION: 1. The nasogastric tube should be advanced an additional 5 cm as the tip is at the gastroesophageal junction region. 2. No other change from the prior study done earlier the same day. RPTAT: QQ .Adelfo Yanez MD, MD Date Time Electronically viewed and signed by .Adelfo Yanez MD, on 03/01/2017 21:35 .R/
[2017-03-02] VITALS (24 sets, daily range): BP systolic 99–142; BP diastolic 51–78; PULSE 100–124; RESP 17–24
[2017-03-02] MEDS: ACCU-CHEK XX SCH ×15 (00:30→14:20)
[2017-03-02] MEDS: PROPOFOL 100 ML IV SCH (02:30)
[2017-03-02] MEDS: morphine 2 MG INJ IV PRN ×2 (03:12→20:23)
[2017-03-02 06:26] LABS: ABNORMAL IP MESSAGE 1; BASOPHIL # 0.1 10^3/ul (0.0-0.1); BASOPHILS % 0.9 % (0.0-2.0); EOSINOPHILS % 0.2 % (0.0-7.0); HEMATOCRIT 24.3 % (37.0-47.0); HEMOGLOBIN 7.7 g/dl (12.0-16.0); LYMPHOCYTES # 0.5 10^3/ul (0.8-2.9); LYMPHOCYTES % 9.5 % (15.0-51.0); MEAN CORPUSCULAR HEMOGLOBIN 28.1 pg (29.0-33.0); MEAN CORPUSCULAR HGB CONC 31.7 g/dl (32.0-37.0); MEAN CORPUSCULAR VOLUME 88.7 fl (82.0-101.0); MEAN PLATELET VOLUME 11.7 fl (7.4-10.4); MONOCYTE # 0.2 10^3/ul (0.3-0.9); MONOCYTES % 3.3 % (0.0-11.0); NEUTROPHIL # 4.1 10^3/ul (1.6-7.5); NEUTROPHILS % 75.3 % (39.0-77.0); NUCLEATED RED BLOOD CELLS% 0.5 /100WBC (0.0-0.0); PLATELET COUNT 149 10^3/UL (140-415); POSITIVE DIFF @See below; RED BLOOD COUNT 2.74 10^6/ul (4.20-5.40); RED CELL DISTRIBUTION WIDTH 19.9 % (11.5-14.5); WHITE BLOOD COUNT 5.5 10^3/ul (4.8-10.8)
[2017-03-02] MEDS: LORAZEPAM 2 MG INJ IV PRN (06:29)
[2017-03-02] MEDS: HYDROCORTISONE 100 MG INJ IV SCH ×3 (06:30→23:08)
[2017-03-02] MEDS: FUROSEMIDE 20 MG INJ IV SCH ×2 (06:30→17:28)
[2017-03-02] MEDS: [UNRECOGNIZED DRUG - MIXTURE] IVPB SCH (06:30)
[2017-03-02] MEDS: HYDROCODONE/APAP (5/325) TAB NGT PRN (06:52)
[2017-03-02 06:55] LABS: CALCIUM 8.7 mg/dl (8.4-10.2); CREATININE 0.52 mg/dl (0.44-1.00); POTASSIUM 4.9 mmol/L (3.5-5.1)
--- NOTE | 2017-03-02 08:52 | RADRPT ---
PROCEDURE: XR Chest. CLINICAL INDICATION: Shortness of breath. TECHNIQUE: Single frontal view. COMPARISON: 03/01/2017. FINDINGS: The nasogastric tube has been advanced and the tip is now in the upper stomach. Mild atelectasis at the left lung base is unchanged. The lungs are otherwise clear. The heart size is normal. There is calcification in the aorta consistent with atherosclerosis. A le ft arm PICC line is present with the tip in the cavoatrial junction region. There is no pleural effusion. There is no pneumothorax. IMPRESSION: 1. Nasogastric tube to upper stomach. No other change from 03/01/2017. RPTAT: QQ .Adelfo Yanez MD, Date Time Electronically viewed and signed by .Adelfo Yanez MD, on 03/02/2017 08:52 .R/
--- NOTE | 2017-03-02 10:27 | CONS ---
Date/Time of Note Date/Time of Note DATE: 03/02/17 TIME: 10:26 Consult Date/Type/Reason Admit Date/Time Feb 20, 2017 at 19:33 Initial Consult Date 02/20/17 Type of Consultation: Pulmonary Ordering Provider: CARL STEPHENS MD Subjective Awake alert oriented. Complaining of generalized pain. No nausea no vomiting. Denies shortness of breath. Continues insulin drip. Objective Vital Signs Date Time Temp Pulse Resp B/P Pulse Ox O2 Delivery O2 Flow Rate FiO2 03/02/17 08:00 97.7 111 19 142/77 98 Nasal Cannula 2.0 02/26/17 13:29 30 Intake and Output 03/01/17 03/01/17 03/02/17 15:00 23:00 07:00 Intake Total 842 ml 1303.0 ml 1016 ml Output Total 1750 ml 1450 ml 1090 ml Balance -908 ml -147.0 ml -74 ml Exam PHYSICAL EXAMINATION GENERAL: Elderly lady on nasal cannula oxygen appears comfortable at rest VITAL SIGNS: see below. HEENT: Pupils equal, round, and reactive to light. CARDIAC: S1, S2, 1/6 systolic ejection murmur CHEST: Diminished air entry bilaterally. ABDOMEN: Mildly distended. Bowel sounds present no guarding or rebound EXTREMITIES: No cyanosis, clubbing edema +1, widespread purpura NEUROLOGIC: Generalized weakness Results/Medications Result Diagram: 03/02/17 0430 03/02/17 0430 Results 24 hrs Laboratory Tests Test 03/01/17 11:22 03/01/17 13:43 03/01/17 15:44 03/01/17 17:23 Bedside Glucose 150 114 137 136 Test 03/01/17 18:32 03/01/17 20:17 03/01/17 20:57 03/01/17 22:06 Bedside Glucose 151 123 123 99 Test 03/01/17 22:49 03/01/17 23:47 03/02/17 01:03 03/02/17 01:31 Bedside Glucose 103 159 126 144 Test 03/02/17 02:47 03/02/17 03:52 03/02/17 04:30 03/02/17 04:39 Bedside Glucose 138 166 157 White Blood Count 5.5 # Red Blood Count 2.74 L Hemoglobin 7.7 L Hematocrit 24.3 L Mean Corpuscular Volume 88.7 Mean Corpuscular Hemoglobin 28.1 L Mean Corpuscular Hemoglobin Concent 31.7 L Red Cell Distribution Width 19.9 H Platelet Count 149 Mean Platelet Volume 11.7 H Neutrophils % 75.3 Lymphocytes % 9.5 L Monocytes % 3.3 Eosinophils % 0.2 Basophils % 0.9 Nucleated Red Blood Cells % 0.5 H Neutrophils # 4.1 Lymphocytes # 0.5 L Monocytes # 0.2 L Eosinophils # 0.0 Basophils # 0.1 Nucleated Red Blood Cells # 0.0 Sodium Level 139 Potassium Level 4.9 Chloride Level 104 Carbon Dioxide Level 33 H Anion Gap 7 L Blood Urea Nitrogen 26 H Creatinine 0.52 Glucose Level 132 Calcium Level 8.7 Test 03/02/17 05:50 03/02/17 06:50 03/02/17 08:25 03/02/17 09:17 Bedside Glucose 136 144 152 152 Medications Current Medications IV Flush (NS 10 ml) 10 ml PRN PRN IV IV PROTOCOL; Start 02/20/17 at 19:30 Levothyroxine Sodium (Synthroid Iv) 50 mcg AM IV Last administered on 09:52; Admin Dose 50 MCG; Start 02/21/17 at 09:00 Enoxaparin Sodium (Lovenox) 40 mg DAILY SC Last administered on 03/01/17 09:58 ; Admin Dose 40 MG; Start 02/22/17 at 09:00 Acetaminophen/ Hydrocodone Bitart ([place] (5/325)) 1 tab Q4H PRN NGT pain Last administered on 03/02/17 06:52; Admin Dose 1 TAB; Start 02/21/17 at 17:00 Ondansetron HCl 4 mg 4 mg Q6H PRN IV NAUSEA Last administered on 02/26/17 20: 12; Admin Dose 4 MG; Start 02/21/17 at 23:30 Caspofungin 50 mg/ Sodium Chloride 250 ml @ 250 mls/hr Q24H IVPB Last administered on 03/01/17 11:59; Admin Dose 250 MLS/HR; Start 02/23/17 at 11:00 Norepinephrine 16 mg/Dextrose 500 ml @ 0 mls/hr TITRATE IV Last administered on 02/23/17 03:24; Admin Dose 37.5 MLS/HR; Start 02/22/17 at 19:00 Meropenem/Sodium Chloride 50 ml @ 100 mls/hr Q12 IVPB Last administered on 20:57; Admin Dose 100 MLS/HR; Start 02/23/17 at 21:00 Total Parenteral Nutrition (Tpn) 1,000 ml @ 60 mls/hr [id number] IV Last administered on 03/01/17 22:47; Admin Dose 60 MLS/HR; Start 02/23/17 at 16:30 Dextrose 25 ml 25 ml Q15M PRN IV Till BS 80 mg/dL or above x2; Start 02/24/17 at 09:30 Quinupristin/ Dalfopristin/ Dextrose (Synercid/D5W) 250 ml @ 250 mls/hr Q8 IVPB Last administered on 03/02/17 06:30; Admin Dose 250 MLS/HR; Start at 10:30 Morphine Sulfate (morphine) 2 mg Q3H PRN IV PAIN LEVEL 4-6 Last administered on 03/02/17 03:12; Admin Dose 2 MG; Start 02/26/17 at 17:00 Lorazepam (Ativan) 0.5 mg Q6H PRN IV AGITATION Last administered on 03/02/17 06:29; Admin Dose 0.5 MG; Start 02/27/17 at 16:00 Labetalol HCl (Labetalol) 10 mg Q2H PRN IV for SBP > 160, hold for HR <65; Start 02/27/17 at 20:00 Hydrocortisone (Solu-Cortef) 50 mg Q8 IV Last administered on 03/02/17 06:30; Admin Dose 50 MG; Start 03/01/17 at 14:00 Diagnostic Test (Pha) (Accu-Chek) 1 ea Q1H XX Last administered on 03/02/17 08 :27; Admin Dose 1 EA; Start 03/02/17 at 08:00 Assessment/Plan Chief Complaint/Hosp Course Assessment 1. Status post septic shock. 2. Hypoxemic respiratory failure. Alveolar hypoventilation. Possible underlying obstructive sleep apnea. 3. Thrombocytopenia possibly DIC. 4. Possible adrenal insufficiency. 5. GI bleed, now with anemia. 6. Hx PMR 7. Diabetes mellitus. Exacerbated by intravenous steroids. Continues on insulin drip. Plan 1. Replace electrolytes, switch to subcu insulin wean off IV insulin. 2. Monitor H&H. 3. Speech therapy evaluation, aspiration precautions. Advance diet as tolerated. 4. Incentive spirometry bronchodilators as needed. 5. Continues TPN for now. Consider start nasogastric tube feeding. 6. Stress dose steroids per endocrinology. 7. PT eval Critical care time 40 minutes. Transfer to [facility] once off insulin. Problems: KATHY SALOMON MD, [facility] Mar 02, 2017 10:27
[2017-03-02] MEDS: LEVOTHYROXINE 100 MCG VIAL IV SCH (10:35)
[2017-03-02] MEDS: MEROPENEM 500MG/50 ML (PMX) 50 ML IVPB SCH ×2 (10:35→20:30)
[2017-03-02] MEDS: ENOXAPARIN 40 MG/0.4 ML SYG SC SCH (10:37)
[2017-03-02] MEDS: CASPOFUNGIN 50 MG in SOD CHLORIDE 0.9% 250 ML IVPB SCH (13:18)
[2017-03-02] MEDS: INSULIN HUMAN REGULAR 100 UNIT in SOD CHLORIDE 0.9% 99 ML IV SCH (13:19)
--- NOTE | 2017-03-02 14:31 | CONS ---
Date/Time of Note Date/Time of Note DATE: 03/02/17 TIME: 14:29 Assessment/Plan Assessment/Plan Problems: (1) Hyperglycemia Status: Acute Comment: She is off of TPN and now on enteral feedings using NG tube feedings and DiaBeta source. I can turn off the insulin drip at this time and go to a basal insulin with correction scale. Please note we will have to adjust for this and the steroids were also affected as well. Right now she has not passed her swallowing evaluation so that she will be on tube feedings. (2) Iatrogenic adrenal insufficiency Status: Acute Comment: Continue treatment. Retry lowering the dosage of steroids tomorrow (3) Hypothyroidism Status: Chronic Comment: On replacement dosage medication Qualifiers: Hypothyroidism type: acquired Qualified Code: E03.9 - Acquired hypothyroidism Consultation Date/Type/Reason Admit Date/Time Feb 20, 2017 at 19:33 Initial Consult Date 02/20/17 Type of Consultation: Endocrinology Reason for Consultation Diabetes mellitus type 2; iatrogenic adrenal insufficiency Referring Provider: CARL STEPHENS MD 24 HR Interval Summary Free Text/Dictation Patient's ability to speak and interact improves steadily but slowly. She is noting significant pain Exam/Review of Systems Vital Signs Vitals Vital Signs Date Time Temp Pulse Resp B/P Pulse Ox O2 Delivery O2 Flow Rate FiO2 03/02/17 13:00 100 19 123/65 100 Nasal Cannula 2.0 03/02/17 12:00 98.1 02/26/17 13:29 30 Intake and Output 03/01/17 03/01/17 03/02/17 15:00 23:00 07:00 Intake Total 842 ml 1303.0 ml 1016 ml Output Total 1750 ml 1450 ml 1090 ml Balance -908 ml -147.0 ml -74 ml Exam Constitutional: alert, oriented Respiratory: clear to auscultation, normal air movement Cardiovascular: nl pulses, regular rate and rhythm Results Result Diagram: 03/02/17 0430 03/02/17 0430 Results 24 hrs Laboratory Tests Test 03/01/17 15:44 03/01/17 17:23 03/01/17 18:32 03/01/17 20:17 Bedside Glucose 137 136 151 123 Test 03/01/17 20:57 03/01/17 22:06 03/01/17 22:49 03/01/17 23:47 Bedside Glucose 123 99 103 159 Test 03/02/17 01:03 03/02/17 01:31 03/02/17 02:47 03/02/17 03:52 Bedside Glucose 126 144 138 166 Test 03/02/17 04:30 03/02/17 04:39 03/02/17 05:50 03/02/17 06:50 White Blood Count 5.5 # Red Blood Count 2.74 L Hemoglobin 7.7 L Hematocrit 24.3 L Mean Corpuscular Volume 88.7 Mean Corpuscular Hemoglobin 28.1 L Mean Corpuscular Hemoglobin Concent 31.7 L Red Cell Distribution Width 19.9 H Platelet Count 149 Mean Platelet Volume 11.7 H Neutrophils % 75.3 Lymphocytes % 9.5 L Monocytes % 3.3 Eosinophils % 0.2 Basophils % 0.9 Nucleated Red Blood Cells % 0.5 H Neutrophils # 4.1 Lymphocytes # 0.5 L Monocytes # 0.2 L Eosinophils # 0.0 Basophils # 0.1 Nucleated Red Blood Cells # 0.0 Sodium Level 139 Potassium Level 4.9 Chloride Level 104 Carbon Dioxide Level 33 H Anion Gap 7 L Blood Urea Nitrogen 26 H Creatinine 0.52 Glucose Level 132 Calcium Level 8.7 Bedside Glucose 157 136 144 Test 03/02/17 08:25 03/02/17 09:17 03/02/17 10:26 03/02/17 11:11 Bedside Glucose 152 152 136 140 Test 03/02/17 12:12 03/02/17 13:16 03/02/17 14:19 Bedside Glucose 142 121 106 Medications Medications Current Medications IV Flush (NS 10 ml) 10 ml PRN PRN IV IV PROTOCOL; Start 02/20/17 at 19:30 Levothyroxine Sodium (Synthroid Iv) 50 mcg AM IV Last administered on 10:35; Admin Dose 50 MCG; Start 02/21/17 at 09:00 Enoxaparin Sodium (Lovenox) 40 mg DAILY SC Last administered on 03/02/17 10:37 ; Admin Dose 40 MG; Start 02/22/17 at 09:00 Acetaminophen/ Hydrocodone Bitart ([place] (5/325)) 1 tab Q4H PRN NGT pain Last administered on 03/02/17 06:52; Admin Dose 1 TAB; Start 02/21/17 at 17:00 Ondansetron HCl 4 mg 4 mg Q6H PRN IV NAUSEA Last administered on 02/26/17 20: 12; Admin Dose 4 MG; Start 02/21/17 at 23:30 Caspofungin 50 mg/ Sodium Chloride 250 ml @ 250 mls/hr Q24H IVPB Last administered on 03/02/17 13:18; Admin Dose 250 MLS/HR; Start 02/23/17 at 11:00 Norepinephrine 16 mg/Dextrose 500 ml @ 0 mls/hr TITRATE IV Last administered on 02/23/17 03:24; Admin Dose 37.5 MLS/HR; Start 02/22/17 at 19:00 Meropenem/Sodium Chloride (Merrem 500mg/50 ml(Pmx)) 50 ml @ 100 mls/hr Q12 IVPB Last administered on 03/02/17 10:35; Admin Dose 100 MLS/HR; Start at 21:00 Dextrose (D50w Syringe) 25 ml Q15M PRN IV Till BS 80 mg/dL or above x2; Start 02/24/17 at 09:30 Morphine Sulfate (morphine) 2 mg Q3H PRN IV PAIN LEVEL 4-6 Last administered on 03/02/17 03:12; Admin Dose 2 MG; Start 02/26/17 at 17:00 Lorazepam (Ativan) 0.5 mg Q6H PRN IV AGITATION Last administered on 03/02/17 06:29; Admin Dose 0.5 MG; Start 02/27/17 at 16:00 Labetalol HCl (Labetalol) 10 mg Q2H PRN IV for SBP > 160, hold for HR <65; Start 02/27/17 at 20:00 Hydrocortisone (Solu-Cortef) 50 mg Q8 IV Last administered on 03/02/17 14:22; Admin Dose 50 MG; Start 03/01/17 at 14:00 Diagnostic Test (Pha) 1 ea 1 ea Q1H XX Last administered on 03/02/17 14:20; Admin Dose 1 EA; Start 03/02/17 at 08:00 Linezolid (Zyvox 600mg/D5W (Pmx)) 300 ml @ 300 mls/hr Q12 IVPB ; Start at 21:00 TAMIA RESTREPO MD Mar 02, 2017 14:31
[2017-03-02] MEDS ORDERED: GLUCOSE GEL 15 GRAM TUBE PO PRN ×2 (15:00)
[2017-03-02] MEDS ORDERED: GLUCAGON 1 MG INJ IM PRN (15:00)
[2017-03-02] MEDS ORDERED: DEXTROSE 50% 50 ML SYRINGE IV PRN ×2 (15:00)
[2017-03-02] MEDS ORDERED: GLUCOSE GEL 15 GRAM TUBE BUCCAL PRN (15:00)
[2017-03-02] MEDS ORDERED: BARIUM SULF 2% 450 ML BTL (BERRY SMOOTHIE) PO ONE (15:00)
[2017-03-02] MEDS: INSULIN GLARGINE [LANtus] 3 ML PEN SC SCH (16:16)
[2017-03-02] MEDS: INSULIN ASPART [NOVOLOG] 3 ML PEN SC SCH ×2 (16:24→20:33)
--- NOTE | 2017-03-02 17:27 | CONS ---
Date/Time of Note Date/Time of Note DATE: 03/02/17 TIME: 17:24 Assessment/Plan Assessment/Plan Additional Assessment/Plan 1. Acute kidney injury mutlifactorial due to Prerenal azotemia + ATN From septic shock - Improved 2. Acute encephalopathy metabolic- improved 3. SBO, disrupted colonic anastomosis, s/p Exp lap, resection and ileostomy on 4. H/o Polymyalgia rheumatica on Steroids 5. H/o recent right hemicolectomy for perforated diverticulitis 6. Hyperkalemia acute, Hyponatremia 7. acute hypoxic respiratory failure requiring ventilator care s/p Extubation 8. adrenal crisis- On IV dexamethasone 9. Hypokalemia Plan: on Hydrocortisone 20 mg IV Q 8 hr for adrenal insufficiency- tolerating so far lasix decreased to 20mg IV BID on 03/01/17 for metabolic alkalosis IV abx sepsis. renally dose antibiotics , IV cancidas,meropenem and Linezolid s/p surgery, G surgery following , currently on TPN at 60 cc/hr, no IV Fluids Plan is to switch from TPN to tube feeding, currently on Insulin gtt will follow up Consultation Date/Type/Reason Admit Date/Time Feb 20, 2017 at 19:33 Initial Consult Date 02/20/17 Type of Consultation: NEPHROLOGY Referring Provider: CARL STEPHENS MD Exam/Review of Systems Vital Signs Vitals Vital Signs Date Time Temp Pulse Resp B/P Pulse Ox O2 Delivery O2 Flow Rate FiO2 03/02/17 17:00 113 18 136/64 99 Nasal Cannula 2.0 03/02/17 16:00 98.1 02/26/17 13:29 30 Intake and Output 03/01/17 03/01/17 03/02/17 15:00 23:00 07:00 Intake Total 842 ml 1303.0 ml 1016 ml Output Total 1750 ml 1450 ml 1090 ml Balance -908 ml -147.0 ml -74 ml Exam Constitutional: alert Respiratory: crackles/rales, diminished breath sounds Cardiovascular: nl pulses, regular rate and rhythm Gastrointestinal: non-tender, soft Musculoskeletal: nl extremities to inspection Neurological: [employer] II-XII intact, nl mental status Results Result Diagram: 03/02/17 0430 03/02/17 0430 Results 24 hrs Laboratory Tests Test 03/01/17 18:32 03/01/17 20:17 03/01/17 20:57 03/01/17 22:06 Bedside Glucose 151 123 123 99 Test 03/01/17 22:49 03/01/17 23:47 03/02/17 01:03 03/02/17 01:31 Bedside Glucose 103 159 126 144 Test 03/02/17 02:47 03/02/17 03:52 03/02/17 04:30 03/02/17 04:39 Bedside Glucose 138 166 157 White Blood Count 5.5 # Red Blood Count 2.74 L Hemoglobin 7.7 L Hematocrit 24.3 L Mean Corpuscular Volume 88.7 Mean Corpuscular Hemoglobin 28.1 L Mean Corpuscular Hemoglobin Concent 31.7 L Red Cell Distribution Width 19.9 H Platelet Count 149 Mean Platelet Volume 11.7 H Neutrophils % 75.3 Lymphocytes % 9.5 L Monocytes % 3.3 Eosinophils % 0.2 Basophils % 0.9 Nucleated Red Blood Cells % 0.5 H Neutrophils # 4.1 Lymphocytes # 0.5 L Monocytes # 0.2 L Eosinophils # 0.0 Basophils # 0.1 Nucleated Red Blood Cells # 0.0 Sodium Level 139 Potassium Level 4.9 Chloride Level 104 Carbon Dioxide Level 33 H Anion Gap 7 L Blood Urea Nitrogen 26 H Creatinine 0.52 Glucose Level 132 Calcium Level 8.7 Test 03/02/17 05:50 03/02/17 06:50 03/02/17 08:25 03/02/17 09:17 Bedside Glucose 136 144 152 152 Test 03/02/17 10:26 03/02/17 11:11 03/02/17 12:12 03/02/17 13:16 Bedside Glucose 136 140 142 121 Test 03/02/17 14:19 03/02/17 16:12 Bedside Glucose 106 132 Medications Medications Current Medications IV Flush (NS 10 ml) 10 ml PRN PRN IV IV PROTOCOL; Start 02/20/17 at 19:30 Levothyroxine Sodium (Synthroid Iv) 50 mcg AM IV Last administered on 10:35; Admin Dose 50 MCG; Start 02/21/17 at 09:00 Enoxaparin Sodium (Lovenox) 40 mg DAILY SC Last administered on 03/02/17 10:37 ; Admin Dose 40 MG; Start 02/22/17 at 09:00 Acetaminophen/ Hydrocodone Bitart ([place] (5/325)) 1 tab Q4H PRN NGT pain Last administered on 03/02/17 06:52; Admin Dose 1 TAB; Start 02/21/17 at 17:00 Ondansetron HCl 4 mg 4 mg Q6H PRN IV NAUSEA Last administered on 02/26/17 20: 12; Admin Dose 4 MG; Start 02/21/17 at 23:30 Caspofungin 50 mg/ Sodium Chloride 250 ml @ 250 mls/hr Q24H IVPB Last administered on 03/02/17 13:18; Admin Dose 250 MLS/HR; Start 02/23/17 at 11:00 Norepinephrine 16 mg/Dextrose 500 ml @ 0 mls/hr TITRATE IV Last administered on 02/23/17 03:24; Admin Dose 37.5 MLS/HR; Start 02/22/17 at 19:00 Meropenem/Sodium Chloride (Merrem 500mg/50 ml(Pmx)) 50 ml @ 100 mls/hr Q12 IVPB Last administered on 03/02/17 10:35; Admin Dose 100 MLS/HR; Start at 21:00 Morphine Sulfate (morphine) 2 mg Q3H PRN IV PAIN LEVEL 4-6 Last administered on 03/02/17 03:12; Admin Dose 2 MG; Start 02/26/17 at 17:00 Lorazepam (Ativan) 0.5 mg Q6H PRN IV AGITATION Last administered on 03/02/17 06:29; Admin Dose 0.5 MG; Start 02/27/17 at 16:00 Labetalol HCl (Labetalol) 10 mg Q2H PRN IV for SBP > 160, hold for HR <65; Start 02/27/17 at 20:00 Hydrocortisone 50 mg 50 mg Q8 IV Last administered on 03/02/17 14:22; Admin Dose 50 MG; Start 03/01/17 at 14:00 Linezolid (Zyvox 600mg/D5W (Pmx)) 300 ml @ 300 mls/hr Q12 IVPB ; Start at 21:00 Miscellaneous Information 1 ea NOTE XX ; Start 03/02/17 at 15:00 Glucose (Glutose) 15 gm Q15M PRN PO DECREASED GLUCOSE; Start 03/02/17 at 15:00 Glucose (Glutose) 22.5 gm Q15M PRN PO DECREASED GLUCOSE; Start 03/02/17 at 15: 00 Dextrose (D50w Syringe) 25 ml Q15M PRN IV DECREASED GLUCOSE; Start 03/02/17 at 15:00 Dextrose (D50w Syringe) 50 ml Q15M PRN IV DECREASED GLUCOSE; Start 03/02/17 at 15:00 Glucagon (Glucagen) 1 mg Q15M PRN IM DECREASED GLUCOSE; Start 03/02/17 at 15:00 Glucose (Glutose) 15 gm Q15M PRN BUCCAL DECREASED GLUCOSE; Start 03/02/17 at 15 :00 Insulin Glargine (Lantus) 27 unit DAILY@08 SC Last administered on 03/02/17t 16 :16; Admin Dose 27 UNIT; Start 03/02/17 at 15:00 Insulin Aspart (Novolog Insulin Pen) NOVOLOG *MODERATE* ALGORI... Q4 SC ; Start 03/02/17 at 17:00 ARIK MCKEON MD Mar 02, 2017 17:27
[2017-03-02] MEDS ORDERED: INSULIN ASPART [NOVOLOG] 3 ML PEN SC SCH (17:35)
--- NOTE | 2017-03-02 18:15 | PN ---
Date/Time of Note Date/Time of Note DATE: 03/02/17 TIME: 18:14 Assessment/Plan Lines/Catheters IV Catheter Type (from [facility]): PICC Line [place] in Place (from [facility]): Yes Assessment/Plan Chief Complaint/Hosp Course Coverage for Dr. Haji: 1. Incisional infection with purulent discharge -few kay removed, cx obtained, wound irrigated, and packed -abx -local care 2. Paralytic ileus resolved. -tuve feeds per NGT -oob/ambulate > PT -Wean TPN when tube feeds tolerated 3. Hyperglycemia, ? DM. Improved -nutrition and medication optimization -encourage eventual weight loss 4. Morbid obesity, BMI 46 -eventual diet optimization -eventual exercise 5. Iatrogenic adrenal insufficiency on Steroids -wean per endocrine 6. Hx of Polymyalgia rheumatica on Steroids -medical optimization -PT/oob/pulmonary toilette 7. Anemia, stable -monitor 8. Hypoalbuminemia, multifactorial -nutritional optimization Thank you, Problems: Subjective 24 Hr Interval Summary TPN. Insulin gtts stopped. No f/c. No n/v. No cp/sob. Min pain. No cough. Movement in ileostomy. Milky malodorous discharge from wound. Not able to ambulate. Exam/Review of Systems Vital Signs Vitals Vital Signs Date Time Temp Pulse Resp B/P Pulse Ox O2 Delivery O2 Flow Rate FiO2 03/02/17 17:00 113 18 136/64 99 Nasal Cannula 2.0 03/02/17 16:00 98.1 02/26/17 13:29 30 Intake and Output 03/01/17 03/01/17 03/02/17 15:00 23:00 07:00 Intake Total 842 ml 1303.0 ml 1016 ml Output Total 1750 ml 1450 ml 1090 ml Balance -908 ml -147.0 ml -74 ml Exam Constitutional: alert, obese, oriented, No distress Psych: nl mood/affect, No anxiety Head: atraumatic, normocephalic Eyes: PERRL, nl conjunctiva, No icteric ENMT: mucosa pink and moist, nl external ears & nose, nl lips & teeth Neck: non-tender, supple Respiratory: normal air movement, No congested cough, No labored breathing Cardiovascular: edema, No regular rate and rhythm Gastrointestinal: other (RLQ ostomy with stool. Midline kay with purulent dc. Blanching erythema periwound), soft, tender, No rebound or guarding Musculoskeletal: muscle weakness, range of motion (decreased), swelling, No joint tenderness, No nl extremities to inspection, No nl gait and stance Extremities: edema, No calf tenderness, No cyanosis Neurological: nl mental status, nl speech, No nl strength Skin: ecchymosis (extremities), rash or lesions, No diaphoresis Lymph: nl lymph nodes, nontender Results Result Diagram: 03/02/170 03/02/17 0430 BRODIE KELLY MD Mar 02, 2017 18:15
--- NOTE | 2017-03-02 18:44 | PN ---
Date/Time of Note Date/Time of Note DATE: 03/02/17 TIME: 18:40 Assessment/Plan VTE Prophylaxis VTE Prophylaxis Intervention: LMWH Assessment/Plan Chief Complaint/Hosp Course 1. History of Perforated right transverse colon status post right hemicolectomy with readmission for Anastomotic leak ileocolic anastomosis status post resection of ileocolic anastomosis and resection of terminal ileum with creation of ileostomy ID following, continue antibiotics and antifungals Blood cultures show VRE bacteremia and yeast fungemia ID has obtained CT abdomen to evaluate for abscess Downgrade to telemetry 2. Diabetes DC insulin drip and start subcu insulin today 3. Polymyalgia rheumatica and chronic adrenal suppression from prednisone, now iatrogenic adrenal insufficiency -Continue to wean stress hydrocortisone per Endocrine 4. Obesity with debility Likely DC to [facility] 5. Acute kidney injury-resolved 6. History of questionable seizure disorder-stable No indication for seizure medications at this time 7. Hypothyroidism: - FT4 low, likely from poor absorption 2/2 ileus, continue IV LT4 8. Acute respiratory failure-resolved 9. FEN Tolerating tube feeds, have discontinued TPN Prophylaxis: Lovenox Problems: Subjective 24 Hr Interval Summary Musculoskeletal: swelling (LE's) Exam/Review of Systems Vital Signs Vitals Vital Signs Date Time Temp Pulse Resp B/P Pulse Ox O2 Delivery O2 Flow Rate FiO2 03/02/17 17:00 113 18 136/64 99 Nasal Cannula 2.0 03/02/17 16:00 98.1 02/26/17 13:29 30 Intake and Output 03/01/17 03/01/17 03/02/17 15:00 23:00 07:00 Intake Total 842 ml 1303.0 ml 1016 ml Output Total 1750 ml 1450 ml 1090 ml Balance -908 ml -147.0 ml -74 ml Exam Constitutional: alert, oriented Respiratory: clear to auscultation Cardiovascular: regular rate and rhythm Gastrointestinal: soft, No distended Extremities: edema Results Result Diagram: 03/02/17 0430 03/02/17 0430 Results 24 hrs Laboratory Tests Test 03/01/17 20:17 03/01/17 20:57 03/01/17 22:06 03/01/17 22:49 Bedside Glucose 123 123 99 103 Test 03/01/17 23:47 03/02/17 01:03 03/02/17 01:31 03/02/17 02:47 Bedside Glucose 159 126 144 138 Test 03/02/17 03:52 03/02/17 04:30 03/02/17 04:39 03/02/17 05:50 Bedside Glucose 166 157 136 White Blood Count 5.5 # Red Blood Count 2.74 L Hemoglobin 7.7 L Hematocrit 24.3 L Mean Corpuscular Volume 88.7 Mean Corpuscular Hemoglobin 28.1 L Mean Corpuscular Hemoglobin Concent 31.7 L Red Cell Distribution Width 19.9 H Platelet Count 149 Mean Platelet Volume 11.7 H Neutrophils % 75.3 Lymphocytes % 9.5 L Monocytes % 3.3 Eosinophils % 0.2 Basophils % 0.9 Nucleated Red Blood Cells % 0.5 H Neutrophils # 4.1 Lymphocytes # 0.5 L Monocytes # 0.2 L Eosinophils # 0.0 Basophils # 0.1 Nucleated Red Blood Cells # 0.0 Sodium Level 139 Potassium Level 4.9 Chloride Level 104 Carbon Dioxide Level 33 H Anion Gap 7 L Blood Urea Nitrogen 26 H Creatinine 0.52 Glucose Level 132 Calcium Level 8.7 Test 03/02/17 06:50 03/02/17 08:25 03/02/17 09:17 03/02/17 10:26 Bedside Glucose 144 152 152 136 Test 03/02/17 11:11 03/02/17 12:12 03/02/17 13:16 03/02/17 14:19 Bedside Glucose 140 142 121 106 Test 03/02/17 16:12 03/02/17 17:27 Bedside Glucose 132 109 Medications Medications Current Medications IV Flush (NS 10 ml) 10 ml PRN PRN IV IV PROTOCOL; Start 02/20/17 at 19:30 Levothyroxine Sodium (Synthroid Iv) 50 mcg AM IV Last administered on 10:35; Admin Dose 50 MCG; Start 02/21/17 at 09:00 Enoxaparin Sodium (Lovenox) 40 mg DAILY SC Last administered on 03/02/17 10:37 ; Admin Dose 40 MG; Start 02/22/17 at 09:00 Acetaminophen/ Hydrocodone Bitart ([place] (5/325)) 1 tab Q4H PRN NGT pain Last administered on 03/02/17 06:52; Admin Dose 1 TAB; Start 02/21/17 at 17:00 Ondansetron HCl 4 mg 4 mg Q6H PRN IV NAUSEA Last administered on 02/26/17 20: 12; Admin Dose 4 MG; Start 02/21/17 at 23:30 Caspofungin 50 mg/ Sodium Chloride 250 ml @ 250 mls/hr Q24H IVPB Last administered on 03/02/17 13:18; Admin Dose 250 MLS/HR; Start 02/23/17 at 11:00 Norepinephrine 16 mg/Dextrose 500 ml @ 0 mls/hr TITRATE IV Last administered on 02/23/17 03:24; Admin Dose 37.5 MLS/HR; Start 02/22/17 at 19:00 Meropenem/Sodium Chloride (Merrem 500mg/50 ml(Pmx)) 50 ml @ 100 mls/hr Q12 IVPB Last administered on 03/02/17 10:35; Admin Dose 100 MLS/HR; Start at 21:00 Morphine Sulfate (morphine) 2 mg Q3H PRN IV PAIN LEVEL 4-6 Last administered on 03/02/17 03:12; Admin Dose 2 MG; Start 02/26/17 at 17:00 Lorazepam (Ativan) 0.5 mg Q6H PRN IV AGITATION Last administered on 03/02/17 06:29; Admin Dose 0.5 MG; Start 02/27/17 at 16:00 Labetalol HCl (Labetalol) 10 mg Q2H PRN IV for SBP > 160, hold for HR <65; Start 02/27/17 at 20:00 Hydrocortisone 50 mg 50 mg Q8 IV Last administered on 03/02/17 14:22; Admin Dose 50 MG; Start 03/01/17 at 14:00 Linezolid (Zyvox 600mg/D5W (Pmx)) 300 ml @ 300 mls/hr Q12 IVPB ; Start at 21:00 Miscellaneous Information 1 ea NOTE XX ; Start 03/02/17 at 15:00 Glucose (Glutose) 15 gm Q15M PRN PO DECREASED GLUCOSE; Start 03/02/17 at 15:00 Glucose (Glutose) 22.5 gm Q15M PRN PO DECREASED GLUCOSE; Start 03/02/17 at 15: 00 Dextrose (D50w Syringe) 25 ml Q15M PRN IV DECREASED GLUCOSE; Start 03/02/17 at 15:00 Dextrose (D50w Syringe) 50 ml Q15M PRN IV DECREASED GLUCOSE; Start 03/02/17 at 15:00 Glucagon (Glucagen) 1 mg Q15M PRN IM DECREASED GLUCOSE; Start 03/02/17 at 15:00 Glucose (Glutose) 15 gm Q15M PRN BUCCAL DECREASED GLUCOSE; Start 03/02/17 at 15 :00 Insulin Glargine (Lantus) 27 unit DAILY@08 SC Last administered on 03/02/17t 16 :16; Admin Dose 27 UNIT; Start 03/02/17 at 15:00 Insulin Aspart (Novolog Insulin Pen) NOVOLOG *MODERATE* ALGORI... Q4 SC ; Start 03/02/17 at 17:00 Sodium Hypochlorite (Dakin'S (1/4 Strength)) 1 applic DAILY IRR ; Start at 09:00; Status BENJAMIN NGUYEN Mar 02, 2017 18:44
[2017-03-02] MEDS: LINEZOLID 600 MG/D5W (PMX) 300 ML IVPB SCH (21:11)
[2017-03-03] VITALS (11 sets, daily range): BP systolic 104–130; BP diastolic 54–63; PULSE 107–121; RESP 16–19
[2017-03-03] MEDS: INSULIN ASPART [NOVOLOG] 3 ML PEN SC SCH ×6 (01:00→21:00)
[2017-03-03] MEDS ORDERED: ACCU-CHEK XX SCH ×2 (02:00)
[2017-03-03] MEDS: HYDROCORTISONE 100 MG INJ IV SCH ×3 (05:59→22:07)
[2017-03-03] MEDS: FUROSEMIDE 20 MG INJ IV SCH ×2 (05:59→17:23)
[2017-03-03] MEDS ORDERED: INSULIN GLARGINE [LANtus] 3 ML PEN SC SCH (08:00)
[2017-03-03 08:16] LABS: ABNORMAL IP MESSAGE 1; HEMATOCRIT 22.6 % (37.0-47.0); HEMOGLOBIN 7.3 g/dl (12.0-16.0); MEAN CORPUSCULAR HEMOGLOBIN 28.3 pg (29.0-33.0); MEAN CORPUSCULAR HGB CONC 32.3 g/dl (32.0-37.0); MEAN CORPUSCULAR VOLUME 87.6 fl (82.0-101.0); MEAN PLATELET VOLUME 11.7 fl (7.4-10.4); NUCLEATED RED BLOOD CELLS% 0.6 /100WBC (0.0-0.0); PLATELET COUNT 148 10^3/UL (140-415); RED BLOOD COUNT 2.58 10^6/ul (4.20-5.40); RED CELL DISTRIBUTION WIDTH 19.6 % (11.5-14.5); WHITE BLOOD COUNT 4.7 10^3/ul (4.8-10.8)
[2017-03-03 08:19] LABS: POSITIVE DIFF @See below
[2017-03-03 08:44] LABS: CALCIUM 8.3 mg/dl (8.4-10.2); CREATININE 0.47 mg/dl (0.44-1.00); POTASSIUM 4.5 mmol/L (3.5-5.1)
[2017-03-03] MEDS: ENOXAPARIN 40 MG/0.4 ML SYG SC SCH (08:59)
[2017-03-03] MEDS: SODIUM HYPOCHLORITE 0.125% 473 ML BTL IRR SCH (09:00)
[2017-03-03] MEDS: INSULIN GLARGINE [LANtus] 3 ML PEN SC SCH (09:00)
[2017-03-03] MEDS: LEVOTHYROXINE 100 MCG VIAL IV SCH (09:01)
[2017-03-03 10:53] LABS: ANISOCYTOSIS 2+ (0-0); EOSINOPHILS % (M) 1 % (0-7); GIANT THROMBO% (M) 1 % (0-0); METAMYELOCYTES %M 3 % (0-0); MICROCYTOSIS 1+ (0-0); MONOCYTES % (M) 1 % (0-11); MYELOCYTES % (M) 1 % (0-0); POIKILOCYTOSIS 1+ (0-0); POLYCHROMASIA 3+ (0-0); PROMYELOCYTES #M 0 10^3/ul (0-0); PROMYELOCYTES % (M) 4 % (0-0)
--- NOTE | 2017-03-03 10:58 | PN ---
DATE: 03/02/2017 SUBJECTIVE DATA: No acute changes overnight. Patient is awake, looks comfortable. No fevers. VITAL SIGNS: Temperature 98.1, pulse 108, respirations 19, blood pressure 111/65, saturation 100 percent on nasal cannula. LABORATORY AND DIAGNOSTIC DATA: WBC today 5.5, H and H 7.7 and 24.3, platelets 149,000, neutrophils 75.3, BUN 26, creatinine 0.52. MICROBIOLOGY: Repeat blood cultures still growing yeast and VRE. INDWELLINGS: Patient has left upper extremity PICC line placed on February 20, Mojica catheter and NG tube. ANTIMICROBIALS: She is on Zyvox and also Cancidas and meropenem. DIAGNOSTICS: Chest x-ray this morning revealed no changes. PHYSICAL EXAMINATION: GENERAL: This is an obese, well-developed elderly woman who is awake in no distress. HEENT: Head atraumatic, normocephalic. Sclerae anicteric. Buccal mucosa dry. NECK: Obese. CHEST: Rise symmetrical. Breath sounds diminished at the bases. HEART: S1, S2. ABDOMEN: Soft, bowel sounds hypoactive. EXTREMITIES: Without cyanosis, bilateral edema. SKIN: Without jaundice, cyanosis. Patient has left-sided abdominal wound that is covered with dressing. She also has a colostomy. ASSESSMENT: 1. Persistent bacteremia with culture growing vancomycin- resistant Enterococcus, patient is status post Synercid, change to Zyvox. 2. Persistent fungemia with blood culture growing Laisha glabrata. 3. Status post perforated anastomotic leak repair on . 4. Status post appendectomy. 5. Status post pneumonia and respiratory failure. 6. Anemia, acute on chronic. 7. Morbid obesity. PLAN: Patient remains hemodynamically stable, seems to be on appropriate antibiotics. Synercid was changed to Zyvox this morning. We will monitor her platelet count. Continue Cancidas. Discontinue meropenem. Dictated By: Mk Kimball NP /louie/rayo /Document#: [id number]
[2017-03-03] MEDS: LINEZOLID 600 MG/D5W (PMX) 300 ML IVPB SCH ×2 (11:02→21:11)
[2017-03-03] MEDS: MEROPENEM 500MG/50 ML (PMX) 50 ML IVPB SCH ×2 (11:02→21:00)
[2017-03-03] MEDS: CASPOFUNGIN 50 MG in SOD CHLORIDE 0.9% 250 ML IVPB SCH (12:08)
--- NOTE | 2017-03-03 13:01 | CONS ---
Date/Time of Note Date/Time of Note DATE: 03/03/17 TIME: 12:59 Assessment/Plan Assessment/Plan Problems: (1) Hyperglycemia Status: Acute Comment: Continue on treatment. Adjust as needed for decreasing steroid needs. Once the patient is taking through the enteral tract better will have a better ability to manage (2) Hypothyroidism Status: Chronic Comment: Stable on replacement. Transition to via GI tract soon Qualifiers: Hypothyroidism type: acquired Qualified Code: E03.9 - Acquired hypothyroidism (3) Iatrogenic adrenal insufficiency Status: Acute Comment: Remains on replacement therapy Consultation Date/Type/Reason Admit Date/Time Feb 20, 2017 at 19:33 Initial Consult Date 02/20/17 Type of Consultation: Endocrinology Reason for Consultation Iatrogenic adrenal insufficiency secondary to long-term steroids for polymyalgia rheumatica; hyperglycemia; but obesity Referring Provider: CARL STEPHENS MD 24 HR Interval Summary Free Text/Dictation Patient is going down for CT scan right now. Offers no new complaints Exam/Review of Systems Vital Signs Vitals Vital Signs Date Time Temp Pulse Resp B/P Pulse Ox O2 Delivery O2 Flow Rate FiO2 03/03/17 11:45 98.5 121 19 125/59 99 03/02/17 22:00 Nasal Cannula 2.0 Intake and Output 03/02/17 03/02/17 03/03/17 15:00 23:00 07:00 Intake Total 1326.5 ml 344 ml 440 ml Output Total 1085 ml 950 ml 1100 ml Balance 241.5 ml -606 ml -660 ml Exam Constitutional: alert, oriented Cardiovascular: nl pulses, regular rate and rhythm Results Result Diagram: 03/03/17 0730 03/03/17 0730 Results 24 hrs Laboratory Tests Test 03/02/17 13:16 03/02/17 14:19 03/02/17 16:12 03/02/17 17:27 Bedside Glucose 121 106 132 109 Test 03/02/17 20:32 03/03/17 01:15 03/03/17 05:18 03/03/17 07:30 Bedside Glucose 124 112 135 White Blood Count 4.7 L Red Blood Count 2.58 L Hemoglobin 7.3 L Hematocrit 22.6 L Mean Corpuscular Volume 87.6 Mean Corpuscular Hemoglobin 28.3 L Mean Corpuscular Hemoglobin Concent 32.3 Red Cell Distribution Width 19.6 H Platelet Count 148 Mean Platelet Volume 11.7 H Neutrophils % Segmented Neutrophils % (Manual) 58 Band Neutrophils % (Manual) 24 H Lymphocytes % Lymphocytes % (Manual) 8 L Monocytes % Monocytes % (Manual) 1 Eosinophils % Eosinophils % (Manual) 1 Basophils % Metamyelocytes % (manual) 3 H Myelocytes % (Manual) 1 H Promyelocytes % (Manual) 4 H Nucleated Red Blood Cells % 0.6 H Neutrophils # Neutrophils # (Manual) 2.8 Band Neutrophils # 1.1 H Absolute Lymphocytes (Manual) 0.3 L Lymphocytes # Monocytes # Absolute Monocytes (Manual) 0.0 L Eosinophils # Basophils # Metamyelocytes # 0.1 H Myelocytes # 0.0 Promyelocytes # 0 Nucleated Red Blood Cells # Giant Platelets 1 H Polychromasia 3+ Poikilocytosis 1+ Anisocytosis 2+ Microcytosis 1+ Macrocytosis 1+ Sodium Level 137 Potassium Level 4.5 Chloride Level 102 Carbon Dioxide Level 31 Anion Gap 9 Blood Urea Nitrogen 26 H Creatinine 0.47 Glucose Level 135 Calcium Level 8.3 L Test 03/03/17 08:29 03/03/17 12:13 Bedside Glucose 147 169 Medications Medications Current Medications IV Flush (NS 10 ml) 10 ml PRN PRN IV IV PROTOCOL; Start 02/20/17 at 19:30 Levothyroxine Sodium (Synthroid Iv) 50 mcg AM IV Last administered on 09:01; Admin Dose 50 MCG; Start 02/21/17 at 09:00 Enoxaparin Sodium (Lovenox) 40 mg DAILY SC Last administered on 03/03/17 08:59 ; Admin Dose 40 MG; Start 02/22/17 at 09:00 Acetaminophen/ Hydrocodone Bitart ([place] (5/325)) 1 tab Q4H PRN NGT pain Last administered on 03/02/17 06:52; Admin Dose 1 TAB; Start 02/21/17 at 17:00 Ondansetron HCl 4 mg 4 mg Q6H PRN IV NAUSEA Last administered on 02/26/17 20: 12; Admin Dose 4 MG; Start 02/21/17 at 23:30 Caspofungin 50 mg/ Sodium Chloride 250 ml @ 250 mls/hr Q24H IVPB Last administered on 03/03/17 12:08; Admin Dose 250 MLS/HR; Start 02/23/17 at 11:00 Meropenem/Sodium Chloride (Merrem 500mg/50 ml(Pmx)) 50 ml @ 100 mls/hr Q12 IVPB Last administered on 03/03/17 11:02; Admin Dose 100 MLS/HR; Start at 21:00 Morphine Sulfate (morphine) 2 mg Q3H PRN IV PAIN LEVEL 4-6 Last administered on 03/02/17 20:23; Admin Dose 2 MG; Start 02/26/17 at 17:00 Lorazepam (Ativan) 0.5 mg Q6H PRN IV AGITATION Last administered on 03/02/17 06:29; Admin Dose 0.5 MG; Start 02/27/17 at 16:00 Labetalol HCl (Labetalol) 10 mg Q2H PRN IV for SBP > 160, hold for HR <65; Start 02/27/17 at 20:00 Hydrocortisone 50 mg 50 mg Q8 IV Last administered on 03/03/17 05:59; Admin Dose 50 MG; Start 03/01/17 at 14:00 Linezolid (Zyvox 600mg/D5W (Pmx)) 300 ml @ 300 mls/hr Q12 IVPB Last administered on 03/03/17 11:02; Admin Dose 300 MLS/HR; Start 03/02/17 at 21:00 Miscellaneous Information 1 ea NOTE XX ; Start 03/02/17 at 15:00 Glucose (Glutose) 15 gm Q15M PRN PO DECREASED GLUCOSE; Start 03/02/17 at 15:00 Glucose (Glutose) 22.5 gm Q15M PRN PO DECREASED GLUCOSE; Start 03/02/17 at 15: 00 Dextrose (D50w Syringe) 25 ml Q15M PRN IV DECREASED GLUCOSE; Start 03/02/17 at 15:00 Dextrose (D50w Syringe) 50 ml Q15M PRN IV DECREASED GLUCOSE; Start 03/02/17 at 15:00 Glucagon (Glucagen) 1 mg Q15M PRN IM DECREASED GLUCOSE; Start 03/02/17 at 15:00 Glucose (Glutose) 15 gm Q15M PRN BUCCAL DECREASED GLUCOSE; Start 03/02/17 at 15 :00 Insulin Glargine (Lantus) 27 unit DAILY@08 SC Last administered on 03/03/17 09 :00; Admin Dose 27 UNIT; Start 03/02/17 at 15:00 Insulin Aspart (Novolog Insulin Pen) NOVOLOG *MODERATE* ALGORI... Q4 SC Last administered on 03/03/17 12:42; Admin Dose 2 UNIT; Start 03/02/17 at 17:00 Sodium Hypochlorite (Dakin'S (1/4 Strength)) 1 applic DAILY IRR Last administered on 03/03/17 09:00; Admin Dose 1 APPLIC; Start 03/03/17 at 09:00 TAMIA RESTREPO MD Mar 03, 2017 13:01
[2017-03-03] MEDS: LORAZEPAM 2 MG INJ IV PRN (14:15)
--- NOTE | 2017-03-03 15:30 | CONS ---
Date/Time of Note Date/Time of Note DATE: 03/03/17 TIME: 15:29 Assessment/Plan Assessment/Plan Chief Complaint/Hosp Course ID PROGRESS NOTE TOTAL ABX DAY # CURRENT ABX=> Zyvox + Candidas 24H INTERVAL SUMMARY * Awake, alert, responsive, polite, calm, supplemental O2 via NC * Morbid obese F, lying in bed tells me "I don't know where my IV sit is" * REPEAT BCX (+) Organism 1 VANCO RESISTANT ENTEROCOCCUS . MULTI DRUG RESISTANT ORGANISM Organism 2 MACIE GLABRATA GENERAL: VSS, NAD, super morbid obese HEENT: Unremarkable NECK: Trach midline, full ROM CHEST: Rise symmetrical without dyspnea on observation ABDOMEN: Soft, nobese EXTREMITIES: Warm,(+) generalized edema == BUEXT w/significant ecchymosis SKIN: No diaphoresis, no rash ID ASSESSMENT: 71 yo F admit with: 1. Persistent bacteremia with cultures (+)VRE-> patient is status post Synercid, change to Zyvox. 2. Persistent fungemia with blood culture growing Macie glabrata. 3. Status post perforated anastomotic leak repair on . 4. Status post appendectomy. 5. Status post pneumonia and respiratory failure. 6. Anemia, acute on chronic. 7. Morbid obesity. 8. Hypothyroid 9. Iatrogenic adrenal insufficiency INVASIVES: ABX ALLERGY: None to ABX TOTAL ABX DAY # CURRENT ABX=> Zyvox + Candidas ID PLAN 1. Continue ABX over the weekend 2. Per notes, repeat CT Scan ordered . Problems: Consultation Date/Type/Reason Admit Date/Time Feb 20, 2017 at 19:33 Initial Consult Date 02/20/17 Type of Consultation: ID Referring Provider: CARL STEPHENS MD Exam/Review of Systems Vital Signs Vitals Vital Signs Date Time Temp Pulse Resp B/P Pulse Ox O2 Delivery O2 Flow Rate FiO2 03/03/17 13:01 121 03/03/17 11:45 98.5 19 125/59 99 03/02/17 22:00 Nasal Cannula 2.0 Intake and Output 03/02/17 03/02/17 03/03/17 15:00 23:00 07:00 Intake Total 1326.5 ml 344 ml 440 ml Output Total 1085 ml 950 ml 1100 ml Balance 241.5 ml -606 ml -660 ml Results Result Diagram: 03/03/17 0730 03/03/17 0730 Results 24 hrs Laboratory Tests Test 03/02/17 16:12 03/02/17 17:27 03/02/17 20:32 03/03/17 01:15 Bedside Glucose 132 109 124 112 Test 03/03/17 05:18 03/03/17 07:30 03/03/17 08:29 03/03/17 12:13 Bedside Glucose 135 147 169 White Blood Count 4.7 L Red Blood Count 2.58 L Hemoglobin 7.3 L Hematocrit 22.6 L Mean Corpuscular Volume 87.6 Mean Corpuscular Hemoglobin 28.3 L Mean Corpuscular Hemoglobin Concent 32.3 Red Cell Distribution Width 19.6 H Platelet Count 148 Mean Platelet Volume 11.7 H Neutrophils % Segmented Neutrophils % (Manual) 58 Band Neutrophils % (Manual) 24 H Lymphocytes % Lymphocytes % (Manual) 8 L Monocytes % Monocytes % (Manual) 1 Eosinophils % Eosinophils % (Manual) 1 Basophils % Metamyelocytes % (manual) 3 H Myelocytes % (Manual) 1 H Promyelocytes % (Manual) 4 H Nucleated Red Blood Cells % 0.6 H Neutrophils # Neutrophils # (Manual) 2.8 Band Neutrophils # 1.1 H Absolute Lymphocytes (Manual) 0.3 L Lymphocytes # Monocytes # Absolute Monocytes (Manual) 0.0 L Eosinophils # Basophils # Metamyelocytes # 0.1 H Myelocytes # 0.0 Promyelocytes # 0 Nucleated Red Blood Cells # Giant Platelets 1 H Polychromasia 3+ Poikilocytosis 1+ Anisocytosis 2+ Microcytosis 1+ Macrocytosis 1+ Sodium Level 137 Potassium Level 4.5 Chloride Level 102 Carbon Dioxide Level 31 Anion Gap 9 Blood Urea Nitrogen 26 H Creatinine 0.47 Glucose Level 135 Calcium Level 8.3 L Medications Medications Current Medications IV Flush (NS 10 ml) 10 ml PRN PRN IV IV PROTOCOL; Start 02/20/17 at 19:30 Levothyroxine Sodium (Synthroid Iv) 50 mcg AM IV Last administered on 09:01; Admin Dose 50 MCG; Start 02/21/17 at 09:00 Enoxaparin Sodium (Lovenox) 40 mg DAILY SC Last administered on 03/03/17 08:59 ; Admin Dose 40 MG; Start 02/22/17 at 09:00 Acetaminophen/ Hydrocodone Bitart ([place] (5/325)) 1 tab Q4H PRN NGT pain Last administered on 03/02/17 06:52; Admin Dose 1 TAB; Start 02/21/17 at 17:00 Ondansetron HCl 4 mg 4 mg Q6H PRN IV NAUSEA Last administered on 02/26/17 20: 12; Admin Dose 4 MG; Start 02/21/17 at 23:30 Caspofungin 50 mg/ Sodium Chloride 250 ml @ 250 mls/hr Q24H IVPB Last administered on 03/03/17 12:08; Admin Dose 250 MLS/HR; Start 02/23/17 at 11:00 Meropenem/Sodium Chloride (Merrem 500mg/50 ml(Pmx)) 50 ml @ 100 mls/hr Q12 IVPB Last administered on 03/03/17 11:02; Admin Dose 100 MLS/HR; Start at 21:00 Lorazepam (Ativan) 0.5 mg Q6H PRN IV AGITATION Last administered on 03/03/17 14:15; Admin Dose 0.5 MG; Start 02/27/17 at 16:00 Labetalol HCl (Labetalol) 10 mg Q2H PRN IV for SBP > 160, hold for HR <65; Start 02/27/17 at 20:00 Hydrocortisone 50 mg 50 mg Q8 IV Last administered on 03/03/17 14:15; Admin Dose 50 MG; Start 03/01/17 at 14:00 Linezolid (Zyvox 600mg/D5W (Pmx)) 300 ml @ 300 mls/hr Q12 IVPB Last administered on 03/03/17 11:02; Admin Dose 300 MLS/HR; Start 03/02/17 at 21:00 Miscellaneous Information 1 ea NOTE XX ; Start 03/02/17 at 15:00 Glucose (Glutose) 15 gm Q15M PRN PO DECREASED GLUCOSE; Start 03/02/17 at 15:00 Glucose (Glutose) 22.5 gm Q15M PRN PO DECREASED GLUCOSE; Start 03/02/17 at 15: 00 Dextrose (D50w Syringe) 25 ml Q15M PRN IV DECREASED GLUCOSE; Start 03/02/17 at 15:00 Dextrose (D50w Syringe) 50 ml Q15M PRN IV DECREASED GLUCOSE; Start 03/02/17 at 15:00 Glucagon (Glucagen) 1 mg Q15M PRN IM DECREASED GLUCOSE; Start 03/02/17 at 15:00 Glucose (Glutose) 15 gm Q15M PRN BUCCAL DECREASED GLUCOSE; Start 03/02/17 at 15 :00 Insulin Aspart (Novolog Insulin Pen) NOVOLOG *MODERATE* ALGORI... Q4 SC Last administered on 03/03/17 12:42; Admin Dose 2 UNIT; Start 03/02/17 at 17:00 Sodium Hypochlorite (Dakin'S (1/4 Strength)) 1 applic DAILY IRR Last administered on 03/03/17 09:00; Admin Dose 1 APPLIC; Start 03/03/17 at 09:00 Insulin Glargine (Lantus) 28 unit DAILY@08 SC ; Start 03/04/17 at 08:00 NESTOR GARCÍA NP Mar 03, 2017 15:30
--- NOTE | 2017-03-03 16:32 | PN ---
Date/Time of Note Date/Time of Note DATE: 03/03/17 TIME: 16:30 Assessment/Plan VTE Prophylaxis VTE Prophylaxis Intervention: LMWH Lines/Catheters IV Catheter Type (from Nrs): PICC Line Central line still needed: Yes Urinary Cath still in place: Yes Reason Cath still needed: urinary retention Assessment/Plan Chief Complaint/Hosp Course `71 yo female with PMR on chronic steroids, unclear seizure d/o, hypertension, obesity, recently discharged from [facility] following open appendectomy without complications who returned with sepsis, LATRICE and adrenal insufficiency. Found to have disrupted ileocolic anastomosis and intraabdominal infection. Now s/p resection and ileostomy. S/p intubation and ICU course, now stable on the floor GI: SBO, disrupted colonic anastamosis following surgery for ruptured appendicitis, now s/p resection and ileostomy - Management per Dr Haji - Diet as tolerated ID: Sepsis 2/2 intraabdominal infection, VRE bacteremia and yeast fungemia - Continue abx per ID - Caspofungin for candidemia - Daily cultures ENDOCRINE: Polymyalgia rheumatica and chronic adrenal suppression from prednisone, now iatrogenic adrenal insufficiency - Stress hydrocortisone 50 q8h, wean as tolerated per Endocrine Hypothyroidism: - FT4 low, likely from poor absorption 2/2 ileus. Continue IV LT4 DM: - Basal/bolus insulin RENAL: LATRICE is resolved PT/OT Dispo to rehab Problems: Subjective 24 Hr Interval Summary Free Text/Dictation Passed swallow eval NG removed Patient denites pain Feels well Very weak Exam/Review of Systems Vital Signs Vitals Vital Signs Date Time Temp Pulse Resp B/P Pulse Ox O2 Delivery O2 Flow Rate FiO2 03/03/17 16:06 112 03/03/17 15:36 98.2 19 118/55 100 03/02/17 22:00 Nasal Cannula 2.0 Intake and Output 03/02/17 03/02/17 03/03/17 15:00 23:00 07:00 Intake Total 1326.5 ml 344 ml 440 ml Output Total 1085 ml 950 ml 1100 ml Balance 241.5 ml -606 ml -660 ml Exam Constitutional: alert, oriented, well developed Psych: nl mood/affect, no complaints Head: atraumatic, normocephalic Eyes: EOMI, PERRL, nl conjunctiva, nl lids, nl sclera ENMT: nl external ears & nose, nl lips & teeth, nl nasal mucosa & septum Neck: non-tender, supple Respiratory: clear to auscultation, normal air movement Cardiovascular: nl pulses, regular rate and rhythm Gastrointestinal: nl liver, spleen, non-tender, soft Musculoskeletal: nl extremities to inspection, nl gait and stance Extremities: normal pulses Neurological: [employer] II-XII intact, nl mental status, nl speech, nl strength Skin: nl turgor, No rash or lesions Lymph: nl lymph nodes Results Result Diagram: 03/03/17 0730 03/03/17 0730 Results 24 hrs Laboratory Tests Test 03/02/17 17:27 03/02/17 20:32 03/03/17 01:15 03/03/17 05:18 Bedside Glucose 109 124 112 135 Test 03/03/17 07:30 03/03/17 08:29 03/03/17 12:13 White Blood Count 4.7 L Red Blood Count 2.58 L Hemoglobin 7.3 L Hematocrit 22.6 L Mean Corpuscular Volume 87.6 Mean Corpuscular Hemoglobin 28.3 L Mean Corpuscular Hemoglobin Concent 32.3 Red Cell Distribution Width 19.6 H Platelet Count 148 Mean Platelet Volume 11.7 H Neutrophils % Segmented Neutrophils % (Manual) 58 Band Neutrophils % (Manual) 24 H Lymphocytes % Lymphocytes % (Manual) 8 L Monocytes % Monocytes % (Manual) 1 Eosinophils % Eosinophils % (Manual) 1 Basophils % Metamyelocytes % (manual) 3 H Myelocytes % (Manual) 1 H Promyelocytes % (Manual) 4 H Nucleated Red Blood Cells % 0.6 H Neutrophils # Neutrophils # (Manual) 2.8 Band Neutrophils # 1.1 H Absolute Lymphocytes (Manual) 0.3 L Lymphocytes # Monocytes # Absolute Monocytes (Manual) 0.0 L Eosinophils # Basophils # Metamyelocytes # 0.1 H Myelocytes # 0.0 Promyelocytes # 0 Nucleated Red Blood Cells # Giant Platelets 1 H Polychromasia 3+ Poikilocytosis 1+ Anisocytosis 2+ Microcytosis 1+ Macrocytosis 1+ Sodium Level 137 Potassium Level 4.5 Chloride Level 102 Carbon Dioxide Level 31 Anion Gap 9 Blood Urea Nitrogen 26 H Creatinine 0.47 Glucose Level 135 Calcium Level 8.3 L Bedside Glucose 147 169 Medications Medications Current Medications IV Flush (NS 10 ml) 10 ml PRN PRN IV IV PROTOCOL; Start 02/20/17 at 19:30 Levothyroxine Sodium (Synthroid Iv) 50 mcg AM IV Last administered on 09:01; Admin Dose 50 MCG; Start 02/21/17 at 09:00 Enoxaparin Sodium (Lovenox) 40 mg DAILY SC Last administered on 03/03/17 08:59 ; Admin Dose 40 MG; Start 02/22/17 at 09:00 Acetaminophen/ Hydrocodone Bitart ([place] (5/325)) 1 tab Q4H PRN NGT pain Last administered on 03/02/17 06:52; Admin Dose 1 TAB; Start 02/21/17 at 17:00 Ondansetron HCl 4 mg 4 mg Q6H PRN IV NAUSEA Last administered on 02/26/17 20: 12; Admin Dose 4 MG; Start 02/21/17 at 23:30 Caspofungin 50 mg/ Sodium Chloride 250 ml @ 250 mls/hr Q24H IVPB Last administered on 03/03/17 12:08; Admin Dose 250 MLS/HR; Start 02/23/17 at 11:00 Meropenem/Sodium Chloride (Merrem 500mg/50 ml(Pmx)) 50 ml @ 100 mls/hr Q12 IVPB Last administered on 03/03/17 11:02; Admin Dose 100 MLS/HR; Start at 21:00 Lorazepam (Ativan) 0.5 mg Q6H PRN IV AGITATION Last administered on 03/03/17 14:15; Admin Dose 0.5 MG; Start 02/27/17 at 16:00 Labetalol HCl (Labetalol) 10 mg Q2H PRN IV for SBP > 160, hold for HR <65; Start 02/27/17 at 20:00 Hydrocortisone 50 mg 50 mg Q8 IV Last administered on 03/03/17 14:15; Admin Dose 50 MG; Start 03/01/17 at 14:00 Linezolid (Zyvox 600mg/D5W (Pmx)) 300 ml @ 300 mls/hr Q12 IVPB Last administered on 03/03/17 11:02; Admin Dose 300 MLS/HR; Start 03/02/17 at 21:00 Miscellaneous Information 1 ea NOTE XX ; Start 03/02/17 at 15:00 Glucose (Glutose) 15 gm Q15M PRN PO DECREASED GLUCOSE; Start 03/02/17 at 15:00 Glucose (Glutose) 22.5 gm Q15M PRN PO DECREASED GLUCOSE; Start 03/02/17 at 15: 00 Dextrose (D50w Syringe) 25 ml Q15M PRN IV DECREASED GLUCOSE; Start 03/02/17 at 15:00 Dextrose (D50w Syringe) 50 ml Q15M PRN IV DECREASED GLUCOSE; Start 03/02/17 at 15:00 Glucagon (Glucagen) 1 mg Q15M PRN IM DECREASED GLUCOSE; Start 03/02/17 at 15:00 Glucose (Glutose) 15 gm Q15M PRN BUCCAL DECREASED GLUCOSE; Start 03/02/17 at 15 :00 Insulin Aspart (Novolog Insulin Pen) NOVOLOG *MODERATE* ALGORI... Q4 SC Last administered on 03/03/17 12:42; Admin Dose 2 UNIT; Start 03/02/17 at 17:00 Sodium Hypochlorite (Dakin'S (1/4 Strength)) 1 applic DAILY IRR Last administered on 03/03/17 09:00; Admin Dose 1 APPLIC; Start 03/03/17 at 09:00 Insulin Glargine (Lantus) 28 unit DAILY@08 SC ; Start 03/04/17 at 08:00 YAKELIN MCKEON MD Mar 03, 2017 16:32
--- NOTE | 2017-03-03 16:40 | CONS ---
Date/Time of Note Date/Time of Note DATE: 03/03/17 TIME: 16:39 Consult Date/Type/Reason Admit Date/Time Feb 20, 2017 at 19:33 Initial Consult Date 02/20/17 Type of Consultation: Pulm Ordering Provider: CARL STEPHENS MD Subjective no events. transferred to tele. Objective Vital Signs Date Time Temp Pulse Resp B/P Pulse Ox O2 Delivery O2 Flow Rate FiO2 03/03/17 16:06 112 03/03/17 15:36 98.2 19 118/55 100 03/02/17 22:00 Nasal Cannula 2.0 Intake and Output 03/02/17 03/02/17 03/03/17 15:00 23:00 07:00 Intake Total 1326.5 ml 344 ml 440 ml Output Total 1085 ml 950 ml 1100 ml Balance 241.5 ml -606 ml -660 ml Exam HEENT: Pupils equal, round, and reactive to light. CARDIAC: S1, S2, 1/6 systolic ejection murmur CHEST: Diminished air entry bilaterally. ABDOMEN: Mildly distended. Bowel sounds present no guarding or rebound EXTREMITIES: No cyanosis, clubbing edema +1, widespread purpura Results/Medications Result Diagram: 03/03/17 0730 03/03/17 0730 Results 24 hrs Laboratory Tests Test 03/02/17 17:27 03/02/17 20:32 03/03/17 01:15 03/03/17 05:18 Bedside Glucose 109 124 112 135 Test 03/03/17 07:30 03/03/17 08:29 03/03/17 12:13 White Blood Count 4.7 L Red Blood Count 2.58 L Hemoglobin 7.3 L Hematocrit 22.6 L Mean Corpuscular Volume 87.6 Mean Corpuscular Hemoglobin 28.3 L Mean Corpuscular Hemoglobin Concent 32.3 Red Cell Distribution Width 19.6 H Platelet Count 148 Mean Platelet Volume 11.7 H Neutrophils % Segmented Neutrophils % (Manual) 58 Band Neutrophils % (Manual) 24 H Lymphocytes % Lymphocytes % (Manual) 8 L Monocytes % Monocytes % (Manual) 1 Eosinophils % Eosinophils % (Manual) 1 Basophils % Metamyelocytes % (manual) 3 H Myelocytes % (Manual) 1 H Promyelocytes % (Manual) 4 H Nucleated Red Blood Cells % 0.6 H Neutrophils # Neutrophils # (Manual) 2.8 Band Neutrophils # 1.1 H Absolute Lymphocytes (Manual) 0.3 L Lymphocytes # Monocytes # Absolute Monocytes (Manual) 0.0 L Eosinophils # Basophils # Metamyelocytes # 0.1 H Myelocytes # 0.0 Promyelocytes # 0 Nucleated Red Blood Cells # Giant Platelets 1 H Polychromasia 3+ Poikilocytosis 1+ Anisocytosis 2+ Microcytosis 1+ Macrocytosis 1+ Sodium Level 137 Potassium Level 4.5 Chloride Level 102 Carbon Dioxide Level 31 Anion Gap 9 Blood Urea Nitrogen 26 H Creatinine 0.47 Glucose Level 135 Calcium Level 8.3 L Bedside Glucose 147 169 Medications Current Medications IV Flush (NS 10 ml) 10 ml PRN PRN IV IV PROTOCOL; Start 02/20/17 at 19:30 Levothyroxine Sodium (Synthroid Iv) 50 mcg AM IV Last administered on 09:01; Admin Dose 50 MCG; Start 02/21/17 at 09:00 Enoxaparin Sodium (Lovenox) 40 mg DAILY SC Last administered on 03/03/17 08:59 ; Admin Dose 40 MG; Start 02/22/17 at 09:00 Acetaminophen/ Hydrocodone Bitart ([place] (5/325)) 1 tab Q4H PRN NGT pain Last administered on 03/02/17 06:52; Admin Dose 1 TAB; Start 02/21/17 at 17:00 Ondansetron HCl 4 mg 4 mg Q6H PRN IV NAUSEA Last administered on 02/26/17 20: 12; Admin Dose 4 MG; Start 02/21/17 at 23:30 Caspofungin 50 mg/ Sodium Chloride 250 ml @ 250 mls/hr Q24H IVPB Last administered on 03/03/17 12:08; Admin Dose 250 MLS/HR; Start 02/23/17 at 11:00 Meropenem/Sodium Chloride (Merrem 500mg/50 ml(Pmx)) 50 ml @ 100 mls/hr Q12 IVPB Last administered on 03/03/17 11:02; Admin Dose 100 MLS/HR; Start at 21:00 Lorazepam (Ativan) 0.5 mg Q6H PRN IV AGITATION Last administered on 03/03/17 14:15; Admin Dose 0.5 MG; Start 9/26/17 at 16:00 Labetalol HCl (Labetalol) 10 mg Q2H PRN IV for SBP > 160, hold for HR <65; Start 02/27/17 at 20:00 Hydrocortisone 50 mg 50 mg Q8 IV Last administered on 03/03/17 14:15; Admin Dose 50 MG; Start 03/01/17 at 14:00 Linezolid (Zyvox 600mg/D5W (Pmx)) 300 ml @ 300 mls/hr Q12 IVPB Last administered on 03/03/17 11:02; Admin Dose 300 MLS/HR; Start 03/02/17 at 21:00 Miscellaneous Information 1 ea NOTE XX ; Start 03/02/17 at 15:00 Glucose (Glutose) 15 gm Q15M PRN PO DECREASED GLUCOSE; Start 03/02/17 at 15:00 Glucose (Glutose) 22.5 gm Q15M PRN PO DECREASED GLUCOSE; Start 03/02/17 at 15: 00 Dextrose (D50w Syringe) 25 ml Q15M PRN IV DECREASED GLUCOSE; Start 03/02/17 at 15:00 Dextrose (D50w Syringe) 50 ml Q15M PRN IV DECREASED GLUCOSE; Start 03/02/17 at 15:00 Glucagon (Glucagen) 1 mg Q15M PRN IM DECREASED GLUCOSE; Start 03/02/17 at 15:00 Glucose (Glutose) 15 gm Q15M PRN BUCCAL DECREASED GLUCOSE; Start 03/02/17 at 15 :00 Insulin Aspart (Novolog Insulin Pen) NOVOLOG *MODERATE* ALGORI... Q4 SC Last administered on 03/03/17 12:42; Admin Dose 2 UNIT; Start 03/02/17 at 17:00 Sodium Hypochlorite (Dakin'S (1/4 Strength)) 1 applic DAILY IRR Last administered on 03/03/17 09:00; Admin Dose 1 APPLIC; Start 03/03/17 at 09:00 Insulin Glargine (Lantus) 28 unit DAILY@08 SC ; Start 03/04/17 at 08:00 Assessment/Plan Additional Assessment/Plan IMP: 1. Status post septic shock. 2. Status post Hypoxemic respiratory failure. Alveolar hypoventilation. Possible underlying obstructive sleep apnea. 3. Thrombocytopenia possibly DIC. 4. Possible adrenal insufficiency. 5. GI bleed, now with anemia. 6. Hx PMR 7. Diabetes mellitus. Exacerbated by intravenous steroids. Continues on insulin drip. RECS: 1. Replace electrolytes, switch to subcu insulin wean off IV insulin. 2. Monitor H&H. 3. Speech therapy evaluation, aspiration precautions. Advance diet as tolerated. 4. Mobilize ASHA DOLAN MD Mar 03, 2017 16:40
[2017-03-03] MEDS: HYDROCODONE/APAP (5/325) TAB NGT PRN ×2 (17:25→22:22)
--- NOTE | 2017-03-03 18:23 | RADRPT ---
PROCEDURE: CT abdomen and pelvis without contrast. CLINICAL INDICATION: Periumbilical abdominal pain. Status post perforated anastomotic leak February 21, 2017. TECHNIQUE: CT scan of the abdomen and pelvis without contrast was performed on the CT scanner. Th e patient was scanned without intravenous contrast. Oral contrast was not administered. 3-D post p rocessing coronal and sagittal re-formations were obtained from the axial source images. Exam D L P , [address] D V O L 23 the mgy. This exam is limited due to lack of intravenous contrast. One or more of the following dose reduction techniques were used: Automated exposure control Adjustment of the mA and/or kV according to patient size. Use of iterative reconstruction technique. COMPARISON: February 20, 2017 FINDINGS: CT abdomen: There is stable bibasilar atelectasis. The liver is normal in size and density without focal mass or intrahepatic biliary dilatation. The spleen is normal in size and homogeneous in density. The stomach is partially collapsed, but is candy ssly unremarkable. The pancreas as visualized is normal. The gallbladder and biliary tree are unre markable and there is no evidence for biliary dilatation. The adrenal glands are symmetric and normal. There are stable, nonobstructing, bilateral renal calcu li. No collecting system dilatation or solid mass. The aorta is of normal caliber. There is no retroperitoneal lymphadenopathy. The hubert hepatis mohit on is clear. The bowel and mesentery, as visualized, are equally unremarkable. CT pelvis: The small bowel loops situated within the pelvis are unremarkable. The appendix has been resected. The patient is status post right colonic resection within ileocolic anastomoses in the region of the transverse colon. There are postsurgical changes within the mid abdomen. No free air, or findings o f pneumoperitoneum. Postsurgical changes are noted. There is mild free fluid in the cul-de-sac. No a bscess, hematoma, or fluid collection. No findings of bowel obstruction. The pelvic organs are normal. The pelvic sidewalls and inguinal regions are clear. The surrounding osseous structures are stable. IMPRESSION: 1. Status post ileocolic anastomoses repair; status post right colonic resection. Postsurgical jones es without findings of free air, abscess, or hematoma. Minimal free fluid in the pelvic cul-de-sac. No findings of bowel obstruction. 2. Stable mild bibasilar atelectasis, and nonobstructing bilateral renal stones. No new findings are present. RPTAT: QQ .Denise Mir MD, MD Date Time Electronically viewed and signed by .Denise Mir MD, MD on 03/03/2017 18:23 .F/
[2017-03-03] MEDS: KETOROLAC 30 MG INJ IV PRN (21:02)
--- NOTE | 2017-03-03 23:39 | PN ---
Date/Time of Note Date/Time of Note DATE: 03/03/17 TIME: 23:09 Assessment/Plan Lines/Catheters IV Catheter Type (from [facility]): PICC Line Mojica in Place (from [facility]): Yes Assessment/Plan Chief Complaint/Hosp Course Coverage for Dr. Haji: 1. Incisional infection with purulent discharge s/p staple removal & drainage -cx pending -abx -local care 2. Paralytic ileus resolved. -diet as tolerated -oob/ambulate > PT 3. Hyperglycemia, ? DM. Improved -nutrition and medication optimization -encourage eventual weight loss 4. Morbid obesity, BMI 46 -eventual diet optimization -eventual exercise 5. Iatrogenic adrenal insufficiency on Steroids -wean per endocrine 6. Hx of Polymyalgia rheumatica on chronic Steroids -medical optimization -PT/oob/pulmonary toilette 7. Anemia, stable -monitor 8. Hypoalbuminemia, multifactorial -nutritional optimization 9. Bacteremia & Fungemia (VRE, Laisha) -abx and antifungals per ID Thank you, Problems: Subjective 24 Hr Interval Summary TPN weaned. NGT removed. Swallow eval reported passed. Diet started. No f/ c. No n/v. No cp/sob. Min pain. No cough. Stool in bag. Wound opened yesterday and packed. Not able to ambulate. Exam/Review of Systems Vital Signs Vitals Vital Signs Date Time Temp Pulse Resp B/P Pulse Ox O2 Delivery O2 Flow Rate FiO2 03/03/17 20:12 120 03/03/17 20:00 98.4 16 104/54 99 03/03/17 18:00 3.0 03/02/17 22:00 Nasal Cannula Intake and Output 03/02/17 03/02/17 03/03/17 15:00 23:00 07:00 Intake Total 1326.5 ml 344 ml 440 ml Output Total 1085 ml 950 ml 1100 ml Balance 241.5 ml -606 ml -660 ml Exam Free Text/Dictation Constitutional: alert, obese, oriented, No distress Psych: nl mood/affect, No anxiety Head: atraumatic, normocephalic Eyes: PERRL, nl conjunctiva, No icteric ENMT: mucosa pink and moist, nl external ears & nose, nl lips & teeth Neck: non-tender, supple Respiratory: normal air movement, No congested cough, No labored breathing Cardiovascular: edema, No regular rate and rhythm Gastrointestinal: RLQ ostomy with stool. Open wound with packing. Blanching erythema periwound, soft, min tender, No rebound or guarding Musculoskeletal: muscle weakness, range of motion (decreased), swelling, No joint tenderness, No nl extremities to inspection, No nl gait and stance Extremities: edema, No calf tenderness, No cyanosis Neurological: nl mental status, nl speech, No nl strength Skin: ecchymosis (extremities), rash or lesions, No diaphoresis Lymph: nl lymph nodes, nontender Results Result Diagram: 03/03/17 0730 03/03/17 0730 BRODIE KELLY MD Mar 03, 2017 23:19
[2017-03-04] VITALS (8 sets, daily range): BP systolic 102–126; BP diastolic 52–83; PULSE 92–100; RESP 17–19
--- NOTE | 2017-03-04 00:18 | CONS ---
Date/Time of Note Date/Time of Note DATE: 03/03/17 TIME: 14:35 Assessment/Plan Assessment/Plan Additional Assessment/Plan 1. Acute kidney injury mutlifactorial due to Prerenal azotemia + ATN From septic shock - Improved 2. Acute encephalopathy metabolic- improved 3. SBO, disrupted colonic anastomosis, s/p Exp lap, resection and ileostomy on 4. H/o Polymyalgia rheumatica on Steroids 5. H/o recent right hemicolectomy for perforated diverticulitis 6. Hyperkalemia acute- resolved - Hyponatremia - resolved 7. acute hypoxic respiratory failure requiring ventilator care s/p Extubation 8. adrenal crisis- On IV dexamethasone 9. Hypokalemia- resolved 10. Anemia- transfuse PRN /per PMD Plan: -on Hydrocortisone 20 mg IV Q 8 hr for adrenal insufficiency- tolerating so far -lasix decreased to 20mg IV BID on 03/01/17 for metabolic alkalosis -IV abx sepsis. renally dose antibiotics , IV cancidas,meropenem and Linezolid -s/p surgery, G surgery following , currently on TPN at 60 cc/hr, no IV Fluids -Plan is to switch from TPN to tube feeding -will follow up - Jeffy Quezada Consultation Date/Type/Reason Admit Date/Time Feb 20, 2017 at 19:33 Initial Consult Date 02/20/17 Type of Consultation: NEPHROLOGY Referring Provider: CARL STEPHENS MD 24 HR Interval Summary Free Text/Dictation -Got back from CT. - FU. -afebrile, denies any chest pain. shortness of breath. dw staff Detailed Summary Respiratory: no complaints Cardiovascular: no complaints Gastrointestinal: no complaints Genitourinary: no complaints Musculoskeletal: no complaints Exam/Review of Systems Vital Signs Vitals Vital Signs Date Time Temp Pulse Resp B/P Pulse Ox O2 Delivery O2 Flow Rate FiO2 03/03/17 13:01 121 03/03/17 11:45 98.5 19 125/59 99 03/02/17 22:00 Nasal Cannula 2.0 Intake and Output 03/02/17 03/02/17 03/03/17 15:00 23:00 07:00 Intake Total 1326.5 ml 344 ml 440 ml Output Total 1085 ml 950 ml 1100 ml Balance 241.5 ml -606 ml -660 ml Exam Constitutional: alert, well developed Respiratory: diminished breath sounds, normal air movement Cardiovascular: nl pulses Gastrointestinal: non-tender, soft Musculoskeletal: nl extremities to inspection Extremities: normal pulses Results Result Diagram: 03/03/17 0730 03/03/17 0730 Results 24 hrs Laboratory Tests Test 03/02/17 16:12 03/02/17 17:27 03/02/17 20:32 03/03/17 01:15 Bedside Glucose 132 109 124 112 Test 03/03/17 05:18 03/03/17 07:30 03/03/17 08:29 03/03/17 12:13 Bedside Glucose 135 147 169 White Blood Count 4.7 L Red Blood Count 2.58 L Hemoglobin 7.3 L Hematocrit 22.6 L Mean Corpuscular Volume 87.6 Mean Corpuscular Hemoglobin 28.3 L Mean Corpuscular Hemoglobin Concent 32.3 Red Cell Distribution Width 19.6 H Platelet Count 148 Mean Platelet Volume 11.7 H Neutrophils % Segmented Neutrophils % (Manual) 58 Band Neutrophils % (Manual) 24 H Lymphocytes % Lymphocytes % (Manual) 8 L Monocytes % Monocytes % (Manual) 1 Eosinophils % Eosinophils % (Manual) 1 Basophils % Metamyelocytes % (manual) 3 H Myelocytes % (Manual) 1 H Promyelocytes % (Manual) 4 H Nucleated Red Blood Cells % 0.6 H Neutrophils # Neutrophils # (Manual) 2.8 Band Neutrophils # 1.1 H Absolute Lymphocytes (Manual) 0.3 L Lymphocytes # Monocytes # Absolute Monocytes (Manual) 0.0 L Eosinophils # Basophils # Metamyelocytes # 0.1 H Myelocytes # 0.0 Promyelocytes # 0 Nucleated Red Blood Cells # Giant Platelets 1 H Polychromasia 3+ Poikilocytosis 1+ Anisocytosis 2+ Microcytosis 1+ Macrocytosis 1+ Sodium Level 137 Potassium Level 4.5 Chloride Level 102 Carbon Dioxide Level 31 Anion Gap 9 Blood Urea Nitrogen 26 H Creatinine 0.47 Glucose Level 135 Calcium Level 8.3 L Medications Medications Current Medications IV Flush (NS 10 ml) 10 ml PRN PRN IV IV PROTOCOL; Start 02/20/17 at 19:30 Levothyroxine Sodium (Synthroid Iv) 50 mcg AM IV Last administered on t 09:01; Admin Dose 50 MCG; Start 02/21/17 at 09:00 Enoxaparin Sodium (Lovenox) 40 mg DAILY SC Last administered on 03/03/17 08:59 ; Admin Dose 40 MG; Start 02/22/17 at 09:00 Acetaminophen/ Hydrocodone Bitart ([place] (5/325)) 1 tab Q4H PRN NGT pain Last administered on 03/02/17 06:52; Admin Dose 1 TAB; Start 02/21/17 at 17:00 Ondansetron HCl 4 mg 4 mg Q6H PRN IV NAUSEA Last administered on 02/26/17 20: 12; Admin Dose 4 MG; Start 02/21/17 at 23:30 Caspofungin 50 mg/ Sodium Chloride 250 ml @ 250 mls/hr Q24H IVPB Last administered on 03/03/17 12:08; Admin Dose 250 MLS/HR; Start 02/23/17 at 11:00 Meropenem/Sodium Chloride (Merrem 500mg/50 ml(Pmx)) 50 ml @ 100 mls/hr Q12 IVPB Last administered on 03/03/17 11:02; Admin Dose 100 MLS/HR; Start at 21:00 Morphine Sulfate (morphine) 2 mg Q3H PRN IV PAIN LEVEL 4-6 Last administered on 03/02/17 20:23; Admin Dose 2 MG; Start 02/26/17 at 17:00 Lorazepam (Ativan) 0.5 mg Q6H PRN IV AGITATION Last administered on 03/03/17 14:15; Admin Dose 0.5 MG; Start 02/27/17 at 16:00 Labetalol HCl (Labetalol) 10 mg Q2H PRN IV for SBP > 160, hold for HR <65; Start 02/27/17 at 20:00 Hydrocortisone 50 mg 50 mg Q8 IV Last administered on 03/03/17 14:15; Admin Dose 50 MG; Start 03/01/17 at 14:00 Linezolid (Zyvox 600mg/D5W (Pmx)) 300 ml @ 300 mls/hr Q12 IVPB Last administered on 03/03/17 11:02; Admin Dose 300 MLS/HR; Start 03/02/17 at 21:00 Miscellaneous Information 1 ea NOTE XX ; Start 03/02/17 at 15:00 Glucose (Glutose) 15 gm Q15M PRN PO DECREASED GLUCOSE; Start 03/02/17 at 15:00 Glucose (Glutose) 22.5 gm Q15M PRN PO DECREASED GLUCOSE; Start 03/02/17 at 15: 00 Dextrose (D50w Syringe) 25 ml Q15M PRN IV DECREASED GLUCOSE; Start 03/02/17 at 15:00 Dextrose (D50w Syringe) 50 ml Q15M PRN IV DECREASED GLUCOSE; Start 03/02/17 at 15:00 Glucagon (Glucagen) 1 mg Q15M PRN IM DECREASED GLUCOSE; Start 03/02/17 at 15:00 Glucose (Glutose) 15 gm Q15M PRN BUCCAL DECREASED GLUCOSE; Start 03/02/17 at 15 :00 Insulin Aspart (Novolog Insulin Pen) NOVOLOG *MODERATE* ALGORI... Q4 SC Last administered on 03/03/17 12:42; Admin Dose 2 UNIT; Start 03/02/17 at 17:00 Sodium Hypochlorite (Dakin'S (1/4 Strength)) 1 applic DAILY IRR Last administered on 03/03/17 09:00; Admin Dose 1 APPLIC; Start 03/03/17 at 09:00 Insulin Glargine (Lantus) 28 unit DAILY@08 SC ; Start 03/04/17 at 08:00 TERESA DENISE Mar 03, 2017 14:49
[2017-03-04] MEDS: INSULIN ASPART [NOVOLOG] 3 ML PEN SC SCH ×6 (02:00→21:00)
[2017-03-04] MEDS: HYDROCORTISONE 100 MG INJ IV SCH ×2 (06:35→13:15)
[2017-03-04] MEDS: FUROSEMIDE 20 MG INJ IV SCH ×2 (06:44→18:00)
[2017-03-04] MEDS ORDERED: INSULIN GLARGINE [LANtus] 3 ML PEN SC SCH (08:00)
[2017-03-04] MEDS: LEVOTHYROXINE 100 MCG VIAL IV SCH (08:31)
[2017-03-04] MEDS: ENOXAPARIN 40 MG/0.4 ML SYG SC SCH (08:35)
[2017-03-04] MEDS: SODIUM HYPOCHLORITE 0.125% 473 ML BTL IRR SCH (08:39)
[2017-03-04] MEDS: MEROPENEM 500MG/50 ML (PMX) 50 ML IVPB SCH ×2 (08:39→21:58)
[2017-03-04] MEDS: LINEZOLID 600 MG/D5W (PMX) 300 ML IVPB SCH ×2 (08:39→21:44)
[2017-03-04] MEDS: LORAZEPAM 2 MG INJ IV PRN (08:42)
[2017-03-04 09:01] LABS: ALBUMIN 2.3 g/dl (3.3-4.9); ALBUMIN/GLOBULIN RATIO 0.71; BILIRUBIN,INDIRECT 0.4 mg/dl (0-1.1); BILIRUBIN,TOTAL 0.4 mg/dl (0.2-1.3); CALCIUM 8.8 mg/dl (8.4-10.2); CREATININE 0.57 mg/dl (0.44-1.00); POTASSIUM 3.9 mmol/L (3.5-5.1); TOTAL PROTEIN 5.5 g/dl (6.1-8.1)
[2017-03-04 09:01] LABS: ABNORMAL IP MESSAGE 1; BASOPHILS % 0.3 % (0.0-2.0); EOSINOPHILS % 0.3 % (0.0-7.0); HEMATOCRIT 21.3 % (37.0-47.0); LYMPHOCYTES # 0.5 10^3/ul (0.8-2.9); LYMPHOCYTES % 8.2 % (15.0-51.0); MEAN CORPUSCULAR HEMOGLOBIN 28.8 pg (29.0-33.0); MEAN CORPUSCULAR HGB CONC 32.4 g/dl (32.0-37.0); MEAN CORPUSCULAR VOLUME 88.8 fl (82.0-101.0); MEAN PLATELET VOLUME 11.5 fl (7.4-10.4); MONOCYTE # 0.2 10^3/ul (0.3-0.9); MONOCYTES % 3.3 % (0.0-11.0); NEUTROPHIL # 5.2 10^3/ul (1.6-7.5); NEUTROPHILS % 78.9 % (39.0-77.0); NUCLEATED RED BLOOD CELLS% 0.5 /100WBC (0.0-0.0); PLATELET COUNT 149 10^3/UL (140-415); RED CELL DISTRIBUTION WIDTH 18.8 % (11.5-14.5); WHITE BLOOD COUNT 6.6 10^3/ul (4.8-10.8)
[2017-03-04 09:28] LABS: HEMOGLOBIN 6.9 g/dl (12.0-16.0); POSITIVE DIFF @See below
[2017-03-04] MEDS: HYDROCODONE/APAP (5/325) TAB NGT PRN (11:01)
[2017-03-04] MEDS: CASPOFUNGIN 50 MG in SOD CHLORIDE 0.9% 250 ML IVPB SCH (11:03)
--- NOTE | 2017-03-04 13:04 | CONS ---
Date/Time of Note Date/Time of Note DATE: 03/04/17 TIME: 13:00 Assessment/Plan Assessment/Plan Additional Assessment/Plan 1. Acute kidney injury mutlifactorial due to Prerenal azotemia + ATN From septic shock - Improved 2. Acute encephalopathy metabolic- improved 3. SBO, disrupted colonic anastomosis, s/p Exp lap, resection and ileostomy on 4. H/o Polymyalgia rheumatica on Steroids 5. H/o recent right hemicolectomy for perforated diverticulitis 6. Hyperkalemia acute- resolved - Hyponatremia - resolved 7. acute hypoxic respiratory failure requiring ventilator care s/p Extubation 8. adrenal crisis- On IV dexamethasone 9. Hypokalemia- resolved 10. anemia- 1 unit PRBC today Plan: -on Hydrocortisone 20 mg IV Q 8 hr for adrenal insufficiency- tolerating so far -lasix decreased to 20mg IV BID on 03/01/17 for metabolic alkalosis -IV abx sepsis. renally dose antibiotics , IV cancidas,meropenem and Linezolid -s/p surgery, G surgery following , currently on TPN at 60 cc/hr, no IV Fluids -Plan is to switch from TPN to tube feeding -will follow up - Jeffy Quezada Consultation Date/Type/Reason Admit Date/Time Feb 20, 2017 at 19:33 Initial Consult Date 02/20/17 Type of Consultation: NEPHROLOGY Referring Provider: CARL STEPHENS MD 24 HR Interval Summary Free Text/Dictation anemia- will get 1 unit PRBC today, c/o pain at surgery site, BUN/ Cr WNL, afebrile, dw staff Constitutional: requiring IVF, requiring O2 Detailed Summary Respiratory: no complaints Cardiovascular: no complaints Gastrointestinal: pain Genitourinary: no complaints Exam/Review of Systems Vital Signs Vitals Vital Signs Date Time Temp Pulse Resp B/P Pulse Ox O2 Delivery O2 Flow Rate FiO2 03/04/17 11:59 98.7 87 19 117/55 100 03/04/17 08:00 Nasal Cannula 3.0 Intake and Output 03/03/17 03/03/17 03/04/17 14:59 22:59 06:59 Intake Total 200 ml 830 ml Output Total 850 ml 500 ml Balance -650 ml 330 ml Exam Constitutional: alert, obese, well developed Respiratory: clear to auscultation, diminished breath sounds Cardiovascular: nl pulses, regular rate and rhythm Gastrointestinal: other, soft Musculoskeletal: nl extremities to inspection Extremities: normal pulses Neurological: nl speech Results Result Diagram: 03/04/17 0750 03/04/17 0756 Results 24 hrs Laboratory Tests Test 03/03/17 17:18 03/03/17 20:38 03/04/17 02:08 03/04/17 06:42 Bedside Glucose 146 105 131 146 Test 03/04/17 07:50 03/04/17 07:56 03/04/17 08:19 White Blood Count 6.6 # Red Blood Count 2.40 L Hemoglobin 6.9 *L Hematocrit 21.3 L Mean Corpuscular Volume 88.8 Mean Corpuscular Hemoglobin 28.8 L Mean Corpuscular Hemoglobin Concent 32.4 Red Cell Distribution Width 18.8 H Platelet Count 149 Mean Platelet Volume 11.5 H Neutrophils % 78.9 H Lymphocytes % 8.2 L Monocytes % 3.3 Eosinophils % 0.3 Basophils % 0.3 Nucleated Red Blood Cells % 0.5 H Neutrophils # 5.2 Lymphocytes # 0.5 L Monocytes # 0.2 L Eosinophils # 0.0 Basophils # 0.0 Nucleated Red Blood Cells # 0.0 Sodium Level 136 Potassium Level 3.9 Chloride Level 101 Carbon Dioxide Level 32 H Anion Gap 7 L Blood Urea Nitrogen 27 H Creatinine 0.57 Glucose Level 130 Calcium Level 8.8 Total Bilirubin 0.4 Direct Bilirubin 0.00 Indirect Bilirubin 0.4 Aspartate Amino Transf (AST/SGOT) 27 Alanine Aminotransferase (ALT/SGPT) 37 Alkaline Phosphatase 128 H Total Protein 5.5 L Albumin 2.3 L Globulin 3.20 Albumin/Globulin Ratio 0.71 Bedside Glucose 139 Medications Medications Current Medications IV Flush (NS 10 ml) 10 ml PRN PRN IV IV PROTOCOL; Start 02/20/17 at 19:30 Levothyroxine Sodium (Synthroid Iv) 50 mcg AM IV Last administered on 08:31; Admin Dose 50 MCG; Start 02/21/17 at 09:00 Enoxaparin Sodium (Lovenox) 40 mg DAILY SC Last administered on 03/04/17 08:35 ; Admin Dose 40 MG; Start 02/22/17 at 09:00 Acetaminophen/ Hydrocodone Bitart ([place] (5/325)) 1 tab Q4H PRN NGT pain Last administered on 03/04/17 11:01; Admin Dose 1 TAB; Start 02/21/17 at 17:00 Ondansetron HCl 4 mg 4 mg Q6H PRN IV NAUSEA Last administered on 02/26/17 20: 12; Admin Dose 4 MG; Start 02/21/17 at 23:30 Caspofungin 50 mg/ Sodium Chloride 250 ml @ 250 mls/hr Q24H IVPB Last administered on 03/04/17 11:03; Admin Dose 250 MLS/HR; Start 02/23/17 at 11:00 Meropenem/Sodium Chloride (Merrem 500mg/50 ml(Pmx)) 50 ml @ 100 mls/hr Q12 IVPB Last administered on 03/04/17 08:39; Admin Dose 100 MLS/HR; Start at 21:00 Lorazepam (Ativan) 0.5 mg Q6H PRN IV AGITATION Last administered on 03/04/17 08:42; Admin Dose 0.5 MG; Start 02/27/17 at 16:00 Labetalol HCl (Labetalol) 10 mg Q2H PRN IV for SBP > 160, hold for HR <65; Start 02/27/17 at 20:00 Hydrocortisone 50 mg 50 mg Q8 IV Last administered on 03/04/17 06:35; Admin Dose 50 MG; Start 03/01/17 at 14:00 Linezolid (Zyvox 600mg/D5W (Pmx)) 300 ml @ 300 mls/hr Q12 IVPB Last administered on 03/04/17 08:39; Admin Dose 300 MLS/HR; Start 03/02/17 at 21:00 Miscellaneous Information 1 ea NOTE XX ; Start 03/02/17 at 15:00 Glucose (Glutose) 15 gm Q15M PRN PO DECREASED GLUCOSE; Start 03/02/17 at 15:00 Glucose (Glutose) 22.5 gm Q15M PRN PO DECREASED GLUCOSE; Start 03/02/17 at 15: 00 Dextrose (D50w Syringe) 25 ml Q15M PRN IV DECREASED GLUCOSE; Start 03/02/17 at 15:00 Dextrose (D50w Syringe) 50 ml Q15M PRN IV DECREASED GLUCOSE; Start 03/02/17 at 15:00 Glucagon (Glucagen) 1 mg Q15M PRN IM DECREASED GLUCOSE; Start 03/02/17 at 15:00 Glucose (Glutose) 15 gm Q15M PRN BUCCAL DECREASED GLUCOSE; Start 03/02/17 at 15 :00 Insulin Aspart (Novolog Insulin Pen) NOVOLOG *MODERATE* ALGORI... Q4 SC Last administered on 03/04/17 06:55; Admin Dose 2 UNIT; Start 03/02/17 at 17:00 Sodium Hypochlorite (Dakin'S (1/4 Strength)) 1 applic DAILY IRR Last administered on 03/04/17 08:39; Admin Dose 1 APPLIC; Start 03/03/17 at 09:00 Insulin Glargine (Lantus) 28 unit DAILY@08 SC Last administered on 03/04/17 08 :34; Admin Dose 28 UNIT; Start 03/04/17 at 08:00 Ketorolac Tromethamine (Toradol) 30 mg Q6H PRN IV PAIN Last administered on 21:02; Admin Dose 30 MG; Start 03/03/17 at 20:53; Stop 03/06/17 at 20:52 TERESA DENISE Mar 04, 2017 13:04
--- NOTE | 2017-03-04 14:09 | CONS ---
Date/Time of Note Date/Time of Note DATE: 03/04/17 TIME: 14:05 Assessment/Plan Assessment/Plan Problems: (1) Hyperglycemia Status: Acute Comment: Adjust insulin as improving (2) Iatrogenic adrenal insufficiency Status: Acute Comment: change to oral prednisone as now eating a diet (3) Hypothyroidism Status: Chronic Comment: go to [facility] tomorrow Qualifiers: Hypothyroidism type: acquired Qualified Code: E03.9 - Acquired hypothyroidism Consultation Date/Type/Reason Admit Date/Time Feb 20, 2017 at 19:33 Initial Consult Date 02/20/17 Type of Consultation: Endocrinolgy Reason for Consultation Hyperglycemia; Iatrogenic adrenal insufficiency; PMR; Hypothyroid Referring Provider: CARL STEPHENS MD 24 HR Interval Summary Free Text/Dictation Patient reports she is trying! Exam/Review of Systems Vital Signs Vitals Vital Signs Date Time Temp Pulse Resp B/P Pulse Ox O2 Delivery O2 Flow Rate FiO2 03/04/17 11:59 98.7 87 19 117/55 100 03/04/17 08:00 Nasal Cannula 3.0 Intake and Output 03/03/17 03/03/17 03/04/17 15:00 23:00 07:00 Intake Total 200 ml 830 ml Output Total 850 ml 500 ml Balance -650 ml 330 ml Results no changes Result Diagram: 03/04/17 0750 03/04/17 0756 Results 24 hrs Laboratory Tests Test 03/03/17 17:18 03/03/17 20:38 03/04/17 02:08 03/04/17 06:42 Bedside Glucose 146 105 131 146 Test 03/04/17 07:50 03/04/17 07:56 03/04/17 08:19 03/04/17 13:16 White Blood Count 6.6 # Red Blood Count 2.40 L Hemoglobin 6.9 *L Hematocrit 21.3 L Mean Corpuscular Volume 88.8 Mean Corpuscular Hemoglobin 28.8 L Mean Corpuscular Hemoglobin Concent 32.4 Red Cell Distribution Width 18.8 H Platelet Count 149 Mean Platelet Volume 11.5 H Neutrophils % 78.9 H Lymphocytes % 8.2 L Monocytes % 3.3 Eosinophils % 0.3 Basophils % 0.3 Nucleated Red Blood Cells % 0.5 H Neutrophils # 5.2 Lymphocytes # 0.5 L Monocytes # 0.2 L Eosinophils # 0.0 Basophils # 0.0 Nucleated Red Blood Cells # 0.0 Sodium Level 136 Potassium Level 3.9 Chloride Level 101 Carbon Dioxide Level 32 H Anion Gap 7 L Blood Urea Nitrogen 27 H Creatinine 0.57 Glucose Level 130 Calcium Level 8.8 Total Bilirubin 0.4 Direct Bilirubin 0.00 Indirect Bilirubin 0.4 Aspartate Amino Transf (AST/SGOT) 27 Alanine Aminotransferase (ALT/SGPT) 37 Alkaline Phosphatase 128 H Total Protein 5.5 L Albumin 2.3 L Globulin 3.20 Albumin/Globulin Ratio 0.71 Bedside Glucose 139 149 Medications Medications Current Medications IV Flush (NS 10 ml) 10 ml PRN PRN IV IV PROTOCOL; Start 02/20/17 at 19:30 Levothyroxine Sodium (Synthroid Iv) 50 mcg AM IV Last administered on 08:31; Admin Dose 50 MCG; Start 02/21/17 at 09:00 Enoxaparin Sodium (Lovenox) 40 mg DAILY SC Last administered on 03/04/17 08:35 ; Admin Dose 40 MG; Start 02/22/17 at 09:00 Acetaminophen/ Hydrocodone Bitart ([place] (5/325)) 1 tab Q4H PRN NGT pain Last administered on 03/04/17 11:01; Admin Dose 1 TAB; Start 02/21/17 at 17:00 Ondansetron HCl 4 mg 4 mg Q6H PRN IV NAUSEA Last administered on 02/26/17 20: 12; Admin Dose 4 MG; Start 02/21/17 at 23:30 Caspofungin 50 mg/ Sodium Chloride 250 ml @ 250 mls/hr Q24H IVPB Last administered on 03/04/17 11:03; Admin Dose 250 MLS/HR; Start 02/23/17 at 11:00 Meropenem/Sodium Chloride (Merrem 500mg/50 ml(Pmx)) 50 ml @ 100 mls/hr Q12 IVPB Last administered on 03/04/17 08:39; Admin Dose 100 MLS/HR; Start at 21:00 Lorazepam (Ativan) 0.5 mg Q6H PRN IV AGITATION Last administered on 03/04/17 08:42; Admin Dose 0.5 MG; Start 02/27/17 at 16:00 Labetalol HCl (Labetalol) 10 mg Q2H PRN IV for SBP > 160, hold for HR <65; Start 02/27/17 at 20:00 Hydrocortisone 50 mg 50 mg Q8 IV Last administered on 03/04/17 13:15; Admin Dose 50 MG; Start 03/01/17 at 14:00 Linezolid (Zyvox 600mg/D5W (Pmx)) 300 ml @ 300 mls/hr Q12 IVPB Last administered on 03/04/17 08:39; Admin Dose 300 MLS/HR; Start 03/02/17 at 21:00 Miscellaneous Information 1 ea NOTE XX ; Start 03/02/17 at 15:00 Glucose (Glutose) 15 gm Q15M PRN PO DECREASED GLUCOSE; Start 03/02/17 at 15:00 Glucose (Glutose) 22.5 gm Q15M PRN PO DECREASED GLUCOSE; Start 03/02/17 at 15: 00 Dextrose (D50w Syringe) 25 ml Q15M PRN IV DECREASED GLUCOSE; Start 03/02/17 at 15:00 Dextrose (D50w Syringe) 50 ml Q15M PRN IV DECREASED GLUCOSE; Start 03/02/17 at 15:00 Glucagon (Glucagen) 1 mg Q15M PRN IM DECREASED GLUCOSE; Start 03/02/17 at 15:00 Glucose (Glutose) 15 gm Q15M PRN BUCCAL DECREASED GLUCOSE; Start 03/02/17 at 15 :00 Insulin Aspart (Novolog Insulin Pen) NOVOLOG *MODERATE* ALGORI... Q4 SC Last administered on 03/04/17 13:19; Admin Dose 2 UNIT; Start 03/02/17 at 17:00 Sodium Hypochlorite (Dakin'S (1/4 Strength)) 1 applic DAILY IRR Last administered on 03/04/17 08:39; Admin Dose 1 APPLIC; Start 03/03/17 at 09:00 Insulin Glargine (Lantus) 28 unit DAILY@08 SC Last administered on 03/04/17 08 :34; Admin Dose 28 UNIT; Start 03/04/17 at 08:00 Ketorolac Tromethamine (Toradol) 30 mg Q6H PRN IV PAIN Last administered on 21:02; Admin Dose 30 MG; Start 03/03/17 at 20:53; Stop 10/3/17 at 20:52 TAMIA RESTREPO MD Mar 04, 2017 14:09
[2017-03-04] MEDS: KETOROLAC 30 MG INJ IV PRN (14:20)
[2017-03-04] MEDS: predniSONE 5 MG TAB PO SCH ×2 (14:30→21:44)
--- NOTE | 2017-03-04 15:20 | CONS ---
Date/Time of Note Date/Time of Note DATE: 03/04/17 TIME: 15:19 Consult Date/Type/Reason Admit Date/Time Feb 20, 2017 at 19:33 Initial Consult Date 02/20/17 Type of Consultation: Pulm Ordering Provider: CARL STEPHENS MD Subjective No events. w/o complaints. Objective Vital Signs Date Time Temp Pulse Resp B/P Pulse Ox O2 Delivery O2 Flow Rate FiO2 03/04/17 11:59 98.7 87 19 117/55 100 03/04/17 08:00 Nasal Cannula 3.0 Intake and Output 03/03/17 03/03/17 03/04/17 15:00 23:00 07:00 Intake Total 200 ml 830 ml Output Total 850 ml 500 ml Balance -650 ml 330 ml Exam HEENT: Pupils equal, round, and reactive to light. CARDIAC: S1, S2, 1/6 systolic ejection murmur CHEST: Diminished air entry bilaterally. ABDOMEN: Mildly distended. Bowel sounds present no guarding or rebound EXTREMITIES: No cyanosis, clubbing; edema +1, widespread purpura Results/Medications Result Diagram: 03/04/17 0750 03/04/17 0756 Results 24 hrs Laboratory Tests Test 03/03/17 17:18 03/03/17 20:38 03/04/17 02:08 03/04/17 06:42 Bedside Glucose 146 105 131 146 Test 03/04/17 07:50 03/04/17 07:56 03/04/17 08:19 03/04/17 13:16 White Blood Count 6.6 # Red Blood Count 2.40 L Hemoglobin 6.9 *L Hematocrit 21.3 L Mean Corpuscular Volume 88.8 Mean Corpuscular Hemoglobin 28.8 L Mean Corpuscular Hemoglobin Concent 32.4 Red Cell Distribution Width 18.8 H Platelet Count 149 Mean Platelet Volume 11.5 H Neutrophils % 78.9 H Lymphocytes % 8.2 L Monocytes % 3.3 Eosinophils % 0.3 Basophils % 0.3 Nucleated Red Blood Cells % 0.5 H Neutrophils # 5.2 Lymphocytes # 0.5 L Monocytes # 0.2 L Eosinophils # 0.0 Basophils # 0.0 Nucleated Red Blood Cells # 0.0 Sodium Level 136 Potassium Level 3.9 Chloride Level 101 Carbon Dioxide Level 32 H Anion Gap 7 L Blood Urea Nitrogen 27 H Creatinine 0.57 Glucose Level 130 Calcium Level 8.8 Total Bilirubin 0.4 Direct Bilirubin 0.00 Indirect Bilirubin 0.4 Aspartate Amino Transf (AST/SGOT) 27 Alanine Aminotransferase (ALT/SGPT) 37 Alkaline Phosphatase 128 H Total Protein 5.5 L Albumin 2.3 L Globulin 3.20 Albumin/Globulin Ratio 0.71 Bedside Glucose 139 149 Medications Current Medications IV Flush (NS 10 ml) 10 ml PRN PRN IV IV PROTOCOL; Start 02/20/17 at 19:30 Levothyroxine Sodium (Synthroid Iv) 50 mcg AM IV Last administered on 08:31; Admin Dose 50 MCG; Start 02/21/17 at 09:00 Enoxaparin Sodium (Lovenox) 40 mg DAILY SC Last administered on 03/04/17 08:35 ; Admin Dose 40 MG; Start 02/22/17 at 09:00 Acetaminophen/ Hydrocodone Bitart ([place] (5/325)) 1 tab Q4H PRN NGT pain Last administered on 03/04/17 11:01; Admin Dose 1 TAB; Start 02/21/17 at 17:00 Ondansetron HCl 4 mg 4 mg Q6H PRN IV NAUSEA Last administered on 02/26/17 20: 12; Admin Dose 4 MG; Start 02/21/17 at 23:30 Caspofungin 50 mg/ Sodium Chloride 250 ml @ 250 mls/hr Q24H IVPB Last administered on 03/04/17 11:03; Admin Dose 250 MLS/HR; Start 02/23/17 at 11:00 Meropenem/Sodium Chloride (Merrem 500mg/50 ml(Pmx)) 50 ml @ 100 mls/hr Q12 IVPB Last administered on 03/04/17 08:39; Admin Dose 100 MLS/HR; Start at 21:00 Lorazepam (Ativan) 0.5 mg Q6H PRN IV AGITATION Last administered on 03/04/17 08:42; Admin Dose 0.5 MG; Start 02/27/17 at 16:00 Labetalol HCl 10 mg 10 mg Q2H PRN IV for SBP > 160, hold for HR <65; Start at 20:00 Linezolid (Zyvox 600mg/D5W (Pmx)) 300 ml @ 300 mls/hr Q12 IVPB Last administered on 03/04/17 08:39; Admin Dose 300 MLS/HR; Start 03/02/17 at 21:00 Miscellaneous Information 1 ea NOTE XX ; Start 03/02/17 at 15:00 Glucose (Glutose) 15 gm Q15M PRN PO DECREASED GLUCOSE; Start 03/02/17 at 15:00 Glucose (Glutose) 22.5 gm Q15M PRN PO DECREASED GLUCOSE; Start 03/02/17 at 15: 00 Dextrose (D50w Syringe) 25 ml Q15M PRN IV DECREASED GLUCOSE; Start 03/02/17 at 15:00 Dextrose (D50w Syringe) 50 ml Q15M PRN IV DECREASED GLUCOSE; Start 03/02/17 at 15:00 Glucagon (Glucagen) 1 mg Q15M PRN IM DECREASED GLUCOSE; Start 03/02/17 at 15:00 Glucose (Glutose) 15 gm Q15M PRN BUCCAL DECREASED GLUCOSE; Start 03/02/17 at 15 :00 Insulin Aspart (Novolog Insulin Pen) NOVOLOG *MODERATE* ALGORI... Q4 SC Last administered on 03/04/17 13:19; Admin Dose 2 UNIT; Start 03/02/17 at 17:00 Sodium Hypochlorite (Dakin'S (1/4 Strength)) 1 applic DAILY IRR Last administered on 03/04/17 08:39; Admin Dose 1 APPLIC; Start 03/03/17 at 09:00 Ketorolac Tromethamine (Toradol) 30 mg Q6H PRN IV PAIN Last administered on 14:20; Admin Dose 30 MG; Start 03/03/17 at 20:53; Stop 03/06/17 at 20:52 Insulin Glargine (Lantus) 26 unit DAILY@08 SC ; Start 03/05/17 at 08:00 Prednisone (Prednisone) 5 mg Q8 PO ; Start 03/04/17 at 14:30 Assessment/Plan Additional Assessment/Plan IMP: 1. Status post septic shock. 2. Status post Hypoxemic respiratory failure. Alveolar hypoventilation. Possible underlying obstructive sleep apnea. 3. Thrombocytopenia possibly DIC. 4. Possible adrenal insufficiency 5. GI bleed, now with anemia. 6. Hx PMR 7. Diabetes mellitus. Exacerbated by intravenous steroids. Continues on insulin drip. RECS: 1. Aspiration precautions; ICS 2. Monitor H&H. 3. Mobilize ASHA DOLAN MD Mar 04, 2017 15:20
--- NOTE | 2017-03-04 15:23 | PN ---
Date/Time of Note Date/Time of Note DATE: 03/04/17 TIME: 15:19 Assessment/Plan VTE Prophylaxis VTE Prophylaxis Intervention: LMWH Lines/Catheters IV Catheter Type (from Nrs): PICC Line Central line still needed: Yes Urinary Cath still in place: Yes Reason Cath still needed: urinary retention Assessment/Plan Chief Complaint/Hosp Course `71 yo female with PMR on chronic steroids, unclear seizure d/o, hypertension, obesity, recently discharged from [facility] following open appendectomy without complications who returned with sepsis, LATRICE and adrenal insufficiency. Found to have disrupted ileocolic anastomosis and intraabdominal infection. Now s/p resection and ileostomy. S/p intubation and ICU course, now stable on the floor GI: SBO, disrupted colonic anastamosis following surgery for ruptured appendicitis, now s/p resection and ileostomy - Management per Dr Haji - Diet as tolerated ID: Sepsis 2/2 intraabdominal infection, VRE bacteremia and willa glabrata fungemia - Continue abx per ID: linezolid/merrem - Caspofungin for candidemia - Daily cultures ENDOCRINE: Polymyalgia rheumatica and chronic adrenal suppression from prednisone, now iatrogenic adrenal insufficiency - Wean steroids per endocrine Hypothyroidism: - FT4 low, likely from poor absorption 2/2 ileus. Continue IV LT4 DM: - Basal/bolus insulin RENAL: LATRICE is resolved PT/OT Dispo to rehab Problems: Subjective 24 Hr Interval Summary Free Text/Dictation Complains of diffuse pains in arms and legs Transfused 1 unit PRBCs, no evidence of bleeding Exam/Review of Systems Vital Signs Vitals Vital Signs Date Time Temp Pulse Resp B/P Pulse Ox O2 Delivery O2 Flow Rate FiO2 03/04/17 11:59 98.7 87 19 117/55 100 03/04/17 08:00 Nasal Cannula 3.0 Intake and Output 03/03/17 03/03/17 03/04/17 15:00 23:00 07:00 Intake Total 200 ml 830 ml Output Total 850 ml 500 ml Balance -650 ml 330 ml Exam Constitutional: alert, oriented, well developed Psych: nl mood/affect, no complaints Head: atraumatic, normocephalic Eyes: EOMI, PERRL, nl conjunctiva, nl lids, nl sclera ENMT: nl external ears & nose, nl lips & teeth, nl nasal mucosa & septum Neck: non-tender, supple Respiratory: clear to auscultation, normal air movement Cardiovascular: nl pulses, regular rate and rhythm Gastrointestinal: nl liver, spleen, non-tender, soft Musculoskeletal: nl extremities to inspection, nl gait and stance Extremities: normal pulses Neurological: [employer] II-XII intact, nl mental status, nl speech, nl strength Skin: nl turgor, No rash or lesions Lymph: nl lymph nodes Results Result Diagram: 03/04/17 0750 03/04/17 0756 Results 24 hrs Laboratory Tests Test 03/03/17 17:18 03/03/17 20:38 03/04/17 02:08 03/04/17 06:42 Bedside Glucose 146 105 131 146 Test 03/04/17 07:50 03/04/17 07:56 03/04/17 08:19 03/04/17 13:16 White Blood Count 6.6 # Red Blood Count 2.40 L Hemoglobin 6.9 *L Hematocrit 21.3 L Mean Corpuscular Volume 88.8 Mean Corpuscular Hemoglobin 28.8 L Mean Corpuscular Hemoglobin Concent 32.4 Red Cell Distribution Width 18.8 H Platelet Count 149 Mean Platelet Volume 11.5 H Neutrophils % 78.9 H Lymphocytes % 8.2 L Monocytes % 3.3 Eosinophils % 0.3 Basophils % 0.3 Nucleated Red Blood Cells % 0.5 H Neutrophils # 5.2 Lymphocytes # 0.5 L Monocytes # 0.2 L Eosinophils # 0.0 Basophils # 0.0 Nucleated Red Blood Cells # 0.0 Sodium Level 136 Potassium Level 3.9 Chloride Level 101 Carbon Dioxide Level 32 H Anion Gap 7 L Blood Urea Nitrogen 27 H Creatinine 0.57 Glucose Level 130 Calcium Level 8.8 Total Bilirubin 0.4 Direct Bilirubin 0.00 Indirect Bilirubin 0.4 Aspartate Amino Transf (AST/SGOT) 27 Alanine Aminotransferase (ALT/SGPT) 37 Alkaline Phosphatase 128 H Total Protein 5.5 L Albumin 2.3 L Globulin 3.20 Albumin/Globulin Ratio 0.71 Bedside Glucose 139 149 Medications Medications Current Medications IV Flush (NS 10 ml) 10 ml PRN PRN IV IV PROTOCOL; Start 02/20/17 at 19:30 Levothyroxine Sodium (Synthroid Iv) 50 mcg AM IV Last administered on t 08:31; Admin Dose 50 MCG; Start 02/21/17 at 09:00 Enoxaparin Sodium (Lovenox) 40 mg DAILY SC Last administered on 03/04/17 08:35 ; Admin Dose 40 MG; Start 02/22/17 at 09:00 Acetaminophen/ Hydrocodone Bitart ([place] (5/325)) 1 tab Q4H PRN NGT pain Last administered on 03/04/17 11:01; Admin Dose 1 TAB; Start 02/21/17 at 17:00 Ondansetron HCl 4 mg 4 mg Q6H PRN IV NAUSEA Last administered on 02/26/17 20: 12; Admin Dose 4 MG; Start 02/21/17 at 23:30 Caspofungin 50 mg/ Sodium Chloride 250 ml @ 250 mls/hr Q24H IVPB Last administered on 03/04/17 11:03; Admin Dose 250 MLS/HR; Start 02/23/17 at 11:00 Meropenem/Sodium Chloride (Merrem 500mg/50 ml(Pmx)) 50 ml @ 100 mls/hr Q12 IVPB Last administered on 03/04/17 08:39; Admin Dose 100 MLS/HR; Start at 21:00 Lorazepam (Ativan) 0.5 mg Q6H PRN IV AGITATION Last administered on 03/04/17 08:42; Admin Dose 0.5 MG; Start 02/27/17 at 16:00 Labetalol HCl 10 mg 10 mg Q2H PRN IV for SBP > 160, hold for HR <65; Start at 20:00 Linezolid (Zyvox 600mg/D5W (Pmx)) 300 ml @ 300 mls/hr Q12 IVPB Last administered on 03/04/17 08:39; Admin Dose 300 MLS/HR; Start 03/02/17 at 21:00 Miscellaneous Information 1 ea NOTE XX ; Start 03/02/17 at 15:00 Glucose (Glutose) 15 gm Q15M PRN PO DECREASED GLUCOSE; Start 03/02/17 at 15:00 Glucose (Glutose) 22.5 gm Q15M PRN PO DECREASED GLUCOSE; Start 03/02/17 at 15: 00 Dextrose (D50w Syringe) 25 ml Q15M PRN IV DECREASED GLUCOSE; Start 03/02/17 at 15:00 Dextrose (D50w Syringe) 50 ml Q15M PRN IV DECREASED GLUCOSE; Start 03/02/17 at 15:00 Glucagon (Glucagen) 1 mg Q15M PRN IM DECREASED GLUCOSE; Start 03/02/17 at 15:00 Glucose (Glutose) 15 gm Q15M PRN BUCCAL DECREASED GLUCOSE; Start 03/02/17 at 15 :00 Insulin Aspart (Novolog Insulin Pen) NOVOLOG *MODERATE* ALGORI... Q4 SC Last administered on 03/04/17 13:19; Admin Dose 2 UNIT; Start 03/02/17 at 17:00 Sodium Hypochlorite (Dakin'S (1/4 Strength)) 1 applic DAILY IRR Last administered on 03/04/17 08:39; Admin Dose 1 APPLIC; Start 03/03/17 at 09:00 Ketorolac Tromethamine (Toradol) 30 mg Q6H PRN IV PAIN Last administered on 14:20; Admin Dose 30 MG; Start 03/03/17 at 20:53; Stop 03/06/17 at 20:52 Insulin Glargine (Lantus) 26 unit DAILY@08 SC ; Start 03/05/17 at 08:00 Prednisone (Prednisone) 5 mg Q8 PO ; Start 03/04/17 at 14:30 YAKELIN MCKEON MD Mar 04, 2017 15:23
--- NOTE | 2017-03-04 16:42 | CONS ---
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 Persistent bacteremia with cultures (+)VRE-> patient is status post Synercid, change to Zyvox. 2. Persistent fungemia with blood culture growing Macie glabrata. 3. Status post perforated anastomotic leak repair on . 4. Status post appendectomy. 5. Status post pneumonia and respiratory failure. 6. Anemia, acute on chronic. 7. Morbid obesity. 8. Hypothyroid 9. Iatrogenic adrenal insufficiency INVASIVES: ABX ALLERGY: None to ABX TOTAL ABX DAY # CURRENT ABX=> Zyvox + Candidas ID PLAN 1. Continue ABX over the weekend 2. Per notes, repeat CT Scan ordered 3. f/u on final wound cx result pending ? WOUND CULTURE Preliminary Organism 1 PSEUDOMONAS SPECIES QUANTITY SCANT GROWTH . Problems: Consultation Date/Type/Reason Admit Date/Time Feb 20, 2017 at 19:33 Initial Consult Date 02/20/17 Type of Consultation: ID Referring Provider: CARL STEPHENS MD Exam/Review of Systems Vital Signs Vitals Vital Signs Date Time Temp Pulse Resp B/P Pulse Ox O2 Delivery O2 Flow Rate FiO2 03/04/17 16:22 98.2 97 18 108/83 100 03/04/17 08:00 Nasal Cannula 3.0 Intake and Output 03/03/17 03/03/17 03/04/17 15:00 23:00 07:00 Intake Total 200 ml 830 ml Output Total 850 ml 500 ml Balance -650 ml 330 ml Results Result Diagram: 03/04/17 0750 03/04/17 0756 Results 24 hrs Laboratory Tests Test 03/03/17 17:18 03/03/17 20:38 03/04/17 02:08 03/04/17 06:42 Bedside Glucose 146 105 131 146 Test 03/04/17 07:50 03/04/17 07:56 03/04/17 08:19 03/04/17 13:16 White Blood Count 6.6 # Red Blood Count 2.40 L Hemoglobin 6.9 *L Hematocrit 21.3 L Mean Corpuscular Volume 88.8 Mean Corpuscular Hemoglobin 28.8 L Mean Corpuscular Hemoglobin Concent 32.4 Red Cell Distribution Width 18.8 H Platelet Count 149 Mean Platelet Volume 11.5 H Neutrophils % 78.9 H Lymphocytes % 8.2 L Monocytes % 3.3 Eosinophils % 0.3 Basophils % 0.3 Nucleated Red Blood Cells % 0.5 H Neutrophils # 5.2 Lymphocytes # 0.5 L Monocytes # 0.2 L Eosinophils # 0.0 Basophils # 0.0 Nucleated Red Blood Cells # 0.0 Sodium Level 136 Potassium Level 3.9 Chloride Level 101 Carbon Dioxide Level 32 H Anion Gap 7 L Blood Urea Nitrogen 27 H Creatinine 0.57 Glucose Level 130 Calcium Level 8.8 Total Bilirubin 0.4 Direct Bilirubin 0.00 Indirect Bilirubin 0.4 Aspartate Amino Transf (AST/SGOT) 27 Alanine Aminotransferase (ALT/SGPT) 37 Alkaline Phosphatase 128 H Total Protein 5.5 L Albumin 2.3 L Globulin 3.20 Albumin/Globulin Ratio 0.71 Bedside Glucose 139 149 Medications Medications Current Medications IV Flush (NS 10 ml) 10 ml PRN PRN IV IV PROTOCOL; Start 02/20/17 at 19:30 Levothyroxine Sodium (Synthroid Iv) 50 mcg AM IV Last administered on 08:31; Admin Dose 50 MCG; Start 02/21/17 at 09:00 Enoxaparin Sodium (Lovenox) 40 mg DAILY SC Last administered on 03/04/17 08:35 ; Admin Dose 40 MG; Start 02/22/17 at 09:00 Acetaminophen/ Hydrocodone Bitart ([place] (5/325)) 1 tab Q4H PRN NGT pain Last administered on 03/04/17 11:01; Admin Dose 1 TAB; Start 02/21/17 at 17:00 Ondansetron HCl 4 mg 4 mg Q6H PRN IV NAUSEA Last administered on 02/26/17 20: 12; Admin Dose 4 MG; Start 02/21/17 at 23:30 Caspofungin 50 mg/ Sodium Chloride 250 ml @ 250 mls/hr Q24H IVPB Last administered on 03/04/17 11:03; Admin Dose 250 MLS/HR; Start 02/23/17 at 11:00 Meropenem/Sodium Chloride (Merrem 500mg/50 ml(Pmx)) 50 ml @ 100 mls/hr Q12 IVPB Last administered on 03/04/17 08:39; Admin Dose 100 MLS/HR; Start at 21:00 Lorazepam (Ativan) 0.5 mg Q6H PRN IV AGITATION Last administered on 03/04/17 08:42; Admin Dose 0.5 MG; Start 02/27/17 at 16:00 Labetalol HCl 10 mg 10 mg Q2H PRN IV for SBP > 160, hold for HR <65; Start at 20:00 Linezolid (Zyvox 600mg/D5W (Pmx)) 300 ml @ 300 mls/hr Q12 IVPB Last administered on 03/04/17 08:39; Admin Dose 300 MLS/HR; Start 03/02/17 at 21:00 Miscellaneous Information 1 ea NOTE XX ; Start 03/02/17 at 15:00 Glucose (Glutose) 15 gm Q15M PRN PO DECREASED GLUCOSE; Start 03/02/17 at 15:00 Glucose (Glutose) 22.5 gm Q15M PRN PO DECREASED GLUCOSE; Start 03/02/17 at 15: 00 Dextrose (D50w Syringe) 25 ml Q15M PRN IV DECREASED GLUCOSE; Start 03/02/17 at 15:00 Dextrose (D50w Syringe) 50 ml Q15M PRN IV DECREASED GLUCOSE; Start 03/02/17 at 15:00 Glucagon (Glucagen) 1 mg Q15M PRN IM DECREASED GLUCOSE; Start 03/02/17 at 15:00 Glucose (Glutose) 15 gm Q15M PRN BUCCAL DECREASED GLUCOSE; Start 03/02/17 at 15 :00 Insulin Aspart (Novolog Insulin Pen) NOVOLOG *MODERATE* ALGORI... Q4 SC Last administered on 03/04/17 13:19; Admin Dose 2 UNIT; Start 03/02/17 at 17:00 Sodium Hypochlorite (Dakin'S (1/4 Strength)) 1 applic DAILY IRR Last administered on 03/04/17 08:39; Admin Dose 1 APPLIC; Start 03/03/17 at 09:00 Insulin Glargine (Lantus) 26 unit DAILY@08 SC ; Start 03/05/17 at 08:00 Prednisone (Prednisone) 5 mg Q8 PO Last administered on 03/04/17 14:30; Admin Dose 5 MG; Start 03/04/17 at 14:30 NESTOR GARCÍA NP Mar 04, 2017 16:42
[2017-03-05] VITALS (11 sets, daily range): BP systolic 92–129; BP diastolic 43–89; PULSE 76–113; RESP 16–19
[2017-03-05] MEDS: LORAZEPAM 2 MG INJ IV PRN ×3 (00:09→23:14)
[2017-03-05] MEDS: INSULIN ASPART [NOVOLOG] 3 ML PEN SC SCH ×6 (01:00→21:00)
[2017-03-05] MEDS: HYDROCODONE/APAP (5/325) TAB NGT PRN ×2 (01:38→06:10)
[2017-03-05] MEDS: predniSONE 5 MG TAB PO SCH ×3 (06:10→21:15)
[2017-03-05] MEDS: FUROSEMIDE 20 MG INJ IV SCH ×2 (06:11→17:07)
[2017-03-05 07:19] LABS: ABNORMAL IP MESSAGE 1; BASOPHIL # 0.1 10^3/ul (0.0-0.1); BASOPHILS % 0.9 % (0.0-2.0); EOSINOPHILS % 0.4 % (0.0-7.0); HEMOGLOBIN 8.1 g/dl (12.0-16.0); LYMPHOCYTES # 0.7 10^3/ul (0.8-2.9); LYMPHOCYTES % 8.3 % (15.0-51.0); MEAN CORPUSCULAR HEMOGLOBIN 27.7 pg (29.0-33.0); MEAN CORPUSCULAR HGB CONC 31.2 g/dl (32.0-37.0); MONOCYTE # 0.3 10^3/ul (0.3-0.9); MONOCYTES % 3.5 % (0.0-11.0); NEUTROPHIL # 5.9 10^3/ul (1.6-7.5); NEUTROPHILS % 73.9 % (39.0-77.0); NUCLEATED RED BLOOD CELLS% 0.3 /100WBC (0.0-0.0); PLATELET COUNT 146 10^3/UL (140-415); RED BLOOD COUNT 2.92 10^6/ul (4.20-5.40); RED CELL DISTRIBUTION WIDTH 17.8 % (11.5-14.5)
[2017-03-05 07:26] LABS: POSITIVE DIFF @See below
[2017-03-05 08:07] LABS: CALCIUM 8.3 mg/dl (8.4-10.2); CREATININE 0.5 mg/dl (0.44-1.00); POTASSIUM 3.9 mmol/L (3.5-5.1)
[2017-03-05] MEDS: LEVOTHYROXINE 100 MCG VIAL IV SCH (08:35)
[2017-03-05] MEDS: SODIUM HYPOCHLORITE 0.125% 473 ML BTL IRR SCH (08:35)
[2017-03-05] MEDS: MEROPENEM 500MG/50 ML (PMX) 50 ML IVPB SCH (08:36)
[2017-03-05] MEDS: INSULIN GLARGINE [LANtus] 3 ML PEN SC SCH (08:39)
[2017-03-05] MEDS: ENOXAPARIN 40 MG/0.4 ML SYG SC SCH (08:40)
[2017-03-05] MEDS: LINEZOLID 600 MG/D5W (PMX) 300 ML IVPB SCH ×2 (09:10→21:15)
--- NOTE | 2017-03-05 09:31 | PN ---
Date/Time of Note Date/Time of Note DATE: 03/05/17 TIME: 09:07 Assessment/Plan Lines/Catheters IV Catheter Type (from Nrsg): PICC Line Mojica in Place (from Nrsg): Yes Assessment/Plan Assessment/Plan Needs mobilization and physical therapy Subjective 24 Hr Interval Summary Postoperative day #12 Patient is awake and alert Exam/Review of Systems Vital Signs Vitals Vital Signs Date Time Temp Pulse Resp B/P Pulse Ox O2 Delivery O2 Flow Rate FiO2 03/05/17 08:17 76 03/05/17 07:38 3.0 03/05/17 07:28 97.8 18 118/54 100 03/04/17 20:12 Nasal Cannula Intake and Output 03/04/17 03/04/17 03/05/17 14:59 22:59 06:59 Intake Total 790 ml Output Total 500 ml Balance 290 ml Exam Constitutional: alert, oriented Gastrointestinal: other (Lower pole of incision with packing in place. Ileostomy functioning) Results Result Diagram: 03/05/17 0621 03/05/17 0621 CARL STEPHENS MD Mar 05, 2017 09:31
[2017-03-05] MEDS ORDERED: morphine 2 MG INJ IV ONE (10:00)
--- NOTE | 2017-03-05 11:36 | CONS ---
Date/Time of Note Date/Time of Note DATE: 03/05/17 TIME: 11:33 Assessment/Plan Assessment/Plan Additional Assessment/Plan Assessment and recommendations; 1. Patient admitted with bowel obstruction status post laparotomy with ileostomy and J-tube placement. 2. Status post respiratory failure. 3. Anemia. 4. Hypothyroidism. 5. Persistent generalized edema. 6. Diabetes. Continue current treatment. There is been marked overall improvement. Consider transfer to rehab. Consultation Date/Type/Reason Admit Date/Time Feb 20, 2017 at 19:33 Initial Consult Date 02/20/17 Type of Consultation: Pulmonary Referring Provider: CARL STEPHENS MD 24 HR Interval Summary Free Text/Dictation Patient's condition remains stable. Remains completely awake and alert. Denies any shortness of breath. Able to have clear liquids. General exam; elderly woman, awake and alert. Currently in no distress. Appears overweight. Exam/Review of Systems Vital Signs Vitals Vital Signs Date Time Temp Pulse Resp B/P Pulse Ox O2 Delivery O2 Flow Rate FiO2 03/05/17 11:27 97.9 109 18 92/43 91 03/05/17 08:20 Nasal Cannula 3.0 Intake and Output 03/04/17 03/04/17 03/05/17 15:00 23:00 07:00 Intake Total 790 ml Output Total 500 ml Balance 290 ml Exam HEENT exam; supple neck, positive JVD. No lymphadenopathy. Midline trachea. No thyromegaly. Pharynx is clear. Patient's dentition is fair. Has bilateral intraocular lens implants. Chest exam: clear breath sounds. S1-S2 audible, no murmurs. Regular rhythm. Abdomen exam; soft, nontender. No organomegaly. Ileostomy in place. Midline dressing in place. J-tube in place. Bowel sounds audible. Extremity exam; 1+ generalized edema. With multiple ecchymosis involving all 4 extremities. 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 Results Result Diagram: 03/05/1762003/05/17620 Results 24 hrs Laboratory Tests Test 03/04/17 13:16 03/04/17 17:29 03/04/17 21:46 03/04/17 21:48 Bedside Glucose 149 91 82 88 Test 03/05/17 01:37 03/05/17 06:00 03/05/17 06:06 03/05/17 06:21 Bedside Glucose 73 96 Lab Scanned Report BLOOD TRANSFUSION White Blood Count 8.0 # Red Blood Count 2.92 #L Hemoglobin 8.1 L Hematocrit 26.0 #L Mean Corpuscular Volume 89.0 Mean Corpuscular Hemoglobin 27.7 L Mean Corpuscular Hemoglobin Concent 31.2 L Red Cell Distribution Width 17.8 H Platelet Count 146 Mean Platelet Volume 12.0 H Neutrophils % 73.9 Lymphocytes % 8.3 L Monocytes % 3.5 Eosinophils % 0.4 Basophils % 0.9 Nucleated Red Blood Cells % 0.3 H Neutrophils # 5.9 Lymphocytes # 0.7 L Monocytes # 0.3 Eosinophils # 0.0 Basophils # 0.1 Nucleated Red Blood Cells # 0.0 Sodium Level 134 L Potassium Level 3.9 Chloride Level 99 Carbon Dioxide Level 31 Anion Gap 8 Blood Urea Nitrogen 24 H Creatinine 0.50 Glucose Level 93 Calcium Level 8.3 L Test 03/05/17 08:34 Bedside Glucose 106 Medications Medications Current Medications IV Flush (NS 10 ml) 10 ml PRN PRN IV IV PROTOCOL; Start 02/20/17 at 19:30 Levothyroxine Sodium (Synthroid Iv) 50 mcg AM IV Last administered on 08:35; Admin Dose 50 MCG; Start 02/21/17 at 09:00 Enoxaparin Sodium (Lovenox) 40 mg DAILY SC Last administered on 03/05/17 08:40 ; Admin Dose 40 MG; Start 02/22/17 at 09:00 Acetaminophen/ Hydrocodone Bitart ([place] (5/325)) 1 tab Q4H PRN NGT pain Last administered on 03/05/17 06:10; Admin Dose 1 TAB; Start 02/21/17 at 17:00 Ondansetron HCl 4 mg 4 mg Q6H PRN IV NAUSEA Last administered on 02/26/17 20: 12; Admin Dose 4 MG; Start 02/21/17 at 23:30 Caspofungin 50 mg/ Sodium Chloride 250 ml @ 250 mls/hr Q24H IVPB Last administered on 03/04/17 11:03; Admin Dose 250 MLS/HR; Start 02/23/17 at 11:00 Meropenem/Sodium Chloride (Merrem 500mg/50 ml(Pmx)) 50 ml @ 100 mls/hr Q12 IVPB Last administered on 03/05/17 08:36; Admin Dose 100 MLS/HR; Start at 21:00 Lorazepam (Ativan) 0.5 mg Q6H PRN IV AGITATION Last administered on 03/05/17 00:09; Admin Dose 0.5 MG; Start 02/27/17 at 16:00 Labetalol HCl 10 mg 10 mg Q2H PRN IV for SBP > 160, hold for HR <65; Start at 20:00 Linezolid (Zyvox 600mg/D5W (Pmx)) 300 ml @ 300 mls/hr Q12 IVPB Last administered on 03/05/17 09:10; Admin Dose 300 MLS/HR; Start 03/02/17 at 21:00 Miscellaneous Information 1 ea NOTE XX ; Start 03/02/17 at 15:00 Glucose (Glutose) 15 gm Q15M PRN PO DECREASED GLUCOSE; Start 03/02/17 at 15:00 Glucose (Glutose) 22.5 gm Q15M PRN PO DECREASED GLUCOSE; Start 03/02/17 at 15: 00 Dextrose (D50w Syringe) 25 ml Q15M PRN IV DECREASED GLUCOSE; Start 03/02/17 at 15:00 Dextrose (D50w Syringe) 50 ml Q15M PRN IV DECREASED GLUCOSE; Start 03/02/17 at 15:00 Glucagon (Glucagen) 1 mg Q15M PRN IM DECREASED GLUCOSE; Start 03/02/17 at 15:00 Glucose (Glutose) 15 gm Q15M PRN BUCCAL DECREASED GLUCOSE; Start 03/02/17 at 15 :00 Insulin Aspart (Novolog Insulin Pen) NOVOLOG *MODERATE* ALGORI... Q4 SC Last administered on 03/04/17 13:19; Admin Dose 2 UNIT; Start 03/02/17 at 17:00 Sodium Hypochlorite (Dakin'S (1/4 Strength)) 1 applic DAILY IRR Last administered on 03/05/17 08:35; Admin Dose 1 APPLIC; Start 03/03/17 at 09:00 Insulin Glargine (Lantus) 26 unit DAILY@08 SC Last administered on 03/05/17 08 :39; Admin Dose 26 UNIT; Start 03/05/17 at 08:00 Prednisone (Prednisone) 5 mg Q8 PO Last administered on 03/05/17t 06:10; Admin Dose 5 MG; Start 03/04/17 at 14:30 Morphine Sulfate (morphine) 2 mg Q12H PRN IV SEVERE PAIN LEVEL 7-10; Start 03/05/17 at 11:00 TESHA MATA Mar 05, 2017 11:36
[2017-03-05] MEDS: CASPOFUNGIN 50 MG in SOD CHLORIDE 0.9% 250 ML IVPB SCH (11:55)
[2017-03-05] MEDS ORDERED: AMIKACIN IV PER PHARMACY XX SCH (14:30)
[2017-03-05] MEDS: AMIKACIN 1,000 MG in SOD CHLORIDE 0.9% 100 ML IVPB SCH (17:07)
--- NOTE | 2017-03-05 17:14 | PN ---
Date/Time of Note Date/Time of Note DATE: 03/05/17 TIME: 17:13 Assessment/Plan VTE Prophylaxis VTE Prophylaxis Intervention: LMWH Lines/Catheters IV Catheter Type (from Nrsg): PICC Line Central line still needed: Yes Urinary Cath still in place: Yes Reason Cath still needed: urinary retention, terminal illness/intractable pain Assessment/Plan Chief Complaint/Hosp Course 71 yo female with PMR on chronic steroids, unclear seizure d/o, hypertension, obesity, recently discharged from [facility] following open appendectomy without complications who returned with sepsis, LATRICE and adrenal insufficiency. Found to have disrupted ileocolic anastomosis and intraabdominal infection. Now s/p resection and ileostomy. S/p intubation and ICU course, now stable on the floor GI: SBO, disrupted colonic anastamosis following surgery for ruptured appendicitis, now s/p resection and ileostomy - Management per Dr Haji - Diet as tolerated ID: Sepsis 2/2 intraabdominal infection, VRE bacteremia and willa glabrata fungemia - Continue abx per ID: linezolid/merrem - Caspofungin for candidemia - Culture cleared ENDOCRINE: Polymyalgia rheumatica and chronic adrenal suppression from prednisone, now iatrogenic adrenal insufficiency - Wean steroids per endocrine Hypothyroidism: - FT4 low, likely from poor absorption 2/2 ileus. Continue IV LT4 DM: - Basal/bolus insulin RENAL: LATRICE is resolved PT/OT Dispo to rehab Problems: Subjective 24 Hr Interval Summary Free Text/Dictation Pain at incision site Very weak throughout Exam/Review of Systems Vital Signs Vitals Vital Signs Date Time Temp Pulse Resp B/P Pulse Ox O2 Delivery O2 Flow Rate FiO2 03/05/17 16:02 113 03/05/17 15:53 98.5 18 115/57 93 03/05/17 08:20 Nasal Cannula 3.0 Intake and Output 03/04/17 03/04/17 03/05/17 15:00 23:00 07:00 Intake Total 790 ml Output Total 500 ml Balance 290 ml Results Result Diagram: 03/05/17 0621 03/05/17 0621 Results 24 hrs Laboratory Tests Test 03/04/17 17:29 03/04/17 21:46 03/04/17 21:48 03/05/17 01:37 Bedside Glucose 91 82 88 73 Test 03/05/17 06:00 03/05/17 06:06 03/05/17 06:21 03/05/17 08:34 Bedside Glucose 96 106 Lab Scanned Report BLOOD TRANSFUSION White Blood Count 8.0 # Red Blood Count 2.92 #L Hemoglobin 8.1 L Hematocrit 26.0 #L Mean Corpuscular Volume 89.0 Mean Corpuscular Hemoglobin 27.7 L Mean Corpuscular Hemoglobin Concent 31.2 L Red Cell Distribution Width 17.8 H Platelet Count 146 Mean Platelet Volume 12.0 H Neutrophils % 73.9 Lymphocytes % 8.3 L Monocytes % 3.5 Eosinophils % 0.4 Basophils % 0.9 Nucleated Red Blood Cells % 0.3 H Neutrophils # 5.9 Lymphocytes # 0.7 L Monocytes # 0.3 Eosinophils # 0.0 Basophils # 0.1 Nucleated Red Blood Cells # 0.0 Sodium Level 134 L Potassium Level 3.9 Chloride Level 99 Carbon Dioxide Level 31 Anion Gap 8 Blood Urea Nitrogen 24 H Creatinine 0.50 Glucose Level 93 Calcium Level 8.3 L Test 03/05/17 11:56 Bedside Glucose 141 Medications Medications Current Medications IV Flush (NS 10 ml) 10 ml PRN PRN IV IV PROTOCOL; Start 02/20/17 at 19:30 Levothyroxine Sodium (Synthroid Iv) 50 mcg AM IV Last administered on 08:35; Admin Dose 50 MCG; Start 02/21/17 at 09:00 Enoxaparin Sodium (Lovenox) 40 mg DAILY SC Last administered on 03/05/17 08:40 ; Admin Dose 40 MG; Start 02/22/17 at 09:00 Acetaminophen/ Hydrocodone Bitart ([place] (5/325)) 1 tab Q4H PRN NGT pain Last administered on 03/05/17 06:10; Admin Dose 1 TAB; Start 02/21/17 at 17:00 Ondansetron HCl 4 mg 4 mg Q6H PRN IV NAUSEA Last administered on 02/26/17 20: 12; Admin Dose 4 MG; Start 02/21/17 at 23:30 Caspofungin/ Sodium Chloride ([place]/NS) 250 ml @ 250 mls/hr Q24H IVPB Last administered on 03/05/17 11:55; Admin Dose 250 MLS/HR; Start 02/23/17 at 11:00 Lorazepam (Ativan) 0.5 mg Q6H PRN IV AGITATION Last administered on 03/05/17 12:33; Admin Dose 0.5 MG; Start 02/27/17 at 16:00 Labetalol HCl 10 mg 10 mg Q2H PRN IV for SBP > 160, hold for HR <65; Start at 20:00 Linezolid (Zyvox 600mg/D5W (Pmx)) 300 ml @ 300 mls/hr Q12 IVPB Last administered on 03/05/17 09:10; Admin Dose 300 MLS/HR; Start 03/02/17 at 21:00 Miscellaneous Information 1 ea NOTE XX ; Start 03/02/17 at 15:00 Glucose (Glutose) 15 gm Q15M PRN PO DECREASED GLUCOSE; Start 03/02/17 at 15:00 Glucose (Glutose) 22.5 gm Q15M PRN PO DECREASED GLUCOSE; Start 03/02/17 at 15: 00 Dextrose (D50w Syringe) 25 ml Q15M PRN IV DECREASED GLUCOSE; Start 03/02/17 at 15:00 Dextrose (D50w Syringe) 50 ml Q15M PRN IV DECREASED GLUCOSE; Start 03/02/17 at 15:00 Glucagon (Glucagen) 1 mg Q15M PRN IM DECREASED GLUCOSE; Start 03/02/17 at 15:00 Glucose (Glutose) 15 gm Q15M PRN BUCCAL DECREASED GLUCOSE; Start 03/02/17 at 15 :00 Insulin Aspart (Novolog Insulin Pen) NOVOLOG *MODERATE* ALGORI... Q4 SC Last administered on 03/05/17 12:04; Admin Dose 2 UNIT; Start 03/02/17 at 17:00 Sodium Hypochlorite (Dakin'S (1/4 Strength)) 1 applic DAILY IRR Last administered on 03/05/17 08:35; Admin Dose 1 APPLIC; Start 03/03/17 at 09:00 Insulin Glargine (Lantus) 26 unit DAILY@08 SC Last administered on 03/05/17 08 :39; Admin Dose 26 UNIT; Start 03/05/17 at 08:00 Prednisone (Prednisone) 5 mg Q8 PO Last administered on 03/05/17 13:33; Admin Dose 5 MG; Start 03/04/17 at 14:30 Morphine Sulfate (morphine) 2 mg Q12H PRN IV SEVERE PAIN LEVEL 7-10; Start 03/05/17 at 11:00 Amikacin Sulfate AMIKACIN PER PHARMACY NOTE XX ; Start 03/05/17 at 14:30 Amikacin Sulfate/ Sodium Chloride (Amikacin/NS) 104 ml @ 102 mls/hr Q24H IVPB Last administered on 03/05/17t 17:07; Admin Dose 102 MLS/HR; Start 03/05/17 at 16:00 YAKELIN MCKEON MD Mar 05, 2017 17:14
--- NOTE | 2017-03-05 17:27 | CONS ---
Date/Time of Note Date/Time of Note DATE: 03/05/17 TIME: 17:23 Assessment/Plan Assessment/Plan Additional Assessment/Plan 1. Acute kidney injury mutlifactorial due to Prerenal azotemia + ATN From septic shock 2. Acute encephalopathy metabolic 3. SBO, disrupted colonic anastomosis, s/p Exp lap, resection and ileostomy on 4. H/o Polymyalgia rheumatica on Steroids 5. H/o recent right hemicolectomy for perforated diverticulitis 6. Hyperkalemia acute, Hyponatremia 7. acute hypoxic respiratory failure requiring ventilator care s/p Extubation 8. adrenal crisis- On IV dexamethasone 9. Hypokalemia Plan: on predisone 5mg PO Q 8hr for adrenal insufficiency- tolerating so far on Lasix to 20mg iV BID, Cr normal, HCo3 34- monitor electrolytes and replace as needed.- tomorrow we will decrease lasix to 20mg IV daily IV abx sepsis. renally dose antibiotics , IV cancidas,IV synercid and IV zyvox , ID following s/p surgery, G surgery following , on pureed diet , tolerating so far. will follow up Consultation Date/Type/Reason Admit Date/Time Feb 20, 2017 at 19:33 Initial Consult Date 02/20/17 Type of Consultation: NEPHROLOGY Referring Provider: CARL STEPHENS MD 24 HR Interval Summary Free Text/Dictation Hb 8.1, BP stable, Cr and electrolytes normal today, c/o pain at incision site, very weak throughout Exam/Review of Systems Vital Signs Vitals Vital Signs Date Time Temp Pulse Resp B/P Pulse Ox O2 Delivery O2 Flow Rate FiO2 03/05/17 16:02 113 03/05/17 15:53 98.5 18 115/57 93 03/05/17 08:20 Nasal Cannula 3.0 Intake and Output 03/04/17 03/04/17 03/05/17 15:00 23:00 07:00 Intake Total 790 ml Output Total 500 ml Balance 290 ml Exam Constitutional: c/o incision site, very weak Respiratory: clear to auscultation, diminished breath sounds Cardiovascular: nl pulses, regular rate and rhythm Gastrointestinal: other, soft, dressing present Musculoskeletal: nl extremities to inspection Extremities: normal pulses Neurological: nl speech Results Result Diagram: 10/2/17 0621 10/2/17 0621 Results 24 hrs Laboratory Tests Test 03/04/17 17:29 03/04/17 21:46 03/04/17 21:48 03/05/17 01:37 Bedside Glucose 91 82 88 73 Test 03/05/17 06:00 03/05/17 06:06 03/05/17 06:21 03/05/17 08:34 Bedside Glucose 96 106 Lab Scanned Report BLOOD TRANSFUSION White Blood Count 8.0 # Red Blood Count 2.92 #L Hemoglobin 8.1 L Hematocrit 26.0 #L Mean Corpuscular Volume 89.0 Mean Corpuscular Hemoglobin 27.7 L Mean Corpuscular Hemoglobin Concent 31.2 L Red Cell Distribution Width 17.8 H Platelet Count 146 Mean Platelet Volume 12.0 H Neutrophils % 73.9 Lymphocytes % 8.3 L Monocytes % 3.5 Eosinophils % 0.4 Basophils % 0.9 Nucleated Red Blood Cells % 0.3 H Neutrophils # 5.9 Lymphocytes # 0.7 L Monocytes # 0.3 Eosinophils # 0.0 Basophils # 0.1 Nucleated Red Blood Cells # 0.0 Sodium Level 134 L Potassium Level 3.9 Chloride Level 99 Carbon Dioxide Level 31 Anion Gap 8 Blood Urea Nitrogen 24 H Creatinine 0.50 Glucose Level 93 Calcium Level 8.3 L Test 03/05/17 11:56 03/05/17 17:09 Bedside Glucose 141 82 Medications Medications Current Medications IV Flush (NS 10 ml) 10 ml PRN PRN IV IV PROTOCOL; Start 02/20/17 at 19:30 Levothyroxine Sodium (Synthroid Iv) 50 mcg AM IV Last administered on 08:35; Admin Dose 50 MCG; Start 02/21/17 at 09:00 Enoxaparin Sodium (Lovenox) 40 mg DAILY SC Last administered on 03/05/17 08:40 ; Admin Dose 40 MG; Start 02/22/17 at 09:00 Acetaminophen/ Hydrocodone Bitart ([place] (5/325)) 1 tab Q4H PRN NGT pain Last administered on 03/05/17 06:10; Admin Dose 1 TAB; Start 02/21/17 at 17:00 Ondansetron HCl 4 mg 4 mg Q6H PRN IV NAUSEA Last administered on 02/26/17 20: 12; Admin Dose 4 MG; Start 02/21/17 at 23:30 Caspofungin/ Sodium Chloride ([place]/NS) 250 ml @ 250 mls/hr Q24H IVPB Last administered on 03/05/17 11:55; Admin Dose 250 MLS/HR; Start 02/23/17 at 11:00 Lorazepam (Ativan) 0.5 mg Q6H PRN IV AGITATION Last administered on 03/05/17 12:33; Admin Dose 0.5 MG; Start 02/27/17 at 16:00 Labetalol HCl 10 mg 10 mg Q2H PRN IV for SBP > 160, hold for HR <65; Start at 20:00 Linezolid (Zyvox 600mg/D5W (Pmx)) 300 ml @ 300 mls/hr Q12 IVPB Last administered on 03/05/17 09:10; Admin Dose 300 MLS/HR; Start 03/02/17 at 21:00 Miscellaneous Information 1 ea NOTE XX ; Start 03/02/17 at 15:00 Glucose (Glutose) 15 gm Q15M PRN PO DECREASED GLUCOSE; Start 03/02/17 at 15:00 Glucose (Glutose) 22.5 gm Q15M PRN PO DECREASED GLUCOSE; Start 03/02/17 at 15: 00 Dextrose (D50w Syringe) 25 ml Q15M PRN IV DECREASED GLUCOSE; Start 03/02/17 at 15:00 Dextrose (D50w Syringe) 50 ml Q15M PRN IV DECREASED GLUCOSE; Start 03/02/17 at 15:00 Glucagon (Glucagen) 1 mg Q15M PRN IM DECREASED GLUCOSE; Start 03/02/17 at 15:00 Glucose (Glutose) 15 gm Q15M PRN BUCCAL DECREASED GLUCOSE; Start 03/02/17 at 15 :00 Insulin Aspart (Novolog Insulin Pen) NOVOLOG *MODERATE* ALGORI... Q4 SC Last administered on 03/05/17 12:04; Admin Dose 2 UNIT; Start 03/02/17 at 17:00 Sodium Hypochlorite (Dakin'S (1/4 Strength)) 1 applic DAILY IRR Last administered on 03/05/17 08:35; Admin Dose 1 APPLIC; Start 03/03/17 at 09:00 Insulin Glargine (Lantus) 26 unit DAILY@08 SC Last administered on 03/05/17 08 :39; Admin Dose 26 UNIT; Start 03/05/17 at 08:00 Prednisone (Prednisone) 5 mg Q8 PO Last administered on 03/05/17 13:33; Admin Dose 5 MG; Start 03/04/17 at 14:30 Morphine Sulfate (morphine) 2 mg Q12H PRN IV SEVERE PAIN LEVEL 7-10; Start 03/05/17 at 11:00 Amikacin Sulfate AMIKACIN PER PHARMACY NOTE XX ; Start 03/05/17 at 14:30 Amikacin Sulfate/ Sodium Chloride (Amikacin/NS) 104 ml @ 102 mls/hr Q24H IVPB Last administered on 03/05/17 17:07; Admin Dose 102 MLS/HR; Start 03/05/17 at 16:00 ARIK MCKEON MD Mar 05, 2017 17:27
[2017-03-06] MEDS: INSULIN ASPART [NOVOLOG] 3 ML PEN SC SCH ×6 (01:00→21:00)
[2017-03-06] MEDS: morphine 2 MG INJ IV PRN ×2 (02:42→15:06)
[2017-03-06 04:30] LABS: ABNORMAL IP MESSAGE 1; BASOPHILS % 0.3 % (0.0-2.0); EOSINOPHILS % 0.4 % (0.0-7.0); HEMATOCRIT 24.4 % (37.0-47.0); HEMOGLOBIN 8.1 g/dl (12.0-16.0); LYMPHOCYTES # 0.9 10^3/ul (0.8-2.9); LYMPHOCYTES % 7.8 % (15.0-51.0); MEAN CORPUSCULAR HEMOGLOBIN 29.2 pg (29.0-33.0); MEAN CORPUSCULAR HGB CONC 33.2 g/dl (32.0-37.0); MEAN CORPUSCULAR VOLUME 88.1 fl (82.0-101.0); MEAN PLATELET VOLUME 11.8 fl (7.4-10.4); MONOCYTE # 0.4 10^3/ul (0.3-0.9); MONOCYTES % 3.9 % (0.0-11.0); NEUTROPHIL # 8.1 10^3/ul (1.6-7.5); NEUTROPHILS % 72.8 % (39.0-77.0); NUCLEATED RED BLOOD CELLS # 0.1 10^3/ul (0.0-0.0); NUCLEATED RED BLOOD CELLS% 0.8 /100WBC (0.0-0.0); PLATELET COUNT 145 10^3/UL (140-415); RED BLOOD COUNT 2.77 10^6/ul (4.20-5.40); RED CELL DISTRIBUTION WIDTH 17.2 % (11.5-14.5); WHITE BLOOD COUNT 11.2 10^3/ul (4.8-10.8)
[2017-03-06 04:31] LABS: POSITIVE DIFF @See below
[2017-03-06 05:21] LABS: ALBUMIN 2.1 g/dl (3.3-4.9); ALBUMIN/GLOBULIN RATIO 0.7; BILIRUBIN,INDIRECT 0.3 mg/dl (0-1.1); BILIRUBIN,TOTAL 0.3 mg/dl (0.2-1.3); CALCIUM 8.4 mg/dl (8.4-10.2); CREATININE 0.58 mg/dl (0.44-1.00); POTASSIUM 3.7 mmol/L (3.5-5.1); TOTAL PROTEIN 5.1 g/dl (6.1-8.1)
[2017-03-06] MEDS: predniSONE 5 MG TAB PO SCH ×2 (06:34→14:39)
[2017-03-06] MEDS: FUROSEMIDE 20 MG INJ IV SCH (06:35)
--- NOTE | 2017-03-06 06:47 | PN ---
DATE: 03/05/2017 SUBJECTIVE DATA: No acute changes overnight. The patient is alert, looks comfortable. Denies pain. No fevers. LABORATORY AND DIAGNOSTIC DATA: WBC today 8, H and H 8.1 and 26, platelets 146, neutrophils 73.9. BUN 24, creatinine 0.50. MICROBIOLOGY: Blood culture since 2 admission grew VRE and Laisha glabrata. Abdominal wound culture growing Pseudomonas Enterococcus species and yeast. INDWELLINGS: PICC line, Mojica catheter. ANTIMICROBIALS: The patient is on IV Zyvox, meropenem, Cancidas. PHYSICAL EXAMINATION: GENERAL: This is a morbidly-obese, well-developed, elderly woman, who is awake, in no distress. HEENT: Head atraumatic, normocephalic. Sclerae anicteric. Buccal mucosa dry. NECK: Obese. CHEST: Rise symmetrical. Breath sounds diminished at the bases. HEART: S1, S2. ABDOMEN: Soft, bowel sounds present. Dressing intact. EXTREMITIES: With bilateral edema. ASSESSMENT: 1. Resolving sepsis, status post shock. 2. Persistent bacteremia with fungemia secondary to number 3. 3. Status post peritonitis, anastomotic leak repair on 02/21/2017. 4. Status post pneumonia and acute respiratory failure. 5. Status post open appendectomy. 6. Infected surgical incision with abdominal wound culture growing multidrug resistant Pseudomonas Enterococcus species and yeast. PLAN: The patient remains stable. We are going to change meropenem to amikacin to cover Pseudomonas should that grow from her wound. Continue other antibiotics. Monitor renal function closely and repeat blood cultures. Continue anti-aspiration measures. Dictated By: Mk Kimball NP /louie/hiral /Document#: [id number]
[2017-03-06 07:35] VITALS: BP 127/60; RESP 18
[2017-03-06] MEDS: LINEZOLID 600 MG/D5W (PMX) 300 ML IVPB SCH ×2 (08:47→21:11)
[2017-03-06] MEDS: HYDROCODONE/APAP (5/325) TAB NGT PRN ×2 (08:48→12:59)
[2017-03-06] MEDS: INSULIN GLARGINE [LANtus] 3 ML PEN SC SCH (08:53)
[2017-03-06] MEDS: ENOXAPARIN 40 MG/0.4 ML SYG SC SCH (08:55)
[2017-03-06] MEDS: SODIUM HYPOCHLORITE 0.125% 473 ML BTL IRR SCH (08:57)
[2017-03-06] MEDS: CASPOFUNGIN 50 MG in SOD CHLORIDE 0.9% 250 ML IVPB SCH (11:45)
--- NOTE | 2017-03-06 12:38 | CONS ---
Date/Time of Note Date/Time of Note DATE: 03/06/17 TIME: 12:36 Consult Date/Type/Reason Admit Date/Time Feb 20, 2017 at 19:33 Initial Consult Date 02/20/17 Type of Consultation: pulm Ordering Provider: CARL STEPHENS MD Subjective Stable, no new events. Objective Vital Signs Date Time Temp Pulse Resp B/P Pulse Ox O2 Delivery O2 Flow Rate FiO2 03/06/17 07:35 97.4 112 18 127/60 95 03/05/17 08:20 Nasal Cannula 3.0 Intake and Output 03/05/17 03/05/17 03/06/17 15:00 23:00 07:00 Intake Total 350 ml 500 ml 700 ml Output Total 2400 ml 2500 ml Balance 350 ml -1900 ml -1800 ml Results/Medications Result Diagram: 03/06/17 0358 03/06/17 0358 Results 24 hrs Laboratory Tests Test 03/05/17 17:09 03/05/17 21:14 03/06/17 02:47 03/06/17 03:58 Bedside Glucose 82 80 82 White Blood Count 11.2 #H Red Blood Count 2.77 L Hemoglobin 8.1 L Hematocrit 24.4 L Mean Corpuscular Volume 88.1 Mean Corpuscular Hemoglobin 29.2 Mean Corpuscular Hemoglobin Concent 33.2 Red Cell Distribution Width 17.2 H Platelet Count 145 Mean Platelet Volume 11.8 H Neutrophils % 72.8 Lymphocytes % 7.8 L Monocytes % 3.9 Eosinophils % 0.4 Basophils % 0.3 Nucleated Red Blood Cells % 0.8 H Neutrophils # 8.1 H Lymphocytes # 0.9 Monocytes # 0.4 Eosinophils # 0.0 Basophils # 0.0 Nucleated Red Blood Cells # 0.1 H Sodium Level 136 Potassium Level 3.7 Chloride Level 102 Carbon Dioxide Level 32 H Anion Gap 6 L Blood Urea Nitrogen 18 Creatinine 0.58 Glucose Level 80 Calcium Level 8.4 Total Bilirubin 0.3 Direct Bilirubin 0.00 Indirect Bilirubin 0.3 Aspartate Amino Transf (AST/SGOT) 32 Alanine Aminotransferase (ALT/SGPT) 40 Alkaline Phosphatase 116 Total Protein 5.1 L Albumin 2.1 L Globulin 3.00 Albumin/Globulin Ratio 0.70 Random Amikacin Level Test 03/06/17 05:08 03/06/17 06:13 03/06/17 06:48 03/06/17 08:24 Bedside Glucose 74 73 151 101 Test 03/06/17 11:45 Lab Scanned Report REFERENCE LAB Medications Current Medications IV Flush (NS 10 ml) 10 ml PRN PRN IV IV PROTOCOL; Start 02/20/17 at 19:30 Enoxaparin Sodium (Lovenox) 40 mg DAILY SC Last administered on 03/06/17 08:55 ; Admin Dose 40 MG; Start 02/22/17 at 09:00 Acetaminophen/ Hydrocodone Bitart ([place] (5/325)) 1 tab Q4H PRN NGT pain Last administered on 03/06/17 08:48; Admin Dose 1 TAB; Start 02/21/17 at 17:00 Ondansetron HCl 4 mg 4 mg Q6H PRN IV NAUSEA Last administered on 02/26/17 20: 12; Admin Dose 4 MG; Start 02/21/17 at 23:30 Caspofungin/ Sodium Chloride (Cancidas/NS) 250 ml @ 250 mls/hr Q24H IVPB Last administered on 03/06/17 11:45; Admin Dose 250 MLS/HR; Start 02/23/17 at 11:00 Lorazepam (Ativan) 0.5 mg Q6H PRN IV AGITATION Last administered on 03/05/17 23:14; Admin Dose 0.5 MG; Start 02/27/17 at 16:00 Labetalol HCl 10 mg 10 mg Q2H PRN IV for SBP > 160, hold for HR <65; Start at 20:00 Linezolid (Zyvox 600mg/D5W (Pmx)) 300 ml @ 300 mls/hr Q12 IVPB Last administered on 03/06/17 08:47; Admin Dose 300 MLS/HR; Start 03/02/17 at 21:00 Miscellaneous Information 1 ea NOTE XX ; Start 03/02/17 at 15:00 Glucose (Glutose) 15 gm Q15M PRN PO DECREASED GLUCOSE; Start 03/02/17 at 15:00 Glucose (Glutose) 22.5 gm Q15M PRN PO DECREASED GLUCOSE; Start 03/02/17 at 15: 00 Dextrose (D50w Syringe) 25 ml Q15M PRN IV DECREASED GLUCOSE Last administered on 03/06/17 06:34; Admin Dose 25 ML; Start 03/02/17 at 15:00 Dextrose (D50w Syringe) 50 ml Q15M PRN IV DECREASED GLUCOSE; Start 03/02/17 at 15:00 Glucagon (Glucagen) 1 mg Q15M PRN IM DECREASED GLUCOSE; Start 03/02/17 at 15:00 Glucose (Glutose) 15 gm Q15M PRN BUCCAL DECREASED GLUCOSE; Start 03/02/17 at 15 :00 Insulin Aspart (Novolog Insulin Pen) NOVOLOG *MODERATE* ALGORI... Q4 SC Last administered on 03/05/17 12:04; Admin Dose 2 UNIT; Start 03/02/17 at 17:00 Sodium Hypochlorite (Dakin'S (1/4 Strength)) 1 applic DAILY IRR Last administered on 03/06/17 08:57; Admin Dose 1 APPLIC; Start 03/03/17 at 09:00 Insulin Glargine (Lantus) 26 unit DAILY@08 SC Last administered on 03/06/17 08 :53; Admin Dose 26 UNIT; Start 03/05/17 at 08:00 Prednisone (Prednisone) 5 mg Q8 PO Last administered on 03/06/17 06:34; Admin Dose 5 MG; Start 03/04/17 at 14:30 Morphine Sulfate (morphine) 2 mg Q12H PRN IV SEVERE PAIN LEVEL 7-10 Last administered on 03/06/17 02:42; Admin Dose 2 MG; Start 03/05/17 at 11:00 Amikacin Sulfate AMIKACIN PER PHARMACY NOTE XX ; Start 03/05/17 at 14:30 Amikacin Sulfate/ Sodium Chloride (Amikacin/NS) 104 ml @ 102 mls/hr Q24H IVPB Last administered on 03/05/17 17:07; Admin Dose 102 MLS/HR; Start 03/05/17 at 16:00 Assessment/Plan Chief Complaint/Hosp Course Assessment: 1. Patient admitted with bowel obstruction status post laparotomy with ileostomy and J-tube placement. 2. Status post respiratory failure. 3. Anemia. 4. Hypothyroidism. 5. Persistent generalized edema. 6. Diabetes. Plan: Continue supportive care Transfer to [place]. Problems: KATHY SALOMON MD, [facility] Mar 06, 2017 12:38
[2017-03-06 14:12] VITALS: BP 116/56; RESP 18
--- NOTE | 2017-03-06 14:25 | CONS ---
Date/Time of Note Date/Time of Note DATE: 03/06/17 TIME: 14:24 Assessment/Plan Assessment/Plan Chief Complaint/Hosp Course SUBJECTIVE DATA: No acute changes overnight. The patient is sleeping, looks comfortable. No fevers. MICROBIOLOGY: Blood culture since 2 admission grew VRE and Laisha glabrata. Abdominal wound culture growing Pseudomonas Enterococcus species and yeast. INDWELLINGS: PICC line, Mojica catheter. ANTIMICROBIALS: The patient is on IV Zyvox, Amikacin, Cancidas. PHYSICAL EXAMINATION: GENERAL: This is a morbidly-obese, well-developed, elderly woman, who is awake, in no distress. HEENT: Head atraumatic, normocephalic. Sclerae anicteric. Buccal mucosa dry. NECK: Obese. CHEST: Rise symmetrical. Breath sounds diminished at the bases. HEART: S1, S2. ABDOMEN: Soft, bowel sounds present. Dressing intact. EXTREMITIES: With bilateral edema. ASSESSMENT: 1. Resolving sepsis, status post shock. 2. Persistent bacteremia with fungemia secondary to number 3. 3. Status post peritonitis, anastomotic leak repair on 02/21/2017. 4. Status post pneumonia and acute respiratory failure. 5. Status post open appendectomy. 6. Infected surgical incision with abdominal wound culture growing multidrug resistant Pseudomonas Enterococcus species and yeast. PLAN: The patient remains stable. Continue abx, aspiration precautions, local wound care, repeat bld cx DW staff Problems: Consultation Date/Type/Reason Admit Date/Time Feb 20, 2017 at 19:33 Initial Consult Date 02/20/17 Type of Consultation: ID Referring Provider: CARL STEPHENS MD Exam/Review of Systems Vital Signs Vitals Vital Signs Date Time Temp Pulse Resp B/P Pulse Ox O2 Delivery O2 Flow Rate FiO2 03/06/17 07:35 97.4 112 18 127/60 95 03/05/17 08:20 Nasal Cannula 3.0 Intake and Output 03/05/17 03/05/17 03/06/17 15:00 23:00 07:00 Intake Total 350 ml 500 ml 700 ml Output Total 2400 ml 2500 ml Balance 350 ml -1900 ml -1800 ml Results Result Diagram: 03/06/17 0358 03/06/17 0358 Results 24 hrs Laboratory Tests Test 03/05/17 17:09 03/05/17 21:14 03/06/17 02:47 03/06/17 03:58 Bedside Glucose 82 80 82 White Blood Count 11.2 #H Red Blood Count 2.77 L Hemoglobin 8.1 L Hematocrit 24.4 L Mean Corpuscular Volume 88.1 Mean Corpuscular Hemoglobin 29.2 Mean Corpuscular Hemoglobin Concent 33.2 Red Cell Distribution Width 17.2 H Platelet Count 145 Mean Platelet Volume 11.8 H Neutrophils % 72.8 Lymphocytes % 7.8 L Monocytes % 3.9 Eosinophils % 0.4 Basophils % 0.3 Nucleated Red Blood Cells % 0.8 H Neutrophils # 8.1 H Lymphocytes # 0.9 Monocytes # 0.4 Eosinophils # 0.0 Basophils # 0.0 Nucleated Red Blood Cells # 0.1 H Sodium Level 136 Potassium Level 3.7 Chloride Level 102 Carbon Dioxide Level 32 H Anion Gap 6 L Blood Urea Nitrogen 18 Creatinine 0.58 Glucose Level 80 Calcium Level 8.4 Total Bilirubin 0.3 Direct Bilirubin 0.00 Indirect Bilirubin 0.3 Aspartate Amino Transf (AST/SGOT) 32 Alanine Aminotransferase (ALT/SGPT) 40 Alkaline Phosphatase 116 Total Protein 5.1 L Albumin 2.1 L Globulin 3.00 Albumin/Globulin Ratio 0.70 Random Amikacin Level Test 03/06/17 05:08 03/06/17 06:13 03/06/17 06:48 03/06/17 08:24 Bedside Glucose 74 73 151 101 Test 03/06/17 11:45 03/06/17 12:34 Lab Scanned Report REFERENCE LAB Bedside Glucose 73 Medications Medications Current Medications IV Flush (NS 10 ml) 10 ml PRN PRN IV IV PROTOCOL; Start 02/20/17 at 19:30 Enoxaparin Sodium (Lovenox) 40 mg DAILY SC Last administered on 03/06/17 08:55 ; Admin Dose 40 MG; Start 02/22/17 at 09:00 Acetaminophen/ Hydrocodone Bitart ([place] (5/325)) 1 tab Q4H PRN NGT pain Last administered on 03/06/17 12:59; Admin Dose 1 TAB; Start 02/21/17 at 17:00 Ondansetron HCl 4 mg 4 mg Q6H PRN IV NAUSEA Last administered on 02/26/17 20: 12; Admin Dose 4 MG; Start 02/21/17 at 23:30 Caspofungin/ Sodium Chloride (Cancidas/NS) 250 ml @ 250 mls/hr Q24H IVPB Last administered on 03/06/17 11:45; Admin Dose 250 MLS/HR; Start 02/23/17 at 11:00 Lorazepam (Ativan) 0.5 mg Q6H PRN IV AGITATION Last administered on 03/05/17 23:14; Admin Dose 0.5 MG; Start 02/27/17 at 16:00 Labetalol HCl 10 mg 10 mg Q2H PRN IV for SBP > 160, hold for HR <65; Start at 20:00 Linezolid (Zyvox 600mg/D5W (Pmx)) 300 ml @ 300 mls/hr Q12 IVPB Last administered on 03/06/17 08:47; Admin Dose 300 MLS/HR; Start 03/02/17 at 21:00 Miscellaneous Information 1 ea NOTE XX ; Start 03/02/17 at 15:00 Glucose (Glutose) 15 gm Q15M PRN PO DECREASED GLUCOSE; Start 03/02/17 at 15:00 Glucose (Glutose) 22.5 gm Q15M PRN PO DECREASED GLUCOSE; Start 03/02/17 at 15: 00 Dextrose (D50w Syringe) 25 ml Q15M PRN IV DECREASED GLUCOSE Last administered on 03/06/17 06:34; Admin Dose 25 ML; Start 03/02/17 at 15:00 Dextrose (D50w Syringe) 50 ml Q15M PRN IV DECREASED GLUCOSE; Start 03/02/17 at 15:00 Glucagon (Glucagen) 1 mg Q15M PRN IM DECREASED GLUCOSE; Start 03/02/17 at 15:00 Glucose (Glutose) 15 gm Q15M PRN BUCCAL DECREASED GLUCOSE; Start 03/02/17 at 15 :00 Insulin Aspart (Novolog Insulin Pen) NOVOLOG *MODERATE* ALGORI... Q4 SC Last administered on 03/05/17 12:04; Admin Dose 2 UNIT; Start 03/02/17 at 17:00 Sodium Hypochlorite ([place]akin'S (1/4 Strength)) 1 applic DAILY IRR Last administered on 03/06/17 08:57; Admin Dose 1 APPLIC; Start 03/03/17 at 09:00 Insulin Glargine (Lantus) 26 unit DAILY@08 SC Last administered on 03/06/17 08 :53; Admin Dose 26 UNIT; Start 03/05/17 at 08:00 Prednisone (Prednisone) 5 mg Q8 PO Last administered on 03/06/17 06:34; Admin Dose 5 MG; Start 03/04/17 at 14:30 Morphine Sulfate (morphine) 2 mg Q12H PRN IV SEVERE PAIN LEVEL 7-10 Last administered on 03/06/17 02:42; Admin Dose 2 MG; Start 03/05/17 at 11:00 Amikacin Sulfate AMIKACIN PER PHARMACY NOTE XX ; Start 03/05/17 at 14:30 Amikacin Sulfate/ Sodium Chloride (Amikacin/NS) 104 ml @ 102 mls/hr Q24H IVPB Last administered on 03/05/17 17:07; Admin Dose 102 MLS/HR; Start 03/05/17 at 16:00 ALLISON FRANKLIN NP Mar 06, 2017 14:25
--- NOTE | 2017-03-06 15:07 | PN ---
Date/Time of Note Date/Time of Note DATE: 03/06/17 TIME: 15:05 Assessment/Plan VTE Prophylaxis VTE Prophylaxis Intervention: LMWH Lines/Catheters IV Catheter Type (from Nrs): PICC Line Central line still needed: Yes Urinary Cath still in place: Yes Reason Cath still needed: other (indicate) Assessment/Plan Chief Complaint/Hosp Course 71 yo female with PMR on chronic steroids, unclear seizure d/o, hypertension, obesity, recently discharged from [facility] following open appendectomy without complications who returned with sepsis, LATRICE and adrenal insufficiency. Found to have disrupted ileocolic anastomosis and intraabdominal infection. Now s/p resection and ileostomy. S/p intubation and ICU course, now stable on the floor SBO, disrupted colonic anastamosis following surgery for ruptured appendicitis, now s/p resection and ileostomy - Management per Dr Haji - Diet as tolerated Sepsis 2/2 intraabdominal infection, VRE bacteremia and willa glabrata fungemia - Continue abx per ID: [email or web address]/[email or web address] - Caspofungin for candidemia - Culture cleared Polymyalgia rheumatica and chronic adrenal suppression from prednisone, now iatrogenic adrenal insufficiency - Resume home predisone dose of 40 daily Hypothyroidism: - FT4 low, likely from poor absorption 2/2 ileus. Continue IV LT4 DM: - Sugars borderline low as steroids are tapered, decrease glargine LATRICE is resolved PT/OT Dispo to rehab Problems: Subjective 24 Hr Interval Summary Free Text/Dictation Patient sleeping comfortable, no complaints Exam/Review of Systems Vital Signs Vitals Vital Signs Date Time Temp Pulse Resp B/P Pulse Ox O2 Delivery O2 Flow Rate FiO2 03/06/17 14:12 98.3 118 18 116/56 90 03/05/17 08:20 Nasal Cannula 3.0 Intake and Output 03/05/17 03/05/17 03/06/17 14:59 22:59 06:59 Intake Total 350 ml 500 ml 700 ml Output Total 2400 ml 2500 ml Balance 350 ml -1900 ml -1800 ml Exam Constitutional: alert, oriented, well developed Psych: nl mood/affect, no complaints Head: atraumatic, normocephalic Eyes: EOMI, PERRL, nl conjunctiva, nl lids, nl sclera ENMT: nl external ears & nose, nl lips & teeth, nl nasal mucosa & septum Neck: non-tender, supple Respiratory: clear to auscultation, normal air movement Cardiovascular: nl pulses, regular rate and rhythm Gastrointestinal: nl liver, spleen, non-tender, soft Musculoskeletal: nl extremities to inspection, nl gait and stance Extremities: normal pulses Neurological: [employer] II-XII intact, nl mental status, nl speech, nl strength Skin: nl turgor, No rash or lesions Lymph: nl lymph nodes Results Result Diagram: 03/06/17 0358 03/06/17 0358 Results 24 hrs Laboratory Tests Test 03/05/17 17:09 03/05/17 21:14 03/06/17 02:47 03/06/17 03:58 Bedside Glucose 82 80 82 White Blood Count 11.2 #H Red Blood Count 2.77 L Hemoglobin 8.1 L Hematocrit 24.4 L Mean Corpuscular Volume 88.1 Mean Corpuscular Hemoglobin 29.2 Mean Corpuscular Hemoglobin Concent 33.2 Red Cell Distribution Width 17.2 H Platelet Count 145 Mean Platelet Volume 11.8 H Neutrophils % 72.8 Lymphocytes % 7.8 L Monocytes % 3.9 Eosinophils % 0.4 Basophils % 0.3 Nucleated Red Blood Cells % 0.8 H Neutrophils # 8.1 H Lymphocytes # 0.9 Monocytes # 0.4 Eosinophils # 0.0 Basophils # 0.0 Nucleated Red Blood Cells # 0.1 H Sodium Level 136 Potassium Level 3.7 Chloride Level 102 Carbon Dioxide Level 32 H Anion Gap 6 L Blood Urea Nitrogen 18 Creatinine 0.58 Glucose Level 80 Calcium Level 8.4 Total Bilirubin 0.3 Direct Bilirubin 0.00 Indirect Bilirubin 0.3 Aspartate Amino Transf (AST/SGOT) 32 Alanine Aminotransferase (ALT/SGPT) 40 Alkaline Phosphatase 116 Total Protein 5.1 L Albumin 2.1 L Globulin 3.00 Albumin/Globulin Ratio 0.70 Random Amikacin Level Test 03/06/17 05:08 03/06/17 06:13 03/06/17 06:48 03/06/17 08:24 Bedside Glucose 74 73 151 101 Test 03/06/17 11:45 03/06/17 12:34 Lab Scanned Report REFERENCE LAB Bedside Glucose 73 Medications Medications Current Medications IV Flush (NS 10 ml) 10 ml PRN PRN IV IV PROTOCOL; Start 02/20/17 at 19:30 Enoxaparin Sodium (Lovenox) 40 mg DAILY SC Last administered on 03/06/17 08:55 ; Admin Dose 40 MG; Start 02/22/17 at 09:00 Acetaminophen/ Hydrocodone Bitart ([place] (5/325)) 1 tab Q4H PRN NGT pain Last administered on 03/06/17 12:59; Admin Dose 1 TAB; Start 02/21/17 at 17:00 Ondansetron HCl 4 mg 4 mg Q6H PRN IV NAUSEA Last administered on 02/26/17 20: 12; Admin Dose 4 MG; Start 02/21/17 at 23:30 Caspofungin/ Sodium Chloride (Canc[place]/NS) 250 ml @ 250 mls/hr Q24H IVPB Last administered on 03/06/17 11:45; Admin Dose 250 MLS/HR; Start 02/23/17 at 11:00 Lorazepam (Ativan) 0.5 mg Q6H PRN IV AGITATION Last administered on 03/05/17 23:14; Admin Dose 0.5 MG; Start 02/27/17 at 16:00 Labetalol HCl 10 mg 10 mg Q2H PRN IV for SBP > 160, hold for HR <65; Start at 20:00 Linezolid (Zyvox 600mg/D5W (Pmx)) 300 ml @ 300 mls/hr Q12 IVPB Last administered on 03/06/17 08:47; Admin Dose 300 MLS/HR; Start 03/02/17 at 21:00 Miscellaneous Information 1 ea NOTE XX ; Start 03/02/17 at 15:00 Glucose (Glutose) 15 gm Q15M PRN PO DECREASED GLUCOSE; Start 03/02/17 at 15:00 Glucose (Glutose) 22.5 gm Q15M PRN PO DECREASED GLUCOSE; Start 03/02/17 at 15: 00 Dextrose (D50w Syringe) 25 ml Q15M PRN IV DECREASED GLUCOSE Last administered on 03/06/17 06:34; Admin Dose 25 ML; Start 03/02/17 at 15:00 Dextrose (D50w Syringe) 50 ml Q15M PRN IV DECREASED GLUCOSE; Start 03/02/17 at 15:00 Glucagon (Glucagen) 1 mg Q15M PRN IM DECREASED GLUCOSE; Start 03/02/17 at 15:00 Glucose (Glutose) 15 gm Q15M PRN BUCCAL DECREASED GLUCOSE; Start 03/02/17 at 15 :00 Insulin Aspart (Novolog Insulin Pen) NOVOLOG *MODERATE* ALGORI... Q4 SC Last administered on 03/05/17 12:04; Admin Dose 2 UNIT; Start 03/02/17 at 17:00 Sodium Hypochlorite (Dakin'S (1/4 Strength)) 1 applic DAILY IRR Last administered on 03/06/17 08:57; Admin Dose 1 APPLIC; Start 03/03/17 at 09:00 Insulin Glargine (Lantus) 26 unit DAILY@08 SC Last administered on 03/06/17 08 :53; Admin Dose 26 UNIT; Start 03/05/17 at 08:00 Morphine Sulfate (morphine) 2 mg Q12H PRN IV SEVERE PAIN LEVEL 7-10 Last administered on 03/06/17 02:42; Admin Dose 2 MG; Start 03/05/17 at 11:00 Amikacin Sulfate AMIKACIN PER PHARMACY NOTE XX ; Start 03/05/17 at 14:30 Amikacin Sulfate/ Sodium Chloride (Amikacin/NS) 104 ml @ 102 mls/hr Q24H IVPB Last administered on 03/05/17 17:07; Admin Dose 102 MLS/HR; Start 03/05/17 at 16:00 Prednisone (Prednisone) 5 mg BID PO ; Start 03/07/17 at 08:00 YAKELIN MCKEON MD Mar 06, 2017 15:07
--- NOTE | 2017-03-06 15:22 | CONS ---
Date/Time of Note Date/Time of Note DATE: 03/06/17 TIME: 15:20 Assessment/Plan Assessment/Plan Additional Assessment/Plan 1. Acute kidney injury mutlifactorial due to Prerenal azotemia + ATN From septic shock 2. Acute encephalopathy metabolic 3. SBO, disrupted colonic anastomosis, s/p Exp lap, resection and ileostomy on 4. H/o Polymyalgia rheumatica on Steroids 5. H/o recent right hemicolectomy for perforated diverticulitis 6. Hyperkalemia acute, Hyponatremia 7. acute hypoxic respiratory failure requiring ventilator care s/p Extubation 8. adrenal crisis- On IV dexamethasone 9. Hypokalemia Plan: on predisone 5mg PO BID for adrenal insufficiency- taper down is tolerating so far Currently on Lasix to 20mg iV BID, Cr normal, HCo3 32-decrease lasix to 20mg IV daily IV abx sepsis. renally dose antibiotics , IV cancidas,IV synercid and IV zyvox , ID following s/p surgery, G surgery following , on pureed diet , tolerating so far. will follow up Consultation Date/Type/Reason Admit Date/Time Feb 20, 2017 at 19:33 Initial Consult Date 02/20/17 Type of Consultation: NEPHROLOGY Referring Provider: CARL STEPHENS MD Exam/Review of Systems Vital Signs Vitals Vital Signs Date Time Temp Pulse Resp B/P Pulse Ox O2 Delivery O2 Flow Rate FiO2 03/06/17 14:12 98.3 118 18 116/56 90 03/05/17 08:20 Nasal Cannula 3.0 Intake and Output 03/05/17 03/05/17 03/06/17 15:00 23:00 07:00 Intake Total 350 ml 500 ml 700 ml Output Total 2400 ml 2500 ml Balance 350 ml -1900 ml -1800 ml Exam Constitutional: c/o incision site, very weak Respiratory: clear to auscultation, diminished breath sounds Cardiovascular: nl pulses, regular rate and rhythm Gastrointestinal: other, soft, dressing present Musculoskeletal: nl extremities to inspection Extremities: normal pulses Neurological: nl speech Results Result Diagram: 03/06/17 0358 03/06/17 0358 Results 24 hrs Laboratory Tests Test 03/05/17 17:09 03/05/17 21:14 03/06/17 02:47 03/06/17 03:58 Bedside Glucose 82 80 82 White Blood Count 11.2 #H Red Blood Count 2.77 L Hemoglobin 8.1 L Hematocrit 24.4 L Mean Corpuscular Volume 88.1 Mean Corpuscular Hemoglobin 29.2 Mean Corpuscular Hemoglobin Concent 33.2 Red Cell Distribution Width 17.2 H Platelet Count 145 Mean Platelet Volume 11.8 H Neutrophils % 72.8 Lymphocytes % 7.8 L Monocytes % 3.9 Eosinophils % 0.4 Basophils % 0.3 Nucleated Red Blood Cells % 0.8 H Neutrophils # 8.1 H Lymphocytes # 0.9 Monocytes # 0.4 Eosinophils # 0.0 Basophils # 0.0 Nucleated Red Blood Cells # 0.1 H Sodium Level 136 Potassium Level 3.7 Chloride Level 102 Carbon Dioxide Level 32 H Anion Gap 6 L Blood Urea Nitrogen 18 Creatinine 0.58 Glucose Level 80 Calcium Level 8.4 Total Bilirubin 0.3 Direct Bilirubin 0.00 Indirect Bilirubin 0.3 Aspartate Amino Transf (AST/SGOT) 32 Alanine Aminotransferase (ALT/SGPT) 40 Alkaline Phosphatase 116 Total Protein 5.1 L Albumin 2.1 L Globulin 3.00 Albumin/Globulin Ratio 0.70 Random Amikacin Level Test 03/06/17 05:08 03/06/17 06:13 03/06/17 06:48 03/06/17 08:24 Bedside Glucose 74 73 151 101 Test 03/06/17 11:45 03/06/17 12:34 Lab Scanned Report REFERENCE LAB Bedside Glucose 73 Medications Medications Current Medications IV Flush (NS 10 ml) 10 ml PRN PRN IV IV PROTOCOL; Start 02/20/17 at 19:30 Enoxaparin Sodium (Lovenox) 40 mg DAILY SC Last administered on 03/06/17 08:55 ; Admin Dose 40 MG; Start 02/22/17 at 09:00 Acetaminophen/ Hydrocodone Bitart ([place] (5/325)) 1 tab Q4H PRN NGT pain Last administered on 03/06/17 12:59; Admin Dose 1 TAB; Start 02/21/17 at 17:00 Ondansetron HCl 4 mg 4 mg Q6H PRN IV NAUSEA Last administered on 02/26/17 20: 12; Admin Dose 4 MG; Start 02/21/17 at 23:30 Caspofungin/ Sodium Chloride (Cancidas/NS) 250 ml @ 250 mls/hr Q24H IVPB Last administered on 03/06/17 11:45; Admin Dose 250 MLS/HR; Start 02/23/17 at 11:00 Lorazepam (Ativan) 0.5 mg Q6H PRN IV AGITATION Last administered on 03/05/17 23:14; Admin Dose 0.5 MG; Start 02/27/17 at 16:00 Labetalol HCl 10 mg 10 mg Q2H PRN IV for SBP > 160, hold for HR <65; Start at 20:00 Linezolid (Zyvox 600mg/D5W (Pmx)) 300 ml @ 300 mls/hr Q12 IVPB Last administered on 03/06/17 08:47; Admin Dose 300 MLS/HR; Start 03/02/17 at 21:00 Miscellaneous Information 1 ea NOTE XX ; Start 03/02/17 at 15:00 Glucose (Glutose) 15 gm Q15M PRN PO DECREASED GLUCOSE; Start 03/02/17 at 15:00 Glucose (Glutose) 22.5 gm Q15M PRN PO DECREASED GLUCOSE; Start 03/02/17 at 15: 00 Dextrose (D50w Syringe) 25 ml Q15M PRN IV DECREASED GLUCOSE Last administered on 03/06/17 06:34; Admin Dose 25 ML; Start 03/02/17 at 15:00 Dextrose (D50w Syringe) 50 ml Q15M PRN IV DECREASED GLUCOSE; Start 03/02/17 at 15:00 Glucagon (Glucagen) 1 mg Q15M PRN IM DECREASED GLUCOSE; Start 03/02/17 at 15:00 Glucose (Glutose) 15 gm Q15M PRN BUCCAL DECREASED GLUCOSE; Start 03/02/17 at 15 :00 Insulin Aspart (Novolog Insulin Pen) NOVOLOG *MODERATE* ALGORI... Q4 SC Last administered on 03/05/17 12:04; Admin Dose 2 UNIT; Start 03/02/17 at 17:00 Sodium Hypochlorite (Dakin'S (1/4 Strength)) 1 applic DAILY IRR Last administered on 03/06/17 08:57; Admin Dose 1 APPLIC; Start 03/03/17 at 09:00 Morphine Sulfate (morphine) 2 mg Q12H PRN IV SEVERE PAIN LEVEL 7-10 Last administered on 03/06/17 15:06; Admin Dose 2 MG; Start 03/05/17 at 11:00 Amikacin Sulfate AMIKACIN PER PHARMACY NOTE XX ; Start 03/05/17 at 14:30 Amikacin Sulfate/ Sodium Chloride (Amikacin/NS) 104 ml @ 102 mls/hr Q24H IVPB Last administered on 03/05/17 17:07; Admin Dose 102 MLS/HR; Start 03/05/17 at 16:00 Prednisone (Prednisone) 5 mg BID PO ; Start 03/07/17 at 08:00 Insulin Glargine (Lantus) 15 unit DAILY@08 SC ; Start 03/07/17 at 08:00 ARIK MCKEON MD Mar 06, 2017 15:22
--- NOTE | 2017-03-06 15:30 | DS ---
Date/Time of Note Date/Time of Note DATE: 03/06/17 TIME: 15:29 Discharge Summary Admission/Discharge Info Admit Date/Time Feb 20, 2017 at 19:33 Discharge Date/Time Hx of Present Illness 71 yo female with h/o PMR on chronic prednisone 40 mg, COPD vs asthma, obestiy, who had recent surgery here for perforated appendicitis and then discharged to [facility] 4 days ago, now returns with obtundation/AMS, hypoxia. Patient underwent uncomplciated surgery. DIscharged w creatinine 0.6. Appears to have been prescribed ibuprofen TID and valsartan at discharge. No note of any fevers. She is profoundly altered and unable to provide a history. I knew her from her previous admission here where she had normal cognition. Here found to have renal failure, hyponatremia, hyperkalemia and CT findigns of SBO. ALso profoundly hypoxic I gave her 125 solumedrol IV out of concern for adrenal insufficiency given chronic steroids, and she has perked up somewhat NG tube placed, copious amount of gastric contents removed to suction Patient very sleepy but does not mention any complaints Hospital Course 71 yo female with PMR on chronic steroids, unclear seizure d/o, hypertension, obesity, recently discharged from [facility] following open appendectomy without complications who returned with sepsis, LATRICE and adrenal insufficiency. Found to have disrupted ileocolic anastomosis and intraabdominal infection. She was treated with IV hydrocortisone for adrenal insufficiency. She underwent colon resection, abondimral washout and ileostomy. She remained intubated for numerous days following surgery Blood cultures grew willa and VRE and she was treated with caspofungin, and broad spectrum abx which shoudl be continued. SBO, disrupted colonic anastamosis following surgery for ruptured appendicitis, now s/p resection and ileostomy - Management per Dr Haji - Diet as tolerated Sepsis 2/2 intraabdominal infection, VRE bacteremia and willa glabrata fungemia - Continue abx per ID: linezolid/merrem - Caspofungin for candidemia - Culture cleared Polymyalgia rheumatica and chronic adrenal suppression from prednisone, now iatrogenic adrenal insufficiency - Resume home predisone dose of 40 daily Hypothyroidism: - FT4 low, likely from poor absorption 2/2 ileus. Continue IV LT4 DM: - Sugars borderline low as steroids are tapered, decrease glargine LATRICE is resolved PT/OT Dispo to rehab Home Meds Reported Medications Nitroglycerin (Nitroglycerin) 0.3 Mg Tab.subl, 0.4 MG SL Y for CHEST PAIN take one tab under the tongue every 5 minutes for chest pain. if still in pain after 3 tablets/15 mins call 911 02/11/17 Valsartan (Valsartan) 160 Mg Tablet, 160 MG PO BID, #60 TAB 02/11/17 Amlodipine Besylate* (Amlodipine Besylate*) 5 Mg Tablet, 5 MG PO DAILY, #30 TAB 02/11/17 Levetiracetam* (Keppra*) 250 Mg Tab, 250 MG PO QHS, TAB 02/11/17 Prednisone* (Prednisone*) 20 Mg Tab, 40 MG PO DAILY, TAB 02/11/17 Budesonide-Formoterol Fumarate* (Symbicort*) 160-4.5 Hfa.aer.ad, 2 PUFF INHALATION BID, EACH 08/13/15 Lorazepam* (Ativan*) 2 Mg Tablet, 2 MG PO TID Y for ANXIETY 08/13/15 Levothyroxine Sodium* (Levothyroxine Sodium*) 50 Mcg Tablet, 50 MCG PO AC BREAKFAST, TAB 03/05/15 Primary Care Provider Christofer Stinson Pending Labs Laboratory Tests Test 03/05/17 17:09 03/05/17 21:14 03/06/17 02:47 03/06/17 03:58 Bedside Glucose 82mg/dL (70-220) 80mg/dL (70-220) 82mg/dL (70-220) White Blood Count 11.210^3/ul (4.8-10.8) Red Blood Count 2.7710^6/ul (4.20-5.40) Hemoglobin 8.1g/dl (12.0-16.0) Hematocrit 24.4% (37.0-47.0) Mean Corpuscular Volume 88.1fl (82.0-101.0) Mean Corpuscular Hemoglobin 29.2pg (29.0-33.0) Mean Corpuscular Hemoglobin Concent 33.2g/dl (32.0-37.0) Red Cell Distribution Width 17.2% (11.5-14.5) Platelet Count 52285^3/UL (140-415) Mean Platelet Volume 11.8fl (7.4-10.4) Neutrophils % 72.8% (39.0-77.0) Lymphocytes % 7.8% (15.0-51.0) Monocytes % 3.9% (0.0-11.0) Eosinophils % 0.4% (0.0-7.0) Basophils % 0.3% (0.0-2.0) Nucleated Red Blood Cells % 0.8/100WBC (0.0-0.0) Neutrophils # 8.110^3/ul (1.6-7.5) Lymphocytes # 0.910^3/ul (0.8-2.9) Monocytes # 0.410^3/ul (0.3-0.9) Eosinophils # 0.010^3/ul (0.0-0.5) Basophils # 0.010^3/ul (0.0-0.1) Nucleated Red Blood Cells # 0.110^3/ul (0.0-0.0) Sodium Level 136mmol/L (135-144) Potassium Level 3.7mmol/L (3.5-5.1) Chloride Level 102mmol/L (97-110) Carbon Dioxide Level 32mmol/L (21-31) Anion Gap 6 (8-16) Blood Urea Nitrogen 18mg/dl (7-20) Creatinine 0.58mg/dl (0.44-1.00) Glucose Level 80mg/dl (70-220) Calcium Level 8.4mg/dl (8.4-10.2) Total Bilirubin 0.3mg/dl (0.2-1.3) Direct Bilirubin 0.00mg/dl (0.00-0.20) Indirect Bilirubin 0.3mg/dl (0-1.1) Aspartate Amino Transf (AST/SGOT) 32IU/L (15-46) Alanine Aminotransferase (ALT/SGPT) 40IU/L (13-69) Alkaline Phosphatase 116IU/L (42-121) Total Protein 5.1g/dl (6.1-8.1) Albumin 2.1g/dl (3.3-4.9) Globulin 3.00g/dl (1.3-3.2) Albumin/Globulin Ratio 0.70 Random Amikacin Level Test 03/06/17 05:08 03/06/17 06:13 03/06/17 06:48 03/06/17 08:24 Bedside Glucose 74mg/dL (70-220) 73mg/dL (70-220) 151mg/dL (70-220) 101mg/dL (70-220) Test 03/06/17 11:45 03/06/17 12:34 Lab Scanned Report REFERENCE [id number] Bedside Glucose 73mg/dL (70-220) YAKELIN MCKEON MD Mar 06, 2017 15:30
--- NOTE | 2017-03-06 17:02 | CONS ---
Date/Time of Note Date/Time of Note DATE: 03/06/17 TIME: 16:54 Assessment/Plan Assessment/Plan Chief Complaint/Hosp Course Patient obtunded. History obtained by chart and medical personnel Problems: (1) Iatrogenic adrenal insufficiency Status: Acute Comment: Decrease prednisone to 5mg BID to be given at 8:00 and 16:00. (2) Hypothyroidism Status: Chronic Comment: Should be on replacement therapy. IV LT4 discontinued but never changed to po because TSH suppressed likely do to rapid steady state achieved with IV format Will add po LT4 in a few days. Qualifiers: Hypothyroidism type: acquired Qualified Code: E03.9 - Acquired hypothyroidism (3) Hyperglycemia Status: Acute Comment: Good glycemic control on current insulin regimen Consultation Date/Type/Reason Admit Date/Time Feb 20, 2017 at 19:33 Initial Consult Date 02/20/17 Type of Consultation: Endocrine Reason for Consultation Steroid management Referring Provider: CARL STEPHENS MD 24 HR Interval Summary Free Text/Dictation No new endocrine issues. Exam/Review of Systems Vital Signs Vitals Vital Signs Date Time Temp Pulse Resp B/P Pulse Ox O2 Delivery O2 Flow Rate FiO2 03/06/17 14:12 98.3 118 18 116/56 90 03/05/17 08:20 Nasal Cannula 3.0 Intake and Output 03/05/17 03/05/17 03/06/17 15:00 23:00 07:00 Intake Total 350 ml 500 ml 700 ml Output Total 2400 ml 2500 ml Balance 350 ml -1900 ml -1800 ml Exam Constitutional: alert, oriented Neck: supple Respiratory: clear to auscultation Cardiovascular: regular rate and rhythm Gastrointestinal: soft, tender Extremities: normal pulses Results Labs, vitals and BG reviewed Result Diagram: 03/06/17 0358 03/06/17 0358 Results 24 hrs Laboratory Tests Test 03/05/17 17:09 03/05/17 21:14 03/06/17 02:47 03/06/17 03:58 Bedside Glucose 82 80 82 White Blood Count 11.2 #H Red Blood Count 2.77 L Hemoglobin 8.1 L Hematocrit 24.4 L Mean Corpuscular Volume 88.1 Mean Corpuscular Hemoglobin 29.2 Mean Corpuscular Hemoglobin Concent 33.2 Red Cell Distribution Width 17.2 H Platelet Count 145 Mean Platelet Volume 11.8 H Neutrophils % 72.8 Lymphocytes % 7.8 L Monocytes % 3.9 Eosinophils % 0.4 Basophils % 0.3 Nucleated Red Blood Cells % 0.8 H Neutrophils # 8.1 H Lymphocytes # 0.9 Monocytes # 0.4 Eosinophils # 0.0 Basophils # 0.0 Nucleated Red Blood Cells # 0.1 H Sodium Level 136 Potassium Level 3.7 Chloride Level 102 Carbon Dioxide Level 32 H Anion Gap 6 L Blood Urea Nitrogen 18 Creatinine 0.58 Glucose Level 80 Calcium Level 8.4 Total Bilirubin 0.3 Direct Bilirubin 0.00 Indirect Bilirubin 0.3 Aspartate Amino Transf (AST/SGOT) 32 Alanine Aminotransferase (ALT/SGPT) 40 Alkaline Phosphatase 116 Total Protein 5.1 L Albumin 2.1 L Globulin 3.00 Albumin/Globulin Ratio 0.70 Random Amikacin Level Test 03/06/17 05:08 03/06/17 06:13 03/06/17 06:48 03/06/17 08:24 Bedside Glucose 74 73 151 101 Test 03/06/17 11:45 03/06/17 12:34 Lab Scanned Report REFERENCE LAB Bedside Glucose 73 Medications Medications Current Medications IV Flush (NS 10 ml) 10 ml PRN PRN IV IV PROTOCOL; Start 02/20/17 at 19:30 Enoxaparin Sodium (Lovenox) 40 mg DAILY SC Last administered on 03/06/17 08:55 ; Admin Dose 40 MG; Start 02/22/17 at 09:00 Acetaminophen/ Hydrocodone Bitart ([place] (5/325)) 1 tab Q4H PRN NGT pain Last administered on 03/06/17 12:59; Admin Dose 1 TAB; Start 02/21/17 at 17:00 Ondansetron HCl 4 mg 4 mg Q6H PRN IV NAUSEA Last administered on 02/26/17 20: 12; Admin Dose 4 MG; Start 02/21/17 at 23:30 Caspofungin/ Sodium Chloride (Cancidas/NS) 250 ml @ 250 mls/hr Q24H IVPB Last administered on 03/06/17 11:45; Admin Dose 250 MLS/HR; Start 02/23/17 at 11:00 Lorazepam (Ativan) 0.5 mg Q6H PRN IV AGITATION Last administered on 03/05/17 23:14; Admin Dose 0.5 MG; Start 02/27/17 at 16:00 Labetalol HCl 10 mg 10 mg Q2H PRN IV for SBP > 160, hold for HR <65; Start at 20:00 Linezolid (Zyvox 600mg/D5W (Pmx)) 300 ml @ 300 mls/hr Q12 IVPB Last administered on 03/06/17 08:47; Admin Dose 300 MLS/HR; Start 03/02/17 at 21:00 Miscellaneous Information 1 ea NOTE XX ; Start 03/02/17 at 15:00 Glucose (Glutose) 15 gm Q15M PRN PO DECREASED GLUCOSE; Start 03/02/17 at 15:00 Glucose (Glutose) 22.5 gm Q15M PRN PO DECREASED GLUCOSE; Start 03/02/17 at 15: 00 Dextrose (D50w Syringe) 25 ml Q15M PRN IV DECREASED GLUCOSE Last administered on 03/06/17 06:34; Admin Dose 25 ML; Start 03/02/17 at 15:00 Dextrose (D50w Syringe) 50 ml Q15M PRN IV DECREASED GLUCOSE; Start 03/02/17 at 15:00 Glucagon (Glucagen) 1 mg Q15M PRN IM DECREASED GLUCOSE; Start 03/02/17 at 15:00 Glucose (Glutose) 15 gm Q15M PRN BUCCAL DECREASED GLUCOSE; Start 03/02/17 at 15 :00 Insulin Aspart (Novolog Insulin Pen) NOVOLOG *MODERATE* ALGORI... Q4 SC Last administered on 03/05/17 12:04; Admin Dose 2 UNIT; Start 03/02/17 at 17:00 Sodium Hypochlorite (Dakin'S (1/4 Strength)) 1 applic DAILY IRR Last administered on 03/06/17 08:57; Admin Dose 1 APPLIC; Start 03/03/17 at 09:00 Morphine Sulfate (morphine) 2 mg Q12H PRN IV SEVERE PAIN LEVEL 7-10 Last administered on 03/06/17 15:06; Admin Dose 2 MG; Start 03/05/17 at 11:00 Amikacin Sulfate AMIKACIN PER PHARMACY NOTE XX ; Start 03/05/17 at 14:30 Amikacin Sulfate/ Sodium Chloride (Amikacin/NS) 104 ml @ 102 mls/hr Q24H IVPB Last administered on 10/2/17at 17:07; Admin Dose 102 MLS/HR; Start 03/05/17 at 16:00 Prednisone (Prednisone) 5 mg BID PO ; Start 03/07/17 at 08:00 Insulin Glargine (Lantus) 15 unit DAILY@08 SC ; Start 03/07/17 at 08:00 Furosemide (Lasix) 20 mg DAILY IV ; Start 03/07/17 at 09:00 KAVON DANGELO MD Mar 06, 2017 17:02
--- NOTE | 2017-03-06 17:33 | PN ---
Date/Time of Note Date/Time of Note DATE: 03/06/17 TIME: 17:32 Assessment/Plan Lines/Catheters IV Catheter Type (from Nrs): PICC Line Mojica in Place (from Nrs): Yes Assessment/Plan Assessment/Plan Slight increase in leukocytosis but resolution of left shift and bandemia. Needs mobilization Subjective 24 Hr Interval Summary Postoperative day #13 No new events Exam/Review of Systems Vital Signs Vitals Vital Signs Date Time Temp Pulse Resp B/P Pulse Ox O2 Delivery O2 Flow Rate FiO2 03/06/17 14:12 98.3 118 18 116/56 90 03/05/17 08:20 Nasal Cannula 3.0 Intake and Output 03/05/17 03/05/17 03/06/17 15:00 23:00 07:00 Intake Total 350 ml 500 ml 700 ml Output Total 2400 ml 2500 ml Balance 350 ml -1900 ml -1800 ml Results Result Diagram: 03/06/17 0358 03/06/17 0358 CARL STEPHENS MD Mar 06, 2017 17:33
[2017-03-06] MEDS: AMIKACIN 1,000 MG in SOD CHLORIDE 0.9% 100 ML IVPB SCH (17:52)
[2017-03-06 20:03] VITALS: BP 115/56; RESP 19
[2017-03-06] MEDS: LORAZEPAM 2 MG INJ IV PRN (20:16)
[2017-03-07] MEDS ORDERED: predniSONE 5 MG TAB PO SCH (08:00)
[2017-03-07] MEDS ORDERED: INSULIN GLARGINE [LANtus] 3 ML PEN SC SCH (08:00)
[2017-03-07] MEDS ORDERED: FUROSEMIDE 20 MG INJ IV SCH (09:00)
== END 2017-03-06 22:50 | disposition short-term general hospital (02) | DRG 856 ==
LOC: E/R 13:41 → ICU 19:33 → MS4 03-02 21:52 → PP2 03-05 22:37
PROVIDERS: ADMIT Internal Medicine; ATTEND Internal Medicine
PROC: 5A09357 Assistance with Respiratory Ventilation, Less than 24 Consecutive Hours, Continuous Positive Airway Pressure (ICD-10-PCS; 2017-02-20)
PROC: 4A133R1 Monitoring of Arterial Saturation, Peripheral, Percutaneous Approach (ICD-10-PCS; 2017-02-20)
PROC: 02HV33Z Insertion of Infusion Device into Superior Vena Cava, Percutaneous Approach (ICD-10-PCS; 2017-02-20)
PROC: B54NZZA Ultrasonography of Left Upper Extremity Veins, Guidance (ICD-10-PCS; 2017-02-20)
PROC: 5A1955Z Respiratory Ventilation, Greater than 96 Consecutive Hours (ICD-10-PCS; 2017-02-21)
PROC: 0DBE0ZZ Excision of Large Intestine, Open Approach (ICD-10-PCS; 2017-02-21)
PROC: 0D1B0Z4 Bypass Ileum to Cutaneous, Open Approach (ICD-10-PCS; 2017-02-21)
PROC: 0BH17EZ Insertion of Endotracheal Airway into Trachea, Via Natural or Artificial Opening (ICD-10-PCS; 2017-02-21)
PROC: 0DBB0ZZ Excision of Ileum, Open Approach (ICD-10-PCS; principal; 2017-02-21 19:30)
PROC: 30243N1 Transfusion of Nonautologous Red Blood Cells into Central Vein, Percutaneous Approach (ICD-10-PCS; 2017-02-22)
DX: T81.4XXA Infection following a procedure, initial encounter (principal); B37.7 Candidal sepsis; J96.01 Acute respiratory failure with hypoxia; N17.0 Acute kidney failure with tubular necrosis; R65.21 Severe sepsis with septic shock; A41.81 Sepsis due to Enterococcus; J18.9 Pneumonia, unspecified organism; K65.0 Generalized (acute) peritonitis; G93.41 Metabolic encephalopathy; D69.6 Thrombocytopenia, unspecified; T81.32XA Disruption of internal operation (surgical) wound, not elsewhere classified, initial encounter; N39.0 Urinary tract infection, site not specified; Z68.42 Body mass index [BMI] 45.0-49.9, adult; E87.1 Hypo-osmolality and hyponatremia; K91.89 Other postprocedural complications and disorders of digestive system; E27.3 Drug-induced adrenocortical insufficiency; K91.32 Postprocedural complete intestinal obstruction; K92.2 Gastrointestinal hemorrhage, unspecified; Z90.49 Acquired absence of other specified parts of digestive tract; I10 Essential (primary) hypertension; E03.9 Hypothyroidism, unspecified; K21.9 Gastro-esophageal reflux disease without esophagitis; Z87.11 Personal history of peptic ulcer disease; M35.3 Polymyalgia rheumatica; E87.5 Hyperkalemia; D64.9 Anemia, unspecified; R33.9 Retention of urine, unspecified; T39.395A Adverse effect of other nonsteroidal anti-inflammatory drugs [NSAID], initial encounter; T46.5X5A Adverse effect of other antihypertensive drugs, initial encounter; N14.1 Nephropathy induced by other drugs, medicaments and biological substances; G40.909 Epilepsy, unspecified, not intractable, without status epilepticus; E66.01 Morbid (severe) obesity due to excess calories; E11.65 Type 2 diabetes mellitus with hyperglycemia; Z79.52 Long term (current) use of systemic steroids; E87.6 Hypokalemia; R60.1 Generalized edema; E88.09 Other disorders of plasma-protein metabolism, not elsewhere classified; Y83.2 Surgical operation with anastomosis, bypass or graft as the cause of abnormal reaction of the patient, or of later complication, without mention of misadventure at the time of the procedure
CPT/HCPCS: 36415; 36430; 36569; 36600; 70450; 71010; 74176; 76937; 80048; 80053; 80150; 81001; 82607; 82728; 82803; 82962; 83540; 83605; 83735; 83880; 83935; 84100; 84134; 84155; 84300; 84439; 84443; 84484; 85025; 85378; 85610; 85730; 86850; 86900; 86901; 86920; 87040; 87070; 87081; 87086; 88307; 92526; 92610; 93005; 93306; 93970; 94002; 94003; 94644; 94660; 94770; 96361; 96365; 96366; 96375; 96376; 97110; 97162; 97530; J1940; C1769; J0278; J1610; J1644; J1650; J1720; J1815; J1885; J2060; J2185; J2250; J2270; J2370; J2405; J2543; J2765; J2795; J2997; J3010; J3370; J3475; J3480; J7030; J7040; J7042; J7050; J7060; J7070; J7512; J7999; P9016; P9047

== ENCOUNTER 2017-11-25 23:46 | Inpatient (IN) | END 2017-12-06 20:20 | disposition home health service (06) | DRG 856 ==

== ENCOUNTER 2018-03-01 00:17 | Inpatient (IN) | END 2018-03-04 17:52 | disposition home or self-care (01) | DRG 871 ==

== ENCOUNTER 2018-04-06 08:28 | Emergency (ER) | END 2018-04-06 17:30 | disposition short-term general hospital (02) ==